=== PATIENT | female | born 1995 | race Caucasian/White ===

== ENCOUNTER 2022-10-09 15:46 | Outpatient (OUT) | payer BC, SELFPAY ==
[2022-10-09 16:46] LABS: Thyroid Stimulating Hormone 0.944 uIU/mL (0.358-3.740)
== END 2022-10-09 15:47 ==
PROVIDERS: PCP Obstetrics & Gynecology; Visit Provider Obstetrics & Gynecology
DX: R79.89 Other specified abnormal findings of blood chemistry (principal)
CPT/HCPCS: 36415; 84443

== ENCOUNTER 2022-11-10 21:33 | Outpatient (OUT) | payer BC, SELFPAY ==
[2022-11-13 18:07] LABS: Age Gdln ACOG Testing Note (.); IGP, rfx Aptima HPV ASCU Note (.)
== END 2022-11-10 21:34 | disposition home or self-care (01) ==
LOC: LAB 21:35
PROVIDERS: PCP Obstetrics & Gynecology; Visit Provider Obstetrics & Gynecology
DX: Z12.4 Encounter for screening for malignant neoplasm of cervix (principal); Z11.51 Encounter for screening for human papillomavirus (HPV)
CPT/HCPCS: G0145

== ENCOUNTER 2022-12-02 13:02 | Outpatient (OUT) | payer BC, SELFPAY ==
--- NOTE | 2022-12-02 | US_ITS ---
[address] [address] Patient Name: WESLEY LAGUNAS MRN: [id number] date: 1995 Sex: F Assigned Patient Location: US Current Patient Location: Accession/Order Number: [id number] Exam Date: 12/02/2022 13:05 Report Date: 12/02/2022 17:55 At the request of: NAS WHALEN Procedure: US OB anatomy EXAMINATION: US OB anatomy HISTORY: ANATOMY COMPARISON: No relevant comparison available. TECHNIQUE: Transabdominal sonographic examination was performed for obstetrical and evaluation. FINDINGS: Number: 1 Heart Rate: 143.0 bpm H.B. /min Amniotic Fluid Volume: Subjectively normal presentation: Cephalic Placental Location: Anterior. Placental edge 5.5 cm from the cervical os. Grade 0. Cervix Length: 3.7 cm, closed Normal anatomy: Lateral ventricles, cerebellum, posterior fossa, nose, lips, orbits, four-chamber heart, RVOT, LVOT, diaphragm, stomach, kidneys, abdominal cord insertion, bladder, umbilical cord arteries, three-vessel cord, spine, extremities BIOMETRY: BPD: 5.2 cm 21 weeks 5 days , 80% HC: 19.5 cm 21 weeks 5 days, 78% AC: 16.6 cm 21 weeks 5 days, 70% FL: 3.8 cm 22 weeks 2 days, 86% EFW:461.1 grams; 1 lb. 0 oz., 93% FL/AC: 23.1 FL/BPD: 74.3 HC/AC: 1.2 GESTATIONAL AGE: Age by EDC: 20 weeks 6 days KYRA by EDC: 04/15/2023 Age by current US: 21 weeks 4 days KYRA by current US: 04/10/2023 US/US OB anatomy IMPRESSION: Normal anatomy scan *Reference: [facility] Practice Guideline for the performance of Obstetric Ultrasound Examinations, February 01, 2007. Electronically authenticated by: DREAD SOLIS Date: 12/02/2022 17:55
--- NOTE | 2022-12-02 | US_ITS ---
[address] [address] Patient Name: WESLEY LAGUNAS MRN: [id number] date: 1995 Sex: F Assigned Patient Location: US Current Patient Location: Accession/Order Number: [id number] Exam Date: 12/02/2022 13:05 Report Date: 12/02/2022 17:55 At the request of: NAS WHALEN Procedure: US OB transvaginal EXAMINATION: US OB anatomy HISTORY: ANATOMY COMPARISON: No relevant comparison available. TECHNIQUE: Transabdominal sonographic examination was performed for obstetrical and evaluation. FINDINGS: Number: 1 Heart Rate: 143.0 bpm H.B. /min Amniotic Fluid Volume: Subjectively normal presentation: Cephalic Placental Location: Anterior. Placental edge 5.5 cm from the cervical os. Grade 0. Cervix Length: 3.7 cm, closed Normal anatomy: Lateral ventricles, cerebellum, posterior fossa, nose, lips, orbits, four-chamber heart, RVOT, LVOT, diaphragm, stomach, kidneys, abdominal cord insertion, bladder, umbilical cord arteries, three-vessel cord, spine, extremities BIOMETRY: BPD: 5.2 cm 21 weeks 5 days , 80% HC: 19.5 cm 21 weeks 5 days, 78% AC: 16.6 cm 21 weeks 5 days, 70% FL: 3.8 cm 22 weeks 2 days, 86% EFW:461.1 grams; 1 lb. 0 oz., 93% FL/AC: 23.1 FL/BPD: 74.3 HC/AC: 1.2 GESTATIONAL AGE: Age by EDC: 20 weeks 6 days KYRA by EDC: 04/15/2023 Age by current US: 21 weeks 4 days KYRA by current US: 04/10/2023 US/US OB transvaginal IMPRESSION: Normal anatomy scan *Reference: [facility] Practice Guideline for the performance of Obstetric Ultrasound Examinations, February 01, 2007. Electronically authenticated by: DREAD SOLIS Date: 12/02/2022 17:55
[2022-12-05 00:06] LABS: AFP Value 86.7 ng/mL (.); Gest. Age on Collection Date 20.9 weeks (.); Gestat. Age Based On Ultrasound (.); Insulin Dep Diabetes No (.); Maternal Age At EDD 26.4 yr (.); OSBR Risk 1 IN See interpretation. (.); Results Report (.)
== END 2022-12-02 13:03 | disposition home or self-care (01) ==
LOC: US 13:02
PROVIDERS: PCP Obstetrics & Gynecology; Visit Provider Obstetrics & Gynecology
DX: Z34.92 Encounter for supervision of normal pregnancy, unspecified, second trimester (principal)
CPT/HCPCS: 36415; 76805; 76817; 82105

== ENCOUNTER 2023-01-02 10:02 | Outpatient (OUT) | payer BC, SELFPAY ==
[2023-01-02 08:51] LABS: Basophils Percent Auto 0.5 % (0.2-2.0); Eosinophils Absolute Auto 0.2 10^3/uL (0.0-0.7); Hematocrit 34.9 % (36.0-48.0); Hemoglobin 11.5 g/dL (12.0-16.0); Immature Granulocytes Abs Auto 0.11 10^3/uL (0.00-0.03); Immature Granulocytes Pct Auto 1.3 % (0.0-0.5); Lymphocytes Absolute Auto 1.6 10^3/uL (1.2-3.8); Lymphocytes Percent Auto 19.3 % (20.5-60.0); Mean Corpuscular Hemoglobin 29.6 pg (26.7-34.0); Mean Corpuscular Volume 89.9 fL (81.0-99.0); Mean Platelet Volume 10.6 fL (9.5-13.5); Monocytes Absolute Auto 0.6 10^3/uL (0.3-0.8); Monocytes Percent Auto 6.8 % (1.7-12.0); Neutrophils Absolute Auto 5.7 10^3/uL (1.4-6.5); Neutrophils Percent Auto 70.1 % (43.0-75.0); Platelet Count 171 10^3/uL (150-450); Red Blood Count 3.88 10^6/uL (4.20-5.40); Red Cell Distribution Width 12.7 % (11.0-15.0); White Blood Count 8.2 10^3/uL (4.0-11.0)
[2023-01-02 10:11] LABS: Glucose 1 Hour 104 mg/dL
== END 2023-01-02 10:03 | disposition home or self-care (01) ==
LOC: LAB 01-09 10:02
PROVIDERS: PCP Obstetrics & Gynecology; Visit Provider Physician Assistant
DX: Z34.90 Encounter for supervision of normal pregnancy, unspecified, unspecified trimester (principal)
CPT/HCPCS: 36415; 82950; 85025

== ENCOUNTER 2023-02-13 07:49 | Outpatient (OUT) | payer BC, SELFPAY ==
--- NOTE | 2023-02-13 | US_ITS ---
[address] [address] Patient Name: WESLEY LAGUNAS MRN: [id number] date: 1995 Sex: F Assigned Patient Location: US Current Patient Location: Accession/Order Number: [id number] Exam Date: 02/13/2023 08:02 Report Date: 02/13/2023 15:07 At the request of: NAS WHALEN Procedure: US OB growth EXAMINATION: US OB growth HISTORY: SIZE INCONSISTENT WITH DATES O26.849 COMPARISON: No relevant comparison available. FINDINGS: Heart Rate: 161.7 bpm Number: 1.0 Position: BREECH Amniotic Fluid Volume: 11.3 cm Maximum Vertical Pocket: 3.8 cm BIOMETRY: BPD: 7.8 cm cm; 31 weeks 2 days; 40% HC: 30.9 cmcm; 34 weeks 3 days; 91% AC: 26.1 cm cm; 30 weeks 2 days; 18% FL: 5.9 cm cm; 31 weeks 0 days; 27% EFW: 1669.6 grams; 27% FL/AC: 22.7 FL/BPD: 76.1 HC/AC: 1.2 GESTATIONAL AGE: Age by EDC: 31 weeks 2 days KYRA by EDC: 04/15/2023 Age by US: 31 weeks 5 days KYRA by US: 04/12/2023 US/US OB growth IMPRESSION: 1. Single live intrauterine with growth detailed above. Electronically authenticated by: JANIE BABCOCK Date: 02/13/2023 15:07
== END 2023-02-13 07:50 | disposition home or self-care (01) ==
LOC: US 07:52
PROVIDERS: Visit Provider Obstetrics & Gynecology
DX: O26.843 Uterine size-date discrepancy, third trimester (principal); Z3A.31 31 weeks gestation of pregnancy
CPT/HCPCS: 76816

== ENCOUNTER 2023-03-19 19:05 | Outpatient (REF) | payer BC, SELFPAY | END 2023-03-19 19:06 | disposition home or self-care (01) | LOC: LAB 19:05 | PROVIDERS: Visit Provider Obstetrics & Gynecology | DX: Z34.93 Encounter for supervision of normal pregnancy, unspecified, third trimester (principal) | CPT/HCPCS: 87081 ==

== ENCOUNTER 2023-04-07 20:28 | Inpatient (IN) | payer BC, SELFPAY ==
[2023-04-07] VITALS (9 sets, daily range): BP systolic 106–122; BP diastolic 71–79; PULSE 96–109; RESP 17–24; TEMP 36.3–36.8; O2SAT 97–100
--- NOTE | 2023-04-07 20:48 | US_ITS ---
[address] [address] Patient Name: WESLEY LAGUNAS MRN: [id number] date: 1995 Sex: F Assigned Patient Location: [facility] Current Patient Location: [facility] Accession/Order Number: [id number] Exam Date: 04/07/2023 21:15 Report Date: 04/07/2023 21:58 At the request of: DAXA TURNER Procedure: US OB limited EXAM: US OB limited HISTORY: to determine position COMPARISON: None. TECHNIQUE: Limited OB ultrasound is performed for Evaluation of position. FINDINGS: Single live and active fetus is seen with breech position and longitudinal lie. heart rate is 134 bpm. US/US OB limited IMPRESSION: Single live and active fetus is seen with breech position. heart rate is 134 bpm. Electronically authenticated by: BRYSON DOE Date: 04/07/2023 21:58
[2023-04-07] MEDS: FAMOTIDINE/PF 20 MG/2 ML VIAL IV (22:25)
[2023-04-07] MEDS: CITRIC ACID/SODIUM CITRATE 30 ML SOLUTION ORACIT SHOHL'S SOLN PO (22:25)
[2023-04-07] MEDS: 0.9 % SODIUM CHLORIDE 1,000 ML 1000 ML IV (22:27)
[2023-04-07] MEDS: METOCLOPRAMIDE HCL 10 MG/2 ML VIAL IVP (22:27)
[2023-04-07 22:29] LABS: Basophils Percent Auto 0.3 % (0.2-2.0); Eosinophils Absolute Auto 0.1 10^3/uL (0.0-0.7); Hematocrit 34.9 % (36.0-48.0); Hemoglobin 11.7 g/dL (12.0-16.0); Immature Granulocytes Abs Auto 0.13 10^3/uL (0.00-0.03); Immature Granulocytes Pct Auto 1.3 % (0.0-0.5); Lymphocytes Percent Auto 19.6 % (20.5-60.0); Mean Corpuscular HGB Conc 33.5 g/dL (29.9-35.2); Mean Corpuscular Volume 86.6 fL (81.0-99.0); Mean Platelet Volume 11.9 fL (9.5-13.5); Monocytes Absolute Auto 0.6 10^3/uL (0.3-0.8); Monocytes Percent Auto 5.8 % (1.7-12.0); Neutrophils Absolute Auto 7.2 10^3/uL (1.4-6.5); Platelet Count 173 10^3/uL (150-450); Red Blood Count 4.03 10^6/uL (4.20-5.40); Red Cell Distribution Width 13.6 % (11.0-15.0)
[2023-04-07] MEDS: CEFAZOLIN SODIUM/DEXTROSE,ISO 1 GM/50 ML IV.SOLN IV (22:31)
[2023-04-07 22:37] LABS: Bilirubin Urine NEGATIVE (NEGATIVE); Blood Urine NEGATIVE (NEGATIVE); Clarity Urine CLEAR (CLEAR); Color Urine LT. YELLOW (YELLOW); Glucose Urine UA NEGATIVE (NEGATIVE); Ketones Urine NEGATIVE (NEGATIVE); Leukocyte Esterase Urine SMALL (NEGATIVE); Nitrite Urine NEGATIVE (NEGATIVE); Protein Urine NEGATIVE (NEG/TRACE); Specific Gravity Urine 1.015 (1.005-1.025); Urobilinogen Urine 0.2 EU/dL (0.2-1.0)
[2023-04-07 22:45] LABS: Bacteria Urine SMALL #/HPF (NONE SEEN); Mucus Urine TRACE (NONE SEEN); Squamous Epithelial Cell Urine MODERATE #/LPF (NONE/RARE)
[2023-04-07 22:46] LABS: Amorphous Sediment Urine RARE; Cast Seen? NONE SEEN #/LPF (NONE SEEN); Crystals Seen? Seen #/HPF (None Seen); RBC Urine 0-2 #/HPF (0-2)
[2023-04-07 22:47] LABS: Amphetamine Screen Urine NEGATIVE (NEGATIVE); Barbiturates Screen Urine NEGATIVE (NEGATIVE); Benzodiazepines Screen Urine NEGATIVE (NEGATIVE); Buprenorphine Screen Urine NEGATIVE (NEGATIVE); Cannabinoid Screen Urine NEGATIVE (NEGATIVE); Cocaine Screen Urine NEGATIVE (NEGATIVE); Methadone Screen Urine NEGATIVE (NEGATIVE); Methamphetamines Screen Urine NEGATIVE (NEGATIVE); Opiate Screen Urine NEGATIVE (NEGATIVE); Oxycodone Screen Urine NEGATIVE (NEGATIVE); Phencyclidine Screen Urine NEGATIVE (NEGATIVE); Tricyclic Antidepressant Urine NEGATIVE (NEGATIVE)
--- NOTE | 2023-04-07 23:28 | P.ON_ITS ---
Brief Operative Note Date of procedure: 04/07/23 Pre-op diagnosis: iup at 39wks, breech presentation Post-op diagnosis: same as pre-op Procedure: NAME OF PROCEDURE: [ section ] PROCEDURE: Patient was taken back to the Operating Room where she was given a spinal anesthesia with Duramorph without difficulty. She was prepped and draped in the normal sterile fashion. A Pfannenstiel skin incision was then made 2 cm above the symphysis pubis and carried down to underlying rectus fascia using a Bovie. The fascia was incised in the midline and extended laterally using Kincaid scissors. Two Artie clamps were placed on the superior aspect of the fascia and dissected off the underlying rectus muscles. The same was performed on the inferior aspect as well. The muscles were then in the midline. Peritoneum was identified and entered bluntly. The peritoneum was then extended superiorly and inferiorly with good visualization of the bladder. The bladder blade was inserted. A low transverse incision was made on the patient's uterus and extended laterally digitally. The was then delivered atraumatically after the bladder blade was removed in the edilberto breech position. The cord was clamped and cut. Cord blood was obtained. The was handed off to awaiting team. The patient's placenta was spontaneously delivered. The uterus was then exteriorized. The uterus was cleared of all clots and debris. The bladder blade was reinserted. The patient's uterine incision was closed using #0 Vicryl in a running lock fashion. Excellent hemostasis was assured. The uterus was then returned to the patient's abdomen. The patient's abdomen was copiously irrigated using warm saline. Peritoneal gutters were cleared of all clots and debris. Again excellent hemostasis was assured. The patient's peritoneum was cl osed using 3-0 Vicryl in a running fashion. The patient's fascia was closed using #0 Vicryl in a running fashion. The patient's skin was closed using 4-0 Vicryl subcuticularly. The patient tolerated the procedure well. Sponge, lap, and needle counts were correct x2. The patient was taken to the Recovery Room in stable condition. Anesthesia: spinal Surgeon: Claudio Alanis Registered Radiation Therapist: So Hull Estimated blood loss (mL): 600 Pathology: none sent Condition: stable Disposition: PACU
--- NOTE | 2023-04-07 23:29 | PM.OBPRCCS ---
Procedure Pre-op/Post-op diagnoses: Pre-Op/Post-Op Diagnoses Operation Date: 04/07/23 22:30 <No data on this case meets the specified criteria> Procedure: Procedures Operation Date: 04/07/23 22:30 Actual Procedure Side Surgeon p with delivery of viable baby boy Not Applicable Claudio Alanis DO Storage Administrator: So Hull Estimated blood loss (mL): 600 Disposition: PACU Anesthesia type: Spinal
[2023-04-07] MEDS: BUPIVACAINE LIPOSOME/PF 266 MG/13.3 ML VIAL INJ (23:41)
[2023-04-07] MEDS: BUPIVACAINE HCL 0.25% PF 25 MG/10 ML VIAL INJ (23:41)
[2023-04-08] VITALS (48 sets, daily range): BP systolic 100–131; BP diastolic 49–80; PULSE 61–117; RESP 11–33; TEMP 36.3–37.2; O2SAT 96–97
[2023-04-08] MEDS: OXYTOCIN/0.9 % SODIUM CHLORIDE 20 UNITS/1,000 ML PLAST..BAG 200 UNIT IV (00:50)
[2023-04-08] MEDS: CEFAZOLIN SODIUM/DEXTROSE,ISO 1 GM/50 ML IV.SOLN IV (04:51)
[2023-04-08] MEDS: ACETAMINOPHEN 500 MG TABLET 1000 MG PO ×2 (04:51→18:32)
[2023-04-08 05:36] LABS: Basophils Percent Auto 0.2 % (0.2-2.0); Eosinophils Percent Auto 0.1 % (0.9-7.0); Hematocrit 27.4 % (36.0-48.0); Hemoglobin 8.9 g/dL (12.0-16.0); Immature Granulocytes Pct Auto 0.6 % (0.0-0.5); Lymphocytes Absolute Auto 1.4 10^3/uL (1.2-3.8); Lymphocytes Percent Auto 8.3 % (20.5-60.0); Mean Corpuscular HGB Conc 32.5 g/dL (29.9-35.2); Mean Corpuscular Hemoglobin 28.7 pg (26.7-34.0); Mean Corpuscular Volume 88.4 fL (81.0-99.0); Mean Platelet Volume 11.3 fL (9.5-13.5); Monocytes Absolute Auto 0.7 10^3/uL (0.3-0.8); Neutrophils Percent Auto 86.8 % (43.0-75.0); Platelet Count 151 10^3/uL (150-450); Red Cell Distribution Width 13.5 % (11.0-15.0); White Blood Count 17.3 10^3/uL (4.0-11.0)
[2023-04-08] MEDS: KETOROLAC TROMETHAMINE 30 MG/ML VIAL IVP ×3 (07:39→23:53)
--- NOTE | 2023-04-08 11:09 | PM.OBPN ---
OB - PN: Subj Subjective Patient comments: no complaints and pain well controlled [place] status: doing well Exam Constitutional Vital Signs, click to edit/add: Last Vital Signs Temp 98.9 F 04/08/23 03:20 Pulse 111 H 04/08/23 04:10 Resp 15 04/08/23 04:10 BP 110/62 04/08/23 04:00 Pulse Ox 97 04/08/23 04:10 O2 Del Method Room Air 04/08/23 03:20 Documenting provider has reviewed patient's vital signs: yes Common normals: no apparent distress Respiratory Common normals: normal respiratory effort and clear to auscultation bilaterally Cardio Common normals: regular rate and regular rhythm GI Common normals: Normal to inspection, nondistended, normoactive bowel sounds present Extremity Common normals: no calf tenderness Results Labs Labs: Short CBC 04/07/23 04/08/23 Range/Units 21:40 05:29 WBC 10.0 17.3 H (4.0-11.0) 10^3/uL Hgb 11.7 L 8.9 L (12.0-16.0) g/dL Hct 34.9 L 27.4 L (36.0-48.0) % Plt Count 173 151 (150-450) 10^3/uL Urine 04/07/23 Range/Units 20:40 Urine Color Lt. yellow (YELLOW) Urine Clarity Clear (CLEAR) Urine pH 7.0 (5.0-9.0) Ur Specific [place] 1.015 (1.005-1.025) Urine Protein Negative (NEG/TRACE) mg/dL Urine Glucose (UA) Negative (NEGATIVE) mg/dL OB - PN: A/P Plan - day: 1 Plan: routine postop care Time Spent with Patient Time: Total time spent is greater than 50% in coordination of care (as documented) at patient's floor/unit and/or counseling patient: Total time spent with greater than 50% in coordination of care (as documented) at patient's floor/unit and/or counseling patient: less than 15 minutes
[2023-04-08] MEDS: DOCUSATE SODIUM 100 MG CAPSULE PO (23:53)
[2023-04-09] VITALS (7 sets, daily range): BP systolic 104–130; BP diastolic 56–71; PULSE 97–115; RESP 16–18; TEMP 36.1–36.9
[2023-04-09] MEDS: ACETAMINOPHEN 500 MG TABLET 1000 MG PO ×2 (03:51→16:27)
--- NOTE | 2023-04-09 08:06 | P.OBPN_ITS ---
OB - PN: Subj Subjective Patient comments: no complaints [place] status: doing well and well ( and pumping ) Exam Constitutional Vital Signs, click to edit/add: Last Vital Signs Temp 98.4 F 04/09/23 00:00 Pulse 97 H 04/09/23 00:00 Resp 16 04/09/23 00:00 BP 108/57 04/09/23 00:00 Pulse Ox 97 04/08/23 04:10 O2 Del Method Room Air 04/09/23 00:00 Documenting provider has reviewed patient's vital signs: yes Common normals: no apparent distress General appearance: cooperative and comfortable Orientation/consciousness: Yes awake, Yes oriented to person, Yes oriented to place and Yes oriented to time HENMT Common normals: normocephalic Eye Common normals: EOMs intact bilaterally Neck & C-Spine Common normals: full ROM Lymph Lymphatic: no lymphadenopathy noted Chest Common normals: inspection of chest normal Respiratory Common normals: normal respiratory effort Effort & inspection: able to speak in complete sentences Auscultation: clear to auscultation bilaterally Cardio Common normals: regular rate and regular rhythm Rate: regular rate Rhythm: regular rhythm GI Common normals: Normal to inspection, nondistended, normoactive bowel sounds present Common normals: no CVA tenderness Back & Pelvis Common normals: no CVA tenderness Extremity Common normals: normal to inspection Neuro Common normals: oriented x3 Sensorium/orientation: awake, alert, oriented to person, oriented to place and oriented to time Psych Common normals: mental status grossly normal, thought process normal and cooperative OB - PN: A/P Plan - day: 2 Plan: routine postop care Time Spent with Patient Time: Total time spent is greater than 50% in coordination of care (as documented) at patient's floor/unit and/or counseling patient: Total time spent with greater than 50% in coordination of care (as documented) at patient's floor/unit and/or counseling patient: less than 15 minutes
[2023-04-09] MEDS: DOCUSATE SODIUM 100 MG CAPSULE PO ×2 (10:09→21:27)
[2023-04-09] MEDS: KETOROLAC TROMETHAMINE 30 MG/ML VIAL IVP ×2 (10:09→21:27)
--- NOTE | 2023-04-09 12:12 | W.PC.ACHO ---
Registration Status: ADM IN Primary Language: [place] Preferred Language: [place] Active Medications Generic Name Dose Route Start Last Admin Trade Name Freq PRN Reason Stop Dose Admin Acetaminophen 1,000 mg 04/08/23 04:45 04/09/23 03:51 Acetaminophen 500 Mg Tablet PO 1,000 mg Q6H CHELI Administration Al Hydroxide/Mg Hydroxide 2,400 mg 04/07/23 23:31 Magnesium Hydroxide 2,400 Mg/10 Ml Oral.Susp PO Q6H PRN Dyspepsia Docusate Sodium 100 mg 04/08/23 09:00 04/09/23 10:09 Docusate Sodium 100 Mg Capsule PO 100 mg BID CHELI Administration Ketorolac Tromethamine 30 mg 04/08/23 07:30 04/09/23 10:09 Ketorolac Tromethamine 30 Mg/Ml Vial IVP 30 mg Q8H CHELI Administration Ondansetron HCl 4 mg 04/07/23 23:31 Ondansetron Pf 4 Mg/2 Ml Vial IV Q6H PRN Nausea And Vomiting Ondansetron HCl 4 mg 04/07/23 23:31 Ondansetron 4 Mg Rapdis Tablet PO Q6H PRN Nausea And Vomiting Oxycodone HCl 5 mg 04/08/23 00:46 Oxycodone Hcl 5 Mg Tablet PO Q4H PRN MODERATE Pain Senna 17.2 mg 04/07/23 20:00 Sennosides 8.6 Mg Tablet PO QHS PRN Constipation Simethicone 80 mg 04/07/23 23:31 Simethicone 80 Mg Tab.Chew PO QID PRN Abdominal Distention Respiratory Oxygen Delivery Method Room Air Oxygen Delivery Method Room Air Oxygen Delivery Method Room Air Oxygen Delivery Method Room Air Cardiology Heart Sounds Strong,Regular Heart Sounds Strong,Regular Heart Sounds Strong,Regular Bowels Bowel Pattern No Bowel Movement Bowel Pattern No Bowel Movement Renal Bladder Pattern Continent Bladder Pattern Continent Bladder Pattern Continent
--- NOTE | 2023-04-10 07:12 | W.PC.ACHO ---
Registration Status: ADM IN Primary Language: [place] Preferred Language: [place] Active Medications Generic Name Dose Route Start Last Admin Trade Name Freq PRN Reason Stop Dose Admin Acetaminophen 1,000 mg 04/08/23 04:45 04/09/23 16:27 Acetaminophen 500 Mg Tablet PO 1,000 mg Q6H CHELI Administration Al Hydroxide/Mg Hydroxide 2,400 mg 04/07/23 23:31 Magnesium Hydroxide 2,400 Mg/10 Ml Oral.Susp PO Q6H PRN Dyspepsia Docusate Sodium 100 mg 04/08/23 09:00 04/09/23 21:27 Docusate Sodium 100 Mg Capsule PO 100 mg BID CHELI Administration Ketorolac Tromethamine 30 mg 04/08/23 07:30 04/10/23 03:56 Ketorolac Tromethamine 30 Mg/Ml Vial IVP Not Given Q8H [facility] Ondansetron HCl 4 mg 04/07/23 23:31 Ondansetron Pf 4 Mg/2 Ml Vial IV Q6H PRN Nausea And Vomiting Ondansetron HCl 4 mg 04/07/23 23:31 Ondansetron 4 Mg Rapdis Tablet PO Q6H PRN Nausea And Vomiting Oxycodone HCl 5 mg 04/08/23 00:46 Oxycodone Hcl 5 Mg Tablet PO Q4H PRN MODERATE Pain Senna 17.2 mg 04/07/23 20:00 Sennosides 8.6 Mg Tablet PO QHS PRN Constipation Simethicone 80 mg 04/07/23 23:31 Simethicone 80 Mg Tab.Chew PO QID PRN Abdominal Distention Respiratory Oxygen Delivery Method Room Air Cardiology Heart Sounds Strong,Regular Heart Sounds Regular Bowels Bowel Pattern No Bowel Movement Renal Bladder Pattern Continent Bladder Pattern Continent
[2023-04-10 07:43] VITALS: BP 123/66; PULSE 99
[2023-04-10 07:50] VITALS: RESP 16
[2023-04-10 07:52] VITALS: TEMP 36.8
--- NOTE | 2023-04-10 08:47 | PC.NURSE ---
LC into room. Discusses use of [employer] Bridge to aid in making feedings more streamlined. Parents eager to try the Bridge for feedings. Review plan for feedings with continued pumping, offering the breast without shield and using shield as needed for effective feeds. Parents are very good with baby and states are able to continue efforts to breastfeed at home. Encouraged to call for next feeding so can learn to use new device. Verbalized understanding.
[2023-04-10] MEDS: DOCUSATE SODIUM 100 MG CAPSULE PO (09:00)
[2023-04-10] MEDS: IBUPROFEN 400 MG TABLET 800 MG PO (09:00)
--- NOTE | 2023-04-10 09:49 | PM.OBPN ---
OB - PN: Subj Subjective Patient comments: no complaints and pain well controlled [place] status: doing well Exam Constitutional Vital Signs, click to edit/add: Last Vital Signs Temp 98.3 F 04/10/23 07:52 Pulse 99 H 04/10/23 07:43 Resp 16 04/10/23 07:50 BP 123/66 04/10/23 07:43 Pulse Ox 97 04/08/23 04:10 O2 Del Method Room Air 04/09/23 23:04 Documenting provider has reviewed patient's vital signs: yes Common normals: no apparent distress Respiratory Common normals: normal respiratory effort and clear to auscultation bilaterally Cardio Common normals: regular rate and regular rhythm GI Common normals: Normal to inspection, nondistended, normoactive bowel sounds present Extremity Common normals: no clubbing, cyanosis or edema and no calf tenderness OB - PN: A/P Plan - day: 3 Plan: routine postop care, discharge home and follow up 6 weeks Time Spent with Patient Time: Total time spent is greater than 50% in coordination of care (as documented) at patient's floor/unit and/or counseling patient: Total time spent with greater than 50% in coordination of care (as documented) at patient's floor/unit and/or counseling patient: less than 15 minutes
--- NOTE | 2023-04-10 11:20 | PC.NURSE ---
Plan for feeds made. Follow up visit scheduled with LC, supportive handouts given with discussions. Parents feel confident in ability to continue at home.
[2023-04-10] MEDS: FLU VACC QS 23-24(6MS UP)CEL/PF 60 MCG/0.5 ML SYRINGE IM (11:48)
[2023-04-10] MEDS: ADACEL DIPH,PERTUSS(ACELL),TET VAC/PF 0.5 ML ADULT SYRINGE IM (11:51)
--- NOTE | 2023-04-17 | DS_ITS ---
DISCHARGE DATE: 04/17/2023 PRIMARY DIAGNOSES: 1. Intrauterine at 39 weeks. 2. Breech presentation. PROCEDURE: section. HOSPITAL COURSE: As expected. Please see chart for full details. LABORATORY DATA: Please see chart. COMPLICATIONS: None. DISCHARGE CONDITION: Stable. CONSULTATION: Anesthesia. DISCHARGE INSTRUCTIONS: 1. Diet: Regular. 2. Medications: a. Percocet 5/325 one to two p.o. every 4-6 hours p.r.n. pain. b. Motrin 800 one p.o. every 8 hours p.r.n. pain. 3. Followup in one week. Restrictions: Pelvic rest for 6 weeks. No heavy lifting. May drive when pain free and no longer on narcotics. MTDD
== END 2023-04-10 12:20 | disposition home or self-care (01) | DRG 788 ==
PROVIDERS: Admitting Provider Obstetrics & Gynecology; Visit Provider Obstetrics & Gynecology
PROC: 10D00Z1 Extraction of Products of Conception, Low, Open Approach (ICD-10-PCS; CPT 59514; principal; 2023-04-07 22:30)
DX: O32.1XX0 Maternal care for breech presentation, not applicable or unspecified (principal); Z3A.39 39 weeks gestation of pregnancy; Z37.0 Single live birth; Z82.5 Family history of asthma and other chronic lower respiratory diseases; Z83.3 Family history of diabetes mellitus; Z82.49 Family history of ischemic heart disease and other diseases of the circulatory system; Z82.61 Family history of arthritis; Z80.8 Family history of malignant neoplasm of other organs or systems
CPT/HCPCS: 36415; 51701; 51702; 64486; 76815; 80307; 81001; 85025; 86850; 86900; 86901; 90471; 90674; 90715; 96374; 96375; 96376; G0008

== ENCOUNTER 2023-04-14 08:21 | Outpatient (OUT) | payer BC, SELFPAY ==
--- NOTE | 2023-04-14 17:30 | PC.NURSE ---
Radha, and 7 day old Candelaria arrive for follow up. Parents admit to feeling tired and a bit overwhelmed Radha states I had a meltdown on the way here [place] and relates just felt tired, one more appointment, fresh C/S, and baby will need to be fed while they were away from home. Support and encouragement offered. Radha doing well, pain managed with Motrin only, states able to rest in between feeds and very supportive and helpful. Denies concerns or complaints with self. Assessment WNL, VSS, incision clear without drainage or redness. No edema of extremities. Bleeding minimal and light. Milk in and engorgement subsided. Breasts full and soft now. Pumping after efforts at the breast to ensure supply as Bari still having difficulties with feeds. Obtains full bottle of milk, has stores in fridge and freezer. Bari is alert and rooting. Color slightly jaundiced, Bili level 8.1 transcutaneous. Assessment WNL, VSS. Of note: head appears to be reshaping since delivery. Continues to have asymmetry of skull, and face but difference noted from delivery. Bari was breech and under mom's right breast high up there Noted at to be very tense, tight, crying with handling, unable to extend arms or legs or have movement of neck and shoulders. Initiated craniosacral therapy in hospital with positive results Able to extend arms out to sides and above head on own, Right leg relaxed and nearly straightens. Left leg remains flexed position much resistance when attempt to straighten. Baby able to extend neck back to allow for latching and does well with shield. Suck is now rhythmic and audible swallows/gulps noted with letdown. Mother has been using [employer] Bridge for feeding and giving baby 25-30 ml of pumped milk while attempting to nurse. Discussed not adding supplement and allowing to use shield only as able to now latch and move milk as evidence by milk in shield, audible swallows and small regurg once off breast. Parents pleased with infant progress and will continue to work with craniosacral therapy. will return for support 04/22/2023 230pm. Family leaves for next appointment with PCP for Radha. No further questions at this time.
[2023-04-14 17:32] VITALS: BP 115/74; PULSE 84; RESP 16; TEMP 36.8; O2SAT 98
== END 2023-04-14 12:40 | disposition home or self-care (01) ==
LOC: FBCO 08:29
PROVIDERS: Visit Provider Obstetrics & Gynecology
DX: Z39.2 Encounter for routine postpartum follow-up (principal)

== ENCOUNTER 2023-04-22 09:01 | Outpatient (OUT) | payer BC, SELFPAY ==
--- OUTSIDE RECORDS SUMMARY | 2023-04-22 09:29 | XMS_ITS | CCD ---
Author Name Unknown Address [address] [place] [address] Organization [facility] Care Team Providers Care Motion Picture Camera Lens Technician Name Role Phone Eleni Dc Unavailable KOBY ., DR LOVELL Consulting Unavailable KOBY ., DR LOVELL Attending Unavailable KOBY ., DR LOVELL Admitting Unavailable ZIEBER, DR JANIE Lux Consulting Unavailable REQUEST, DR JONES LISTED Consulting Unavaila ble KOBY ., DR LOVELL Consulting Unavailable KOBY ., DR LOVELL Attending Unavailable KOBY ., DR LOVELL Admitting Unavailable KOBY ., DR LOVELL Consulting Unavailable KOBY ., DR LOVELL Attending Unavailable KOBY ., DR LOVELL Admitting Unavailable Orrosendach Bindu X Attending Unavailable Bindu Martinez Admitting Unavailable Nick Velasquez Attending Unavailable Ortori Bindu X Attending Unavailable ANTHONY ROMAN Attending Unavailable ANTHONY ROMAN Primary Care Physician NAS WHALEN Attending Unavailable QUINTON VELEZ Attending Unavailable NAS WHALEN Attending Unavailable QUINTON VELEZ Attending Unavailable Allergies Allergy Classification Reported Allergen(s) Allergy Type Date of Onset Reaction(s) Facility (3 sources) Codeine; Translations: [codeine] Drug Allergy Unknown [facility] Repository (1 source) Unable to obtain; Translations: [Unable to obtain] Propensity to adverse reactions (disorder) [facility] Repository Medications Current Medications Medication Drug Class(es) Dates Sig (Normalized) Sig (Original) azithromycin 250 mg oral tablet (1 source) Macrolide Antimicrobial Start: 02-19-2021 Zithromax Z-Chilo 250 MG 2 tablets on the first day, then 1 tablet daily for 4 days Orally Once a day for 5 day(s) Feb, Active Blisovi 24 Fe (1 source) Blisovi 24 Fe Active ethinyl estradiol 0.02 mg / ferrous fumarate 75 mg / norethindrone 1 mg oral tablet (1 source) Estrogen Start: 02-13-2022 Chanell 24 Fe oral tablet Refill(s) 0 Start Date: 02/13/22 Status: Ordered fluticasone propionate 0.05 mg/actuat metered dose nasal spray (1 source) Corticosteroid Start: 02-19-2021 take 1 spray(s) nasal route once daily Flonase Allergy Relief 50 MCG/ACT 1 spray in each nostril Nasally Once a day for 30 day(s) Feb, Active Problems Active Problems Problem Classification Problem Date Documented Da te Episodic/Chronic Menstrual disorders (5 sources) Irregular menstruation, unspecified; Translations: [IRREGULAR MENSTRUATION UNSPECIFIED] Onset: 09-09-2022 Chronic Other and delivery including normal (2 sources) Encounter for supervision of other normal , first trimester; Translations: [Encounter for supervision of normal , unspecified, first trimester] Onset: 09-11-2022 Episodic Residual codes; unclassified (1 source) 8 weeks gestation of ; Translations: [8 WEEKS GESTATION OF ] Onset: 09-11-2022 Episodic Syncope (1 source) Syncope and collapse; Translations: [Syncope and collapse] Onset: 11-05-2022 Episodic Past or Other Problems Problem Classification Problem Date Documented Date Episodic/Chronic Acute bronchitis (1 source) Acute bronchitis; Translations: [Acute bronchitis] Episodic Immunizations and screening for infectious disease (2 sources) Contact with and (suspected) exposure to other viral communicable diseases; Translations: [Encounter for screening for human papillomavirus (HPV)] Onset: 02-19-2021 Resolved: 02-19-2021 Episodic Other screening for suspected conditions (not mental disorders or infectious disease) (4 sources) Encounter for screening for malignant neoplasm of cervix; Translations: [ENC SCREENING MALIG NEOPLASM CERV] Onset: 03-13-2022 Episodic Other upper respiratory infections (2 sources) Acute sinusitis; Translations: [Sinusitis acute] Onset: 02-19-2021 Resolved: 02-19-2021 Episodic Urinary tract infections (1 source) Urinary tract infectious disease; Translations: [UTI (urinary tract infection)] Episodic Results Test Name Value Interpretation Reference Range Facil ity Auto Diffon 11-05-2022 Basophils/100 WBC (Bld) 0.1 % Normal 0.0-2.0 F [facility] Comment on above: Order Comment: Order Added by Discern Expert. Performed By: #### 1 [id number], [id number], [id number], [id number] #### [facility] [address] [place] [address] Basophils/Leukocytes Auto (B ld) [Pure # fraction] 0.0 E9/L Normal 0.0-0.2 [facility] Comment on above: Order Comment: Order Added by Discern Expert. Performed By: #### 1 [id number], [id number], 3275851, [id number] #### [facility] [address] [place] [address] Eosinophils/100 WBC (Bld) 2.6 % Normal 0.0-8.0 [facility] Comment on above: Order Comment: Order Added by Discern Expert. Performed By: #### 1 [id number], 0357570, 7107660, [id number] #### [facility] [address] [place] [address] Eosinophils/Leukocytes Auto (Bld) [Pure # fraction] 0.2 E9/L Normal 0.0-0.5 [facility] Comment on above: Order Comment: Order Added by Discern Expert. Performed By: #### 1 [id number], 3308643, 5260208, [id number] #### [facility] [address] [place] [address]9715 Lymphocytes/100 WBC (Bld) 25.8 % Normal 14.0-50.0 [facility] Comment on above: Order Comment: Order Added by Discern Expert. Performed By: #### 1 [id number], 3364910, 4672574, 8236702 #### [facility] [address] [place] [address]31 Lymphocytes/Leukocytes Auto (Bld) [Pure # fraction] 1.9 E9/L Normal 1.0-4.0 [facility] Comment on above: Order Comment: Order Added by Discern Expert. Performed By: #### 1 [id number], 3142577, 8155823, 0535971 #### [facility] [address] [place] [address] Monocytes/100 WBC (Bld) 4.8 % Normal 4.0-14.0 [facility] Comment on above: Order Comment: Order Added by Discern Expert. Performed By: #### 1 [id number], 7708953, 6775041, 8889597 #### [facility] [address] [place] [address] Monocytes/Leukocytes Auto (B ld) [Pure # fraction] 0.3 E9/L Normal 0.2-1.0 [facility] Comment on above: Order Comment: Order Added by Discern Expert. Performed By: #### 1 [id number], 7559898, 4709914, 7807622 #### [facility] [address] [place] [address] Neutrophils/100 WBC (Bld) 66.7 % Normal 36.0-75.0 [facility] Comment on above: Order Comment: Order Added by Discern Expert. Performed By: #### 1 [id number], 3033010, 4512359, 1427357 #### [facility] [address] [place] [address] Neutrophils/Leukocytes Auto (Bld) [Pure # fraction] 4.8 E9/L Normal 2.0-7.5 [facility] Comment on above: Order Comment: Order Added by Discern Expert. Performed By: #### 1 5576982, 5068427, 2363535, 9183481 #### [facility] [address] [place] [address] BMP 11-05-2022 Creatinine [Mass/Vol] 0.6 mg/dL Normal 0.5-1.3 [facility] Comment on above: Performed By: #### 1 [id number], 1439968, 3726832, 2137521 #### [facility] [address] [place] [address] Urea nitrogen [Mass/Vol] 13 mg/dL Normal 5-21 [facility] Comment on above: Performed By: #### 1 7023007, 7799209, 5663430, 4743014 #### [facility] [address] [place] [address] Urea nitrogen/Creatinine [Mass ratio] 22 No Units High 10-20 [facility] Comment on above: Performed By: #### 1 1701223, 2376229, 1020058, 6271200 #### [facility] [address] [place] [address] Anion gap [Moles/Vol] 10 mmol/L Normal 6-16 [facility] Comment on above: Performed By: #### 1 [id number], 2771453, 5239064, 6049761 #### [facility] [address] [place] [address] Calcium [Mass/Vol] 8.8 mg/dL Low 8.9-11.1 [facility] Comment on above: Performed By: #### 1 7009830, 6131754, 0398749, 9126676 #### [facility] [address] [place] [address] Chloride [Moles/Vol] 102 mmol/L Normal 101-111 [facility] Comment on above: Performed By: #### 1 1433839, 3812064, 3766454, 1935199 #### [facility] [address] [place] [address] CO2 [Moles/Vol] 23 mmol/L Normal 21-31 [facility] Comment on above: Performed By: #### 1 2949729, 5113588, 9158705, 6366598 #### [facility] [address] [place] [address] Glucose [Mass/Vol] 119 mg/dL Normal 55-199 [facility] Comment on above: Result Comment: If t his glucose result represents a fasting glucose, interpretation should refer to the following reference range: 55-99 mg/dL Performed By: #### 1 2030608, 2139577, 9113456, 7352220 #### [facility] [address] [place] [address] Potassium [Moles/Vol] 3.4 mmol/L Low 3.5-5.3 [facility] Comment on above: Performed By: #### 1 0684636, 0403556, 6727090, 7507356 #### [facility] [address] [place] [address] Sodium [Moles/Vol] 132 mmol/L Low 135-145 [facility] Comment on above: Performed By: #### 1 2366639, 2524882, 0558485, 2338870 #### [facility] [address] [place] [address] CBC w/ Auto Diffon 3 Erythrocyte distribution wid th (RBC) [Ratio] 13.0 % Normal 10.9-14.2 [facility] Comment on above: Performed By: #### 1 [id number], 3120397, 7426762, 7112255 #### [facility] [address] [place] [address] Hematocrit (Bld) [Volume fraction] 35.0 % Normal 34.0-46.0 [facility] Comment on above: Performed By: #### 1 2339423, 9180675, 5403957, 0452960 #### [facility] [address] [place] [address] Hemoglobin (Bld) [Mass/Vol] 12.0 g/dL Normal 12.0-16. 0 [facility] Comment on above: Performed By: #### 1 1101924, 8599940, 9523072, 9708447 #### [facility] [address] [place] [address] 72067 MCH (RBC) [Entitic mass] 29.4 pg Normal 27.0-34.0 [facility] Comment on above: Performed By: #### 1 3362373, 0849927, 1335110, 8334803 #### [facility] [address] [place] [address] MCHC (RBC) [Mass/Vol] 34.4 g/dL Normal 31.4-36.0 [facility] Comment on above: Performed By: #### 1 0233938, 4236071, 2768090, 9708890 #### [facility] [address] [place] [address] MCV (RBC) [Entitic vol] 85.5 fL Normal 80.0-100.0 F [facility] Comment on above: Performed By: #### 1 5374927, 5067583, 0275884, 8757927 #### [facility] [address] [place] [address] Platelet mean volume (Bld) [Entitic vol] 8.5 fL Normal 6.4-10.8 [facility] Comment on above: Performed By: #### 1 0745398, 2662258, 7114949, 7665388 #### [facility] [address] [place] [address] 19855 Platelets (Bld) [#/Vol] 188.0 E9/L Normal 150.0-500.0 [facility] Comment on above: Performed By: #### 1 6558145, 0249400, 9660100, 8933205 #### [facility] [address] [place] [address] 26552 RBC (Bld) [#/Vol] 4.1 E12/L Low 4.3-5.9 [facility] Comment on above: Performed By: #### 1 1184427, 5967076, 1424283, 9755620 #### [facility] [address] [place] [address] WBC corrected for nucl RBC A uto (Bld) [#/Vol] 7.2 E9/L Normal 4.0-11.0 [facility] Comment on above: Performed By: #### 1 5747005, 1424916, 9641859, 4420413 #### [facility] [address] [place] [address] CHEMISTRYOrdered By: SYSTEM SYSTEM on 11-05-2022 Anion gap [Moles/Vol] 10 mmol/L Normal 6 - 16 mEq/L [facility] Calcium [Mass/Vol] 8.8 mg/dL Low 8.9 - 11.1 mg/dL [facility] Chloride [Moles/Vol] 102 mmol/L Normal 101 - 111 mmol/ L [facility] CO2 [Moles/Vol] 23 mmol/L Normal 21 - 31 mmol/L [facility] Creatinine [Mass/Vol] 0.6 mg/dL Normal 0.5 - 1.3 mg/d L [facility] GFR/1.73 sq M.predicted among non-blacks MDRD (S/P/Bld) [Vol rate/Area] 128 mL/min/1.73 m2 Normal >=59mL/min/1.73 m2 [facility] [place] Chem S Glucose [Mass/Vol] 119 mg/dL Normal 55 - 199 mg/dL [facility] Potassium [Moles/Vol] 3.4 mmol/L Low 3.5 - 5.3 mmol /L [facility] [place] Remisol Sodium [Moles/Vol] 132 mmol/L Low 135 - 145 mmol/L [facility] [place] Remisol Urea nitrogen [Mass/Vol] 13 mg/dL Normal 5 - 21 mg/d L [facility] [place] Remisol Urea nitrogen/Creatinine [Mass ratio] 22 mg/mg High 10 - 20 [facility] Consent for Treatmenton 07-0 Consent for Treatment [id number]:127 Normal [facility] Discharge Instructionson Discharge Instructions [id number]:127 Normal [facility] ED Clinical Summaryon 2022 ED Clinical Summary (Inserted Image. Sandra ble to display) [place] [id number] ED Clinical Summary Person Information Name: WESLEY DIHN [place] Age: 26 Years : 1995 Sex: Female Language: Russian PCP: ANTHONY ROMAN MD Marital Status: Single Visit Id: Visit Reason: Syncope/Near syncope; LIGHT HEAD, DIZZY Speciality: Acuity: 3 Enc Type: Emergency Med Service: Emergency Arrival: 11/05/2022 07:55:48 Discharge: 11/05/2022 11:31:55 LOS: 000 03:36 Checkin: 11/05/2022 07:55:48 Checkout: 11/05/2022 11:31:55 Dispo Type: Home (Routine DC) EVENTS: Event Name Event Status Request Date/Time Start Date/Time Complete Date/Time Arrive Complete 11/05/2022 07:55:48 11/05/2022 07:55:48 11/05/2022 07:55:48 Document Home Meds Request 11/05/2022 07:55:48 Triage Complete 11/05/2022 07:55:48 11/05/2022 08:06:57 11/05/2022 08:06:57 Bed Assign Complete 11/05/2022 07:57:08 11/05/2022 07:57:08 11/05/2022 07:57:08 Dr Exam Complete 11/05/2022 07:57:08 11/05/2022 08:03:33 11/05/2022 08:03:33 RN Exam Complete 11/05/2022 07:57:08 11/05/2022 11:33:55 11/05/2022 11:33:55 Registration Complete 11/05/2022 07:59:19 11/05/2022 07:59:19 11/05/2022 07:59:19 Reg Complete Request 11/05/2022 07:59:19 Reg Bed Request Complete 11/05/2022 07:59:19 11/05/2022 07:59:19 11/05/2022 07:59:19 EKG Complete 11/05/2022 08:02:15 11/05/2022 08:07:09 Registration Complete 11/05/2022 08:03:33 11/05/2022 08:12:05 11/05/2022 08:12:05 Dr Exam Complete 11/05/2022 08:08:02 11/05/2022 08:08:02 11/05/2022 08:08:02 Pending Labs Complete 11/05/2022 08:09:08 11/05/2022 11:14:53 Lab Complete 11/05/2022 08:09:08 11/05/2022 11:14:53 Urine Collect Complete 11/05/2022 08:09:08 11/05/2022 11:14:53 Meds Admin Complete 11/05/2022 08:09:09 11/05/2022 08:34:29 Pending Labs Complete 11/05/2022 08:32:21 11/05/2022 08:32:21 11/05/2022 09:09:24 Lab Complete 11/05/2022 08:32:21 11/05/2022 08:32:21 11/05/2022 09:09:24 Pending Labs Complete 11/05/2022 08:33:06 11/05/2022 08:33:06 11/05/2022 08:33:07 Pending Labs Complete 11/05/2022 08:44:16 11/05/2022 08:44:16 11/05/2022 08:44:22 Lab Complete 11/05/2022 08:44:16 11/05/2022 08:44:16 11/05/2022 08:44:22 Discharge Complete 11/05/2022 11:24:57 11/05/2022 11:36:08 11/05/2022 11:36:08 Transfer Complete 11/05/2022 11:36:08 11/05/2022 11:36:08 11/05/2022 11:36:08 ADDRESS: [address] [place] [id number] [facility] DOC NOTES: MEDICAL INFORMATION: Prescriptions Given: Medications to Continue with No Changes Other Medications ethinyl estradiol-norethindrone (Chanell 24 Fe oral tablet) PATIENT EDUCATION INFORMATION: Instructions: Near-Syncope Follow up: With: Address: When: Nas WHALEN [facility], [address] [place] [address] [place] [address] Business (1) In 3 days 11/08/2022 With: Address: When: ANTHONY ROMAN [address] [place] [id number] Business (1) In 3 days 11/08/2022 Comments: Call the office of your primary care doctor to arrange for follow-up within the above-stated timeframe. Follow-up with your primary care doctor about this ED visit. You should review your labs, imaging, and diagnoses from this ED visit with your primary care physician. If you were prescribed medications you should discuss possible side-effects and drug interactions with your pharmacist. Call 911 or go to the nearest Emergency Department if you develop any new or worsening symptoms. DIAGNOSIS: Near syncope Normal [facility] ED Note-Physicianon 11-06-19 ED Note-Physician Basic Information Time Seen: Patrick BERNARDO, Kashif Martins 11/05/2022 08:03 History of Present Illness 26-year-old female who is 17 weeks with her first child presents to the ED with complaints of a near syncopal event. Patient reports that she was at work today because she began to feel lightheaded. Patient reports that she had to take a seat, felt dizzy and like she was going to pass out. Coworkers are present report the patient was very pale during this event, became diaphoretic. Patient reports symptoms mostly resolved within about a 10-minute period. Patient denies any chest pain, denies any headache, denies any focal neurologic deficits. Patient denies any palpitations. Patient reports he has not had a previous similar episode, however this is her first . Patient ports that she did eat breakfast this morning. Patient reports that she not sleep well last night. Patient ports being generally otherwise healthy, does have a history of asthma. Review of Systems Full 10 system ROS performed. Pt denies symptoms except as noted above in the HPI. Physical Exam Vitals & Measurements T: 36.8 ?C(Oral) HR: 86(Peripheral) RR: 16 BP: 92/63 SpO2: 100% HT: 158 cm WT: 62.4 kg BMI: 25 VITALS: I have reviewed the triage vital signs. GENERAL: Well developed, well appearing adult in no acute distress. NEURO: Alert and oriented. Moves all extremities. Face is symmetric and expressive. EYES: PERRL. No scleral icterus or conjunctival injection. No discharge. HENT: Normocephalic, atraumatic. Hearing is grossly intact. Nares grossly patent and without discharge. Mucous membranes moist. NECK: No JVD. Patient moves neck without restriction. CARDIO: Rhythm regular. Normal rate. No murmur, rub, or gallop. Pulses equal bilaterally in the upper and lower extremity. No lower extremity edema. PULM: Lungs clear to auscultation in all ku. No wheezes, rales, or rhonchi. No conversational dyspnea. No splinting, stridor, or accessory muscle use. GI/: Abdomen is soft and non-tender. Normoactive bowel sounds. EXTREMITIES: Symmetric muscle bulk. No joint swelling. No clubbing, cyanosis, or deformity. SKIN: Warm and dry. Normal turgor. No rash or lesions appreciated. PSYCH: Mood, affect, and interaction is appropriate to the setting. Medical Decision Making MEDICAL DECISION MAKING Number and Complexity of Problems Differential Diagnosis: [] [facility] Data External documents reviewed: [] My EKG interpretation: No STEMI, normal sinus rhythm, normal My CT interpretation: [] My X-ray interpretation: [] My Ultrasound interpretation: [] Decision rules/scores evaluated: [] Discussed with: [] Treatment and Disposition ED Course: Patient presents ED for evaluation of a presyncopal episode, no other complaints. Patient well-appearing presentation to ED. Patient slightly hypertensive on presentation ED, patient orthostatic vital signs negative. Patient given fluids in the ED. Patient remained well-appearing, endorse total resolution of her symptoms. Work-up in ED reviewed and noted. Patient without any major abnormalities of lab work-up. Due to the fact the patient is well-appearing, no other alarming findings on physical exam or labs, patient appropriate for return home and follow-up with PCP as well as [employer]CH[employer] PRESENTATION ASSOCIATE. Return precaution discussed. Patient questions answered. Patient discharged home. Shared decision making: [] Code status: [] Assessment/Plan Near syncope (R55: Syncope and collapse) Orders: Sodium Chloride 0.9% intravenous solution, 1,000 mL, Soln-IV, IV, Once, Stop date 11/05/22 8:08:00 EDT, STAT, Start date 11/05/22 8:08:00 EDT, Infuse over 61, minute(s) Sodium Chloride 0.9% intravenous solution, 1,000 mL, IV, Stop date 11/05/22 10:45:00 EDT, Start date 11/05/22 10:45:00 EDT Sodium Chloride 0.9% intravenous solution, Soln-IV, Misc, Once, Stop date 11/05/22 10:42:37 EDT, Physician Stop, 11/05/22 10:42:37 EDT Automated Diff Basic Metabolic Panel CBC w/ Auto Diff eGFR Extra Blue Tube Extra SST Tube Orthostatic Vitals Signs UA With Cult Reflex Disposition Plan Patient Discharge Condition Stable Discharge Disposition To home Discharge Prescription List Prescriptions No active prescription medications Follow-up No qualifying data available Attestation Patient seen and evaluated by the physician catering administrative assistant. Attending physician was present in the emergency department and supervised care. This visit was performed by both the physician and an APC. I performed all aspects of the MDM as documented. This report was transcribed using voice recognition software. Every effort was made to ensure accuracy, however, inadvertently computerized talent specialist mistakes may be present. Appropriate healthcare PPE was used in evaluating this patient. The patient was placed in a mask. The healthcare provider was wearing mask, gloves, and utilizing proper hand hygiene. All equipment was properly c (more content not included)... Normal [facility] Comment on above: Result Comment: Elec tronically Signed By: Kashif Nguyen PA-C\.br\Date and Time Signed: 11/05/22 11:29 EDT\.br\Electronically Co-Signed By: Nick Velasquez DO\.br\Date and Time Co-Signed: 11/05/22 13:32 EDT ED Patient Education Noteon 11-05-2022 ED Patient Education Note Neurology Near-Syncope Near-syncope is when you suddenly feel like you might pass out or faint, but you do not actually lose consciousness. This may also be referred to as presyncope. During an episode of near-syncope, you may: ? Feel dizzy, weak, light-headed, or like the room is spinning. ? Feel nauseous. ? See spots or see all white or all black in your field of vision. ? Have cold, clammy skin or feel warm and sweaty. ? Hear ringing in your ears (tinnitus). This condition is caused by a sudden decrease in blood flow to the brain. This decrease can result from various causes, but most of those causes are not dangerous. However, near-syncope may be a sign of a serious medical problem, so it is important to seek medical care. Follow these instructions at home: Medicines ? Take plxo-xmw-svjnriw and prescription medicines only as told by your health care provider. ? If you are taking blood pressure or heart medicine, get up slowly and take several minutes to sit and then stand. This can reduce dizziness and decrease the risk of near-syncope. Lifestyle ? Do not drive, use machinery, or play sports until your health care provider says it is okay. ? Do not drink alcohol. ? Do not use any products that contain nicotine or tobacco. These products include cigarettes, chewing tobacco, and vaping devices, such as e-cigarettes. If you need help quitting, ask your health care provider. ? Avoid hot tubs and saunas. General instructions ? Pay attention to any changes in your symptoms. ? Talk with your health care provider about your symptoms. You may need to have testing to understand the cause of your near-syncope. ? If you start to feel like you might faint, sit or lie down right away. If sitting, put your head down between your legs. If lying down, raise (elevate) your feet above the level of your heart. ? Breathe deeply and steadily. Wait until all of the symptoms have passed. ? Have someone stay with you until you feel stable. ? Drink enough fluid to keep your urine pale yellow. ? Avoid prolonged standing. If you must stand for a long time, do movements such as: ? Moving your legs. ? Crossing your legs. ? Flexing and stretching your leg muscles. ? Squatting. ? Keep all follow-up visits. This is important. Contact a health care provider if: ? You continue to have episodes of near fainting. Get help right away if: ? You faint. ? You have any of these symptoms that may indicate trouble with your heart: ? Fast or irregular heartbeats (palpitations). ? Unusual pain in your chest, abdomen, or back. ? Shortness of breath. ? You have a seizure. ? You have a severe headache. ? You are confused. ? You have vision problems. ? You have severe weakness or trouble walking. ? You are bleeding from your mouth or rectum, or have black or tarry stool. These symptoms may represent a serious problem that is an emergency. Do not wait to see if your symptoms will go away. Get medical help right away. Call your local emergency services (911 in the [place] Do not drive yourself to the hospital. Summary ? Near-syncope is when you suddenly feel like you might pass out or faint, but you do not actually lose consciousness. ? This condition is caused by a sudden decrease in blood flow to the brain. This decrease can result from various causes, but most of those causes are not dangerous. ? Near-syncope may be a sign of a serious medical problem, so it is important to seek medical care. ? If you start to feel like you might faint, sit or lie down right away. If sitting, put your head down between your legs. If lying down, raise (elevate) your feet above the level of your heart. ? Talk with your health care provider about your symptoms. You may need to have testing to understand the cause of your near-syncope. This information is not intended to replace advice given to you by your health care provider. Make sure you discuss any questions you have with your health care provider. Document Revised: 08/29/2021 Document Reviewed: 08/29/2021 [employer] Patient Education ? 2022 [employer] Normal [facility] ED Patient Summaryon 023 ED Patient Summary (Inserted Image. Sandra ble to display) [place] [id number] Patient Discharge Instructions Person Information Name: WESLEY DINH Age: 26 Years Arrival Date: 11/05/2022 07:55:48 Discharge Diagnosis: Near syncope Primary Care Physician: ANTHONY ROMAN MD Provider Information Primary Provider: Nick Velasquez DO Advanced Residential Le[employer] Manager:Kashif Nguyen PA-C The exam and treatment you received in the Emergency Department were for an urgent problem and are not intended as complete care. It is important that you follow up with a doctor, nurse practitioner, or physician?s catering administrative assistant for ongoing care. If your symptoms become worse or you do not improve as expected and you are unable to reach your usual health care provider, you should return to the Emergency Department. We are available 24 hours a day. WESLEY DINH has been given the following list of patient education materials, prescriptions and follow-up instructions: Follow-up Instructions: With: Address: When: Nas WHALEN [facility], [address] [place] [address] [place] [address] [facility] (1) In 3 days 11/08/2022 With: Address: When: ANTHONY ROMAN [address] [id number] [facility] (1) In 3 days 11/08/2022 Comments: Call the office of your primary care doctor to arrange for follow-up within the above-stated timeframe. Follow-up with your primary care doctor about this ED visit. You should review your labs, imaging, and diagnoses from this ED visit with your primary care physician. If you were prescribed medications you should discuss possible side-effects and drug interactions with your pharmacist. Call 911 or go to the nearest Emergency Department if you develop any new or worsening symptoms. In the event that this physician does not participate in your insurance network, please consult with your insurance company to find a nearby participating provider. Patient Education Materials: Near-Syncope A MESSAGE TO ALL PATIENTS REGARDING OPIOIDS PRESCRIPTION OPIOIDS: WHAT YOU NEED TO KNOW Prescription opioids can be used to help relieve xzsdxdxg-fb-bldjgo pain and are often prescribed following a surgery or injury, or for certain health conditions. These medications can be an important part of the treatment but also come with serious risks. It is important to work with your healthcare provider to make sure you are getting the safest, most effective care. WHAT ARE THE RISKS AND SIDE EFFECTS OF OPIOID USE? Prescription opioids carry serious risks of addiction and overdose, especially with prolonged use. An opioid overdose, often marked by slowed breathing, can cause sudden . The use of prescription opioids can have a number of side effects as well, even when taken as directed: ? Tolerance?meaning you might need to take more of the medication for the same pain relief ? Physical dependence?meaning you have symptoms of withdrawal when a medication is stopped ? Increased sensitivity to pain ? Constipation ? Nausea, vomiting, and dry mouth ? Sleepiness and dizziness ? Confusion ? Depression ? Low levels of testosterone that can result in lower sex drive, energy, and strength ? Itching and sweating RISKS ARE GREATER WITH: ? History of drug misuse, substance use disorder, or overdose ? Mental health conditions (such as depression or anxiety) ? Sleep apnea ? Older age (65 years and older) ? Avoid alcohol while taking prescription opioids. Also, unless specifically advised by your health care provider, medications to avoid include: ? Benzodiazepines (such as Xanax or Valium) ? Muscle relaxants (such as Soma or Flexeril) ? Hypnotics (such as Ambien or Lunesta) ? Other prescription opioids KNOW YOUR OPTIONS Talk to your health care provider about ways to manage your pain that don?t involve prescription opioids. Some of these options may actually work better and have fewer risks and side effects. Options may include: ? Pain relievers such as acetaminophen, ibuprofen, and naproxen ? Some medication that are also used for depression or seizures ? Physical therapy and exercise ? Cognitive behavioral therapy, a psychological, goal-directed approach, in which patients learn how to modify physical, behavioral, and emotional triggers of pain and stress. IF YOU ARE PRESCRIBED OPIOIDS FOR PAIN: ? Never take opioids in greater amounts or more often than prescribed. ? Follow up with your primary health care provider. o Work together to create a plan on how to manage your pain. o Talk about ways to help manage your pain that don?t involve prescription opioids. o Talk about any and all concerns and side effects. ? Help prevent misuse and abuse o Never sell or share prescription opioids. o Never use another person?s prescription opioids. ? Store prescription opio (more content not included)... Normal [facility] HEMATOLOGYOrdered By: SYSTEM SYSTEM on 11-05-2022 Basophils/100 WBC (Bld) 0.1 % Normal 0.0 - 2.0 % [facility] HemeAutoSS Basophils/Leukocytes Auto (B ld) [Pure # fraction] 0.0 E9/L Normal 0.0 - 0.2 E9/L [facility]eAuto[facility] Eosinophils/100 WBC (Bld) 2.6 % Normal 0.0 - 8.0 % [facility]eAutoSS Eosinophils/Leukocytes Auto (Bld) [Pure # fraction] 0.2 E9/L Normal 0.0 - 0.5 E9/L [facility] HemeAutoS S Lymphocytes/100 WBC (Bld) 25.8 % Normal 14.0 - 50. 0 % [facility] HemeAutoSS Lymphocytes/Leukocytes Auto (Bld) [Pure # fraction] 1.9 E9/L Normal 1.0 - 4.0 E9/L [facility] HemeAutoS S Monocytes/100 WBC (Bld) 4.8 % Normal 4.0 - 14.0 % [facility] HemeAutoSS Monocytes/Leukocytes Auto (B ld) [Pure # fraction] 0.3 E9/L Normal 0.2 - 1.0 E9/L [facility] HemeAutoSS Neutrophils/100 WBC (Bld) 66.7 % Normal 36.0 - 75. 0 % [facility] HemeAutoSS Neutrophils/Leukocytes Auto (Bld) [Pure # fraction] 4.8 E9/L Normal 2.0 - 7.5 E9/L [facility] HemeAutoS S HEMATOLOGYOrdered By: Kevin Ruiz on 11-05-2022 Erythrocyte distribution wid th (RBC) [Ratio] 13.0 % Normal 10.9 - 14.2 % [facility] HemeAutoSS Hematocrit (Bld) [Volume fraction] 35.0 % Normal 34.0 - 46.0 % [facility] Hemoglobin (Bld) [Mass/Vol] 12.0 g/dL Normal 12.0 - 1 6.0 gm/dL [facility] MCH (RBC) [Entitic mass] 29.4 pg Normal 27.0 - 34.0 pg [facility] MCHC (RBC) [Mass/Vol] 34.4 g/dL Normal 31.4 - 36.0 gm /dL [facility] MCV (RBC) [Entitic vol] 85.5 fL Normal 80.0 - 100.0 fL [facility] Platelet mean volume (Bld) [Entitic vol] 8.5 fL Normal 6.4 - 10.8 fL [facility] Platelets (Bld) [#/Vol] 188.0 E9/L Normal 150.0 - 500. 0 E9/L [facility] RBC (Bld) [#/Vol] 4.1 E12/L Low 4.3 - 5.9 E12/L [facility] WBC corrected for nucl RBC A uto (Bld) [#/Vol] 7.2 E9/L Normal 4.0 - 11.0 E9/L [facility] UA With Cult Reflexon 2022 Bacteria LM Ql (Urine sed) TRACE Normal Trace [facility] Comment on above: Performed By: #### 1 [id number] #### [facility] [address] [place] [address] Bilirubin Ql (U) Negative Normal Negative [facility] Comment on above: Performed By: #### 1 [id number] #### [facility] [address] [place] [address] Clarity (U) SL CLOUDY Invalid Interpretation Code [facility] Comment on above: Performed By: #### 1 [id number] #### [facility] [address] [place] [address] Color (U) YELLOW Normal Yellow [facility] Comment on above: Performed By: #### 1 [id number] #### [facility] [address] [place] [address] Epithelial cells.squamous LM .HPF (Urine sed) [#/Area] 3-4 Normal 0-2 [facility] Comment on above: Performed By: #### 1 [id number] #### [facility] [address] [place] [address] Glucose Test strip (U) [Mass/Vol] Negative Normal Negative [facility] Comment on above: Performed By: #### 1 [id number] #### [facility] [address] [place] [address] Hemoglobin Ql (U) Negative Normal Negative [facility] Comment on above: Performed By: #### 1 [id number] #### [facility] [address] [place] [address] Ketones (U) [Mass/Vol] Negative Normal Negative [facility] Comment on above: Performed By: #### 1 [id number] #### [facility] [address] [place] [address] [place].plasma/[place].RBC (Bld) [Mass ratio] 0-3 N ormal 0-3 [facility] Comment on above: Performed By: #### 1 [id number] #### [facility] [address] [place] [address] Mucus Ql (Urine sed) TRACE Normal [facility] Comment on above: Performed By: #### 1 [id number] #### [facility] [address] [place] [address] Nitrite Ql (U) Negative Normal Negative [facility] Comment on above: Performed By: #### 1 [id number] #### [facility] [address] [place] [address] pH (U) 6.5 [pH] Invalid Interpretation Code 5.0-9.0 [facility] Comment on above: Performed By: #### 1 [id number] #### [facility] [address] [place] [address] Protein (U) [Mass/Vol] Negative Normal Negative [facility] Comment on above: Performed By: #### 1 [id number] #### [facility] [address] [place] [address] Specific gravity (U) [Rel density] <=1.005 Invalid Interpretation Code 1.005-1.030 [facility] Comment on above: Performed By: #### 1 [id number] #### [facility] [address] [place] [address] Type of Urine collection method Clean Catch Normal [facility] Comment on above: Performed By: #### 1 [id number] #### [facility] [address] [place] [address] Urobilinogen Qn (U) 0.2 {Rogelio'U}/dL Normal 0.0-1.0 [facility] Comment on above: Performed By: #### 1 [id number] #### [facility] [address] [place] [address] WBC Auto Ql (U) TRACE Abnormal Negative [facility] Comment on above: Performed By: #### 1 [id number] #### [facility] [address] [place] [address] WBC LM.HPF (Urine sed) [#/Area] 0-5 Normal 0-5 [facility] Comment on above: Performed By: #### 1 [id number] #### [facility] [address] [place] [address] URINALYSISOrdered By: Marisol Hendrix on 11-05-2022 Bacteria LM Ql (Urine sed) Trace /HPF Normal Trace/HPF [facility] [place] UA Auto SS Bilirubin Ql (U) Negative (11/05/22 10:36 AM) Normal Negative [facility] UA Auto SS Clarity (U) SL CLOUDY Invalid Interpre tation Code [facility] UA Auto SS Color (U) Yellow (11/05/22 10:36 AM) Normal Yellow [facility] UA Auto SS Epithelial cells.squamous LM.HPF (Urine sed) [#/Area] 3-4 /HPF Normal 0-2/HPF [facility] UA Auto SS Glucose Test strip (U) [Mass/Vol] Negative (11/05/22 10:36 AM) Normal Negative [facility] UA Auto SS Hemoglobin Ql (U) Negative (11/05/22 10:36 AM) Normal Negative [facility] UA Auto SS Ketones (U) [Mass/Vol] Negative (11/05/22 10:36 AM) Normal Negative [facility] UA Auto SS [place].plasma/[place] um.RBC (Bld) [Mass ratio] 0-3 /HPF Normal 0-3/HPF [facility] UA Auto SS Mucus Ql (Urine sed) Trace (11/05/22 10:36 AM) Normal [facility] UA Auto SS Nitrite Ql (U) Negative (11/05/22 10:36 AM) Normal Negative [facility] UA Auto SS pH (U) 6.5 *NA* (11/05/22 10:36 AM) Invalid Interpretation Code 5.0 - 9.0 [facility] UA Auto SS Protein (U) [Mass/Vol] Negative (11/05/22 10:36 AM) Normal Negative [facility] UA Auto SS Specific gravity (U) [Rel density] <=1.005 *NA* (11/05/22 10:36 AM) Invalid Interpretation Code 1.005 - 1.030 [facility] UA Auto SS UA Spec Desc Clean Catch (11/05/22 10:36 AM) Normal [facility] [place] UA Auto SS Urobilinogen Qn (U) 0.9329837 {Rogelio'U}/dL Normal 0.0 - 1.0 EU/dL [facility] UA Auto SS WBC Auto Ql (U) Trace *ABN* (11/05/22 10:36 AM) Invalid Interpretation Code Negative [facility] UA Auto SS WBC LM.HPF (Urine sed) [#/Area] 0-5 /HPF Normal 0-5/HPF [facility] UA Auto SS eGFRon 11-05-2022 GFR/1.73 sq M.predicted nura g non-blacks MDRD (S/P/Bld) [Vol rate/Area] 128 mL/min/1.73 m2 Normal >=59 [facility] Comment on above: Order Comment: Order added by Discern Expert. Result Comment: Machine Stamper roxane kidney disease could be indicated at eGFR's of less than 60 mL/min/1.73m2. Kidney failure is indicated at less than 15 mL/min/1.73m2. Performed By: #### 1 [id number] #### [facility] [address] [place] [address] HEP B SURFACE ANTIGEN SCREEN on 09-10-2022 HBsAg Screen Negative Normal Negative [facility] Comment on above: Performed By: #### H BSANS #### Laboratory [address] [place] [address] Dr. Samira Griffiths HEPATITIS C VIRUS AB W/ REFL EX QUANTon 09-10-2022 HCV AB Non-Reactive Normal Non Reactive [facility] Comment on above: Performed By: #### H CVPCRR #### Laboratory [address] [place] [address] Dr. Samira Griffiths Interpretation: Comment Normal [facility] Comment on above: Result Comment: Not infected with HCV unless early or acute infection is suspected (which may be delayed in an immunocompromised individual), or other evidence exists to indicate HCV infection. Performed By: #### H CVPCRR #### Laboratory [address] [place] [address] Dr. Samira Griffiths HIV 1 AND 2 WITH REFLEXon HIV Screen 4th Generation wRfx Non-Reactive Normal Non Reactive [facility] Comment on above: Result Comment: HIV Negative HIV-1/HIV-2 antibodies and HIV-1 p24 antigen were NOT detected. There is no laboratory evidence of HIV infection. Performed By: #### H IV12 #### Laboratory [address] [place] [address] Dr. Samira Griffiths RPR QUANTon 09-10-2022 Rapid Plasma Reagin, Quant Non-Reactive Normal NonRea< 1:1 [facility] Comment on above: Result Comment: Plea se Note: This test does not meet current guidelines for screening and diagnosis of syphilis. This test is intended for following treatment response in patients being treated for syphilis infection. To screen for syphilis infection, a reflex cascade that includes both RPR and a treponema-specific assay should be utilized, such as Treponema pallidum (Syphilis) Screening Dupage (328136) or Rapid Plasma Reagin (RPR) Test With Reflex to Quantitative RPR and Confirmatory Treponema pallidum Antibodies (362668). Performed By: #### R PRQ #### Laboratory [address] [place] [address] Dr. Samira Griffiths RUBELLA AB IGGon 09-10-2022 Rubella Antibodies, IgG 3.13 index Normal Immune >0.99 [facility] Comment on above: Result Comment: Non- immune <0.90 Equivocal 0.90 - 0.99 Immune >0.99 Performed By: #### R UBIGG #### Laboratory [address] [place] [address] Dr. Samira Griffiths BOX TEST SENT OUTon 09-10-19 23 SENT TO REF LAB 09/09/2022 Normal [facility] Comment on above: Performed By: #### T SH #### Laboratory [address] [place] [address] Dr. Samira Griffiths CBC AUTO DIFFon 09-09-2022 BASO # 0.0 103/ul Normal 0.0-0.1 [facility] Comment on above: Performed By: #### C BC #### Laboratory [address] [place] [address] Dr. Samira Griffiths Basophils/100 WBC (Bld) 0.2 % Normal 0.2-2.0 [facility] Comment on above: Performed By: #### C BC #### Laboratory [address] [place] [address] Dr. Samira Griffiths EO # 0.2 103/ul Normal 0.0-0.7 [facility] Comment on above: Performed By: #### C BC #### Laboratory [address] [place] [address] Dr. Samira Griffiths Eosinophils/100 WBC (Bld) 1.9 % Normal 0.9-7.0 [facility] Comment on above: Performed By: #### C BC #### Laboratory [address] [place] [address] Dr. Samira Griffiths Erythrocyte distribution wid th (RBC) [Ratio] 11.9 % Normal 11.0-15.0 [facility] Comment on above: Performed By: #### C BC #### Laboratory [address] [place] [address] Dr. Samira Griffiths Hematocrit (Bld) [Volume fraction] 36.6 % Normal 3 6.0-48.0 [facility] Comment on above: Performed By: #### C BC #### Laboratory [address] [place] [address] Dr. Samira Griffiths Hemoglobin (Bld) [Mass/Vol] 12.4 g/dL Normal 12.0-16. 0 [facility] Comment on above: Performed By: #### C BC #### Laboratory [address] [place] [address] Dr. Samira Griffiths IG # 0.03 10e3/ul Normal 0.00-0.03 [facility] Comment on above: Performed By: #### C BC #### Laboratory [address] [place] [address] Dr. Samira Griffiths IG % 0.3 % Normal 0.0-0.5 [facility] Comment on above: Performed By: #### C BC #### Laboratory [address] [place] [address] Dr. Samira Griffiths LYMPH # 1.9 103/ul Normal 1.2-3.8 [facility] Comment on above: Performed By: #### C BC #### Laboratory [address] [place] [address] Dr. Samira Griffiths Lymphocytes/100 WBC (Bld) 21.1 % Normal 20.5-60.0 [facility] Comment on above: Performed By: #### C BC #### Laboratory [address] [place] [address] Dr. Samira Griffiths MANUAL DIFF REQ NO Normal [facility] Comment on above: Performed By: #### C BC #### Laboratory [address] [place] [address] Dr. Samira Griffiths MCH (RBC) [Entitic mass] 29.0 pg Normal 26.7-34.0 [facility] Comment on above: Performed By: #### C BC #### Laboratory [address] [place] [address] Dr. Samira Griffiths MCHC (RBC) [Mass/Vol] 33.9 g/dL Normal 29.9-35.2 [facility] Comment on above: Performed By: #### C BC #### Laboratory [address] [place] [address] Dr. Samira Griffiths MCV (RBC) [Entitic vol] 85.7 fL Normal 81.0-99.0 [facility] Comment on above: Performed By: #### C BC #### Laboratory [address] [place] [address] Dr. Samira Griffiths MONO # 0.6 103/ul Normal 0.3-0.8 [facility] Comment on above: Performed By: #### C BC #### Laboratory [address] [place] [address] Dr. Samira Griffiths Monocytes/100 WBC (Bld) 6.4 % Normal 1.7-12.0 [facility] Comment on above: Performed By: #### C BC #### Laboratory [address] [place] [address] Dr. Samira Griffiths NEUT # 6.3 103/ul Normal 1.4-6.5 [facility] Comment on above: Performed By: #### C BC #### Laboratory [address] [place] [address] Dr. Samira Griffiths Neutrophils/100 WBC (Bld) 70.1 % Normal 43.0-75.0 [facility] Comment on above: Performed By: #### C BC #### Laboratory [address] [place] [address] Dr. Samira Griffiths Platelet mean volume (Bld) [ Entitic vol] 10.1 fL Normal 9.5-13.5 [facility] Comment on above: Performed By: #### C BC #### Laboratory [address] [place] [address] Dr. Samira Griffiths PLT 228 103/ul Normal 150-450 [facility] Comment on above: Performed By: #### C BC #### Laboratory [address] [place] [address] Dr. Samira Griffiths RBC 4.27 106/ul Normal 4.20-5.40 The Comment on above: Performed By: #### C BC #### Laboratory [address] [place] [address] Dr. Samira Griffiths WBC 9.1 103/ul Normal 4.0-11.0 [facility] Comment on above: Performed By: #### C BC #### Laboratory [address] [place] [address] Dr. Samira Griffiths CULTURE URINEon 09-09-2022 CULTURE URINE Culture Observations : LIGHT GROWTH OF MIXED GENITAL BEHZAD. NO POTENTIAL PATHOGENS SEEN. Normal [facility]ital Comment on above: Performed By: #### T SH #### Laboratory [address] [place] [address] Dr. Samira Griffiths GLYCOHEMOGLOBIN A1Con 2022 ADA RECOMMENDATION SEE BELOW Normal [facility] Comment on above: Result Comment: ADA RECOMMENDED LIMIT 4.0 - 6.0 ADA THERAPEUTIC TARGET < 7.0 ACTION SUGGESTED > 7.0 Performed By: #### A 1C #### Laboratory [address] [place] [address] Dr. Samira Griffiths Glucose [Mass/Vol] 108 mg/dL Normal [facility] Comment on above: Performed By: #### A 1C #### Laboratory [address] [place] [address] Dr. Samira Griffiths HbA1c (Bld) [Mass fraction] 5.4 % Normal 4.5-6.2 The Comment on above: Performed By: #### A 1C #### Laboratory [address] [address] [address] Samira Griffiths TSHon 09-09-2022 TSH 0.224 uIU/mL Critically low 0.358-3.740 [facility] Comment on above: Performed By: #### T SH #### Laboratory [address] [address] [address] Samira Griffiths TYPE AND SCREENon 09-09-2022 TYPE AND SCREEN Negative Normal [facility] Comment on above: Performed By: #### T NS #### Laboratory [address] [place] [address] Dr. Samira Griffiths US PREG TVon 09-05-2022 US PREG TV EXAMINATION: US PREG TV HISTORY: Missed period COMPARISON: No relevant comparison available. FINDINGS: GESTATIONAL SAC: Present and normal appearing. YOLK SAC: Present and normal appearing. POLE: Present and normal appearing. CARDIAC: Present. UTERUS: Normal size and appearance. OVARIES: Right: Normal. Left: Normal. CERVIX: 4.0 cm in length and closed. CUL-DE-SAC: Normal. OTHER: None. AGE BY LMP: 9 weeks 5 days KYRA BY LMP: 04/05/2023 AGE BY US CRL: 8 weeks 2 days KYRA BY US CRL: 04/15/2023 IMPRESSION: 1. Single live intrauterine . Electronically authenticated by: JANIE BABCOCK Date: 2022-09-05 15:44 Normal [facility] PAP ONLYon 03-20-2022 . . Normal [facility] o[facility]ital Comment on above: Performed By: #### [id number] #### Laboratory [address] [place] [address] Dr. Samira Griffiths DIAGNOSIS: Comment Normal [facility] Comment on above: Result Comment: NEGA TIVE FOR INTRAEPITHELIAL LESION OR MALIGNANCY. Performed By: #### [id number] #### Laboratory [address] [place] [address] Dr. Samira Griffiths Methodology: Comment Normal The Comment on above: Result Comment: This liquid based ThinPrep(R) pap test was screened with the use of an image guided system. Performed By: #### [id number] #### Laboratory [address] [address] [address] Samira Griffiths Note: Comment Normal [facility] Comment on above: Result Comment: The Pap smear is a screening test designed to aid in the detection of premalignant and malignant conditions of the uterine cervix. It is not a diagnostic procedure and should not be used as the sole means of detecting cervical cancer. Both false-positive and false-negative reports do occur. . Performed By: #### [id number] #### Laboratory [address] [address] [address] Samira Griffiths Performed by: Comment Normal [facility] Comment on above: Result Comment: Francy Huitron, Medical Voucher Clerk Performed By: #### [id number] #### Laboratory [address] [address] [address] Samira Griffiths Specimen adequacy: Comment Normal [facility] Comment on above: Result Comment: Sati sfactory for evaluation. No endocervical component is identified. Performed By: #### [id number] #### Laboratory [address] [place] [address] Dr. Samira Griffiths Coding Summary.on 02-18-2022 Coding Summary. [id number] [file] b2xs (more content not included)... Normal [facility] Family Medicine Office/Clini c Noteon 02-13-2022 Family Medicine Office/Clinic Note Chief Complaint [facility] rash, cough, sore throat, HPI Staff Pt 26 yo female presents with rash, cough, swollen glands Onset-yesterday Cough: yes for 5 wks now Rhinorrhea: no Nasal Congestion: no Sore Throat: yes mild Ear Pain: no SOB: no Chest Symptoms: no Fever/Chills: no Symptom onset: Thursday Location: started on stomach, now everywhere comes and goes Characteristics at beginning: red blotchy patches Characteristics now: same Itch/Pain: no Treatments: no Ever had in past?: yes Change in soaps, detergents, exposures: no Allergies: no Fever: no History of Present Illness I have reviewed and verified the staff HPI to be accurate for this encounter. Patient presents in office today with respiratory symptoms x5 weeks. Patient reports a persistent, dry cough, mild sore throat that started yesterday. Denies fever, fatigue, nasal symptoms, ear pain or drainage, chest pain, shortness of breath or wheezing, GI symptoms, appetite change, urinary changes. No known COVID or sick exposures. No new loss of taste or smell. Patient is COVID vaccinated x2, last dose February 2021. Patient is using Tylenol at home with mild improvement of sore throat symptoms. Patient is also complaining of a rash x3 days. She reports red, blotchy patches that come and go. She denies open area, drainage, blistering, raised lesion, itching, pain, changes in exposures. She admits that shes had this before and it resolved on its own. Not using any treatment at home at this time. Review of Systems PHQ Score Initial Depression Screen Score: 0 Physical Exam Vitals & Measurements T: 36.9 ?C(Oral) HR: 87(Peripheral) BP: 100/72 SpO2: 98% HT: 62 in HT: 158 cm WT: 56 kg WT: 123.2 lb BMI: 22.43 General: Well developed, well nourished, in no acute distress Ears: No deformity or lesion of external ear. Canals and TM appear normal bilaterally. TM?s intact, not inflamed, with normal light reflex. Hearing grossly normal to conversational speech Nose: No deformity, discharge, inflammation, or lesions Mouth: Mucous membranes moist. Normal oropharynx, and posterior pharynx without lesions or exudates. Tongue normal mild erythema of the posterior pharynx, tonsils 1+. No palatal petechiae or inflammation noted. Neck: no adenopathy Lungs: Normal respiratory effort and clear to auscultation Cardio: regular rate and rhythm, no murmur Skin: _ Mild patchy erythema noted to the bilateral dorsal surfaces of the feet. No raised area no blistering no open area or drainage. Rash is smooth to the touch. Mental Status: Alert and oriented x3. Normal mood and affect Assessment/Plan 1. Cough (R05.9: Cough, unspecified) Given duration of symptoms, will Rx Z-Chilo to cover for atypical pathogens. Declined chest x-ray at this time. Recommend humidification, rest, fluids. May benefit from antihistamine use. Follow-up with PCP if symptoms persist after treatment. Patient verbalized understanding of treatment plan. Ordered: azithromycin, = 1 packet(s), Oral, As Directed, as directed on package labeling, X 5 day(s), # 6 tab(s), Refills(s) 0, Pharmacy: [facility]/pharmacy #[id number], 158, cm, 02/13/22 14:30:00 EDT, Height/Length Dosing, 56, kg, 02/13/22 14:30:00 EDT, Weight Dosing 2. Sore throat (J02.9: Acute pharyngitis, unspecified) Rapid strep -. Given patient concern will send cx to confirm- will call with results in 3-5 days. If any GAS growth, will rx appropriate antibiotic. Discussed otherwise consistent with viral illness, typical duration 7-14 days. Fluids/rest, PRN tylenol/ibuprofen for pain and/or fever. May use salt water gargles and otc lozenges for pain. Fu with PCP if cx negative and not improving over next 10-14 days. Seek medical attention immediately for any increased difficulty swallowing, opening mouth, or difficulty managing oral secretions. Patient verbalized understanding of tx plan. Ordered: Group A Strep by PCR Rapid Strep POC [id number] 3. Rash (R21: Rash and other nonspecific skin eruption) Given history and exam, rash appears to be allergic in nature. Recommend antihistamine prn for this issue. F/u with PCP if symptoms persist or worsen. Follow-up With When Contact Information ANTHONY ROMAN MD, [address] [id number]- Additional Instructions: Patient Education Cough, Adult Pharyngitis Rash, Adult Problem List/Past Medical History Ongoing No chronic problems Historical No qualifying data Medications Chanell 24 Fe oral tablet influenza virus vaccine, inactivated, 0.5 mL, IntraMuscular, Once, PRN Zithromax Z-Chilo 250 mg oral tablet, 1 packet(s), Oral, As Directed Allergies codeine Social History Tobacco - Denies Tobacco Use, 02/13/2022 Never (less than 100 in lifetime) Tobacco Use:. Never Smokeless Tobacco Use:., 02/13/2022 Immunizations Vaccine Date Status Comments influenza virus vaccine, inactivated - Not Given Postpone due to refusal SARS-CoV-2 mRNA (guido 5y-11y) vac - Not Given Postpone due (more content not included)... Normal [facility] Comment on above: Result Comment: Elec tronically Signed By: KELSEY Martinez APRN, [place] X\.jose m\Date and Time Signed: 02/13/22 15:06 EDT Patient Educationon 02-14-20 Patient Education ENT Cough, Adult Coughing is a reflex that clears your throat and your airways (respiratory system). Coughing helps to heal and protect your lungs. It is normal to cough occasionally, but a cough that happens with other symptoms or lasts a long time may be a sign of a condition that needs treatment. An acute cough may only last 2?3 weeks, while a chronic cough may last 8 or more weeks. Coughing is commonly caused by: ? Infection of the respiratory systemby viruses or bacteria. ? Breathing in substances that irritate your lungs. ? Allergies. ? Asthma. ? Mucus that runs down the back of your throat (postnasal drip). ? Smoking. ? Acid backing up from the stomach into the esophagus (gastroesophageal reflux). ? Certain medicines. ? Chronic lung problems. ? Other medical conditions such as heart failure or a blood clot in the lung (pulmonary embolism). Follow these instructions at home: Medicines ? Take izva-kwd-dasfnam and prescription medicines only as told by your health care provider. ? Talk with your health care provider before you take a cough suppressant medicine. Lifestyle ? Avoid cigarette smoke. Do not use any products that contain nicotine or tobacco, such as cigarettes, e-cigarettes, and chewing tobacco. If you need help quitting, ask your health care provider. ? Drink enough fluid to keep your urine pale yellow. ? Avoid caffeine. ? Do not drink alcohol if your health care provider tells you not to drink. General instructions ? Pay close attention to changes in your cough. Tell your health care provider about them. ? Always cover your mouth when you cough. ? Avoid things that make you cough, such as perfume, candles, cleaning products, or campfire or tobacco smoke. ? If the air is dry, use a cool mist vaporizer or humidifier in your bedroom or your home to help loosen secretions. ? If your cough is worse at night, try to sleep in a semi-upright position. ? Rest as needed. ? Keep all follow-up visits as told by your health care provider. This is important. Contact a health care provider if you: ? Have new symptoms. ? Cough up pus. ? Have a cough that does not get better after 2?3 weeks or gets worse. ? Cannot control your cough with cough suppressant medicines and you are losing sleep. ? Have pain that gets worse or pain that is not helped with medicine. ? Have a fever. ? Have unexplained weight loss. ? Have night sweats. Get help right away if: ? You cough up blood. ? You have difficulty breathing. ? Your heartbeat is very fast. These symptoms may represent a serious problem that is an emergency. Do not wait to see if the symptoms will go away. Get medical help right away. Call your local emergency services (911 in the [place] Do not drive yourself to the hospital. Summary ? Coughing is a reflex that clears your throat and your airways. It is normal to cough occasionally, but a cough that happens with other symptoms or lasts a long time may be a sign of a condition that needs treatment. ? Take cwjp-nuf-xqcrjot and prescription medicines only as told by your health care provider. ? Always cover your mouth when you cough. ? Contact a health care provider if you have new symptoms or a cough that does not get better after 2?3 weeks or gets worse. This information is not intended to replace advice given to you by your health care provider. Make sure you discuss any questions you have with your health care provider. Document Released: 10/17/2011 Document Revised: 05/09/2019 Document Reviewed: 05/09/2019 [employer] Patient Education ? 2020 [employer] Infectious Disease Pharyngitis Pharyngitis is redness, pain, and swelling (inflammation) of the throat (pharynx). It is a very common cause of sore throat. Pharyngitis can be caused by a bacteria, but it is usually caused by a virus. Most cases of pharyngitis get better on their own without treatment. What are the causes? This condition may be caused by: ? Infection by viruses (viral). Viral pharyngitis spreads from person to person (is contagious) through coughing, sneezing, and sharing of personal items or utensils such as cups, forks, spoons, and toothbrushes. ? Infection by bacteria (bacterial). Bacterial pharyngitis may be spread by touching the nose or face after coming in contact with the bacteria, or through more intimate contact, such as kissing. ? Allergies. Allergies can cause buildup of mucus in the throat (post-nasal drip), leading to inflammation and irritation. Allergies can also cause blocked nasal passages, forcing breathing through the mouth, which dries and irritates the throat. What increases the risk? You are more likely to develop this condition if: ? You are 5?24 years old. ? You are exposed to crowded environments such as daycare, school, or dormitory living. ? You live in a cold climate. ? You have (more content not included)... Normal [facility] COVID Quick Testingon 2020 Result Negative [facility] Other Quick Strepon 02-19-2021 S. pyogenes Org specific cx Ql (Throat) Negative [facility] [place] Other Quick Strep [facility] [employer] Other Vital Signs Date Time Vital Sign Value Performing Clinician Facility 11-05-2022 11:00-0400 Diastolic blood pressure 74 mm[Hg] Nick Velasquez [facility] 11-05-2022 11:00-0400 Heart rate 74 /min Nick Velasquez [facility] 11-05-2022 11:00-0400 Mean blood pressure 88 mm[Hg] Nick Velasquez [facility] 11-05-2022 11:00-0400 Respiratory rate 16 /min Nick Velasquez [facility] 11-05-2022 11:00-0400 SaO2% (BldA) [Mass fraction] 100 % Nick Velasquez [facility] 11-05-2022 11:00-0400 Systolic blood pressure 116 mm[Hg] Nick Velasquez [facility] 11-05-2022 10:00-0400 Diastolic blood pressure 54 mm[Hg] Nick Velasquez [facility] 11-05-2022 10:00-0400 Heart rate 83 /min Nick Velasquez [facility] 11-05-2022 10:00-0400 Respiratory rate 18 /min Nick Velasquez [facility] 11-05-2022 10:00-0400 SaO2% (BldA) [Mass fraction] 99 % Nick Velasquez [facility] 11-05-2022 10:00-0400 Systolic blood pressure 90 mm[Hg] Nick Ron [facility] 11-05-2022 08:00-0400 Body temperature 98.24 [degF] Nick Velasquez [facility] 11-05-2022 08:00-0400 Diastolic blood pressure 63 mm[Hg] Nick Velasquez [facility] 11-05-2022 08:00-0400 Heart rate 86 /min Nick Velasquez [facility] 11-05-2022 08:00-0400 Systolic blood pressure 92 mm[Hg] Nick Velasquez [facility] 02-19-2021 11:00-0400 Body height 158.12 cm Eleni Dc Other [facility] Other 02-19-2021 11:00-0400 Body mass index (BMI) [Ratio] 22.68 kg/m2 Eleni Dc Other [facility] Other 02-19-2021 11:00-0400 Body temperature 98.6 [degF] Eleni Dc Other [facility] Other 02-19-2021 11:00-0400 Body weight 56.7 kg Eleni Dc Other [facility] Other 02-19-2021 11:00-0400 Respiratory rate 20 /min Eleni Vanda Other [facility] Other 02-19-2021 11:00-0400 SaO2% (BldA) [Mass fraction] 98 % Eleni Dc Other [facility] Other Encounters Encounter Date Encounter Type Care Provider Facility Start: 04-14-2023 End: 04-14-2023 ambulatory QUINTON VELEZ Not Available Start: 03-31-2023 End: 03-31-2023 ambulatory NAS WHALEN Not Available Start: 03-24-2023 End: 03-24-2023 ambulatory QUINTON VELEZ Not Available Start: 03-19-2023 End: 03-19-2023 ambulatory NAS WHALEN Not Available Start: 11-05-2022 End: 11-05-2022 Emergency department patient visit Nick Velasquez Facility:[facility] [place] Start: 11-05-2022 End: 11-05-2022 Emergency department patient visit Nick Velasquez [facility] Start: 09-09-2022 End: 09-10-[address] NAS WHALEN . Facility: Start: 09-05-2022 End: 09-06-[address] NAS WHALEN . Facility: Start: 03-13-2022 End: 03-13-[address] NAS WHALEN . Facility: Start: 02-13-2022 End: 02-14-2022 ambulatory Bindu Martinez Facility:[facility] [place] Start: 01-14-2022 End: 04-15-2022 ambulatory ANTHONY ROMAN Facility:[facility] – [place] Start: 02-19-2021 Office outpatient vi sit 15 minutes Eleni Dc [facility] [address] Immunizations Immunization Date Immunization Notes Care Provider Fa jordan 02-17-2022 influenza virus vaccine, unspecified formulation Nick Ron [facility] Comment on above: Reason for Medicatio n: Prophylaxis 03-01-2021 influenza virus vacc ine, unspecified formulation Nick Ron [facility] Comment on above: Reason for Medicatio n: Prophylaxis 02-14-2021 COVID-19, mRNA, LNP- S, PF, 30 mcg/0.3 mL dose Nick Ron [facility] 01-18-2021 COVID-19, mRNA, LNP- S, PF, 30 mcg/0.3 mL dose Nick Ron [facility] 05-23-2012 Toradol per 15 mg Eleni oquendo Other [facility] Other 04-20-2008 meningococcal ACWY vaccine, unspecified formulation Nick Ron [facility] 04-20-2008 tetanus toxoid, reduced diphtheria toxoid, and acellular pertussis vaccine, adsorbed Nick Ron [facility] 04-20-2008 varicella virus vaccine Nick Ron [facility] 03-06-2007 influenza virus vaccine, unspecified formulation Nick Ron [facility] 02-22-2005 influenza, whole Nick Ron [facility] 02-23-2004 influenza, whole Nick Ron [facility] 05-01-2003 influenza, whole Nick Ron [facility] 03-23-2003 influenza, whole Nick Ron [facility] 09-14-2001 DTaP, unspecified formulation Nick Ron [facility] 09-14-2001 measles, mumps and rubella virus vaccine Nick Ron [facility] 11-14-1998 DTaP, unspecified formulation Nick Ron [facility] 11-14-1998 hepatitis B vaccine, pediatric or pediatric/adolescent dosage Nick Ron [facility] 06-06-1998 Hib, unspecified formulation Nick Ron [facility] 06-06-1998 measles, mumps and rubella virus vaccine Nick Ron [facility] 11-22-1997 varicella virus vaccine Nick Ron [facility] 05-31-1997 DTaP, unspecified formulation Nick Ron [facility] 05-31-1997 hepatitis B vaccine, pediatric or pediatric/adolescent dosage Nick Ron [facility] 05-31-1997 Hib, unspecified formulation Nick Ron [facility] 04-12-1997 DTaP, unspecified formulation Nick Ron [facility] 04-12-1997 Hib, unspecified formulation Nick Ron [facility] 02-01-1997 DTaP, unspecified formulation Nick Ron [facility] 02-01-1997 hepatitis B vaccine, pediatric or pediatric/adolescent dosage Nick Ron [facility] 02-01-1997 Hib, unspecified formulation Nick Velasquez [facility] NEGATED: Highlighted row has not occurred!02-13-2022 influenza virus vaccine, unspecified formulation Nick Velasquez [facility] NEGATED: Highlighted row has not occurred!02-13-2022 SARS-CoV-2 mRNA (tozinameran 5y-11y) vaccine Nick Velasquez [facility] Payers Date Payer Category Payer Unknown 1996 Unknown [id number] 2.16.84 [id number] 1996 Unknown [id number] 2.16.84 [id number] 1996 Unknown [id number] 2.16.84 [id number] 1996 Unknown [id number] 2.16.8 [id number] 1996 Unknown [id number] 2.16.8 [id number] 1996 Unknown [id number] 2.16.8 [id number] 1996 Unknown [id number] 2.16.8 [id number] 1996 Unknown [id number] 2.16.840 .[id number] 1996 Unknown [id number] 2.16.840 .[id number] 1996 Unknown [id number] 2.16.840 .[id number] 1996 Unknown [id number] 2.16.840 .[id number] 1959 Unknown [id number] 2. [id number] 1959 Unknown [id number] Social History Date Type Detail Facility Unknown if ever smoked [facility] Other Sex Assigned At [facility] Start: 02-13-2022 Tobacco smoking status Never s moked tobacco (finding) [facility] Tobacco smoking status Never [facility] Functional Status Date Assessment Result Facility 11-05-2022 Functional Status N/A [facility] Evaluation + Plan note 11-05-2022 Note Date & Type Note Facility 11-05-2022 Evaluation + Plan note Extrac mark from: Title:ED Note Author:Patrick BERNARDO, Kashif Martins Jose e:11/05/22 Near syncope (R55: Syncope a nd collapse) Orders: Sodium Chloride 0.9% intravenous solution, 1,000 mL, Soln-IV, IV, Once, Stop date 11/05/22 8:08:00 EDT, STAT, Start date 11/05/22 8:08:00 EDT, Infuse over 61, minute(s) Sodium Chloride 0.9% intravenous solution, 1,000 mL, IV, Stop date 11/05/22 10:45:00 EDT, Start date 11/05/22 10:45:00 EDT Sodium Chloride 0.9% intravenous solution, Soln-IV, Misc, Once, Stop date 11/05/22 10:42:37 EDT, Physician Stop, 11/05/22 10:42:37 EDT Automated Diff Basic Metabolic Panel CBC w/ Auto Diff eGFR Extra Blue Tube Extra SST Tube Orthostatic Vitals Signs UA With Cult Reflex [facility] Hospital Discharge instructions 11-05-2022 Note Date & Type Note Facility 11-05-2022 Hospital Discharg e instructions Patient Education 11/05/2022 11:25:01 Near-Syncope Near-Syncope Near-syncope is when you suddenly feel like you might pass out or faint, but you do not actually lose consciousness. This may also be referred to as presyncope. During an episode of near-syncope, you may: Feel dizzy, weak, light-headed, or like the room is spinning. Feel nauseous. See spots or see all white or all black in your field of vision. Have cold, clammy skin or feel warm and sweaty. Hear ringing in your ears (tinnitus). This condition is caused by a sudden decrease in blood flow to the brain. This decrease can result from various causes, but most of those causes are not dangerous. However, near-syncope may be a sign of a serious medical problem, so it is important to seek medical care. Follow these instructions at home: Medicines Take mbmc-ard-rjgdmak and prescription medicines only as told by your health care provider. If you are taking blood pressure or heart medicine, get up slowly and take several minutes to sit and then stand. This can reduce dizziness and decrease the risk of near-syncope. Lifestyle Do not drive, use machinery, or play sports until your health care provider says it is okay. Do not drink alcohol. Do not use any products that contain nicotine or tobacco. These products include cigarettes, chewing tobacco, and vaping devices, such as e-cigarettes. If you need help quitting, ask your health care provider. Avoid hot tubs and saunas. General instructions Pay attention to any changes in your symptoms. Talk with your health care provider about your symptoms. You may need to have testing to understand the cause of your near-syncope. If you start to feel like you might faint, sit or lie down right away. If sitting, put your head down between your legs. If lying down, raise (elevate) your feet above the level of your heart. ?Breathe deeply and steadily. Wait until all of the symptoms have passed. ?Have someone stay with you until you feel stable. Drink enough fluid to keep your urine pale yellow. Avoid prolonged standing. If you must stand for a long time, do movements such as: ?Moving your legs. ?Crossing your legs. ?Flexing and stretching your leg muscles. ?Squatting. Keep all follow-up visits. This is important. Contact a health care provider if: You continue to have episodes of near fainting. Get help right away if: You faint. You have any of these symptoms that may indicate trouble with your heart: ?Fast or irregular heartbeats (palpitations). ?Unusual pain in your chest, abdomen, or back. ?Shortness of breath. You have a seizure. You have a severe headache. You are confused. You have vision problems. You have severe weakness or trouble walking. You are bleeding from your mouth or rectum, or have black or tarry stool. These symptoms may represent a serious problem that is an emergency. Do not wait to see if your symptoms will go away. Get medical help right away. Call your local emergency services (911 in the [place] Do not drive yourself to the hospital. Summary Near-syncope is when you suddenly feel like you might pass out or faint, but you do not actually lose consciousness. This condition is caused by a sudden decrease in blood flow to the brain. This decrease can result from various causes, but most of those causes are not dangerous. Near-syncope may be a sign of a serious medical problem, so it is important to seek medical care. If you start to feel like you might faint, sit or lie down right away. If sitting, put your head down between your legs. If lying down, raise (elevate) your feet above the level of your heart. Talk with your health care provider about your symptoms. You may need to have testing to understand the cause of your near-syncope. This information is not intended to replace advice given to you by your health care provider. Make sure you discuss any questions you have with your health care provider. Document Revised: 08/29/2021 Document Reviewed: 08/29/2021 [employer] Patient Education 2022 [employer] [facility]. Follow Up Care 11/05/2022 07:56:32 With:Nas WHALEN Address: [address] [place] [address]- Business (1) When:11/08/2022 11:24:54 With:ANTHONY ROMAN Address: [address] [place] [id number] Business (1) When:11/08/2022 11:24:32 Comments:Call the office of your primary care doctor to arrange for follow-up within the above-stated timeframe. Follow-up with your primary care doctor about this ED visit. You should review your labs, imaging, and diagnoses from this ED visit with your primary care physician. If you were prescribed medications you should discuss possible side-effects and drug interactions with your pharmacist. Call 911 or go to the nearest Emergency Department if you develop any new or worsening symptoms. [facility] Clinical Note 02-16-2022 Note Date & Type Note Facility 02-16-2022 Note Microbiology PROCEDURE: Strep Screen Culture [R1] SOURCE: Throat BODY SITE: COLLECTED DATE/TIME: 02/13/2022 15:00 EDT RECEIVED DATE/TIME: 02/14/2022 12:00 EDT START DATE/TIME: 02/14/2022 12:00 EDT FREE TEXT SOURCE: Michelle MASTN, RENTAL SALESPERSON-C, Michelle [employer], RENTAL SALESPERSON-C, Bindu X Bindu X FINAL REPORTS Final Report [] Verified Date/Time: 02/16/2022 11:56 EDT No Pathogenic Streptococcus Isolated Performing Locations R1: This test was performed at: [facility], [address] [place] [address], [id number] , , [facility] Comment on above: Performed By: #### [id number] #### [facility] [address] [place] [address] Evaluation note 02-19-2021 Note Date & Type Note Facility 02-19-2021 Evaluation note Encounter Date Diagnosis Assessment Notes Feb, Contact with and (suspected) exposure to other viral communicable diseases (ICD-10 - Z20.828) covid test neg, see above. Feb, Sore throat (ICD-10 - J02.9) Strep neg, but treating as bacterial based on sx and PE findings. Pt is to take abx as prescribed with food. Use nasal spray as directed. Informed pt they are contagious for first 24 hrs on medication. Push fluids and rest. Pt denied work note today. Pt is to take otc antipyretic prn for fever and aches. Change toothbrush after 2-3 days. Pt is to be re-evaluated after treatment if sx worsen or don't improve by pcp. Pt is to call the office with any questions or concerns regarding dx and tx. Pt understood and agreed to treatment plan. Feb, Other Additional time spent conducting pre-visit phone call, screening for symptoms, instructions on social distancing, application and removal of PPE, and cleaning of examination room, equipment and supplies was preformed. Patient education given for testing methodology and results. Patient care instructions given in writting by [facility] Care At Home document. [employer] [facility] [employer] Other History general Narrative - Reported Note Date & Type Note Facility History general Narrative - Reported Type Medical History ASTHMA (EXERCISE INDUCED) Surgical History LEFT HUMERUS FRACTURE 1998 Surgical History LEFT PAROTIDECTOMY 2015 [facility] [employer] Other Hospital course Narrative Note Date & Type Note Facility Hospital course Narrative No data available for this section [facility] Progress note Note Date & Type Note Facility Progress note No data available for this section [facility] Summary Purpose Family History No Family History Records FoundNo Family History Records FoundNo Family History Records Found Advance Directives No Advanced Directives Records FoundNo Advanced Directives Records FoundNo Advanced Directives Records Found Additional Source Comments REASON FOR VISIT (unrecogniz ed section and content) #3 sore throat INFORMATION SOURCE (unrecogn ized section and content) DATE CREATED AUTHOR 10/10/2022 [facility] DATE CREATED AUTHOR AUTHOR'S ORGANIZ ATION 11/05/2022 [facility] DATE CREATED AUTHOR AUTHOR'S ORGANIZ ATION 04/16/2023 [facility] EPIC Patient Care team informatio n (unrecognized section and content) Personnel Name: ANTHONY ROMAN MD Address: Address: [address] [place] [address] FOR RECORDS PERTAINING TO PATIENTS WHO ARE OR HAVE BEEN ENROLLED IN A CHEMICAL DEPENDENCY/SUBSTANCEABUSE PROGRAM, SOME INFORMATION MAY BE OMITTED. This clinical summary was aggregated from multiple sources. Caution should be exercised in using it in the provision of clinical care. This summary normalizes information from multiple sources, and as a consequence, information in this document may materially change the coding, format and clinical context of patient data. In addition, data may be omitted in some cases. CLINICAL DECISIONS SHOULD BE BASED ON THE PRIMARY CLINICAL RECORDS. [employer] provides no warranty or guarantee of the accuracy or completeness of information in this document.
--- NOTE | 2023-04-22 15:02 | PC.NURSE ---
1430- Radha arrives with , Bari, for visit. States feeding is going well. She continues to use the shield, however she feels he is latching better and transferring milk well, has decreased pumping to every other feed. Denies and nipple pain or concerns. Radha states that Bari had pediatrican visit yesterday and occupational therapy today and is doing well. BW 6#7oz, weight today 7#4oz. large void and yellow, seedy stool diaper. ate prior to visit, so uninterested in latching at this time. Radha denies further questions or concerns. 1455-Discharge home with in stable condition.
== END 2023-04-22 15:10 | disposition home or self-care (01) ==
LOC: FBCO 09:02
PROVIDERS: Visit Provider Obstetrics & Gynecology
DX: Z39.1 Encounter for care and examination of lactating mother (principal)

== ENCOUNTER 2023-11-09 20:50 | Outpatient (REF) | payer BC, SELFPAY ==
--- OUTSIDE RECORDS SUMMARY | 2023-11-09 20:54 | XMS_ITS | CCD ---
Author Organization [facility] Care Team Providers Care Computer Lab Assistant Name Role Phone Eleni Dc Unavailable KOBY [...] Unavailable KOBY ., DR LOVELL Admitting Unavailable Orzech Bindu X Attending Unavailable Orzech, Bindu X Admitting Unavailable Nick Velasquez Attending Unavailable Orzech Bindu X Attending Unavailable ANTHONY ROMAN Attending Unavailable ANTHONY ROMAN Primary Care Physician [phone] QUINTON VELEZ Attending Unavailable KOBYNAS Attending Unavailable QUINTON VELEZ Attending Unavailable KOBYNAS Dickinson Attending Unavailable QUINTON VELEZ Attending Unavailable Allergies Allergy Classification Reported Allergen(s) Allergy Type Date of Onset Reaction(s) Facility (3 sources) Codeine; Translations: [codeine] Drug Allergy Unknown [facility] (1 source) Unable to obtain; Translations: [Unable to obtain] Propensity to adverse reactions (disorder) [facility] Medications Current Medications Medication Drug Class(es) [...] Results Test Name Value Interpretation Reference Range Facility Auto Diffon 11-05-2022 Basophils/100 WBC (Bld) 0.1 % Normal 0.0-2.0 [facility] Comment on above: Order Comment: Order Added by Discern Expert. Performed By: #### 1 [id number], 8071799, 8693200, 5532198 #### [facility] [address] [place] [address] 20064 Basophils/Leukocytes Auto (Bld) [Pure # fraction] 0.0 E9/L Normal 0.0-0.2 [facility] Comment on above: Order Comment: Order Added by Discern Expert. Performed By: #### 1 2520949, 8618985, 0348288, 0641246 #### [facility] [address] [place] [address] 47637 Eosinophils/100 WBC (Bld) 2.6 % Normal 0.0-8.0 [facility] Comment on above: Order Comment: Order Added by Savi Expert. Performed By: #### 1 [id number], 3650524, 6493483, 0309288 #### [facility] [address] [place] [address] 15684 Eosinophils/Leukocyte s Auto (Bld) [Pure # fraction] 0.2 E9/L Normal 0.0-0.5 [facility] Comment on above: Order Comment: Order Added by Savi Expert. Performed By: #### 1 [id number], 6461453, 1638297, 8216604 #### [facility] [address] [place] [address] 95461 Lymphocytes/100 WBC (Bld) 25.8 % Normal 14.0-50.0 [facility] Comment on above: Order Comment: Order Added by Discern Expert. Performed By: #### 1 5535988, 2481307, 1448062, 4437907 #### [facility] [address] [place] [address] Lymphocytes/Leukocyte s Auto (Bld) [Pure # fraction] 1.9 E9/L Normal 1.0-4.0 [facility] Comment on above: Order Comment: Order Added by Savi Expert. Performed By: #### 1 6871711, 7176442, 5961544, 1870278 #### [facility] [address] [place] [address] 42799 Monocytes/100 WBC (Bld) 4.8 % Normal 4.0-14.0 [facility] Comment on above: Order Comment: Order Added by Discern Expert. Performed By: #### 1 5978193, 1153746, 3329026, 9843532 #### [facility] [address] [place] [address] Monocytes/Leukocytes Auto (Bld) [Pure # fraction] 0.3 E9/L Normal 0.2-1.0 [facility] Comment on above: Order Comment: Order Added by Discern Expert. Performed By: #### 1 2154307, 4784243, 7430577, 2855788 #### [facility] [address] [place] [address] 13408 Neutrophils/100 WBC (Bld) 66.7 % Normal 36.0-75.0 [facility] Comment on above: Order Comment: Order Added by Discern Expert. Performed By: #### 1 7851956, 7302961, 3450541, 7013276 #### [facility] [address] [place] [address] 95416 Neutrophils/Leukocyte s Auto (Bld) [Pure # fraction] 4.8 E9/L Normal 2.0-7.5 [facility] Comment on above: Order Comment: Order Added by Discern Expert. Performed By: #### 1 3098405, 1178224, 2049521, 5702420 #### [facility] [address] [place] [address] 056[address] BMPon 11-05-2022 Creatinine [Mass/Vol] 0.6 mg/dL Normal 0.5-1.3 [facility] Comment on above: Performed By: #### 1 6803436, 1215968, 7558656, 8982744 #### [facility] [address] [place] [address] Urea nitrogen [Mass/Vol] 13 mg/dL Normal 5-21 [facility] Comment on above: Performed By: #### 1 5355454, 1647820, 7533925, 2838467 #### [facility] [address] [place] [address] Urea nitrogen/Creatinine [Mass ratio] 22 No Units High 10-20 [facility] Comment on above: Performed By: #### 1 9258010, 9841712, 8888146, 6778695 #### [facility] [address] [facility], [place] [address] Anion gap [Moles/Vol] 10 mmol/L Normal 6-16 [facility] Comment on above: Performed By: #### 1 6392487, 5126643, 4387254, 0781893 #### [facility] [address] [place] [address] Calcium [Mass/Vol] 8.8 mg/dL Low 8.9-11.1 [facility] Comment on above: Performed By: #### 1 3342964, 2823193, 3092003, 4565878 #### [facility] [address] [place] [address] Chloride [Moles/Vol] 102 mmol/L Normal 101-111 [facility] Comment on above: Performed By: #### 1 5896319, 1384518, 3569144, 6680317 #### [facility] [address] [place] [address] CO2 [Moles/Vol] 23 mmol/L Normal 21-31 [facility] Comment on above: Performed By: #### 1 2142820, 3640908, 8264060, 3755357 #### [facility] [address] [place] [address] Glucose [Mass/Vol] 119 mg/dL Normal 55-199 [facility] Comment on above: Result Comment: If t his glucose result represents a fasting glucose, interpretation should refer to the following reference range: 55-99 mg/dL Performed By: #### 1 0210992, 2423336, 0372293, 4029618 #### [facility] [address] [place] [address] Potassium [Moles/Vol] 3.4 mmol/L Low 3.5-5.3 [facility] Comment on above: Performed By: #### 1 0858521, 3948674, 0784753, 2615954 #### [facility] [address] [place] [address] Sodium [Moles/Vol] 132 mmol/L Low 135-145 [facility] Comment on above: Performed By: #### 1 5768317, 0957835, 2728998, 8050195 #### [facility] [address] [place] [address] CBC w/ Auto Diffon 3 Erythrocyte distribution width (RBC) [Ratio] 13.0 % Normal 10.9-14.2 [facility] Comment on above: Performed By: #### 1 1086928, 3315066, 8987368, 7885432 #### [facility] [address] [place] [address] Hematocrit (Bld) [Volume fraction] 35.0 % Normal 34.0-46.0 [facility] Comment on above: Performed By: #### 1 9823306, 3872866, 3934623, 9483269 #### [facility] [address] [place] [address] Hemoglobin (Bld) [Mass/Vol] 12.0 g/dL Normal 12.0-16.0 [facility] Comment on above: Performed By: #### 1 7881036, 2136900, 1132607, 2869916 #### [facility] [address] [place] [address] MCH (RBC) [Entitic mass] 29.4 pg Normal 27.0-34.0 [facility] Comment on above: Performed By: #### 1 1723025, 8525694, 6621692, 2890210 #### [facility] [address] [place] [address] MCHC (RBC) [Mass/Vol] 34.4 g/dL Normal 31.4-36.0 [facility] Comment on above: Performed By: #### 1 6726773, 8477170, 9352408, 4396855 #### [facility] [address] [place] [address] [place] [address] MCV (RBC) [Entitic vol] 85.5 fL Normal 80.0-100.0 [facility] Comment on above: Performed By: #### 1 8321363, 4965927, 6925752, 3687451 #### [facility] [address] [place] [address] Platelet mean volume (Bld) [Entitic vol] 8.5 fL Normal 6.4-10.8 [facility] Comment on above: Performed By: #### 1 3597403, 3913648, 4523800, 1123391 #### [facility] [address] [place] [address] Platelets (Bld) [#/Vol] 188.0 E9/L Normal 150.0-500.0 [facility] Comment on above: Performed By: #### 1 4779549, 4160413, 9836805, 6516810 #### [facility] [address] [place] [address] RBC (Bld) [#/Vol] 4.1 E12/L Low 4.3-5.9 [facility] Comment on above: Performed By: #### 1 7940537, 6316302, 4930992, 9315504 #### [facility] [address] [place] [address] 27993 WBC corrected for nucl RBC Auto (Bld) [#/Vol] 7.2 E9/L Normal 4.0-11.0 [facility] Comment on above: Performed By: #### 1 1974335, 3035298, 4172390, 4101635 #### [facility] [address] [place] [address] CHEMISTRYOrdered By: SYSTEM SYSTEM on 11-05-2022 Anion gap [Moles/Vol] 10 mmol/L Normal 6 - 16 mEq/L [facility] Calcium [Mass/Vol] 8.8 mg/dL Low 8.9 - 11. 1 mg/dL [facility] Chloride [Moles/Vol] 102 mmol/L Normal 101 - 1 11 mmol/L [facility] CO2 [Moles/Vol] 23 mmol/L Normal 21 - 31 mmol/L [facility] Creatinine [Mass/Vol] 0.6 mg/dL Normal 0.5 - 1.3 mg/dL [facility] GFR/1.73 sq M.predicted among non-blacks MDRD (S/P/Bld) [Vol rate/Area] 128 mL/min/1.73 m2 Normal >=59mL/min/1 .73 m2 [facility] Chem S Glucose [Mass/Vol] 119 mg/dL Normal 55 - 199 mg/dL [facility] Potassium [Moles/Vol] 3.4 mmol/L Low 3.5 - 5.3 mmol/L [facility] Sodium [Moles/Vol] 132 mmol/L Low 135 - 145 mmol/L [facility] Remisol Urea nitrogen [Mass/Vol] 13 mg/dL Normal 5 - 21 mg/dL [facility] Remisol Urea nitrogen/Creatinine [Mass ratio] 22 mg/mg High 10 - 20 [facility] Consent for Treatmenton Consent for Treatment [id number] #[id number]:127 Normal [facility] Discharge Instructionson Discharge Instructions [id number]#[id number]:127 Normal [facility] ED Clinical Summaryon 2022 ED Clinical Summary [place] [id number] ED Clinical Summary Person Information Name: WESLEY DINH Grazyna/[facility] Age: 26 Years : 1995 Sex: Female Language: Sami PCP: ANTHONY ROMAN MD Marital Status: Single [...] 11/05/2022 11:36:08 11/05/2022 11:36:08 11/05/2022 11:36:08 ADDRESS: [address] [place] [address] [id number] [facility] DOC NOTES: MEDICAL INFORMATION: Prescriptions Given: Medications to Continue with No Changes Other Medications ethinyl estradiol-norethindr one (Chanell 24 Fe oral tablet) PATIENT EDUCATION INFORMATION: Instructions: Near-Syncope Follow up: With: Address: When: Nas WHALEN [facility], [address] [place] [address] Victoriano Rold[place] [id number] [employer] (1) In 3 days 11/08/2022 With: Address: When: ANTHONY ROMAN [address] [place], [place] [id number] [employer] () In 3 days 11/08/2022 Comments: Call the [...] or worsening symptoms. DIAGNOSIS: Near syncope Normal [facility] ED Note-Physicianon 11-06-19 ED Note-Physician Basic Information Time Seen: Patrick BERNARDO Kashif Lakshmi 11/05/2022 08:03 History of Present Illness 26-year-old [...] and Complexity of Problems Differential Diagnosis: [] [facility] Data External documents reviewed: [] My EKG [...] and follow-up with PCP as well as RECEPTIONIST DOCTOR'S OFFICE. Return precaution discussed. Patient questions answered. Patient [...] Patient seen and evaluated by the physician surgical physician assistant. Attending physician was present in the emergency department and supervised care. This visit was performed by both the physician and an APC. I performed all aspects of the MDM as documented. This report was transcribed using voice recognition software. Every effort was made to ensure accuracy, however, inadvertently computerized passenger booking clerk mistakes may be present. Appropriate healthcare PPE was used in evaluating this patient. The patient was placed in a mask. The healthcare provider was wearing mask, gloves, and utilizing proper hand hygiene. All equipment was properly c (more content not included)... Normal [facility] Comment on above: Result Comment: Elec tronically [...] these instructions at home: Medicines ? Take lqaz-eor-tuqwoqo and prescription medicines only as told by [...] provider. Document Revised: 08/29/2021 Document Reviewed: 08/29/2021 Elsevier Patient Education ? 2022 [employer] Normal [facility] ED Patient Summaryon 023 ED Patient Summary [place] [id number] Patient Discharge Instructions Person Information Name: WESLEY DINH Age: 26 Years Arrival Date: 11/05/2022 07:55:48 Discharge Diagnosis: Near syncope Primary Care Physician: ANTHONY ROMAN MD Provider Information Primary Provider: Nick Velasquez DO [facility] Technician:Kashif Nguyen PA-C The exam and treatment you received in the Emergency Department were for an urgent problem and are not intended as complete care. It is important that you follow up with a doctor, nurse practitioner, or physician?s surgical physician assistant for ongoing care. If your symptoms [...] With: Address: When: Nas WHALEN [facility], [address] [place] [address] [place] [address] Business (1) In 3 days 11/08/2022 With: Address: When: ANTHONY ROMAN [facility] [place] [address] Business (1) In 3 days 11/08/2022 Comments: [...] opioids can be used to help relieve ptmyelaz-ai-cizohv pain and are often prescribed following a [...] prescription opio (more content not included)... Normal [facility] HEMATOLOGYOrdered By: SYSTEM SYSTEM on 11-05-2022 Basophils/100 WBC (Bld) 0.1 % Normal 0.0 - 2.0 % [facility] HemeAutoSS Basophils/Leukocytes Auto (Bld) [Pure # fraction] 0.0 E9/L Normal 0.0 - 0.2 E9/L [facility]eAutoSS Eosinophils/100 WBC (Bld) 2.6 % Normal 0.0 - 8.0 % [facility] HemeAutoSS Eosinophils/Leukocyte s Auto (Bld) [Pure # fraction] 0.2 E9/L Normal 0.0 - 0.5 E9/L [facility] HemeAutoSS Lymphocytes/100 WBC (Bld) 25.8 % Normal 14.0 - 50.0 % [facility]eAutoSS Lymphocytes/Leukocyte s Auto (Bld) [Pure # fraction] 1.9 E9/L Normal 1.0 - 4.0 E9/L [facility]eAutoSS Monocytes/100 WBC (Bld) 4.8 % Normal 4.0 - 14.0 % [facility]eAutoSS Monocytes/Leukocytes Auto (Bld) [Pure # fraction] 0.3 E9/L Normal 0.2 - 1.0 E9/L [facility]eAutoSS Neutrophils/100 WBC (Bld) 66.7 % Normal 36.0 - 75.0 % [facility]eAutoSS Neutrophils/Leukocyte s Auto (Bld) [Pure # fraction] 4.8 E9/L Normal 2.0 - 7.5 E9/L [facility] HemeAutoSS HEMATOLOGYOrdered By: Kevin Ruiz on 11-05-2022 Erythrocyte distribution width (RBC) [Ratio] 13.0 % Normal 10.9 - 14.2 % [facility] HemeAutoSS Hematocrit (Bld) [Volume fraction] 35.0 % Normal 34.0 - 46.0 % [facility] HemeAutoSS Hemoglobin (Bld) [Mass/Vol] 12.0 g/dL Normal 12.0 - 16.0 gm/dL [facility] HemeAutoSS MCH (RBC) [Entitic mass] 29.4 pg Normal 27.0 - 34.0 pg [facility]eAutoSS MCHC (RBC) [Mass/Vol] 34.4 g/dL Normal 31.4 - 36.0 gm/dL [facility]eAutoSS MCV (RBC) [Entitic vol] 85.5 fL Normal 80.0 - 100.0 fL [facility] HemeAutoSS Platelet mean volume (Bld) [Entitic vol] 8.5 fL Normal 6.4 - 10.8 fL [facility] HemeAutoSS Platelets (Bld) [#/Vol] 188.0 E9/L Normal 150.0 - 500.0 E9/L [facility]eAutoSS RBC (Bld) [#/Vol] 4.1 E12/L Low 4.3 - 5.9 E12/L [facility] HemeAutoSS WBC corrected for nucl RBC Auto (Bld) [#/Vol] 7.2 E9/L Normal 4.0 - 11.0 E9/L [facility] HemeAutoSS UA With Cult Reflexon 2022 Bacteria LM Ql (Urine sed) TRACE Normal Trace [facility] Comment on above: Performed By: #### 1 [id number] #### [facility] [address] [place] [address] Bilirubin Ql (U) Negative Normal Negative [facility] Comment on above: Performed By: #### 1 [id number] #### [facility] [address] [place] [address] Clarity (U) SL CLOUDY Invalid Interpretation Code [facility] Comment on above: Performed By: #### 1 [id number] #### [facility] [address] [place] [address] Color (U) YELLOW Normal Yellow [facility] Comment on above: Performed By: #### 1 1028269 #### [facility] [address] [place] [address] Epithelial cells.squamous LM.HPF (Urine sed) [#/Area] 3-4 Normal 0-2 [facility] Comment on above: Performed By: #### 1 2955383 #### [facility] [address] [place] [address] Glucose Test strip (U) [Mass/Vol] Negative Normal Negative [facility] Comment on above: Performed By: #### 1 7774244 #### [facility] [address] [place] [address] Hemoglobin Ql (U) Negative Normal Negative [facility] Comment on above: Performed By: #### 1 5572997 #### [facility] [address] [place] [address] Ketones (U) [Mass/Vol] Negative Normal Negative [facility] Comment on above: Performed By: #### 1 8486607 #### [facility] [address] [place] [address] Crocker.plasma/Lithiu m.RBC (Bld) [Mass ratio] 0-3 Normal 0-3 [facility] Comment on above: Performed By: #### 1 1036997 #### [facility] [address] [place] [address] Mucus Ql (Urine sed) TRACE Normal Fish [facility] Comment on above: Performed By: #### 1 7277971 #### [facility] [address] [place] [address] Nitrite Ql (U) Negative Normal Negative [facility] Comment on above: Performed By: #### 1 7451430 #### [facility] [address] [place] [address] pH (U) 6.5 [pH] Invalid Interpretation Code 5.0-9.0 [facility] Comment on above: Performed By: #### 1 8440129 #### [facility] [address] [place] [address] Protein (U) [Mass/Vol] Negative Normal Negative [facility] Comment on above: Performed By: #### 1 8948559 #### [facility] [address] [place] [address] Specific gravity (U) [Rel density] <=1.005 Invalid Interpretation Code 1.005-1.030 [facility] Comment on above: Performed By: #### 1 [id number] #### [facility] [address] [place] [address] Type of Urine collection method Clean Catch Normal [facility] Comment on above: Performed By: #### 1 7784383 #### [facility] [address] [place] [address] Urobilinogen Qn (U) 0.2 {Rogelio'U}/dL Normal 0.0-1.0 [facility] Comment on above: Performed By: #### 1 9059249 #### [facility] [address] [place] [address] WBC Auto Ql (U) TRACE Abnormal Negative [facility] Comment on above: Performed By: #### 1 6071126 #### [facility] [address] [place] [address] WBC LM.HPF (Urine sed) [#/Area] 0-5 Normal 0-5 [facility] Comment on above: Performed By: #### 1 [id number] #### [facility] [address] [place] [address] URINALYSISOrdered By: Marisol Hendrix on 11-05-2022 Bacteria LM Ql (Urine sed) Trace /HPF Normal Trace/HPF [facility] UA Auto SS Bilirubin Ql (U) Negative (11/05/22 10:36 AM) Normal Negative [facility] UA Auto SS Clarity (U) SL CLOUDY Invalid Interpretation Code [facility] UA Auto SS Color (U) Yellow (11/05/22 10:36 AM) Normal Yellow [facility] UA Auto SS Epithelial cells.squamous LM.HPF (Urine sed) [#/Area] 3-4 /HPF Normal 0-2/HPF [facility] UA Aut o SS Glucose Test strip (U) [Mass/Vol] Negative (11/05/22 10:36 AM) Normal Negative [facility] UA Auto SS Hemoglobin Ql (U) Negative (11/05/22 10:36 AM) Normal Negative [facility] UA Auto SS Ketones (U) [Mass/Vol] Negative (11/05/22 10:36 AM) Normal Negative [facility] UA Auto SS Crocker.plasma/Lithiu m.RBC (Bld) [Mass ratio] 0-3 /HPF Normal 0-3/HPF [facility] UA Auto SS Mucus Ql (Urine sed) Trace (11/05/22 10:36 AM) Normal [facility] UA Auto SS Nitrite Ql (U) Negative (11/05/22 10:36 AM) Normal Negative [facility] UA Auto SS pH (U) 6.5 *NA* (11/05/22 10:36 AM) Invalid Interpretation Code 5.0 - 9.0 [facility] UA Auto SS Protein (U) [Mass/Vol] Negative (11/05/22 10:36 AM) Normal Negative [facility] UA Auto SS Specific gravity (U) [Rel density] <=1.005 *NA* (11/05/22 10:36 AM) Invalid Interpretation Code 1.005 - 1.030 [facility] UA Auto SS UA Spec Desc Clean Catch (11/05/22 10:36 AM) Normal [facility] UA Auto SS Urobilinogen Qn (U) 0.8661211 {Rogelio'U}/dL Normal 0.0 - 1.0 EU/dL [facility] UA Auto SS WBC Auto Ql (U) Trace *ABN* (11/05/22 10:36 AM) Invalid Interpretation Code Negative [facility] UA Auto SS WBC LM.HPF (Urine sed) [#/Area] 0-5 /HPF Normal 0-5/HPF [facility] UA Auto SS eGFRon 11-05-2022 GFR/1.73 sq M.predicted among non-blacks MDRD (S/P/Bld) [Vol rate/Area] 128 mL/min/1.73 m2 Normal >=59 [facility] Comment on above: Order Comment: Order added by Discern Expert. Result Comment: Environmental Air Specialist roxane kidney disease could be indicated at eGFR's of less than 60 mL/min/1.73m2. Kidney failure is indicated at less than 15 mL/min/1.73m2. Performed By: #### 1 [id number], 0200673, 4876106, 8308023 #### [facility] [address] [place] [address] HEP B SURFACE ANTIGEN SCREEN on 09-10-2022 HBsAg Screen Negative Normal Negative [facility] Comment on above: Performed By: #### H BSANS #### [facility] [address] [place] [address] [address] Samira Griffiths HEPATITIS C VIRUS AB W/ REFL EX QUANTon 09-10-2022 HCV AB Non-Reactive Normal Non Reactive [facility] Comment on above: Performed By: #### H CVPCRR #### [facility] [address] [place] [address] Dr. Samira Griffiths Interpretation: Comment Normal [facility] Comment on above: Result Comment: Not infected with HCV unless early or acute infection is suspected (which may be delayed in an immunocompromised individual), or other evidence exists to indicate HCV infection. Performed By: #### H CVPCRR #### [facility] [address] [place] [address] [address] Samira Griffiths HIV 1 AND 2 WITH REFLEXon HIV Screen 4th Generation wRfx Non-Reactive Normal Non Reactive [facility] Comment on above: Result Comment: HIV Negative HIV-1/HIV-2 antibodies and HIV-1 p24 antigen were NOT detected. There is no laboratory evidence of HIV infection. Performed By: #### H IV12 #### [facility] [address] [place] [address] Dr. Samira Griffiths RPR QUANTon 09-10-2022 Rapid Plasma Reagin, Quant Non-Reactive Normal NonRea<1:1 [facility] Comment on above: Result Comment: Plea se Note: This test does not meet current guidelines for screening and diagnosis of syphilis. This test is intended for following treatment response in patients being treated for syphilis infection. To screen for syphilis infection, a reflex cascade that includes both RPR and a treponema-specific assay should be utilized, such as Treponema pallidum (Syphilis) Screening Mccune (620718) or Rapid Plasma Reagin (RPR) Test With Reflex to Quantitative RPR and Confirmatory Treponema pallidum Antibodies (023367). Performed By: #### R PRQ #### [facility] [address] [place] [address] Dr. Samira Griffiths RUBELLA AB IGGon 09-10-2022 Rubella Antibodies, IgG 3.13 index Normal Immune >0.99 [facility] Comment on above: Result Comment: Non- immune <0.90 Equivocal 0.90 - 0.99 Immune >0.99 Performed By: #### R UBIGG #### [facility] [address] [place] [address] Dr. Samira Griffiths BOX TEST SENT OUTon 09-10-19 23 SENT TO REF LAB 09/09/2022 Normal [facility] Comment on above: Performed By: #### T SH #### [facility] [address] [place] [address] Dr. Samira Griffiths CBC AUTO DIFFon 09-09-2022 BASO # 0.0 103/ul Normal 0.0-0.1 [facility] Comment on above: Performed By: #### C BC #### [facility] [address] [place] [address] Dr. Samira Griffiths Basophils/100 WBC (Bld) 0.2 % Normal 0.2-2.0 [facility] Comment on above: Performed By: #### C BC #### [facility] [address] [place] [address] Dr. Samira Griffiths EO # 0.2 103/ul Normal 0.0-0.7 [facility] Comment on above: Performed By: #### C BC #### [facility] [address] [place] [address] Dr. Samira Griffiths Eosinophils/100 WBC (Bld) 1.9 % Normal 0.9-7.0 [facility] Comment on above: Performed By: #### C BC #### [facility] [address] [place] [address] Dr. Samira Griffiths Erythrocyte distribution width (RBC) [Ratio] 11.9 % Normal 11.0-15.0 [facility] Comment on above: Performed By: #### C BC #### [facility] [address] [place] [address] Dr. Samira Griffiths Hematocrit (Bld) [Volume fraction] 36.6 % Normal 36.0-48.0 [facility] Comment on above: Performed By: #### C BC #### [facility] [address] [place] [address] Dr. Samira Griffiths Hemoglobin (Bld) [Mass/Vol] 12.4 g/dL Normal 12.0-16.0 [facility] Comment on above: Performed By: #### C BC #### [facility] [address] [place] [address] Dr. Samira Griffiths IG # 0.03 10e3/ul Normal 0.00-0.03 [facility] Comment on above: Performed By: #### C BC #### [facility] [address] [place] [address] Dr. Samira Griffiths IG % 0.3 % Normal 0.0-0.5 [facility] Comment on above: Performed By: #### C BC #### [facility] [address] [place] [address] Dr. Samira Griffiths LYMPH # 1.9 103/ul Normal 1.2-3.8 [facility] Comment on above: Performed By: #### C BC #### [facility] [address] [place] [address] Dr. Samira Griffiths Lymphocytes/100 WBC (Bld) 21.1 % Normal 20.5-60.0 [facility] Comment on above: Performed By: #### C BC #### [facility] [address] [place] [address] Dr. Samira Griffiths MANUAL DIFF REQ NO Normal [facility] Comment on above: Performed By: #### C BC #### [facility] [address] [place] [address] Dr. Samira Griffiths MCH (RBC) [Entitic mass] 29.0 pg Normal 26.7-34.0 [facility] Comment on above: Performed By: #### C BC #### [facility] [address] [address] [address] Samira Griffiths MCHC (RBC) [Mass/Vol] 33.9 g/dL Normal 29.9-35.2 [facility] Comment on above: Performed By: #### C BC #### [facility] [address] [address] [address] Samira Griffiths MCV (RBC) [Entitic vol] 85.7 fL Normal 81.0-99.0 [facility] Comment on above: Performed By: #### C BC #### [facility] [address] [place] [address] Dr. Samira Griffiths MONO # 0.6 103/ul Normal 0.3-0.8 [facility] Comment on above: Performed By: #### C BC #### [facility] [address] [place] [address] Dr. Samira Griffiths Monocytes/100 WBC (Bld) 6.4 % Normal 1.7-12.0 [facility] Comment on above: Performed By: #### C BC #### [facility] [address] [place] [address] Dr. Samira Griffiths NEUT # 6.3 103/ul Normal 1.4-6.5 [facility] Comment on above: Performed By: #### C BC #### [facility] [address] [place] [address] Dr. Samira Griffiths Neutrophils/100 WBC (Bld) 70.1 % Normal 43.0-75.0 [facility] Comment on above: Performed By: #### C BC #### [facility] [address] [place] [address] Dr. Samira Griffiths Platelet mean volume (Bld) [Entitic vol] 10.1 fL Normal 9.5-13.5 [facility] Comment on above: Performed By: #### C BC #### [facility] [address] [place] [address] Dr. Samira Griffiths PLT 228 103/ul Normal 150-450 [facility] Comment on above: Performed By: #### C BC #### [facility] [address] [place] [address] Dr. Samira Griffiths RBC 4.27 106/ul Normal 4.20-5.40 [facility] Comment on above: Performed By: #### C BC #### [facility] [address] [place] [address] Dr. Samira Griffiths WBC 9.1 103/ul Normal 4.0-11.0 [facility] Comment on above: Performed By: #### C BC #### [facility] [address] [place] [address] Dr. Samira Griffiths CULTURE URINEon 09-09-2022 CULTURE URINE Culture Observations: LIGHT GROWTH OF MIXED GENITAL BEHZAD. NO POTENTIAL PATHOGENS SEEN. Normal [facility] Comment on above: Performed By: #### T SH #### [facility] [address] [place] [address] Dr. Samira Griffiths GLYCOHEMOGLOBIN A1Con 2022 ADA RECOMMENDATION SEE BELOW Normal [facility] Comment on above: Result Comment: ADA RECOMMENDED LIMIT 4.0 - 6.0 ADA THERAPEUTIC TARGET < 7.0 ACTION SUGGESTED > 7.0 Performed By: #### A 1C #### [facility] [address] [place] [address] Dr. Samira Griffiths Glucose [Mass/Vol] 108 mg/dL Normal [facility] Comment on above: Performed By: #### A 1C #### [facility] [address] [place] [address] Dr. Samira Griffiths HbA1c (Bld) [Mass fraction] 5.4 % Normal 4.5-6.2 [facility] Comment on above: Performed By: #### A 1C #### [facility] [address] [place] [address] Dr. Samira Griffiths TSHon 09-09-2022 TSH 0.224 uIU/mL Critically low 0.358-3.740 [facility] Comment on above: Performed By: #### T SH #### [facility] [address] [place] [address] Dr. Samira Griffiths TYPE AND SCREENon 09-09-2022 TYPE AND SCREEN Negative Normal [facility] Comment on above: Performed By: #### T NS #### [facility] [address] [address] [address] Samira Griffiths US PREG TVon 09-05-2022 [...] by: JANIE BABCOCK Date: 2022-09-05 15:44 Normal [facility] PAP ONLYon 03-20-2022 . . Normal [facility] Comment on above: Performed By: #### [id number] #### [facility] [address] [address] [address] Samira Griffiths DIAGNOSIS: Comment Normal [facility] Comment on above: Result Comment: NEGA TIVE FOR INTRAEPITHELIAL LESION OR MALIGNANCY. Performed By: #### [id number] #### [facility] [address] [place] [address] Dr. Samira Griffiths Methodology: Comment Normal [facility] Comment on above: Result Comment: This liquid based ThinPrep(R) pap test was screened with the use of an image guided system. Performed By: #### [id number] #### [facility] [address] [address] [address] Samira Griffiths Note: Comment Normal [facility] Comment on above: Result Comment: The Pap smear is a screening test designed to aid in the detection of premalignant and malignant conditions of the uterine cervix. It is not a diagnostic procedure and should not be used as the sole means of detecting cervical cancer. Both false-positive and false-negative reports do occur. . Performed By: #### [id number] #### [facility] [address] [address] [address] Samira Griffiths Performed by: Comment Normal [facility] Comment on above: Result Comment: Francy Huitron Sp[employer] Performed By: #### [id number] #### [facility] [address] [address] [address] Samira Griffiths Specimen adequacy: Comment Normal [facility] Comment on above: Result Comment: Sati sfactory for evaluation. No endocervical component is identified. Performed By: #### [id number] #### [facility] [address] [address] [address] Samira Griffiths Coding Summary.on 02-18-2022 Coding Summary. CD:[id number] Gh0bWw+PGhlYWQ+PE1FV GIrY42kdTYicV8XB7hDK Y6UQNWETUIEHW4JLZ8pu NU2UMufI1KrteOs UfogvYMhRQ35VGl3PCT3 mAkvNLjxpX1fmKXuY0v3 VuXjBO54sV59FHrvDNOi UaI6IiAjinzaiZUw K1wmKgYqlFQmLlf+PHRh YmxlIHdpZHRoPScxMDAl RkWyaLmeGO0qFn6yQXQc LWNvbGxhcHNlOiBj f6ljZXQqVPkiBX8orGai X2WvyKI0YJHbo8n4Ku46 dHI+NQGfXBZ1kPrcHZmj f090OdKkz3tmGDB3 eJUkXLbtXDF9W39rl4Y1 KNWlZEVqHKW3cHD9oC7r qWztrbgtT6XtyVLtXjL4 KTG9fJDfrW6dlFbi gfffdI3uRmd+T17KAV7F VJBMTW0KYyn3K4WpZcon dHI+TQ84ZXVfAA95oRFv aKYxu5vnmVx8PrHz AUDjVMO3cNwwFCkvh1Iy MGHqJ17tzMLko4U2GGEp vCcfwFHaXwMikRU9mZ6k WJlfqknnp8jdbfzj Odvsw3ctaz07zG76J44k CQryZWYeGIU0MITwBNPs fQunuq5wmZ8cAm0+IDxj b7hfk0vdmAr0RcNh RFPifnFqaOorVTU8d0Bt Lw50E7KzkTlsy1RbNsv5 tp79fKVfy7U0gOS8BLav QRBtnQ6nNTunErS4 GDPgUmFiqI05iRVpADdy Ho3gzCyqgElwQH5zFXQd afqeRRXstH6vNWQxxOMa eKtxHN4fAIWxxbwe j183KzKrQKH4KFOnpFOm J9YpdE1qThLsGVYjPGMr D9LcfEFoXXjuS906NVtz AxF1PMVtgxVrO1Mn KINzaYfbZyD0v1J7Gk0O g3EkyopxJTB9FPyqJPHl OjF7WdOkCzJ4C5HmCmw4 XRKiiYvkYB7lZ4Gw QPIjpomvicqqvTI7NXQd OTKwwY88nVScXOmbVb3t x7G7f487MJVaRKIveN97 Cc9kcWaiMSRblNFA vY3nsiita1pngwqaJiEl YAOvVYt9BPm6OQUwkJgw CgIcIMW9HqO3WPU4lYPq eD2uaVtsaxetqP6w Oyc+B48wpJ9dXWF2RZM5 klraPODyyaPtXP12DL25 B1SwNhjypKOnpDR+PGRp mbUmuEwjJY4fEoFc x6euw8NwDOqxB6NeMBVa OVcdIuc4FCHgWRO8sHS2 xD2zSHSuAUtvl7Z0hYB1 U6PoqiGjzc2hc8qq YDGeUXhiQ80wrCRkh7W8 TGQzvBB3BKXynDixZcMo hB42Xlc+MQGpqWsjk5Zk Srnwh3tjq5pxjOf0 IjMwJSIgdmFsaWduPSJ0 e0GkEg08S63xDKqlXOPz EFWgWDJhTAGgoWfyho7v fN4iGa3+PGNvbCB3 iAW2dO2vIOXdRsM8VCjg A198OfSwcALeTgbha1xd u5ycsGx2ErJuBOQproKm hYspOUZ5s7ObUm85 N75cHYfaVHFcEKOcSSVy EGEmcTmddu3naB0wBb1+ WY1ar3bbeu68mK06xBE+ HILtDBV4oZjoRXmv LSUhrA6fWZmzKaU9PWXd DdTonT11vRBeDUjxBl7e dYstnGlbWQ7kWEKodmhw g844LfOup5ppPJQk kDHnTFxiLHB1A21ug4S3 GPHhTAGfVAY8jTV3jD7o bGlnbjogbGVmdDsgdmVy cQsuARhfWVpzR204 IHRvcDsnPlBhdGllbnQg DsDvUCy7O7GjSbd0EWTa vJngJV6tiFArWAgxRq9j vIlstFlcAT9bXZYx dpury601FtHgi9eaMEKd sNOzFPxuNNG8V36lc9R4 GXGhDZMhKZE7pNS2fU5w bGlnbjogbGVmdDsg drAbyZfzZVjtOCrwJ899 IHRvcDsnPkJpcnRoIERh oCG5JG35YH03pWUiu9U3 jVD2H5XlJWHutwtj gvnlnRT9UJAcEBKsfN26 Um7taOalJx1tCZZiSAY8 TKAnkDWuW4WggR2rDrJo ARFiNGExU6JkkYNf WXesX273FKmgKcQ9FTSc haUbN7AsXMBbtAgkFzK5 j9R9Pj8WN6I7PT43SK37 nSZza5K1jXR7S9Bj CDBcanronuussCZ7ZPMe THPajX41Er1cnJkeQb6s AZTrFIF7LOOmaMUaX5Cd jO4tDoPwATYcIGUb S7KdyLIxQNioJ846ZYmo RxG8QVDclsKaD2EzBIHw rDkeAoF4l7W0Ke6TEMd1 GZ53ST21eFYzf1T9 tLW9T9UvGYGexshpltxd sNJ9CWGrRHBjqG31Gg0w jGlyVa0gFZKnBLC6ZKNs cTDgO7RkuF6lQiNe CPVtVSNnT2PmeXPvFHpw K334GQffFxB9BQJxwnFa C2DqDMOenKxvMmA2q5K8 Pn9NPHYyAB83ELW5 qTF9VE24RU59U5YxFdxm dGFibGU+PHRhYmxlIHdp ZHRoPScxMDAlJyBzdHls SZ5vBy9kCYCiLOOp nMzadFQaQaBwu6iaOQUp YSkcYF0cxAfnQ7FxeVL4 UFUbl8j2Ux24C80bW4Pa dXA+IBKgmKX3wRI5 vQ9rTvXnUiT5JMerU266 EwIrcEMhBfslf2hsi2gt wKx6WnZ3SLRhsgYuuEnj YFE1u6AmIm75C94q IHdpZHRoPSIxNSUiIHZh vQlmlc4tdK0mOx8+PGNv mBT2rOJ4fG2vSoEtMmQ7 NNvqV037YhFhmLPv Zruip0wst9feqZg9QnSy BFJgizJccAqjHQB7y8Tt Pb64T8DorYkif9VrDho4 ob27yETnb3P1qGL1 D4RbGSWvsgnifLTnfKqk YE6aVNJxbdzhRYJilP0z URMrG1h8YjUhFaO4GJon K9UoqaW5RHNpuBFp UJejMSI6G55yp1Q1KFBt PMHgXYD1uEX3jT0cmLce bjogbGVmdDsgdmVydGlj DNmoSYxpL757RQHu oKzvAIInjI5jUWPcxUJm cRjyQV8rGVLgaohxBnzP EKzDWCjfI6kJN0XTIaXC PN11WI23eBLbs8V8 rMQ3B2RqZUIkrewdrepw hJC9ZTWaUXMwlF20kWYw BWgwSn6cr6N2u378CCEg MBMkwR43Kx6biDsu WFUaoAGQlA3etifpd5pn pqemFhXkYIWpXAm3ZBi2 GTKwqXuzFsOcARQ5CgX0 OLS4rRPrkB7utMoe smpejY4jAxu+MDcvMTMv DWr7MpoczWF+PHRkIHN0 lRkyIJydQKEhbV4yHFKb T9m0UmNbJzR4YHoe N8JnLVKqbvpaLb80qR5w MlSwYwF8AXsqK3FytyN8 FBPbcVMtCRyiTZU4F18a n1A6JHTwQRUbUCG4 rRK2fP6laRapepiewXXo dDsgdmVydGljYWwtYWxp J058GCQhyTsuDgB4FTts ZPDwVF68UV92vEDy h2P2oUK2D9FgQOEqkcdq wpbanZO7XMNzMZZptY24 nCIeYYzwPz1ts0S4f904 XRJxPQClsF17Ch5p hFyjRDQidMSUcH7enbbr z7idcsjgWlAhJDBoOLh3 YHa4AEFkkVpyBvKfOLE4 ZzU6LSO8gBHfbC1b nTqpwblyoJ2oMxi+RmVt FXgfTZ90AR30bMXzr0B4 aRQ2Z9XmWQPkxgiddmfr xDI3NFGjWDUdyI65 aLHtBOdqJz9ni4M1b262 KDBvYICbiZ47Sf2otQsm BLZavUKRcF5ufpynh4sc cjogIzAwMDAwMDt0 AZg7JHHevOlwYiUyHPG4 JhK2YDR9lNQtjH9xzFqu azhhbC0oHdn+TGFiIERy e5Jxz9KwUL74LK76 W6DgSguyaWJudID+PHRh YmxlIHdpZHRoPScxMDAl VwDynHxnYQ6sRg1lPQWd LWNvbGxhcHNlOiBj z8eaUPCnFFmjUF2pbQub P0JawRD7RDCeb0l9Bv46 F47zD0MzsRU+PGNvbCB3 sMM5nK0vCvEuCrP9 CEibY166XiGikLMmHtwn x5ajj6uesCg9RwHkDDLd gpPkqJcuZHE1m7MzJv16 T95vYDcsWWMuSDRr SGFiCRGpuEuooz0itU4p Ii8+DAClaNH6dXN4bS1w OpHtVbX5YQvkE679QzPz xLOrTeezC61eS7Io dXA+MNZwTev2SUKayFmi FC1fhXMnXQmwYa1oVCH4 HfOxTyTkMKewD4ZbIZWz wbpjjupitPQ3FADd ELLevD59Ao8nzFprKi6l NEDvTLU2JTZypHUnW3Op uK9qPqAqITKcKVCgO1Vg eMDjPWcqZ431BOaz BlU3TDZogtRbN6ZyXNYi tQmcOmC9t3B5Ij3KlFbd xSTgVP7fGfPhHOl2H3Iz Dyr8AJNueGhxRY6v iYXjWKscLi7feXcthMeh VF5cIDMvfhdhs282BiKb l8vcJKZgrIMlQXmoRST2 K03bj7U8VLUaVYTo LJT2eDT3sI0ezWbwzuhw bGVmdDsgdmVydGljYWwt WUqjL781VYLbjFpaXfIF Hbd5Y5EpEvg5ZXUs aWdwHY2qaJPuNXulHw1i iZjqnFgmPG8cFHHmqbdw f214BaAfy6lfSLPffAZy QSjrYUM0W07es5R1 SOWrBVViDVZ4oNL6qI0k bGlnbjogbGVmdDsgdmVy rNwxGBjlTNxmI487NSFd vOiaNd7VHjn4V8Lu Ayz2EUWztAzuWJ1ciVKi PWwkKl4nmYpnbJauQR2u EJRirfvxn897JdJne5zn IDEwcHQgVGltZXM7 C46zp0V4ALEeJRZdEFJ5 qHM2xI9hrRvyaxkaqNJv dDsgdmVydGljYWwtYWxp L547XPKpqIsgWvIx eWVyOjwvdGQ+HH80mq00 K9TjGqbaUiw4VNUiFKK1 cMD9eB8mADOdNJpzy7W6 jBX3L9TatmAtum3n b2xs (more content not included)... 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 Rash (R21: Rash and other nonspecific skin eruption) Given history and exam, rash appears to be allergic in nature. Recommend antihistamine prn for this issue. F/u with PCP if symptoms persist or worsen. Follow-up With When Contact Information ABEL PEREZ, ANTHONY, [place] [address]- Additional Instructions: Patient Education Cough, Adult Pharyngitis [...] Postpone due (more content not included)... Normal [facility] Comment on above: Result Comment: Elec tronically [...] these instructions at home: Medicines ? Take jcks-qtz-stxdoeb and prescription medicines only as told by [...] a condition that needs treatment. ? Take ioas-byf-ssfdtjf and prescription medicines only as told by [...] 10/17/2011 Document Revised: 05/09/2019 Document Reviewed: 05/09/2019 [employer] Patient Education ? 2020 [employer] Infectious Disease Pharyngitis Pharyngitis is redness, [...] You have (more content not included)... Normal [facility] COVID Quick Testingon 2020 Result Negative [facility] Other Quick Strepon 02-19-2021 S. pyogenes Org specific cx Ql (Throat) Negative [facility] Other Quick Strep [facility] Other Vital Signs Date Time Vital Sign Value Performing Clinician Facility 11-05-2022 11:00-0400 Diastolic blood pressure 74 mm[Hg] Nick Velasquez [facility] 11-05-2022 11:00-0400 Heart rate 74 /min Nick Velasquez [facility] 11-05-2022 11:00-0400 Mean blood pressure 88 mm[Hg] Nick Velasquez [facility] 11-05-2022 11:00-0400 Respiratory rate 16 /min Nick Velasquez [facility] 11-05-2022 11:00-0400 SaO2% (BldA) [Mass fraction] 100 % Ncik Velasquez [facility] 11-05-2022 11:00-0400 Systolic blood pressure 116 mm[Hg] Nick Velasquez [facility] 11-05-2022 10:00-0400 Diastolic blood pressure 54 mm[Hg] Nick Velasquez [facility] 11-05-2022 10:00-0400 Heart rate 83 /min Nick Velasquez [facility] 11-05-2022 10:00-0400 Respiratory rate 18 /min Nick Velasquez [facility] 11-05-2022 10:00-0400 SaO2% (BldA) [Mass fraction] 99 % Nick Velasquez [facility] 11-05-2022 10:00-0400 Systolic blood pressure 90 mm[Hg] Nick Velasquez [facility] 11-05-2022 08:00-0400 Body temperature 98.24 [degF] Nick Velasquez [facility] 11-05-2022 08:00-0400 Diastolic blood pressure 63 mm[Hg] Nick Velasquez [facility] 11-05-2022 08:00-0400 Heart rate 86 /min Nick Velasquez [facility] 11-05-2022 08:00-0400 Systolic blood pressure 92 mm[Hg] Nick Velasquez [facility] 02-19-2021 11:00-0400 Body height 158.12 cm Eleni Dc Other [facility] Other 02-19-2021 11:00-0400 Body mass index (BMI) [Ratio] 22.68 kg/m2 Eleni Dc Other [facility] Other 02-19-2021 11:00-0400 Body temperature 98.6 [degF] Eleni Dc Other [facility] Other 02-19-2021 11:00-0400 Body weight 56.7 kg Eleni Dc Other [facility] Other 02-19-2021 11:00-0400 Respiratory rate 20 /min Eleni Dc Other [facility] Other 02-19-2021 11:00-0400 SaO2% (BldA) [Mass fraction] 98 % Eleni Dc Other [facility] [facility] Other Encounters Encounter Date Encounter Type Care Provider Facility Start: 05-19-2023 End: 05-19-2023 ambulatory QUINTON VELEZ Not Available Start: 04-14-2023 End: 04-14-2023 ambulatory QUINTON VELEZ Not Available Start: 03-31-2023 End: 03-31-2023 ambulatory NAS WHALEN Not Available Start: 03-24-2023 End: 03-24-2023 ambulatory QUINTON VELEZ Not Available Start: 03-19-2023 End: 03-19-2023 ambulatory NAS WHALEN Not Available Start: 11-05-2022 End: 11-05-2022 Emergency department patient visit Nick Velasquez Facility:[facility] Start: 11-05-2022 End: 11-05-2022 Emergency department patient visit Nick Velasquez [facility] Start: 09-09-2022 End: 09-10-[address] NAS WHALEN . Facility: Start: 09-05-2022 End: 09-06-[address] NAS WHALEN . Facility: Start: 03-13-2022 End: 03-13-[address] NAS WHALEN . Facility: Start: 02-13-2022 End: 02-14-2022 ambulatory Bindu Martinez Facility:[facility] Start: 01-14-2022 End: 04-15-2022 ambulatory ANTHONY ROMAN Facility:[facility] Start: 02-19-2021 Office outpatient vi sit 15 minutes Eleni Dc [facility] Urgent Care [facility] Immunizations Immunization Date Immunization Notes Care Provider Fa cility 02-17-2022 influenza virus vaccine, unspecified formulation Nick Velasquez [facility] Comment on above: Reason for Medicatio n: Prophylaxis 03-01-2021 influenza virus vaccine, unspecified formulation Nick Ron [facility] Comment on above: Reason for Medicatio n: Prophylaxis 02-14-2021 COVID-19, mRNA, LNP- S, PF, 30 mcg/0.3 mL dose Nick Ron [facility] 01-18-2021 COVID-19, mRNA, LNP- S, PF, 30 mcg/0.3 mL dose Nick Ron [facility] 05-23-2012 Toradol per 15 mg Calley Thad oquendo Other [employer] Other 04-20-2008 meningococcal ACWY vaccine, unspecified formulation Nick Velasquez [facility] 04-20-2008 tetanus toxoid, reduced diphtheria toxoid, and acellular pertussis vaccine, adsorbed Nick Ron [facility] 04-20-2008 varicella virus vaccine Nick Ron [facility] 03-06-2007 influenza virus vaccine, unspecified formulation Nick Ron [facility] 02-22-2005 influenza, whole Nick Ron [facility] 02-23-2004 influenza, whole Nick Ron [facility] 05-01-2003 influenza, whole Nick Ron [facility] 03-23-2003 influenza, whole Nick Ron [facility] 09-14-2001 DTaP, unspecified formulation Nick Ron [facility] 09-14-2001 measles, mumps and rubella virus vaccine Nick Ron [facility] 11-14-1998 DTaP, unspecified formulation Nick Ron [facility] 11-14-1998 hepatitis B vaccine, pediatric or pediatric/adolescent dosage Nick Ron [facility] 06-06-1998 Hib, unspecified formulation Nick Ron [facility] 06-06-1998 measles, mumps and rubella virus vaccine Nick Ron [facility] 11-22-1997 varicella virus vaccine Nick Ron [facility] 05-31-1997 DTaP, unspecified formulation Nick Ron [facility] 05-31-1997 hepatitis B vaccine, pediatric or pediatric/adolescent dosage Nick Ron [facility] 05-31-1997 Hib, unspecified formulation Nick Ron [facility] 04-12-1997 DTaP, unspecified formulation Nick Ron [facility] 04-12-1997 Hib, unspecified formulation Nick Ron [facility] 02-01-1997 DTaP, unspecified formulation Nick Ron [facility] 02-01-1997 hepatitis B vaccine, pediatric or pediatric/adolescent dosage Nick Ron [facility] 02-01-1997 Hib, unspecified formulation Nick Ron [facility] NEGATED: Highlighted row has not occurred!02-13-2022 influenza virus vaccine, unspecified formulation Nick Ron [facility] NEGATED: Highlighted row has not occurred!02-13-2022 SARS-CoV-2 mRNA (calvinjaxson 5y-11y) vaccine Nick Velasquez [facility] Payers Date Payer Category Payer Unknown 1996 Unknown [id number] 2.16.84 [id number] 1996 Unknown [id number] 2.16.84 [id number] 1996 Unknown [id number] 2.16.84 [id number] 1996 Unknown [id number] 2.16.8 [id number] 1996 Unknown [id number] 2.16.8 [id number] 1996 Unknown [id number] 2.16.8 [id number] 1996 Unknown [id number] 2.16.8 [id number] 1996 Unknown [id number] 2.16.84 [id number] 1996 Unknown [id number] 2.16.840 .[id number] 1996 Unknown [id number] 2.16.840 .[id number] 1996 Unknown [id number] 2.16.840 .1.236550.3.579.2.9 1996 Unknown [id number] 2.16.840 .[id number] 1959 Unknown [id number] 2. [id number] 1959 Unknown [id number] Social History Date Type Detail Facility Unknown if ever smoked [facility] Other Sex Assigned At [facility] Start: 02-13-2022 Tobacco smoking status Never s moked tobacco (finding) [facility] Tobacco smoking status Never [place] [facility] Functional Status Date Assessment Result Facility 11-05-2022 Functional Status N/A [facility] Evaluation + Plan note 11-05-2022 Note Date [...] Orthostatic Vitals Signs UA With Cult Reflex [facility] Hospital Discharge instructions 11-05-2022 Note Date & [...] Follow these instructions at home: Medicines Take ocnl-izl-xqevxkh and prescription medicines only as told by [...] provider. Document Revised: 08/29/2021 Document Reviewed: 08/29/2021 BAC ON TRAC Patient Education 2022 [employer]. Follow Up Care 11/05/2022 07:56:32 With:Nas WHALEN Address: [address] , [address] Business (1) When:11/08/2022 11:24:54 With:ANTHONY ROMAN Address: [address] [place] [address] Business (1) When:11/08/2022 11:24:32 Comments:Call the office [...] you develop any new or worsening symptoms. [facility] Clinical Note 02-16-2022 Note Date & Type Note Facility 02-16-2022 Note Microbiology PROCEDURE: Strep Screen Culture [R1] SOURCE: Throat BODY SITE: COLLECTED DATE/TIME: 02/13/2022 15:00 EDT RECEIVED DATE/TIME: 02/14/2022 12:00 EDT START DATE/TIME: 02/14/2022 12:00 EDT FREE TEXT SOURCE: [employer] INSURANCE INSTRUCTOR, SOCIAL WORK SUPERVISOR-C, [employer] INSURANCE INSTRUCTOR, SOCIAL WORK SUPERVISOR-C, Bindu X Bindu X FINAL REPORTS Final Report [] Verified Date/Time: 02/16/2022 11:56 EDT No Pathogenic Streptococcus Isolated Performing Locations R1: This test was performed at: [facility], [address] [place] [address], [id number] , , [facility] Comment on above: Performed By: #### [id number] #### [facility] [address] [place] [address] Evaluation note 02-19-2021 Note Date & Type [...] Patient care instructions given in writting by [facility] At Home document. [employer] Other History general Narrative - Reported Note Date & Type Note Facility History general Narrative - Reported Type Medical History ASTHMA (EXERCISE INDUCED) Surgical History LEFT HUMERUS FRACTURE 1998 Surgical History LEFT PAROTIDECTOMY 2015 [employer] Other Hospital course Narrative Note Date & Type Note Facility Hospital course Narrative No data available for this section [facility] Progress note Note Date & Type Note Facility Progress note No data available for this section [facility] Summary Purpose Family History No Family History Records FoundNo Family History Records FoundNo Family History Records Found Advance Directives No Advanced Directives Records FoundNo Advanced Directives Records FoundNo Advanced Directives Records Found Additional Source Comments REASON FOR VISIT (unrecogniz ed section and content) #3 sore throat INFORMATION SOURCE (unrecogn ized section and content) DATE CREATED AUTHOR 10/10/2022 [facility] DATE CREATED AUTHOR AUTHOR'S ORGANIZ ATION 11/05/2022 [facility] DATE CREATED AUTHOR AUTHOR'S ORGANIZ ATION 05/20/2023 [facility] EPIC Patient Care team informatio n (unrecognized section and content) Personnel Name: ANTHONY ROMAN MD Address: Address: [address] [place] [address] FOR RECORDS PERTAINING TO PATIENTS WHO ARE [...] BE BASED ON THE PRIMARY CLINICAL RECORDS. [employer] [facility]. provides no warranty or guarantee of the accuracy or completeness of information in this document.
[2023-11-12 14:10] LABS: Age Gdln ACOG Testing Note (.); IGP, rfx Aptima HPV ASCU Note (.)
== END 2023-11-09 20:51 | disposition home or self-care (01) ==
LOC: LAB 20:50
PROVIDERS: Visit Provider Obstetrics & Gynecology
DX: Z01.419 Encounter for gynecological examination (general) (routine) without abnormal findings (principal)
CPT/HCPCS: 88175

== ENCOUNTER 2025-01-25 20:15 | Outpatient (REF) | payer BC, SELFPAY ==
--- OUTSIDE RECORDS SUMMARY | 2025-01-18 10:50 | XMS_ITS | Encounter Summary ---
Author Organization [facility] Address [address] [place] [address] Care Team Providers Care Medical Case Worker Name Role Phone Dixie Berkowitz MD Primary Care Provider [phone] Reason for Visit * Reason Comments Routine Visit Encounter Details Date Type Department Care Team (Late st Contact Info) Description 01/18/2025 10:50 AM EDT Routine [facility] [address] [facility] [place] [address] Claudio Alanis DO [address] [facility] [address] [place], [facility] 34 weeks gestation of ([facility]); Third trimester ([facility]); H/O: Social History Tobacco Use Types Packs/Day Years Used Date Smoking Tobacco: Never Smokeless Tobacco: Never Alcohol Use Standard Drinks/Week Comments Never 0 (1 standard drink = 0.6 oz pur e alcohol) Caffeine intake: none Estimated Date of Delivery Comme nts Yes 02/23/2025 Based on Ultraso und Sex and Gender Information Value Date Recorded Sex Assigned at Not on file Legal Sex Female 7:22 PM EDT Gender Identity Not on file Sexual Orientation Not on file documented as of this encounter Last Filed Vital Signs Vital Sign Reading Time Taken Comments Blood Pressure 120/70 01/18/2025 10:43 AM EDT Pulse - - Temperature - - Respiratory Rate - - Oxygen Saturation - - Inhaled Oxygen Concentration - - Weight 72.5 kg (159 lb 12.8 oz) 025 10:43 AM EDT Height - - Body Mass Index 29.23 09/05/2022 12:00 PM EDT documented in this encounter Progress Notes * Jany Reaves, BOOT TURNER - 01/18/2025 10:50 AM EDT Reason for Appointment: Patient ID: Radha Hart is a 29 y.o. female who presents for Routine Visit Patient presents today for Return OB appointment. MEDICATIONS Current Outpatient Medications Medication Instructions MV-Min-Fe Fum-FA-DHA ( 1 PO) Take by mouth. ALLERGIES Allergies Allergen Reactions Codeine Hallucinations PROBLEMS Active Ambulatory Problems Diagnosis Date Noted H/O: 12/07/2024 30 weeks gestation of ([facility]) 12/20/2024 Resolved Ambulatory Problems Diagnosis Date Noted No Resolved Ambulatory Problems Past Medical History: Diagnosis Date Asthma (HCC) Benign parotid tumor Facial paresis Facial weakness Fracture, humerus Pharyngitis Sialocele Syncope Tonsillitis HISTORY PAST MEDICAL HISTORY SOCIAL HISTORY Past Medical History: Diagnosis Date Asthma (HCC) Benign parotid tumor Facial paresis Facial weakness Fracture, humerus Pharyngitis Sialocele Syncope Tonsillitis Social History Tobacco Use Smoking status: Never Smokeless tobacco: Never Substance Use Topics Alcohol use: Never Comment: Caffeine intake: none Drug use: Never FAMILY HISTORY Family History Problem Relation Name Age of Onset Hypertension Father Hypertension Maternal Grandmother Diabetes Maternal Grandmother Asthma Maternal Grandmother Heart disease Maternal Grandmother Skin cancer Maternal Grandfather Diabetes Maternal Grandfather Rheum arthritis Paternal Grandmother Other (MVA) Paternal Grandfather SURGICAL HISTORY Past Surgical History: Procedure Laterality Date SECTION, LOW TRANSVERSE 04/07/2023 ELBOW SURGERY Left 1998 OTHER SURGICAL HISTORY Left 09/21/2015 Parotidectomy PAP SMEAR 03/12/2022 negative REVIEW OF SYSTEMS Review of Systems: Review of Systems Constitutional: Negative. HENT: Negative. Eyes: Negative. Respiratory: Negative. Cardiovascular: Negative. Gastrointestinal: Negative. Genitourinary: Negative. Musculoskeletal: Negative. Skin: Negative. Neurological: Negative. All other systems reviewed and are negative. Hematological: Negative. Endocrine: Negative. Allergic/Immunologic: Negative. OBJECTIVE Objective: Physical Exam Constitutional: Appearance: Normal appearance. She is well-developed. Cardiovascular: Rate and Rhythm: Normal rate and regular rhythm. Pulmonary: Effort: Pulmonary effort is normal. Breath sounds: Normal breath sounds. Abdominal: General: Bowel sounds are normal. There is no distension. Palpations: Abdomen is soft. Tenderness: There is no abdominal tenderness. There is no guarding or rebound. Musculoskeletal: General: No swelling. Normal range of motion. Right lower leg: No edema. Left lower leg: No edema. Neurological: Mental Status: She is alert and oriented to person, place, and time. Skin: General: Skin is warm and dry. Psychiatric: Mood and Affect: Mood normal. Behavior: Behavior normal. Vitals and nursing note reviewed. Exam conducted with a bottom cementer present. Vitals: Estimated body mass index is 29.23 kg/m?? as calculated from the following: Height as of 23: 5' 2 . Weight as of this encounter: 159 lb 12.8 oz. BP: 120/70 No LMP recorded. Patient is . ASSESSMENT & PLAN ICD-10-CM 1. 34 weeks gestation of ([facility]) Z3A.34 POCT urinalysis dipstick manually resulted 2. Third trimester ([facility]) Z34.93 POCT urinalysis dipstick manually resulted 3. H/O: Z98.891 Return OB: Patient presents today for a routine obstetrics appointment. Patient is currently 34w6d . Patient states she is doing well but has complaints of being tired due to current . Patient has verbalizes frequent movement. labor precautions was discussed/given and patient was instructed to perform kick counts three times a day. Orders Placed This Encounter Procedures POCT urinalysis dipstick manually resulted Follow Up: Patient is to return to office in 1 week for routine OB appointment. Documented by Jany Reaves LPN on behalf of: Claudio Alanis DO documented in this encounter Plan of Treatment Upcoming Encounters Date Type Department Care Team (Late st Contact Info) Description 02/01/2025 11:10 AM EDT Routine [facility] [address] [facility] [place] [address] Denise Sultana, HUE [address] [place] [address] documented as of this encounter Procedures Procedure Name Priority Date/Time Associated Diagnosis Comments POCT URINALYSIS DIPSTICK Routine 01/18/2025 10:51 AM EDT 34 weeks gestation of ([facility]) Third trimester ([facility]) documented in this encounter Results * POCT urinalysis dipstick manually resulted (01/18/2025 10:51 AM EDT) Color, UA Yellow Clarity, UA Clear Glucose, UA Negative Negative - 2000(110) ++++ mg/dL Bilirubin, UA Negative Negative - 4(70) +++ mg/dL Ketones, UA Negative Negative - 160(16) ++++ mg/dL Spec Grav, UA 1.015 1 - 1.03 Blood, UA Negative Negative - 50 Xavier/mcL pH, UA 6.0 5 - 9 Protein, UA Negative Negative - 2000(20) ++++ mg/dL Urobilinogen, UA 1.0 0.2 - 12 mg/dL Leukocytes, UA Negative Negative - 500+++ Astrid/mcL Nitrite, UA Negative Negative - Positive Urine 01/18/2025 10:5 1 AM EDT Claudio Alanis DO POINT OF CARE TEST ENTER/EDIT OR DERABLES Final Result documented in this encounter Visit Diagnoses Diagnosis 34 weeks gestation of ([facility]) Third trimester ([facility]) state, incidental H/O: Other postprocedural status documented in this encounter Care Teams Medical Case Worker Relationship Specialty Start Date End Date Dixie Berkowitz MD [address] [place] [phone] PCP - General Family Medicine 10/02/22 documented as of this encounter
--- OUTSIDE RECORDS SUMMARY | 2025-01-25 13:20 | XMS_ITS | Encounter Summary ---
Author Organization [facility] Address [address] [place] [address] Care Team Providers Care Cold Meat Cook Name Role Phone Dixie Berkowitz MD Primary Care Provider [phone] Reason for Visit * Reason Comments Routine Visit Encounter Details Date Type Department Care Team (Late st Contact Info) Description 01/25/2025 1:20 PM EDT Routine [facility] [address] [facility] [place] [phone] Bree Lezama PA [address] [facility] [address] [place], [facility] 35 weeks gestation of ([facility]); Third trimester ([facility]) Social History Tobacco Use Types Packs/Day Years [...] Sign Reading Time Taken Comments Blood Pressure 118/70 01/25/2025 1:15 PM EDT Pulse - - Temperature - - Respiratory Rate - - Oxygen Saturation - - Inhaled Oxygen Concentration - - Weight 74.4 kg (164 lb 1.9 oz) 01/25/2025 1:15 P M EDT Height - - Body Mass Index 30.02 09/05/2022 12:00 PM EDT documented in this encounter Progress Notes * SOFI Rollins - 01/25/2025 1:20 PM EDT Reason for Appointment: Patient ID: Radha Hart is a 29 y.o. female who presents for Routine Visit Patient presents today for Return OB appointment. MEDICATIONS Current Outpatient Medications Medication Instructions MV-Min-Fe Fum-FA-DHA ( 1 PO) Take by mouth. ALLERGIES Allergies Allergen Reactions Codeine Hallucinations PROBLEMS Active Ambulatory Problems Diagnosis Date Noted H/O: 12/07/2024 30 weeks gestation of ([facility]) 12/20/2024 Third trimester ([facility]) 01/25/2025 Resolved Ambulatory Problems Diagnosis Date Noted No [...] Exam Constitutional: Appearance: Normal appearance. She is well-developed and normal weight. Genitourinary: Vulva normal. HENT: Head: Normocephalic. Cardiovascular: Rate and Rhythm: Normal rate and regular rhythm. Pulses: Normal pulses. Pulmonary: Effort: Pulmonary effort is normal. Breath sounds: Normal breath sounds. Abdominal: General: Bowel sounds are normal. There is no distension. Palpations: Abdomen is soft. Tenderness: There is no abdominal tenderness. There is no guarding or rebound. Musculoskeletal: General: No swelling. Normal range of motion. Right lower leg: No edema. Left lower leg: No edema. Neurological: General: No focal deficit present. Mental Status: She is alert and oriented to person, place, and time. Skin: General: Skin is warm and dry. Psychiatric: Mood and Affect: Mood normal. Behavior: Behavior normal. Thought Content: Thought content normal. Judgment: Judgment normal. Vitals and nursing note reviewed. Exam conducted with a table assembler present. Vitals: Estimated body mass index is 30.02 kg/m?? as calculated from the following: Height as of 23: 5' 2 . Weight as of this encounter: 164 lb 1.9 oz. BP: 118/70 No LMP recorded. Patient is . ASSESSMENT & PLAN ICD-10-CM 1. 35 weeks gestation of ([facility]) Z3A.35 POCT urinalysis dipstick manually resulted CULTURE, GROUP B STREP WITH SUSCEPTIBLITY CULTURE, GROUP B STREP WITH SUSCEPTIBLITY 2. Third trimester ([facility]) Z34.93 POCT urinalysis dipstick manually resulted CULTURE, GROUP B STREP WITH SUSCEPTIBLITY CULTURE, GROUP B STREP WITH SUSCEPTIBLITY Patient is doing well but has complaints of being tired and having maternal discomfort due to . Patient verbalized frequent movement and was instructed to perform kick counts three times per day. labor precautions were given, LARC consent was signed/declined, and GBS was obtained. Cervical check was performed and patient is fingertip dilated. Orders Placed This Encounter Procedures CULTURE, GROUP B STREP WITH SUSCEPTIBLITY POCT urinalysis dipstick manually resulted Follow Up: Patient is to return to office in 1 week for routine OB appointment Documented by Elizabet Gray LPN on behalf of: SOFI Rollins documented in this encounter Plan of Treatment Upcoming Encounters Date Type Department Care Team (Late st Contact Info) Description 02/01/2025 11:10 AM EDT Routine [facility] [address] [facility] [place] [address] Denise Sultana NP [address] [facility] [place] [address] Scheduled Orders Name Type Priority Associated Diagnoses Orde r Schedule CULTURE, GROUP B STREP WITH SUSCEPTIBLITY Lab Routine 35 weeks gestation of ([facility]) Third trimester ([facility]) Expected: 01/25/2025, Expires: 01/25/2026 documented as of this encounter Procedures Procedure Name Priority Date/Time Associated Diagnosis Comments POCT URINALYSIS DIPSTICK Routine 01/25/2025 1:30 PM EDT 35 weeks gestation of ([facility]) Third trimester ([facility]) documented in this encounter Results * POCT urinalysis dipstick manually resulted (01/25/2025 1:30 PM EDT) Color, UA Yellow Clarity, UA Clear Glucose, UA Negative Negative - 2000(110) ++++ mg/dL Bilirubin, UA Negative Negative - 4(70) +++ mg/dL Ketones, UA Negative Negative - 160(16) ++++ mg/dL Spec Grav, UA 1.010 1 - 1.03 Blood, UA Negative Negative - 50 Xavier/mcL pH, UA 6.0 5 - 9 Protein, UA Negative Negative - 2000(20) ++++ mg/dL Urobilinogen, UA 0.2 0.2 - 12 mg/dL Leukocytes, UA Negative Negative - 500+++ Astrid/mcL Nitrite, UA Negative Negative - Positive Urine 01/25/2025 1:30 PM EDT Bree FARAH POINT OF CARE TEST ENTER/EDIT OR DERABLES Final Result documented in this encounter Visit Diagnoses Diagnosis 35 weeks gestation of ([facility]) Third trimester ([facility]) state, incidental documented in this encounter Care Teams Cold Meat Cook Relationship Specialty Start Date End Date Dixie Berkowitz MD [address] [place] [phone] PCP - General Family Medicine 10/02/22 documented as of this encounter
--- OUTSIDE RECORDS SUMMARY | 2025-01-25 20:18 | XMS_ITS | Clinical Summary ---
Author Organization [facility] Address [address] [place] [address] Care Team Providers Care Croze Machine Operator Name Role Phone Dixie Berkowitz MD Primary Care Provider [phone] Allergies Active Allergy Reactions Criticality Noted Date Comments Codeine Hallucinations 10/02/2022 Medications MV-Min-Fe Fum-FA-DHA ( 1 PO) Take by mouth. Active Active Problems Problem Noted Date Diagnosed Date Third trimester ([facility]) 01/25/2025 30 weeks gestation of ([facility]) 2024 H/O: 12/07/2024 Estimated Date of Delivery Comme nts Yes 02/23/2025 Based on Ultraso und Encounters Date Type Department Care Team Description 01/25/2025 1:20 PM EDT Routine [facility] [address] [place] [address] Bree Lezama PA 35 weeks gestation of ([facility]); Third trimester ([facility]) 01/25/2025 Bamboo flowsheet [facility] [address] [place] [address] Bree Lezama PA 01/19/2025 Travel 01/18/2025 10:50 AM EDT Routine [facility] [address] [place] [address] Claudio Alanis DO 34 weeks gestation of ([facility]); Third trimester ([facility]); H/O: 01/18/2025 Bamboo flowsheet [facility] [address] [place] [address] Claudio Alanis, DO 01/11/2025 Travel 01/03/2025 2:50 PM EDT Routine [facility] [address] [place] [address] Bree Lezama PA 32 weeks gestation of ([facility]); Third trimester ([facility]); H/O: 01/03/2025 2:00 PM EDT Ancillary Procedure [facility] [place] [address] size inconsistent with dates ([facility]) 12/27/2024 Travel 12/20/2024 10:00 AM EDT Routine [facility] [place] [address] Claudio Alanis, DO 30 weeks gestation of ([facility]); Third trimester ([facility]); size inconsistent with dates ([facility]) 12/20/2024 Bamboo flowsheet [facility] [address] [place] [address] Claudio Alanis, 12/13/2024 Travel 12/07/2024 11:00 AM EDT Routine [facility] [address] [place] [address] Claudio Alanis, Third trimester ([facility]); 28 weeks gestation of ([facility]); H/O: 12/07/2024 Bamboo flowsheet [facility] [address] [place] [address] Claudio Alanis, 11/30/2024 Travel 11/18/2024 Telephone [facility] [address] [place] [address] Ester Irwin LPN 11/18/2024 Abstract [facility] [address] [place] [address] Claudio Alanis DO 11/15/2024 8:30 AM EDT Routine [facility] [address] [place] [address] [place] [address] Bree Lezama PA Second trimester ([facility]); 25 weeks gestation of ([facility]); Diabetes mellitus screening 11/15/2024 Bamboo flowsheet [facility] [address] [place] [address] [place] [address] Bree Lezama PA 11/08/2024 Travel from Last 3 Months Family History Medical History Relation Name Comments Hypertension Father Diabetes Maternal Grandfather Skin cancer Maternal Grandfather Asthma Maternal Grandmother Diabetes Maternal Grandmother Heart disease Maternal Grandmother Hypertension Maternal Grandmother MVA Paternal Grandfather Rheum arthritis Paternal Grandmother Relation Name Status Comments Father Alive Maternal Grandfather Alive Maternal Grandmother Alive Mother Alive Paternal Grandfather Paternal Grandmother Alive Social History Tobacco Use Types Packs/Day Years Used Date Smoking Tobacco: Never Smokeless Tobacco: Never Tobacco Cessation:Counseling Given: Not Answered Alcohol Use Standard Drinks/Week Comments Never 0 (1 standard drink = 0.6 oz pur e alcohol) Caffeine intake: none Estimated Date of Delivery Comme nts Yes 02/23/2025 Based on Ultraso und Sex and Gender Information Value Date Recorded Sex Assigned at Not on file Legal Sex Female 7:22 PM EDT Gender Identity Not on file Sexual Orientation Not on file Last Filed Vital Signs Vital Sign Reading Time Taken Comments Blood Pressure 118/70 01/25/2025 1:15 PM EDT Pulse - - Temperature - - Respiratory Rate - - Oxygen Saturation - - Inhaled Oxygen Concentration - - Weight 74.4 kg (164 lb 1.9 oz) 01/25/2025 1:15 P M EDT Height 157.5 cm (5' 2 ) 09/05/2022 12:00 PM EDT Body Mass Index 30.02 09/05/2022 12:00 PM EDT Plan of Treatment Upcoming Encounters Date Type Department Care Team (Late st Contact Info) Description 02/01/2025 11:10 AM EDT Routine [facility] [address] [place] [phone] Deinse Sultana, [employer] [address] [place] [address] Health Maintenance Due Date Last Done Comments Influenza Vaccine (#1) 2025 , 02/17/2022, 03/01/2021, Additional history exists Procedures Procedure Name Priority Date/Time Associated Diagnosis Comments POCT URINALYSIS DIPSTICK Routine 01/25/2025 1:30 PM EDT 35 weeks gestation of ([facility]) Third trimester ([facility]) POCT URINALYSIS DIPSTICK Routine 01/18/2025 10:51 AM EDT 34 weeks gestation of ([facility]) Third trimester ([facility]) US OB FOLLOW UP TRANSABDOMINAL APPROACH Routine 01/03/2025 2:38 PM EDT size inconsistent with dates ([facility]) POCT URINALYSIS DIPSTICK Routine 01/03/2025 2:38 PM EDT 32 weeks gestation of ([facility]) Third trimester ([facility]) POCT URINALYSIS DIPSTICK Routine 12/20/2024 10:04 AM EDT 30 weeks gestation of ([facility]) Third trimester ([facility]) POCT URINALYSIS DIPSTICK Routine 12/07/2024 11:01 AM EDT Third trimester ([facility]) POCT URINALYSIS DIPSTICK Routine 11/15/2024 8:44 AM EDT Second trimester ([facility]) from Last 3 Months Results * POCT urinalysis dipstick manually resulted (01/25/2025 1:30 PM EDT) Only the most recent of6 resultswithin the time period is included. Color, UA Yellow Clarity, UA Clear Glucose, [...] - Positive Urine 01/25/2025 1:30 PM EDT us Bree FARAH POINT OF CARE TEST ENTER/EDIT OR DERABLES Final Result * US OB follow up transabdominal approach (01/03/2025 2:38 PM EDT) Anatomical Region Laterality Modality Body Ultrasound 01/03/2025 2:51 PM EDT Impressions 01/03/2025 3:05 PM EDT Single, live intrauterine , current sonographic age of 33 weeks and 1 day, with an estimated date of delivery of February 20, 2025 (prior KYRA February 21, 2025). * Estimated Weight (g) by Percentile is based upon an accurate estimated age based on last menstrual period. TRANSCRIBED BY: ELECTRONICALLY SIGNED BY: Klever Will MD Narrative 01/03/2025 3:05 PM EDT FINDINGS: Comparison made with prior exam October 18, 2024. A single, live intrauterine is present with normal cardiac rate of 157 beats per minute. Normal activity and amniotic fluid volume. Amniotic fluid index is 11 cm. Morphology is grossly normal. The cervix is obscured from positioning. The current sonographic age is 33 weeks and 1 days, based on the following measurements: BPD 8.4 cm (33 weeks, 6 days) Head Circumference 30.6 cm (34 weeks, 1 day) Abdominal Circumference 28.0 cm (32 weeks, 1 day) Femur Length 6.3 cm (32 weeks, 4 days) Presentation Cephalic Weight (g) by Percentile 36.2 % * These measurements result in an estimated date of delivery of February 20, 2025. The current estimated weight is 2008 grams (4 pounds, 7 ounces). Procedure Note Klever Will MD - 01/03/2025 FINDINGS: Comparison made with prior exam October 18, 2024. A single, live intrauterine is present with normal cardiacrate of 157 beats per minute. Normal activity and amniotic fluidvolume. Amniotic fluid index is 11 cm. Morphology is grossly normal. Thecervix is obscured from positioning. The current sonographic age is33 weeks and 1 days, based on the following measurements: BPD 8.4 cm (33 weeks, 6 days) Head Circumference 30.6 cm (34 weeks, 1 day) Abdominal Circumference 28.0 cm (32 weeks, 1 day) Femur Length 6.3 cm (32 weeks, 4 days) Presentation Cephalic Weight (g) by Percentile 36.2 % * These measurements result in an estimated date of delivery of February. The current estimated weight is 2008 grams (4 pounds, 7ounces). IMPRESSION: Single, live intrauterine , current sonographic age of 33 weeksand 1 day, with an estimated date of delivery of February 20, 2025 (priorEDD February 21, 2025). * Estimated Weight (g) by Percentile is based upon an accurateestimated age based on last menstrual period. TRANSCRIBED BY: ELECTRONICALLY SIGNED BY: Klever Will MD us Claudio Alanis DO [facility] [place] OB US PROCEDURES Final Resul t from Last 3 Months Insurance [facility] Care Teams Croze Machine Operator Relationship Specialty Start Date End Date Dixie Berkowitz MD [address] [place] [address] PCP - General Family Medicine 10/02/22
--- OUTSIDE RECORDS SUMMARY | 2025-01-25 20:18 | XMS_ITS | Encounter Summary ---
Author Organization [facility] Address [address] [facility] [place] [address] Care Team Providers Care Pay Station Department Manager Name Role Phone Dixie Berkowitz MD Primary Care Provider [phone] Encounter Details Date Type Department Care Team (Late Contact Info) Description 08/02/2024 Abstract [facility] [address] [place] [address] Claudio Alanis DO [address] [place], [place] [address] Social History Tobacco Use Types Packs/Day Years [...] on file documented as of this encounter Plan of Treatment Upcoming Encounters Date Type Department Care Team (Late st Contact Info) Description 02/01/2025 11:10 AM EDT Routine [facility] [address] [place] [address] Denise Sultana, HUE [address] [facility] [place] [phone] documented as of this encounter Visit Diagnoses Not on filedocumented in this encounter Care Teams Pay Station Department Manager Relationship Specialty Start Date End Date Dixie Berkowitz MD [address] [place] [address] PCP - General Family Medicine 10/02/22 documented as of this encounter
--- OUTSIDE RECORDS SUMMARY | 2025-01-25 20:18 | XMS_ITS | Encounter Summary ---
Author Organization [facility] Address [address] [place] [address] Care Team Providers Care Precision Jig Grinder Name Role Phone Dixie Berkowitz MD Primary Care Provider [phone] Encounter Details Date Type Department Care Team (Latest Contact Info) Description 01/19/2025 Travel Social History Tobacco Use Types Packs/Day Years [...] 02/01/2025 11:10 AM EDT Routine [facility] [address] [place] [address] Denise Sultana NP [address] [facility] [place] [address] documented as of this encounter Visit Diagnoses Not on filedocumented in this encounter Care Teams Precision Jig Grinder Relationship Specialty Start Date End Date Dixie Berkowitz MD [address] [place] [phone] PCP - General Family Medicine 10/02/22 documented as of this encounter
--- OUTSIDE RECORDS SUMMARY | 2025-01-25 20:18 | XMS_ITS | Encounter Summary ---
Author Organization [facility] Address [address] [place] [address] Care Team Providers Care Rn Employee Health Name Role Phone Dixie Berkowitz MD Primary Care Provider [phone] Encounter Details Date Type Department Care Team (Late Contact Info) Description 02/13/2023 Clinisync Result Encounter NOM[facility] External Department Unsolicited Nas Alanis DO [address] [facility] [address] [place], [facility] Social History Tobacco Use Types Packs/Day Years Used Date Smoking Tobacco: Never Smokeless Tobacco: Never Alcohol Use Standard Drinks/Week Comments Never 0 (1 standard drink = 0.6 oz pur e alcohol) Caffeine intake: none Comments Yes Sex and Gender Information Value Date Recorded Sex Assigned at Not on file Legal Sex Female 7:22 PM EDT Gender Identity Not on file Sexual Orientation Not on file COVID-19 Exposure Response Date Recorded In the last 10 days, have yo u been in contact with someone who was confirmed or suspected to have Coronavirus/COVID-19? No / Unsure 02/03/2023 8:46 AM EDT documented as of this encounter Plan of Treatment Upcoming Encounters Date Type Department Care Team (Late st Contact Info) Description 02/01/2025 11:10 AM EDT Routine [facility] [address] [facility] [address] Denise Sultana, OPTICS ENGINEER [address] [facility] [place] [address] (work) documented as of this encounter Procedures Procedure Name Priority Date/Time Associated Diagnosis Comments US OB GROWTH 02/13/2023 3:07 PM EDT documented in this encounter Results * US OB GROWTH (02/13/2023 3:07 PM EDT) Anatomical Region Laterality Modality Other 02/13/2023 3:07 PM EDT Narrative 02/13/2023 3:07 [place] [address] Ultrasound Report Signed Patient: RADHA HART MR#: [id number] : 1995 Acct:[id number] Age/Sex: 27 / F ADM Date: 02/13/23 Loc: US Attending Dr: Nsa Alanis D.O. Ordering Physician: Nas Alanis D.O. Date of Service: 02/13/23 Procedure(s): US OB growth Accession Number(s): [id number] cc: Nas Alanis D.O.; Physician,Non-Staff M.DGallo The [address] [address] Patient Name: RADHA HART MRN: [id number] date: 1995 Sex: F Assigned Patient Location: Current Patient Location: Accession/Order Number: [id number] Exam Date: 02/13/2023 08:02 Report Date: 02/13/2023 15:07 At the request of: NAS ALANIS Procedure: US OB growth EXAMINATION: US OB growth HISTORY: SIZE INCONSISTENT WITH DATES O26.849 COMPARISON: No relevant comparison available. FINDINGS: Heart Rate: 161.7 bpm Number: 1.0 Position: BREECH Amniotic Fluid Volume: 11.3 cm Maximum Vertical Pocket: 3.8 cm BIOMETRY: BPD: 7.8 cm cm; 31 weeks 2 days; 40% HC: 30.9 cmcm; 34 weeks 3 days; 91% AC: 26.1 cm cm; 30 weeks 2 days; 18% FL: 5.9 cm cm; 31 weeks 0 days; 27% EFW: 1669.6 grams; 27% FL/AC: 22.7 FL/BPD: 76.1 HC/AC: 1.2 GESTATIONAL AGE: Age by EDC: 31 weeks 2 days KYRA by EDC: 04/15/2023 Age by US: 31 weeks 5 days KYRA by US: 04/12/2023 US/US OB growth IMPRESSION: 1. Single live intrauterine with growth detailed above. Electronically authenticated by: THEODORE TOLENTINO Date: 02/13/2023 15:07 Dictated By: Theodore Tolentino M.D. Signed By: 02/13/23 1509 DD/ 1507 TD/TT: Preschool Assistant Teacher: Procedure Note Radiology, Radiologist, MD - 02/13/2023 [place] [address] Ultrasound Report Signed Patient: RADHA HART GMR#: [id number] : 1995Acct:[id number] Age/Sex: 27 / FADM Date: 02/13/23 Loc: US Attending Dr: Nas Alanis D.O. Ordering Physician: Nas Alanis D.O. Date of Service: 02/13/23 Procedure(s): US OB growth Accession Number(s): [id number] cc: Nas Alanis D.O.; Physician,Non-Staff Katharine The [place] [id number] Patient Name: RADHA HART MRN: [facility]:[id number] date: 1995 Sex: F Assigned Patient Location: US Current Patient Location: US Accession/Order Number: [id number] Exam Date: 02/13/2023 08:02 Report Date: 02/13/2023 15:07 At the request of: NAS ALANIS Procedure: US OB growth EXAMINATION: US OB growth HISTORY: SIZE INCONSISTENT WITH DATES O26.849 COMPARISON: No relevant comparison available. FINDINGS: Heart Rate: 161.7 bpm Number: 1.0 Position: BREECH Amniotic Fluid Volume: 11.3 cm Maximum Vertical Pocket: 3.8 cm BIOMETRY: BPD: 7.8 cm cm; 31 weeks 2 days; 40% HC: 30.9 cmcm; 34 weeks 3 days; 91% AC: 26.1 cm cm; 30 weeks 2 days; 18% FL: 5.9 cm cm; 31 weeks 0 days; 27% EFW: 1669.6 grams; 27% FL/AC: 22.7 FL/BPD: 76.1 HC/AC: 1.2 GESTATIONAL AGE: Age by EDC: 31 weeks 2 days KYRA by EDC: 04/15/2023 Age by US: 31 weeks 5 days KYRA by US: 04/12/2023 US/US OB growth IMPRESSION: 1. Single live intrauterine with growth detailed above. Electronically authenticated by: THEODORE TOLENTINO Date: 02/13/2023 15:07 Dictated By: Theodore Tolentino M.D. Signed By:02/13/23 1509 DD/ 1507 TD/TT: Preschool Assistant Teacher: us Nas Annabelle DO [facility] IMAGING Final Result documented in this encounter Visit Diagnoses Not on filedocumented in this encounter Care Teams Rn Employee Health Relationship Specialty Start Date End Date Dixie Berkowitz MD [address] [place] [address] PCP - General Family Medicine 10/02/22 documented as of this encounter
--- OUTSIDE RECORDS SUMMARY | 2025-01-25 20:18 | XMS_ITS | Encounter Summary ---
Author Organization [facility] Address [address] [facility] [place] [address] Care Team Providers Care Photogeologist Name Role Phone Dixie Berkowitz MD Primary Care Provider [phone] Encounter Details Date Type Department Care Team (Late Contact Info) Description 01/18/2025 Bamboo flowsheet [facility] [address] [place] [address] Claudio Alanis, DO [address] [facility] [address] [place], [id number] Social History Tobacco Use Types Packs/Day Years [...] Info) Description 02/01/2025 11:10 AM EDT Routine [facility] [address] [facility] [place] [address] Denise Sultana, AUTOGRAPHER [address] [facility] [place] [address] documented as of this encounter Visit Diagnoses Not on filedocumented in this encounter Care Teams Photogeologist Relationship Specialty Start Date End Date Dixie Berkowitz MD [address] [place] [address] PCP - General Family Medicine 10/02/22 documented as of this encounter
--- OUTSIDE RECORDS SUMMARY | 2025-01-25 20:18 | XMS_ITS | Encounter Summary ---
Author Organization [facility] Address [address] [facility] [place] [address] Care Team Providers Care Letter Sorting Machine Operator Name Role Phone Dixie Berkowitz MD Primary Care Provider [phone] Encounter Details Date Type Department Care Team (Late Contact Info) Description 04/07/2023 Clinisync Result Encounter NOMS External Department Unsolicited Daxa Eden, CNM [address] [place] [address] Social History Tobacco Use Types Packs/Day Years [...] suspected to have Coronavirus/COVID-19? No / Unsure 03/24/2023 2:33 PM EST documented as of this encounter Plan of Treatment Upcoming Encounters Date Type Department Care Team (Late st Contact Info) Description 02/01/2025 11:10 AM EDT Routine [facility] [address] [place] [address] Denise Sultana, CHILD PSYCHIATRIST [address] [place] [address] documented as of this encounter Procedures Procedure Name Priority Date/Time Associated Diagnosis Comments US OB LIMITED 1+ FETUSES 04/07/2023 9:58 PM EST ALL CBC WITH AUTO DIFF Routine 04/07/2023 9:40 PM EST TB[facility] DRUG SCREEN RAPID (URINE) Routine 04/07/2023 8:40 PM EST [facility] URINALYSIS, WITH MICROSCOPIC Routine 04/07/2023 8:40 PM EST documented in this encounter Results * US OB limited 1+ fetuses (04/07/2023 9:58 PM EST) Anatomical Region Laterality Modality Body Ultrasound 04/07/2023 9:58 PM EST Narrative 04/07/2023 10:00 [place] [address] Ultrasound Report Signed Patient: RADHA HART MR#: [id number] : 1995 Acct:[id number] Age/Sex: 27 / F ADM Date: Loc: [facility] [address]: Claudio Alanis D.O. Ordering Physician: DAXA EDEN APRN, CNM Date of Service: 04/07/23 Procedure(s): US OB limited Accession Number(s): [id number] cc: DAXA EDEN APRN, CNM; Physician,Non-Staff M.D. The [place] [id number] Patient Name: RADHA HART MRN: [facility]:[id number] date: 1995 Sex: F Assigned Patient Location: [facility] Current Patient Location: [facility] Accession/Order Number: [id number] Exam Date: 04/07/2023 21:15 Report Date: 04/07/2023 21:58 At the request of: DAXA EDEN Procedure: US OB limited EXAM: US OB limited HISTORY: to determine position COMPARISON: None. TECHNIQUE: Limited OB ultrasound is performed for Evaluation of position. FINDINGS: Single live and active fetus is seen with breech position and longitudinal lie. heart rate is 134 bpm. US/US OB limited IMPRESSION: Single live and active fetus is seen with breech position. heart rate is 134 bpm. Electronically authenticated by: RADHA BURRELL Date: 04/07/2023 21:58 Dictated By: Radha Burrell M.D. Signed By: 04/07/232199 DD/ 57 TD/TT: Efficiency Engineer: Procedure Note Radiology, Radiologist, MD - 04/07/2023 [place] [address] Ultrasound Report Signed Patient: RADHA HART GMR#: [id number] : 1995Acct:[id number] Age/Sex: 27 / FADM Date: Loc: [facility] [address]: Claudio Alanis D.O. Ordering Physician: DAXA EDEN APRN, CNM Date of Service: 04/07/23 Procedure(s): US OB limited Accession Number(s): [id number] cc: DAXA EDEN APRN, CNM; Physician,Non-Staff M.Sara The [address] [address] Patient Name: RADHA HART MRN: [id number]:[id number] date: 1995 Sex: F Assigned Patient Location: [facility] Current Patient Location: [facility] Accession/Order Number: [id number] Exam Date: 04/07/2023 21:15 Report Date: 04/07/2023 21:58 At the request of: DAXA EDEN Procedure: US OB limited EXAM: US OB limited HISTORY: to determine position COMPARISON: None. TECHNIQUE: Limited OB ultrasound is performed for Evaluation of position. FINDINGS: Single live and active fetus is seen with breech positionand longitudinal lie. heart rate is 134 bpm. US/US OB limited IMPRESSION: Single live and active fetus is seen with breech position. heart rate is 134 bpm. Electronically authenticated by: RADHA BURRELL Date: 04/07/2023 21:58 Dictated By: Radha Burrell M.D. Signed By:04/07/232199 DD/ 57 TD/TT: Efficiency Engineer: us Daxa Eden CNM IMG OB US PROCEDURES Final R esult * (ABNORMAL) ALL CBC WITH AUTO DIFF (04/07/2023 9:40 PM EST) [facility] WBC 10.0 4.0 - 11.0 10 3/uL TBH TBH RBC 4.03(L) 4.20 - 5.40 10 6/uL TBH TBH HGB 11.7(L) 12.0 - 16.0 g/dL TBH TBH HCT 34.9(L) 36.0 - 48.0 % TBH TBH MCV 86.6 81.0 - 99.0 fL TBH TBH MCH 29.0 26.7 - 34.0 pg TBH TBH MCHC 33.5 29.9 - 35.2 g/dL TBH TBH RDW 13.6 11.0 - 15.0 % TBH TBH PLT 173 150 - 450 10 3/uL TBH TBH MPV 11.9 9.5 - 13.5 fL TBH NEUTROPHILS PERCENT AUTO 72.0 43.0 - 75.0 % TBH LYMPHOCYTES PERCENT AUTO 19.6(L) 20.5 - 60.0 % TBH MONOCYTES PERCENT AUTO 5.8 1.7 - 12.0 % TBH TBH EO % 1.0 0.9 - 7.0 % TBH BASOPHILS PERCENT AUTO 0.3 0.2 - 2.0 % TBH IMMATURE GRANULOCYTES PCT AUTO 1.3(H) 0.0 - 0.5 % TBH NEUTROPHILS ABSOLUTE AUTO 7.2(H) 1.4 - 6.5 10 3/uL TBH LYMPHOCYTES ABSOLUTE AUTO 2.0 1.2 - 3.8 10 3/uL TBH MONOCYTES ABSOLUTE AUTO 0.6 0.3 - 0.8 10 3/uL TBH TBH EO # 0.1 0.0 - 0.7 10 3/uL TBH BASOPHILS ABSOLUTE AUTO 0.0 0.0 - 0.1 10 3/uL TBH IMMATURE GRANULOCYTES ABS AUTO 0.13(H) 0.00 - 0.03 10 3/uL TBH 04/07/2023 9:40 PM EST 04/07/2023 10:26 PM EST Narrative CLIN[facility] - 04/07/2023 10:32 PM EST [facility] Annabelle DO [facility] Final Result Performing Organization Address [facility] Co de Phone Number [facility] * TBH DRUG SCREEN RAPID (URINE) (04/07/2023 8:40 PM EST) CANNABINOID SCREEN URINE NEGATIVE NEGATIVE TBH PHENCYCLIDINE SCREEN URINE NEGATIVE NEGATIVE TBH COCAINE SCREEN URINE NEGATIVE NEGATIVE TBH METHAMPHETAMINES SCREEN URINE NEGATIVE NEGATIVE TBH OPIATE SCREEN URINE NEGATIVE NEGATIVE TBH AMPHETAMINE SCREEN URINE NEGATIVE NEGATIVE TBH BENZODIAZEPINES SCREEN URINE NEGATIVE NEGATIVE TBH TRICYCLIC ANTIDEPRESSANT URINE NEGATIVE NEGATIVE TBH METHADONE SCREEN URINE NEGATIVE NEGATIVE TBH BARBITURATES SCREEN URINE NEGATIVE NEGATIVE TBH OXYCODONE SCREEN URINE NEGATIVE NEGATIVE TBH BUPRENORPHINE SCREEN URINE NEGATIVE NEGATIVE TBH Comment: DRUG CLASS TEST SYSTEM CUT-OFF CONCENTRATIONS ARE FOLLOWS: AMP (Amphetamine): 500 ng/mL BAR (Barbiturates): 200 ng/mL BZO (Benzodiazepines): 150 ng/mL BUP (Buprenorphine): 10 ng/mL RED (Cocaine): 150 ng/mL mAMP (Methamphetamine): 500 ng/mL MTD (Methadone): 200 ng/mL OPI (Opiates): 100 ng/mL OXY (Oxycodone): 100 ng/mL PCP (Phencyclidine): 25 ng/mL THC (Cannabinoids): 50 ng/mL TCA (Trycyclic Antidepressants): 300 ng/mL 04/07/2023 8:40 PM EST 04/07/2023 10:26 PM EST Narrative CLINISYNC - 04/07/2023 10:47 PM EST [facility] Annabelle DO CLIN[facility] Final Result Performing Organization Address [facility]/ZIP Co de Phone Number [facility] * (ABNORMAL) [facility] URINALYSIS, WITH MICROSCOPIC (04/07/2023 8:40 PM EST) COLOR URINE LT. YELLOW YELLOW TBH CLARITY URINE CLEAR CLEAR TBH SPECIFIC GRAVITY URINE 1.015 1.005 - 1.025 TBH PH URINE 7.0 5.0 - 9.0 TBH PROTEIN URINE NEGATIVE NEG/TRACE mg/dL TBH GLUCOSE URINE UA NEGATIVE NEGATIVE mg/dL TBH BILIRUBIN URINE NEGATIVE NEGATIVE TBH KETONES URINE NEGATIVE NEGATIVE mg/dL TBH BLOOD URINE NEGATIVE NEGATIVE TBH NITRITE URINE NEGATIVE NEGATIVE TBH UROBILINOGEN URINE 0.2 0.2 - 1.0 EU/dL TBH LEUKOCYTE ESTERASE URINE SMALL(A) NEGATIVE TBH TBH WBC 2-5(A) NONE SEEN #/HPF TBH TBH RBC 0-2 0 - 2 #/HPF TBH BACTERIA URINE SMALL(A) NONE SEEN #/HPF TBH MUCUS URINE TRACE(A) NONE SEEN TBH SQUAMOUS EPITHELIAL CELL URINE MODERATE(A) NONE/RARE #/LPF TBH CRYSTALS SEEN? Seen(A) None Seen #/HPF TBH AMORPHOUS SEDIMENT URINE RARE TBH CAST SEEN? NONE SEEN NONE SEEN #/LPF TBH 04/07/2023 8:40 PM EST 04/07/2023 10:26 PM EST Narrative CLINISYNC - 04/07/2023 10:46 PM EST Claudio Annabelle DO CLINISYNC Final Result CLINISYNC TB documented in this encounter Visit Diagnoses Not on filedocumented in this encounter Care Teams Letter Sorting Machine Operator Relationship Specialty Start Date End Date Dixie Berkowitz MD [address] [place] [phone] PCP - General Family Medicine 10/02/22 documented as of this encounter
--- OUTSIDE RECORDS SUMMARY | 2025-01-25 20:18 | XMS_ITS | Encounter Summary ---
Author Organization [facility] Address [address] [facility] [place] [address] Care Team Providers Care Nailhead Puncher Name Role Phone Dixie Berkowitz MD Primary Care Provider Encounter Details Date Type Department Care Team (Late Contact Info) Description 06/27/2024 Abstract [facility] [address] [facility] [place] [address] Claudio Alanis DO [address] [facility] [address] [place], [place] [address] Social History Tobacco Use Types Packs/Day Years Used Date Smoking Tobacco: Never Smokeless Tobacco: Never Alcohol Use Standard Drinks/Week Comments Never 0 (1 standard drink = 0.6 oz pur e alcohol) Caffeine intake: none Comments Unknown Sex and Gender Information Value Date Recorded Sex Assigned at Not on file Legal Sex Female 7:22 PM EDT Gender Identity Not on file Sexual Orientation Not on file documented as of this encounter Plan of Treatment Upcoming Encounters Date Type Department Care Team (Late st Contact Info) Description 02/01/2025 11:10 AM EDT Routine [facility] [address] [facility] [place] [address] Denise Sultana, HUE [address] [facility] [place] [address] documented as of this encounter Visit Diagnoses Not on filedocumented in this encounter Care Teams Nailhead Puncher Relationship Specialty Start Date End Date Dixie Berkowitz MD [address] [place] [address] PCP - General Family Medicine 10/02/22 documented as of this encounter
--- OUTSIDE RECORDS SUMMARY | 2025-01-25 20:18 | XMS_ITS | Encounter Summary ---
Author Organization [facility] Address [address] [facility] [place] [address] Care Team Providers Care Associate Business Analyst Name Role Phone Dixie Berkowitz MD Primary Care Provider [phone] Encounter Details Date Type Department Care Team (Late Contact Info) Description 06/29/2024 Abstract [facility] [address] [facility] [place] [address] Claudio Alanis DO [address] [facility] [address] [place], [place] [address] Social History Tobacco Use Types Packs/Day Years [...] 11:10 AM EDT Routine [facility] [address] [facility] [place] [address] Denise Sultana, HUE [address] [facility] [place] [address] documented as of this encounter Visit Diagnoses Not on filedocumented in this encounter Care Teams Associate Business Analyst Relationship Specialty Start Date End Date Dixie Berkowitz MD [address] [place] [address] PCP - General Family Medicine 10/02/22 documented as of this encounter
--- OUTSIDE RECORDS SUMMARY | 2025-01-25 20:18 | XMS_ITS | Encounter Summary ---
Author Organization [facility] Address [address] [facility] [place] [address] Care Team Providers Care Customer Support Executive Name Role Phone Dixie Berkowitz MD Primary Care Provider [phone] Encounter Details Date Type Department Care Team (Late Contact Info) Description 02/02/2023 Abstract [facility] [address] [facility] [place] [address] Claudio Alanis DO [address] [facility] [address] [place], [place] [address] Social History Tobacco Use Types Packs/Day Years [...] 11:10 AM EDT Routine [facility] [address] [facility] [place] [address] Denise Sultana, HUE [address] [facility] [place] [address] documented as of this encounter Visit Diagnoses Not on filedocumented in this encounter Care Teams Customer Support Executive Relationship Specialty Start Date End Date Dixie Berkowitz MD [address] [facility] [place] [phone] PCP - General Family Medicine 10/02/22 documented as of this encounter
--- OUTSIDE RECORDS SUMMARY | 2025-01-25 20:18 | XMS_ITS | Encounter Summary ---
Author Organization [facility] Address [address] [facility] [place] [address] Care Team Providers Care Lathing Supervisor Name Role Phone Dixie Berkowitz MD Primary Care Provider [phone] Encounter Details Date Type Department Care Team (Late Contact Info) Description 12/27/2022 Abstract [facility] [address] [facility] [place] [address] Bree Lezama PA [address] [facility] [address] [place], [place] [address] Social History Tobacco Use Types Packs/Day Years [...] suspected to have Coronavirus/COVID-19? No / Unsure 12/23/2022 8:37 AM EDT documented as of this encounter Plan of Treatment Upcoming Encounters Date Type Department Care Team (Late Contact Info) Description 02/01/2025 11:10 AM EDT Routine [facility] [address] [facility] [place] [address] Denise Sultana, HUE [address] [facility] [place] [address] documented as of this encounter Visit Diagnoses Not on filedocumented in this encounter Care Teams Lathing Supervisor Relationship Specialty Start Date End Date Dixie Berkowitz MD [address] [facility] [place] [address] PCP - General Family Medicine 10/02/22 documented as of this encounter
--- OUTSIDE RECORDS SUMMARY | 2025-01-25 20:19 | XMS_ITS | Encounter Summary ---
Author Organization [facility] Address [address] [facility] [place] [address] Care Team Providers Care Ceramic Maker Demonstrator Name Role Phone Dixie Berkowitz MD Primary Care Provider [phone] Encounter Details Date Type Department Care Team (Late Contact Info) Description 11/18/2024 Abstract [facility] [address] [facility] [place] [address] Claudio Alanis DO [address] [facility] [address] [place], [place] [address] Social History Tobacco Use Types Packs/Day Years [...] 11:10 AM EDT Routine [facility] [address] [facility] [place] [address] Denise Sultana, HUE [address] [facility] [place] [address] documented as of this encounter Visit Diagnoses Not on filedocumented in this encounter Care Teams Ceramic Maker Demonstrator Relationship Specialty Start Date End Date Dixie Berkowitz MD [address] [place] [address] PCP - General Family Medicine 10/02/22 documented as of this encounter
--- OUTSIDE RECORDS SUMMARY | 2025-01-25 20:19 | XMS_ITS | Encounter Summary ---
Author Organization [facility] Address [address] [place] [address] Care Team Providers Care Media Analyst Name Role Phone Dixie Berkowitz MD Primary Care Provider [phone] Encounter Details Date Type Department Care Team (Latest Contact Info) Description 01/11/2025 Travel Social History Tobacco Use Types Packs/Day [...] AM EDT Routine [facility] [address] [facility] [place] [address] Denise Sultana NP [address] [facility] [place] [address] documented as of this encounter Visit Diagnoses Not on filedocumented in this encounter Care Teams Media Analyst Relationship Specialty Start Date End Date Dixie Berkowitz MD [address] [place] [phone] PCP - General Family Medicine 10/02/22 documented as of this encounter
--- OUTSIDE RECORDS SUMMARY | 2025-01-25 20:19 | XMS_ITS | Encounter Summary ---
Author Organization [facility] Address [address] [facility] [place] [address] Care Team Providers Care Civil Engineering Teacher Name Role Phone Dixie Berkowitz MD Primary Care Provider [phone] Encounter Details Date Type Department Care Team (Late Contact Info) Description 11/16/2023 Orders Only [facility] [place] [address] [place] [address] Elvie Cordova LPN [address] [facility] [place] [address] Social History Tobacco Use Types Packs/Day Years [...] AM EDT Routine [facility] [place] [address] [place] [address] Denise Sultana, HUE [address] [facility] [place] [address] documented as of this encounter Procedures Procedure Name Priority Date/Time Associated Diagnosis Comments PAP SMEAR Routine 11/09/2023 12:00 AM EDT documented in this encounter Results * Pap Smear (11/09/2023 12:00 AM EDT) Swab Cervical swab / Unknown Annabelle Nurse [facility] Ob LAB CYTOLOGY ORDERABLES Final Result EXTERNAL LAB documented in this encounter Visit Diagnoses Not on filedocumented in this encounter Care Teams Civil Engineering Teacher Relationship Specialty Start Date End Date Dixie Berkowitz MD [address] [place] [phone] PCP - General Family Medicine 10/02/22 documented as of this encounter
--- OUTSIDE RECORDS SUMMARY | 2025-01-25 20:19 | XMS_ITS | Encounter Summary ---
Author Organization [facility] Address [address] [place] [facility] [place] [address] Care Team Providers Care Bee Producer Name Role Phone Dixie Berkowitz MD Primary Care Provider Encounter Details Date Type Department Care Team (Late Contact Info) Description 06/24/2024 Abstract [facility] [address] [facility] [place] [address] Claudio Alanis DO [address] [place], [place] [address] Social History Tobacco Use Types Packs/Day Years [...] EDT Routine [facility] [address] [facility] [place] [address] Denise Sultana, HUE [address] [place] [address] documented as of this encounter Visit Diagnoses Not on filedocumented in this encounter Care Teams Bee Producer Relationship Specialty Start Date End Date Dixie Berkowitz MD [address] [place] [address] PCP - General Family Medicine 10/02/22 documented as of this encounter
--- OUTSIDE RECORDS SUMMARY | 2025-01-25 20:19 | XMS_ITS | Encounter Summary ---
Author Organization [facility] Address [address] [place] [address] Care Team Providers Care Labor Crew Supervisor Name Role Phone Dixie Berkowitz MD Primary Care Provider [phone] Encounter Details Date Type Department Care Team (Late Contact Info) Description 09/21/2024 Results Follow-Up [facility] [address] [place] [address] Ester Irwin LPN [address] [employer] [place] [id number] RECURRENT VAGINITIS (HTRX) Social History Tobacco Use Types Packs/Day Years [...] on file documented as of this encounter Miscellaneous Notes * Result Encounter Note - Ester Irwin LPN - 09/21/2024 1:34 PM EDT Detailed voicemail left and medication sent in documented in this encounter Plan of Treatment Upcoming Encounters Date Type Department Care Team (Late st Contact Info) Description 02/01/2025 11:10 AM EDT Routine [facility] [address] [place] [address] Denise Sultana, HUE [address] [place] [address] documented as of this encounter Visit Diagnoses Not on filedocumented in this encounter Care Teams Labor Crew Supervisor Relationship Specialty Start Date End Date Dixie Berkowitz MD [address] [place] [address] [place] [id number] PCP - General Family Medicine 10/02/22 documented as of this encounter
--- OUTSIDE RECORDS SUMMARY | 2025-01-25 20:19 | XMS_ITS | Encounter Summary ---
Author Organization [facility] Address [address] [facility] [place] [address] Care Team Providers Care Cost Control Analyst Name Role Phone Dixie Berkowitz MD Primary Care Provider Encounter Details Date Type Department Care Team (Late Contact Info) Description 06/27/2024 Abstract [facility] [address] [facility] [place] [place] [address] Claudio Alanis DO [address] [facility] [address] [place], [place] [address] Social History Tobacco Use Types Packs/Day Years [...] 11:10 AM EDT Routine [facility] [address] [facility] [place] [place] [address] Denise Sultana, HUE [address] [facility] [place] [id number] documented as of this encounter Visit Diagnoses Not on filedocumented in this encounter Care Teams Cost Control Analyst Relationship Specialty Start Date End Date Dixie Berkowitz MD [address] [place] [address] PCP - General Family Medicine 10/02/22 documented as of this encounter
--- OUTSIDE RECORDS SUMMARY | 2025-01-25 20:20 | XMS_ITS | CCD ---
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 Name Role Phone Eleni Dc Unavailable ANNABELLE ., DR LOVELL Consulting Unavailable ANNABELLE ., DR LOVELL Attending Unavailable ANNABELLE ., DR LOVELL Admitting Unavailable ZIEBER, DR JANIE Lux Consulting Unavailable REQUEST, DR JONES LISTED Consulting Unavaila ble ANNABELLE ., DR LOVELL Consulting Unavailable ANNABELLE ., DR LOVELL Attending Unavailable ANNABELLE ., DR LOVELL Admitting Unavailable ANNABELLE ., DR LOVELL Consulting Unavailable ANNABELLE ., DR LOVELL Attending Unavailable ANNABELLE ., DR LOVELL Admitting Unavailable Orzech, Bindu X Attending Unavailable Orzech, Bindu X Admitting Unavailable Nick Velasquez Attending Unavailable Orzech, Bindu X Attending Unavailable ANTHONY ROMAN Attending Unavailable ANTHONY ROMAN Primary Care Physician ANNABELLE, Claudio R Admitting Unavailable ANNABELLE, Claudio R Attending Unavailable Gm HENDERSON Attending Unavailable ANNABELLE, Claudio R Attending Unavailable ANNABELLE, Claudio R Admitting Unavailable ANNABELLE, Claudio R Admitting Unavailable ANNABELLE, Claudio R Attending Unavailable Anthony Roman MD Primary Care Provider ANNABELLE, Claudio R Admitting Unavailable ANNABELLE, Claudio R Attending Unavailable Anthony Roman MD Primary Care Provider Anthony Roman MD Primary Care Provider [phone] Anthony Roman MD Primary Care Provider [phone] ANNABELLE, Claudio R Attending Unavailable ANNABELLE, Claudio R Admitting Unavailable ANNABELLE, Claudio R Admitting Unavailable ANNABELLE, Claudio R Attending Unavailable BREE VELEZ Attending Unavailable LISE, BREE L Admitting Unavailable ANNABELLE, Claudio R Attending Unavailable ANNABELLE, Claudio R Admitting Unavailable LISE, BREE L Admitting Unavailable LISE, BREE L Attending Unavailable ANNABELLE, Claudio R Attending Unavailable ANNABELLE, Claudio R Admitting Unavailable ANNABELLE, CLAUDIO Attending Unavailable LISE, BREE Attending Unavailable LISE, BREE Referring Unavailable ANNABELLE, CLAUDIO Attending Unavailable LISE, BREE Attending Unavailable ANNABELLE, CLAUDIO Attending Unavailable ANNABELLE, CLAUDIO Attending Unavailable ANNABELLE, CLAUDIO Referring Unavailable LISE, BREE Attending Unavailable ANNABELLE, CLAUDIO Attending Unavailable Allergies Allergy Classification Reported Allergen(s) Allergy Type Date of Onset Reaction(s) Facility (20 sources) Codeine; Translations: [codeine] Drug Allergy 3 Hallucinations [facility] Repository (6 sources) Unable to obtain; Translations: [Unable to obtain] Propensity to adverse reactions (disorder) [facility] Repository Medications Current Medications Medication Drug Class(es) Dates Sig (Normalized) Sig (Original) azithromycin 250 mg oral tablet (1 source) Macrolide Antimicrobial Start: 02-19-2021 Zithromax Z-Chilo 250 MG 2 tablets on the first day, then 1 tablet daily for 4 days Orally Once a day for 5 day(s) Feb, Active Blisovi 24 Fe (1 source) Blisovi 24 Fe Active Ethinyl Estradiol / Ferrous fumarate / Norethindrone (2 sources) Estrogen Start: 11-09-2023 End: 07-28-2024 take 1 tablet by mouth once daily norethindrone-ethi nyl estradiol-ferrous fumarate (Blisovi 24 Fe) 1-20 MG-MCG(24) tablet Indications: Well woman exam with routine gynecological exam Take 1 tablet by mouth Daily 28 tablet 12 11/09/2023 07/28/2024 Discontinued (Other) Start: 02-13-2022 Chanell 24 Fe o ral tablet Refill(s) 0 Start Date: 02/13/22 Status: Ordered fluticasone propionate 0.05 mg/actuat metered dose nasal spray (1 source) Corticosteroid Start: 02-19-2021 take 1 spray(s) nasal route once daily Flonase Allergy Relief 50 MCG/ACT 1 spray in each nostril Nasally Once a day for 30 day(s) Feb, Active norethindrone 0.35 mg oral tablet (1 source) Start: 05-19-2023 End: 07-28-2024 take 1 tablet by mouth in the morning, then take 1 tablet by mouth once daily norethindrone (Micronor) 0.35 MG tablet Indications: 6 weeks follow-up Take 1 tablet (0.35 mg) by mouth in the morning. Take 1 tablet by mouth daily. 84 tablet 3 05/19/2023 07/28/2024 Discontinued (Other) MV-Min-Fe Fum-FA-DHA ( 1 PO) (20 sources) MV-Min- Fe Fum-FA-DHA ( 1 PO) Take by mouth. Active Problems Active Problems Problem Classification Problem Date Documented Date Episodic/Chronic Immunizations and screening for infectious disease (4 sources) Contact with and (suspected) exposure to other viral communicable diseases; Translations: [Encounter for screening for human papillomavirus (HPV)] Onset: 02-19-2021 Resolved: 02-19-2021 Episodic Menstrual disorders (7 sources) Irregular menstruation, unspecified; Translations: [Missed period] Onset: 09-09-2022 Chronic Other complications of (2 sources) size does not accord with dates; Translations: [Uterine size-date discrepancy, unspecified trimester] 12-20-2024 Episodic Other and delivery including normal (20 sources) Encounter for supervision of other normal , first trimester; Translations: [Encounter for supervision of normal , unspecified, first trimester] Onset: 09-11-2022 07-28-2024 Episodic Other screening for suspected conditions (not mental disorders or infectious disease) (10 sources) Encounter for screening for malignant neoplasm of cervix; Translations: [Alpha-fetoprotein blood test status] Onset: 03-13-2022 Episodic Residual codes; unclassified (1 source) 8 weeks gestation of ; Translations: [8 WEEKS GESTATION OF ] Onset: 09-11-2022 Episodic Residual codes; unclassified (2 sources) Gestation period, 12 weeks; Translations: [12 weeks gestation of ] 08-17-2024 Episodic Residual codes; unclassified (2 sources) Gestation period, 16 weeks; Translations: [16 weeks gestation of ] 09-20-2024 Episodic Residual codes; unclassified (2 sources) Gestation period, 21 weeks; Translations: [21 weeks gestation of ] 10-18-2024 Episodic Residual codes; unclassified (2 sources) Gestation period, 25 weeks; Translations: [25 weeks gestation of ] 11-15-2024 Episodic Residual codes; unclassified (2 sources) Gestation period, 28 weeks; Translations: [28 weeks gestation of ] 12-07-2024 Episodic Residual codes; unclassified (12 sources) Gestation period, 30 weeks; Translations: [30 weeks gestation of ] Onset: 12-20-2024 12-20-2024 Episodic Residual codes; unclassified (2 sources) Gestation period, 32 weeks; Translations: [32 weeks gestation of ] 01-03-2025 Episodic Residual codes; unclassified (2 sources) Gestation period, 34 weeks; Translations: [34 weeks gestation of ] 01-18-2025 Episodic Residual codes; unclassified (2 sources) Gestation period, 35 weeks; Translations: [35 weeks gestation of ] 01-25-2025 Episodic Syncope (1 source) Syncope and collapse; Translations: [Syncope and collapse] Onset: 11-05-2022 Episodic Past or Other Problems Problem Classification Problem Date Documented Da te Episodic/Chronic Acute bronchitis (1 source) Acute bronchitis; Translations: [Acute bronchitis] Episodic Other upper respiratory infections (2 sources) Acute sinusitis; Translations: [Sinusitis acute] Onset: 02-19-2021 Resolved: 02-19-2021 Episodic Urinary tract infections (1 source) Urinary tract infectious disease; Translations: [UTI (urinary tract infection)] Episodic Results Test Name Value Interpretation Reference Range Facility Urinalysis macro (dipstick) panel (U)on 01-25-2025 Bilirubin, UA Negative Negative - 4(70) +++ mg/dL [facility] Blood, UA Negative Negative - 50 Xavier/mcL [facility], [facility], [facility] Yellow [facility] e Glucose, UA Negative Negative - 2000(110) ++++ mg/dL [facility] Interpretation and review of laboratory results Normal [facility] Ketones, UA Negative Negative - 160(16) ++++ mg/dL [facility] Leukocytes, UA Negative Negative - 500+++ Astrid/mcL [facility] Nitrite, UA Negative Negative - Positive [facility] pH, UA 6 5 - 9 [facility] Protein, UA Negative Negative - 1999(20) ++++ mg/dL [facility] Spec Grav, UA 1.01 1 - 1.03 [facility] Urobilinogen, UA 0.2 0.2 - 12 mg/dL [facility] Urinalysis macro (dipstick) panel (U)on 01-18-2025 Bilirubin, UA Negative Negative - 4(70) +++ mg/dL [facility] Blood, UA Negative Negative - 50 Xavier/mcL [facility] Clarity, UA Clear [facility] re Color, UA Yellow [facility] Glucose, UA Negative Negative - 1999(110) ++++ mg/dL [facility] Interpretation and review of laboratory results Normal [facility] Ketones, UA Negative Negative - 160(16) ++++ mg/dL [facility] Leukocytes, UA Negative Negative - 500+++ Astrid/mcL [facility] Nitrite, UA Negative Negative - Positive [facility] pH, UA 6 5 - 9 [facility] Protein, UA Negative Negative - 1999(20) ++++ mg/dL [facility] Spec Grav, UA 1.015 1 - 1.03 [facility] Urobilinogen, UA 1.0 0.2 - 12 mg/dL [facility] US OB FOLLOW UP TRANSABDOMIN AL APPROACHon 01-03-2025 US OB FOLLOW UP TRANSABDOMINAL APPROACH FINDINGS: Comparison made with prior exam October [...] is 2008 grams (4 pounds, 7 ounces). IMPRESSION: Single, live intrauterine , current sonographic age of 33 weeks and 1 day, with an estimated date of delivery of February 20, 2025 (prior KYRA February 21, 2025). * Estimated Weight (g) by Percentile is based upon an accurate estimated age based on last menstrual period. TRANSCRIBED BY: ELECTRONICALLY SIGNED BY: Klever Will MD Normal Not Available Comment on above: Order Comment: US OB SCAN FOR GROWTH Estimated Date of Delivery: 02/23/25 Gestational Age as of 12/20/2024: 30w5d Urinalysis macro (dipstick) panel (U)on 01-03-2025 Bilirubin, UA Negative Negative - 4(70) +++ mg/dL [facility] Blood, UA Negative Negative - 50 Xavier/mcL [facility] Clarity, UA Clear [facility] re Color, UA Yellow [facility] Glucose, UA Negative Negative - 1999(110) ++++ mg/dL [facility] Interpretation and review of laboratory results Abnormal [facility] Ketones, UA Negative Negative - 160(16) ++++ mg/dL [facility] Leukocytes, UA Positive Negative - 500+++ Astrid/mcL [facility] Nitrite, UA Negative Negative - Positive [facility] pH, UA 6 5 - 9 [facility] Protein, UA Negative Negative - 1999(20) ++++ mg/dL [facility] Spec Grav, UA 1.02 1 - 1.03 [facility] Urobilinogen, UA 1.0 0.2 - 12 mg/dL [facility] Urinalysis macro (dipstick) panel (U)on 12-20-2024 Bilirubin, UA Negative Negative - 4(70) +++ mg/dL [facility] Blood, UA Negative Negative - 50 Xavier/mcL [facility] Clarity, UA Clear [facility] re Color, UA Yellow [facility] Glucose, UA Negative Negative - 1999(110) ++++ mg/dL [facility] Interpretation and review of laboratory results Normal [facility] Ketones, UA Negative Negative - 160(16) ++++ mg/dL [facility] Leukocytes, UA Negative Negative - 500+++ Astrid/mcL [facility] Nitrite, UA Negative Negative - Positive [facility] pH, UA 6 5 - 9 [facility] Protein, UA Negative Negative - 1999(20) ++++ mg/dL [facility] Spec Grav, UA 1.01 1 - 1.03 [facility] Urobilinogen, UA 0.2 0.2 - 12 mg/dL [facility] Urinalysis macro (dipstick) panel (U)on 12-07-2024 Bilirubin, UA Negative Negative - 4(70) +++ mg/dL [facility] Blood, UA Negative Negative - 50 Xavier/mcL [facility] Clarity, UA Clear [facility] re Color, UA Yellow [facility] Glucose, UA Negative Negative - 1999(110) ++++ mg/dL [facility] Interpretation and review of laboratory results Normal [facility] Ketones, UA Negative Negative - 160(16) ++++ mg/dL [facility] Leukocytes, UA Negative Negative - 500+++ Astrid/mcL [facility] Nitrite, UA Negative Negative - Positive [facility] pH, UA 6 5 - 9 [facility] Protein, UA Negative Negative - 1999(20) ++++ mg/dL [facility] Spec Grav, UA 1.01 1 - 1.03 [facility] Urobilinogen, UA 1.0 0.2 - 12 mg/dL [facility] Capillary Glucose POCon 11-02 Glucose [Mass/Vol] 92 mg/dL Normal 55-99 [facility] Comment on above: Performed By: #### 2 [id number] #### [facility] [address] [place] [address] Glu 1 Hron 11-22-2024 Glucose [Mass/Vol] 137 mg/dL Normal 55-180 [facility] Comment on above: Performed By: #### 2 [id number] #### [facility] [address] [place] [address] Glu 2 Hron 11-22-2024 Glucose [Mass/Vol] 114 mg/dL Normal 55-155 [facility] Comment on above: Performed By: #### 2 [id number] #### [facility] [address] [place] [address] Glu 3 Hron 11-22-2024 Glucose [Mass/Vol] 86 mg/dL Normal 55-140 [facility] Comment on above: Performed By: #### 2 [id number] #### [facility] [address] [place] [address] Glu Fastingon 11-22-2024 Glucose [Mass/Vol] 86 mg/dL Normal 55-99 [facility] Comment on above: Performed By: #### 2 [id number] #### [facility] [address] [place] [address] CBC w/Indiceson 11-18-2024 Erythrocyte distribution width (RBC) [Ratio] 13.3 % Normal 10.9-14.2 [facility] Comment on above: Performed By: #### 2 [id number] #### [facility] [address] [place] [address] Hematocrit (Bld) [Volume fraction] 36.2 % Normal 34.0-46.0 [facility] Comment on above: Performed By: #### 2 [id number] #### [facility] [address] [place] [address] Hemoglobin (Bld) [Mass/Vol] 12.1 g/dL Normal 12.0-16.0 [facility] Comment on above: Performed By: #### 2 [id number] #### [facility] [address] [place] [address] MCH (RBC) [Entitic mass] 28.8 pg Normal 27.0-34.0 [facility] Comment on above: Performed By: #### 2 [id number] #### [facility] [address] [place] [address] MCHC (RBC) [Mass/Vol] 33.4 g/dL Normal 31.4-36.0 [facility] Comment on above: Performed By: #### 2 [id number] #### [facility] [address] [place] [address] MCV (RBC) [Entitic vol] 86.2 fL Normal 80.0-100.0 [facility] Comment on above: Performed By: #### 2 [id number] #### [facility] [address] [place] [address] Platelet 162.0 E9/L Normal 150.0-500.0 [facility] Comment on above: Performed By: #### 2 [id number] #### [facility] [address] [place] [address] Platelet mean volume (Bld) [Entitic vol] 8.9 fL Normal 6.4-10.8 [facility] Comment on above: Performed By: #### 2 [id number] #### [facility] [address] [place] [address] RBC 4.2 E12/L Low 4.3-5.9 [facility] Comment on above: Performed By: #### 2 [id number] #### [facility] [address] [place] [address] RBC morphology finding Nom (Bld) NORMAL Invalid Interpretation Code [facility] Comment on above: Performed By: #### 2 [id number] #### [facility] [address] [place] [address] WBC 7.4 E9/L Normal 4.0-11.0 [facility] Comment on above: Performed By: #### 2 [id number] #### [facility] [address] [place] [address] Gest Scr Glu 1 Hron 11-19-19 25 Glucose [Mass/Vol] 141 mg/dL High 55-140 [facility] Comment on above: Performed By: #### 3 [id number] #### [facility] [address] [place] [address] Urinalysis macro (dipstick) panel (U)on 11-15-2024 Bilirubin, UA Negative Negative - 4(70) +++ mg/dL [facility] Blood, UA Negative Negative - 50 Xavier/mcL [facility] Clarity, UA Clear [facility] re Color, UA Yellow [facility] Glucose, UA Negative Negative - 2000(110) ++++ mg/dL [facility] Interpretation and review of laboratory results Normal [facility] Ketones, UA Positive Negative - 160(16) ++++ mg/dL [facility] Comment on above: trace Leukocytes, UA Negative Negative - 500+++ Astrid/mcL [facility] Nitrite, UA Negative Negative - Positive [facility] pH, UA 7 5 - 9 [facility] Protein, UA Trace Negative - 2000(20) ++++ mg/dL [facility] Spec Grav, UA 1.02 1 - 1.03 [facility] Urobilinogen, UA 1.0 0.2 - 12 mg/dL [facility] US OB 14+ WEEKS ANATOMY SCAN on 10-18-2024 US OB 14+ WEEKS ANATOMY SCAN EXAM: US OB 14+ WEEKS ANATOMY SCAN HISTORY: anatomy. COMPARISON: Ob ultrasound 07/28/2024. TECHNIQUE: Two-dimensional transabdominal grayscale ultrasound imaging of the pelvis was performed. FINDINGS: Gestation: Single Presentation: Variable Cardiac Activity: 154 beats per minute Placental Location: Posterior with no sonographic abnormalities identified. Distance from Placental Tip to Cervix: 5.5 cm Cervical Length: 5.6 cm Amniotic Fluid: Appears adequate MEASUREMENTS: BPD: 5.2 cm EGA: 21 weeks 6 days HC: 19.6 cm EGA: 21 weeks 6 days AC: 16.8 cm EGA: 21 weeks 6 days FL: 3.8 cm EGA: 22 weeks 1 days HC/AC Ratio: 1.17 The gestational age by today's ultrasound is 22 weeks 0 days (+/- 11 days gestation). Estimated Weight: 464 grams, +/- 70 grams ( 1 lb 0 oz). Weight Percentile for gestational age: 57 % ANATOMY C-Spine: Unremarkable T-Spine: Unremarkable L-Spine: Unremarkable Sacrum: Unremarkable Four Chamber Heart: Unremarkable LVOT: Unremarkable RVOT: Unremarkable Stomach: Unremarkable Kidneys: Unremarkable Bladder: Unremarkable Diaphragm: Unremarkable Cord insertion: Unremarkable Cord vessels: Three Lateral Ventricles: Unremarkable Cerebellum: Unremarkable Cisterna Magna: Unremarkable Posterior Fossa: Unremarkable Right Femur: Unremarkable Left Femur: Unremarkable Right Tib/Fib: Unremarkable Left Tib/Fib: Unremarkable Right Rad/Ulnar: Unremarkable Left Rad/Ulnar: Unremarkable Right Humerus: Unremarkable Left Humerus: Unremarkable Nose/Lips: Unremarkable Profile: Unremarkable Orbits: Unremarkable IMPRESSION: 1. Single, live intrauterine gestation 21 weeks, 5 days by LMP. Today's ultrasound measurements correlate with a gestational age of 22 weeks 0 days. Estimated weight is 464 grams, +/- 70 grams ( 1 lb 0 oz) which correlates to 57 %. KYRA is 02/21/2025. 2. Unremarkable ultrasound of the anatomy. Interpreted by: Electronically signed by VOLODYMYR BENJAMIN II, MD, PHD at 19-Oct-2024 08:00:12 AM [facility] Normal Not Available Comment on above: Order Comment: US OB ANATOMY SINGLE W US OB CERVICAL LENGTH Estimated Date of Delivery: 02/23/25 Gestational Age as of 09/20/2024: 17w5d Urinalysis macro (dipstick) panel (U)on 10-18-2024 Bilirubin, UA Negative Negative - 4(70) +++ mg/dL [facility] Blood, UA Negative Negative - 50 Xavier/mcL [facility] Clarity, UA Clear [facility] re Color, UA Yellow [facility] e Glucose, UA Negative Negative - 1999(110) ++++ mg/dL [facility] Interpretation and review of laboratory results Normal [facility] Ketones, UA Negative Negative - 160(16) ++++ mg/dL [facility] Leukocytes, UA Negative Negative - 500+++ Astrid/mcL [facility] Nitrite, UA Negative Negative - Positive [facility] pH, UA 7 5 - 9 [facility] e Protein, UA Negative Negative - 1999(20) ++++ mg/dL [facility] Spec Grav, UA 1.015 1 - 1.03 [facility] Urobilinogen, UA 0.2 0.2 - 12 mg/dL [facility] RECURRENT VAGINITIS (HTRX)on 09-21-2024 [facility] ATOP[facility] V[facility]INAE Not detected [facility] BVAB 2,3 (BACTERIAL VAGINOSIS ASSOCIATED BACTERIA 2, 3); MOBILUNCUS SPP 22.305 Abnormal [facility] BVAB 2,3 (BACTERIAL VAGINOSIS ASSOCIATED BACTERIA 2, 3); MOBILUNCUS SPP Detected Abnormal [facility] KADE ALBICANS, PARAPSILOSIS, TROPICALIS 0 [facility] KADE ALBICANS, PARAPSILOSIS, TROPICALIS Not detected [facility] KADE GLABRATA 0 [facility] KADE GLABRATA Not detected [facility] AKDE KRUSEI 0 [facility] KADE KRUSEI Not [facility] CHLAMYDIA TRACHOMATIS 0 [facility] CHLAMYDIA TRACHOMATIS Not detected [facility] GARDNERELLA VAGINALIS 20.313 Abnormal [facility] S Healthcare GARDNERELLA VAGINALIS Detected Abnormal [facility] Healthcare Interpretation and review of laboratory results Abnormal [facility] MEGASPHAERA (TYPES 1, 2) 0 [facility] MEGASPHAERA (TYPES 1, 2) Not detected [facility] MYCOPLASMA GENITALIUM 0 [facility] MYCOPLASMA GENITALIUM Not detected N [facility] NEISSERIA GONORRHOEAE 0 [facility] NEISSERIA GONORRHOEAE Not detected N [facility] TET B, TET M 23.986 Abnormal [facility] are TET B, TET M Detected Abnormal [facility] are TRICHOMONAS VAGINALIS 0 [facility] TRICHOMONAS VAGINALIS Not detected [facility] Urinalysis macro (dipstick) panel (U)on 09-20-2024 Bilirubin, UA Negative Negative - 4(70) +++ mg/dL [facility] Blood, UA Negative Negative - 50 Xavier/mcL [facility] Clarity, UA Clear [facility] re Color, UA Yellow [facility] Glucose, UA Negative Negative - 1999(110) ++++ mg/dL [facility] Interpretation and review of laboratory results Normal [facility] Ketones, UA Negative Negative - 160(16) ++++ mg/dL [facility] Leukocytes, UA Negative Negative - 500+++ Astrid/mcL [facility] Nitrite, UA Negative Negative - Positive [facility] pH, UA 7 5 - 9 [facility] Protein, UA Negative Negative - 1999(20) ++++ mg/dL [facility] Spec Grav, UA 1.015 1 - 1.03 [facility] Urobilinogen, UA 0.2 0.2 - 12 mg/dL [facility] Urinalysis macro (dipstick) panel (U)on 08-17-2024 Bilirubin, UA Negative Negative - 4(70) +++ mg/dL [facility] Blood, UA Negative Negative - 50 Xavier/mcL [facility] Clarity, UA Clear [facility] re Color, UA Yellow [facility] Glucose, UA Negative Negative - 1999(110) ++++ mg/dL [facility] Interpretation and review of laboratory results Normal [facility] Ketones, UA Negative Negative - 160(16) ++++ mg/dL [facility] Leukocytes, UA Negative Negative - 500+++ Astrid/mcL [facility] Nitrite, UA Negative Negative - Positive [facility] pH, UA 6 5 - 9 [facility] Protein, UA Negative Negative - 1999(20) ++++ mg/dL [facility] Spec Grav, UA 1.015 1 - 1.03 [facility] Urobilinogen, UA 0.2 0.2 - 12 mg/dL [facility] .Interpretation:on HCV Ab IA Ql Comment Invalid Interpretation Code [facility] Comment on above: Result Comment: Not infected with HCV unless early or acute infection is suspected (which may be delayed in an immunocompromised individual), or other evidence exists to indicate HCV infection. Performed at: [facility] [id number] PhD Franky Licona Performed By: #### 2 [id number] #### [facility] [address] [place] [address] HCV Antibody RFX to Quant PC Eloy 07-30-2024 HCV Ab IA Ql Non-Reactive Invalid Interpretation Code Non Reactive [facility] Comment on above: Result Comment: Perf ormed at: [facility] [id number] PhD Franky Licona Performed By: #### 2 [id number] #### [facility] [address] [place] [address] HIV Screen 4th Generation wR fxon 07-30-2024 HIV 1+2 Ab+HIV1 p24 Ag IA Ql Non-Reactive Invalid Interpretation Code Non Reactive [facility] Comment on above: Result Comment: HIV- 1/HIV-2 antibodies and HIV-1 p24 antigen were NOT detected. There is no laboratory evidence of HIV infection. HIV Negative Performed at: [facility] [address] [id number] PhD Franky Licona Performed By: #### 9 [id number] #### [facility] [address] [place] [address] Hep Bs Agon 07-30-2024 HBV surface Ag IA Ql Negative Invalid Interpretation Code Negative [facility] Comment on above: Result Comment: Perf ormed at: [address] [id number] PhD Franky Licona Performed By: #### 2 [id number] #### [facility] [address] [place] [address] RPR with Conf Rfxon 07-31-19 25 Reagin Ab RPR Ql (S) Non-Reactive Invalid Interpretation Code Non Reactive [facility] Comment on above: Result Comment: Perf ormed at: [address] [id number] PhD Franky Licona Performed By: #### 1 [id number] #### [facility] [address] [place] [address] Rubella IgGon 07-30-2024 Rubella virus IgG Qn (S) 3.34 [IU]/mL Invalid Interpretation Code Immune >0.99 [facility] Comment on above: Result Comment: Non- immune <0.90 Equivocal 0.90 - 0.99 Immune >0.99 Performed at: [address] [id number] PhD Franky Licona Performed By: #### 1 [id number] #### [facility] [address] [place] [address] ABO/Rhon 07-29-2024 ABO/Rh Positive Invalid Interpretation Code [facility] Comment on above: Performed By: #### 2 [id number] #### [facility] [address] [place] [address] ABSCon 07-29-2024 ABSC Gel Interp Negative Normal [facility] Comment on above: Performed By: #### 1 [id number] #### [facility] [address] [place] [address] BLOOD BANKOrdered By: Kaylie Hopkins on 07-29-2024 ABO/Rh Interp Positive Invalid Interpretation Code FT BB Subsection ABSC Gel Interp Negative (07/29/24 12:36 PM) Normal [facility] BB Subsection CBC w/ Auto Diffon 5 Basophils/100 WBC (Bld) 0.2 % Normal 0.0-2.0 [facility] Comment on above: Performed By: #### 2 [id number] #### [facility] [address] [place] [address] Basophils/Leukocytes Auto (Bld) [Pure # fraction] 0.0 E9/L Normal 0.0-0.2 [facility] Comment on above: Performed By: #### 2 [id number] #### [facility] [address] [place] [address] Eosinophils (Bld) [#/Vol] 0.2 E9/L Normal 0.0-0.5 [facility] Comment on above: Performed By: #### 2 [id number] #### [facility] [address] [place] [address] Eosinophils/100 WBC (Bld) 2.1 % Normal 0.0-8.0 [facility] Comment on above: Performed By: #### 2 [id number] #### [facility] [address] [place] [address] Erythrocyte distribution width (RBC) [Ratio] 12.4 % Normal 10.9-14.2 [facility] Comment on above: Performed By: #### 2 [id number] #### [facility] [address] [place] [address] Hematocrit (Bld) [Volume fraction] 38.5 % Normal 34.0-46.0 [facility] Comment on above: Performed By: #### 2 [id number] #### [facility] [address] [place] [address] Hemoglobin (Bld) [Mass/Vol] 13.5 g/dL Normal 12.0-16.0 [facility] Comment on above: Performed By: #### 2 [id number] #### [facility] [address] [place] [address] Lymphocytes (Bld) [#/Vol] 1.8 E9/L Normal 1.0-4.0 [facility] Comment on above: Performed By: #### 2 [id number] #### [facility] [address] [place] [address] Lymphocytes/100 WBC (Bld) 21.6 % Normal 14.0-50.0 [facility] Comment on above: Performed By: #### 2 [id number] #### [facility] [address] [place] [address] MCH (RBC) [Entitic mass] 29.7 pg Normal 27.0-34.0 [facility] Comment on above: Performed By: #### 2 [id number] #### [facility] [address] [place] [address] MCHC (RBC) [Mass/Vol] 35.1 g/dL Normal 31.4-36.0 [facility] Comment on above: Performed By: #### 2 [id number] #### [facility] [address] [place] [address] MCV (RBC) [Entitic vol] 84.5 fL Normal 80.0-100.0 [facility] Comment on above: Performed By: #### 2 [id number] #### [facility] [address] [place] [address] Monocytes (Bld) [#/Vol] 0.4 E9/L Normal 0.2-1.0 [facility] Comment on above: Performed By: #### 2 [id number] #### [facility] [address] [place] [address] Neutrophils (Bld) [#/Vol] 5.8 E9/L Normal 2.0-7.5 [facility] Comment on above: Performed By: #### 2 [id number] #### [facility] [address] [place] [address] Neutrophils/100 WBC (Bld) 71.2 % Normal 36.0-75.0 [facility] Comment on above: Performed By: #### 2 [id number] #### [facility] [address] [place] [address] Platelet mean volume (Bld) [Entitic vol] 8.8 fL Normal 6.4-10.8 [facility] Comment on above: Performed By: #### 2 [id number] #### [facility] [address] [place] [address] Platelets (Bld) [#/Vol] 227.0 E9/L Normal 150.0-500.0 [facility] Comment on above: Performed By: #### 2 [id number] #### [facility] [address] [place] [address] RBC (Bld) [#/Vol] 4.6 E12/L Normal 4.3-5.9 [facility] Comment on above: Performed By: #### 2 [id number] #### [facility] [address] [place] [address] WBC corrected for nucl RBC Auto (Bld) [#/Vol] 8.2 E9/L Normal 4.0-11.0 [facility] Comment on above: Performed By: #### 2 [id number] #### [facility] [address] [place] [address] CHEMISTRYOrdered By: SYSTEM SYSTEM on 07-29-2024 Amphetamines Screen method >1000 ng/mL Ql (U) NEGATIVE 9 (07/29/24 12:36 PM) Normal NEGATIVE [facility] Comment on above: Interpretive Data: N egative Cutoff: <1000 ng/mL Barbiturates Screen Ql (U) NEGATIVE 11 (07/29/24 12:36 PM) Normal NEGATIVE [facility] Comment on above: Interpretive Data: N egative Cutoff: <200 ng/mL Benzodiazepines Ql (U) NEGATIVE 3 (07/29/24 12:36 PM) Normal NEGATIVE [facility] Comment on above: Interpretive Data: N egative Cutoff: <200 ng/mL Cannabinoids Screen Ql (U) NEGATIVE 8 (07/29/24 12:36 PM) Normal NEGATIVE [facility] Comment on above: Interpretive Data: N egative Cutoff: <50 ng/mL Cocaine Ql (U) NEGATIVE 4 (07/29/24 12:36 PM) Normal NEGATIVE [facility] Comment on above: Interpretive Data: N egative Cutoff: <300 ng/mL Opiates Screen Ql (U) NEGATIVE 6 (07/29/24 12:36 PM) Normal NEGATIVE [facility] Comment on above: Interpretive Data: N egative Cutoff: <300 ng/mL Phencyclidine Screen method >25 ng/mL Ql (U) NEGATIVE 7 (07/29/24 12:36 PM) Normal NEGATIVE [facility] Comment on above: Interpretive Data: N egative Cutoff: <25 ng/mL These drug screen results are to be used for medical (i.e., treatment) purposes only. Unconfirmed drug screening results must not be used for non-medical purposes (e.g., employment testing, legal testing). U Fentanyl NEGATIVE 13 (07/29/24 12:36 PM) Normal NEGATIVE [facility] Comment on above: Interpretive Data: N egative Cutoff: <5 ng/mL These drug screen results are to be used for medical (i.e., treatment) purposes only. Unconfirmed drug screening results must not be used for non-medical purposes (e.g., employment testing, legal testing). CHEMISTRYOrdered By: Kaylie Hopkins on 07-29-2024 HbA1c (Bld) [Mass fraction] 4.9 % Normal <=5.9% [facility] ChemAutoSS HEMATOLOGYOrdered By: SYSTEM SYSTEM on 07-29-2024 Basophils/100 WBC (Bld) 0.2 % Normal 0.0 - 2.0 % [facility] Basophils/Leukocytes Auto (Bld) [Pure # fraction] 0.0 E9/L Normal 0.0 - 0.2 E9/L [facility] Eosinophils (Bld) [#/Vol] 0.2 E9/L Normal 0.0 - 0.5 E9/L [facility] Eosinophils/100 WBC (Bld) 2.1 % Normal 0.0 - 8.0 % [facility] Erythrocyte distribution width (RBC) [Ratio] 12.4 % Normal 10.9 - 14.2 % [facility] Hematocrit (Bld) [Volume fraction] 38.5 % Normal 34.0 - 46.0 % [facility] Hemoglobin (Bld) [Mass/Vol] 13.5 g/dL Normal 12.0 - 16.0 gm/dL [facility] Lymphocytes (Bld) [#/Vol] 1.8 E9/L Normal 1.0 - 4.0 E9/L [facility] Lymphocytes/100 WBC (Bld) 21.6 % Normal 14.0 - 50.0 % [facility] MCH (RBC) [Entitic mass] 29.7 pg Normal 27.0 - 34.0 pg [facility] MCHC (RBC) [Mass/Vol] 35.1 g/dL Normal 31.4 - 36.0 gm/dL [facility] MCV (RBC) [Entitic vol] 84.5 fL Normal 80.0 - 100.0 fL [facility] Monocytes (Bld) [#/Vol] 0.4 E9/L Normal 0.2 - 1.0 E9/L [facility] Monocytes/100 WBC (Bld) 4.9 % Normal 4.0 - 14.0 % [facility] Neutrophils (Bld) [#/Vol] 5.8 E9/L Normal 2.0 - 7.5 E9/L [facility] Neutrophils/100 WBC (Bld) 71.2 % Normal 36.0 - 75.0 % [facility] Platelet mean volume (Bld) [Entitic vol] 8.8 fL Normal 6.4 - 10.8 fL [facility] Platelets (Bld) [#/Vol] 227.0 E9/L Normal 150.0 - 500.0 E9/L [facility] RBC (Bld) [#/Vol] 4.6 E12/L Normal 4.3 - 5.9 E12/L [facility] WBC corrected for nucl RBC Auto (Bld) [#/Vol] 8.2 E9/L Normal 4.0 - 11.0 E9/L [facility] [id number] 07-29-2024 HbA1c (Bld) [Mass fraction] 4.9 % Normal <=5.9 [facility] Comment on above: Performed By: #### 7 [id number] #### [facility] [address] [place] [address] Reference Laboratory Testing Ordered By: Generated DomainUser on 07-29-2024 HBV surface Ag IA Ql Negative Invalid Interpretation Code Negative [facility] SendOutsSS Comment on above: Result Comment: Perf ormed at: [facility] [address] [id number] PhD Franky Licona HCV Ab IA Ql Non-Reactive Invalid Interpretation Code Non Reactive FT [facility] Comment on above: Result Comment: Perf ormed at: [address] [id number] PhD Franky Licona HCV Ab IA Ql Comment Invalid Interpretation Code FT [facility] Comment on above: Result Comment: Not infected with HCV unless early or acute infection is suspected (which may be delayed in an immunocompromised individual), or other evidence exists to indicate HCV infection. Performed at: [address] [id number] PhD Franky Licona HIV 1+2 Ab+HIV1 p24 Ag IA Ql Non-Reactive Invalid Interpretation Code Non Reactive FT [facility] Comment on above: Result Comment: HIV- 1/HIV-2 antibodies and HIV-1 p24 antigen were NOT detected. There is no laboratory evidence of HIV infection. HIV Negative Performed at: [address] [id number] PhD Franky Licona Reagin Ab RPR Ql (S) Non-Reactive Invalid Interpretation Code Non Reactive FT [facility] Comment on above: Result Comment: Perf ormed at: [address] [id number] PhD Franky Licona Rubella virus IgG Qn (S) 3.34 [IU]/mL Invalid Interpretation Code Immune >0.99 [facility]OutsSS Comment on above: Result Comment: Non- immune <0.90 Equivocal 0.90 - 0.99 Immune >0.99 Performed at: [address] [id number] PhD Franky Licona U Drug Screenon 07-29-2024 Amphetamines Screen method >1000 ng/mL Ql (U) Negative Normal NEGATIVE [facility] Comment on above: Result Comment: Nega tive Cutoff: <1000 ng/mL Performed By: #### 2 [id number] #### [facility] [address] [place] [address] Barbiturates Screen Ql (U) Negative Normal NEGATIVE [facility] Comment on above: Result Comment: Nega tive Cutoff: <200 ng/mL Performed By: #### 2 [id number] #### [facility] [address] [place] [address] Benzodiazepines Ql (U) Negative Normal NEGATIVE [facility] Comment on above: Result Comment: Nega tive Cutoff: <200 ng/mL Performed By: #### 2 [id number] #### [facility] [address] [place] [address] Cannabinoids Screen Ql (U) Negative Normal NEGATIVE [facility] Comment on above: Result Comment: Nega tive Cutoff: <50 ng/mL Performed By: #### 2 [id number] #### [facility] [address] [place] [address] Cocaine Ql (U) Negative Normal NEGATIVE [facility] Comment on above: Result Comment: Nega tive Cutoff: <300 ng/mL Performed By: #### 2 [id number] #### [facility] [address] [place] [address] Opiates Screen Ql (U) Negative Normal NEGATIVE [facility] Comment on above: Result Comment: Nega tive Cutoff: <300 ng/mL Performed By: #### 2 [id number] #### [facility] [address] [place] [address] Phencyclidine Screen method >25 ng/mL Ql (U) Negative Normal NEGATIVE [facility] Comment on above: Result Comment: Nega tive Cutoff: <25 ng/mL These drug screen results are to be used for medical (i.e., treatment) purposes only. Unconfirmed drug screening results must not be used for non-medical purposes (e.g., employment testing, legal testing). Performed By: #### 2 [id number] #### [facility] [address] [place] [address] U Fentanyl Negative Normal NEGATIVE [facility] Comment on above: Result Comment: Nega tive Cutoff: <5 ng/mL These drug screen results are to be used for medical (i.e., treatment) purposes only. Unconfirmed drug screening results must not be used for non-medical purposes (e.g., employment testing, legal testing). Performed By: #### 2 [id number] #### [facility] [address] [place] [address] UA with Cult Rflxon 07-30-19 25 Bilirubin Ql (U) Negative Normal Negative [facility] Comment on above: Performed By: #### 4 [id number] #### [facility] [address] [place] [address] Clarity (U) Clear Normal Clear [facility] Comment on above: Performed By: #### 4 [id number] #### [facility] [address] [place] [address] Color (U) Colorless Abnormal Yellow [facility] Comment on above: Result Comment: Micr oscopic readings are only performed on those samples that meet specific criteria set forth by [facility]. Performed By: #### 4 [id number] #### [facility] [address] [place] [address] Glucose Ql (U) Negative Normal Negative [facility] Comment on above: Performed By: #### 4 [id number] #### [facility] [address] [place] [address] Hemoglobin Auto test strip (U) [Mass/Vol] Negative Normal Negative [facility] Comment on above: Performed By: #### 4 [id number] #### [facility] [address] [place] [address] Ketones Auto test strip Ql (U) Negative Normal Negative [facility] Comment on above: Performed By: #### 4 [id number] #### [facility] [address] [place] [address] Leukocyte esterase Auto test strip Ql (U) Negative Normal Negative [facility] Comment on above: Performed By: #### 4 [id number] #### [facility] [address] [place] [address] Nitrite Auto test strip Ql (U) Negative Normal Negative [facility] Comment on above: Performed By: #### 4 [id number] #### [facility] [address] [place] [address] pH (U) 6.0 [pH] Invalid Interpretation Code 5.0-9.0 [facility] Comment on above: Performed By: #### 4 [id number] #### [facility] [address] [place] [address] Protein Ql (U) Negative Normal Negative [facility] Comment on above: Performed By: #### 4 [id number] #### [facility] [address] [place] [address] Specific gravity (U) [Rel density] 1.006 Invalid Interpretation Code 1.005-1.030 [facility] Comment on above: Performed By: #### 4 [id number] #### [facility] [address] [place] [address] Urobilinogen (U) [Mass/Vol] Negative Normal Negative [facility] Comment on above: Performed By: #### 4 [id number] #### [facility] [address] [place] [address] Type of Urine collection method Clean Catch Normal [facility] Comment on above: Performed By: #### 4 [id number] #### [facility] [address] [place] [address] URINALYSISOrdered By: SYSTEM SYSTEM on 07-29-2024 Bilirubin Ql (U) Negative Normal Negativemg/ d L [facility] UA Auto SS Clarity (U) Clear (07/29/24 12:36 PM) Normal Clear [facility] UA Auto SS Color (U) Colorless 5 *ABN* (07/29/24 12:36 PM) Invalid Interpretation Code Yellow [facility] UA Auto SS Comment on above: Interpretive Data: M icroscopic readings are only performed on those samples that meet specific criteria set forth by [facility]. Glucose Ql (U) Negative Normal Negativemg/d L [facility] UA Auto SS Hemoglobin Auto test strip (U) [Mass/Vol] Negative Normal Negativemg/d L FT UA Auto SS Ketones Auto test strip Ql (U) Negative Normal Negativemg/d L [facility] UA Auto SS Leukocyte esterase Auto test strip Ql (U) Negative Normal NegativeLeu/ uL FT UA Auto SS Nitrite Auto test strip Ql (U) Negative Normal Negativemg/d L FT UA Auto SS pH (U) 6.0 *NA* (07/29/24 12:36 PM) Invalid Interpretation Code 5.0 - 9.0 FT UA Auto SS Protein Ql (U) Negative Normal Negativemg/d L FT UA Auto SS Specific gravity (U) [Rel density] 1.006 *NA* (07/29/24 12:36 PM) Invalid Interpretation Code 1.005 - 1.030 FT UA Auto SS Urobilinogen (U) [Mass/Vol] Negative Normal Negativemg/d L FT UA Auto SS URINALYSISOrdered By: Meli Mendez on 07-29-2024 UA Spec Desc Clean Catch (07/29/24 12:36 PM) Normal [facility] UA Auto SS HCG ( test) Ql (U)o n 07-28-2024 Interpretation and review of laboratory results Abnormal [facility] Preg Test, Ur Positive Negative [facility] care [facility] US OB TRANSVAGINALon 025 US OB TRANSVAGINAL EXAM: US OB TRANSVAGINAL HISTORY: Dating. COMPARISON: None available. TECHNIQUE: Two-dimensional transvaginal grayscale ultrasound imaging of the pelvis was performed. Color Doppler evaluation of the ovaries was also performed. FINDINGS: The uterus demonstrates a normal homogeneous echotexture. The cervix measures 4.1 cm and the cervical os is closed. The right ovary measures 2.7 x 1.6 x 2.0 cm and demonstrates a normal echotexture. There is normal color Doppler flow. The left ovary measures 1.9 x 1.1 x 1.4 cm and demonstrates a normal echotexture. There is normal color Doppler flow. No fluid is present within the cul-de-sac. There is a single, live intrauterine gestation identified with a heart rate of 173 beats per minute and a crown-rump length measurement of 3.1 cm, correlating to a gestational age of 10 weeks 0 days (+/- 6 days). There is no subchorionic hemorrhage visualized. A yolk sac is visualized. IMPRESSION: 1. Single, live intrauterine gestation with today's ultrasound measurements correlating to a gestational age of 10 weeks 0 days (+/- 6 days). KYRA by today's ultrasound is 02/23/2025. 2. Normal color Doppler evaluation of the bilateral ovaries. Electronically Signed:Electronicall y signed by VOLODYMYR BENJAMIN II, MD, PHD at 28-Jul-2024 11:17:18 PM [facility] Normal Not Available Comment on above: Order Comment: US OB TRANSVAGINAL No LMP recorded. Urinalysis macro (dipstick) panel (U)on 07-28-2024 Bilirubin, UA Negative Negative - 4(70) +++ mg/dL [facility] Blood, UA Negative Negative - 50 Xavier/mcL [facility] Clarity, UA Clear [facility] Color, UA Yellow [facility] Glucose, UA Negative Negative - 1999(110) ++++ mg/dL [facility] Interpretation and review of laboratory results Normal [facility] Ketones, UA Negative Negative - 160(16) ++++ mg/dL [facility] Leukocytes, UA Negative Negative - 500+++ Astrid/mcL [facility] Nitrite, UA Negative Negative - Positive [facility] pH, UA 5.5 5 - 9 [facility] Protein, UA Negative Negative - 1999(20) ++++ mg/dL [facility] Spec Grav, UA 1.02 1 - 1.03 [facility] Urobilinogen, UA 1.0 0.2 - 12 mg/dL [facility] BhCG Quanton 06-29-2024 [place] [address] m[IU]/mL High 1-3 [facility] Comment on above: Result Comment: 'F N ON < 1 - 3' ' 0.2 - 1 WEEK = 5 TO 50' ' 1 - 2 WEEKS = 50 - 500' ' 2 - 3 WEEKS = 100 - 5000' ' 3 - 4 WEEKS = 500 - 78286' ' 4 - 5 WEEKS = 1000 - 14814' ' 5 - 6 WEEKS = 12276 - 929825' ' 6 - 8 WEEKS = 47245 - 855441' ' 8 - 12 WEEKS = 56430 - 150851' Performed By: #### 2 [id number] #### [facility] [address] [place] [address] CHEMISTRYOrdered By: SYSTEM SYSTEM on 06-29-2024 [place] [address] m[IU]/mL High 1 - 3 mIU/mL [facility] Comment on above: Result Comment: 'F N ON < 1 - 3' ' 0.2 - 1 WEEK = 5 TO 50' ' 1 - 2 WEEKS = 50 - 500' ' 2 - 3 WEEKS = 100 - 5000' ' 3 - 4 WEEKS = 500 - 37569' ' 4 - 5 WEEKS = 1000 - 41087' ' 5 - 6 WEEKS = 55357 - 345275' ' 6 - 8 WEEKS = 37137 - 637137' ' 8 - 12 WEEKS = 54098 - 547464' BhCG Quanton 06-27-2024 [place] subunit Qn 8149 m[IU]/mL High 1-3 [facility] Comment on above: Result Comment: 'F N ON < 1 - 3' ' 0.2 - 1 WEEK = 5 TO 50' ' 1 - 2 WEEKS = 50 - 500' ' 2 - 3 WEEKS = 100 - 5000' ' 3 - 4 WEEKS = 500 - 03080' ' 4 - 5 WEEKS = 1000 - 63044' ' 5 - 6 WEEKS = 90024 - 408866' ' 6 - 8 WEEKS = 87184 - 596393' ' 8 - 12 WEEKS = 02663 - 101174' Performed By: #### 2 [id number] #### [facility] [address] [place] [address] CHEMISTRYOrdered By: SYSTEM SYSTEM on 06-27-2024 HCG.beta subunit Qn 8149 m[IU]/mL High 1 - 3 mIU/mL Remisol Chem Comment on above: Result Comment: 'F N ON < 1 - 3' ' 0.2 - 1 WEEK = 5 TO 50' ' 1 - 2 WEEKS = 50 - 500' ' 2 - 3 WEEKS = 100 - 5000' ' 3 - 4 WEEKS = 500 - 14635' ' 4 - 5 WEEKS = 1000 - 83385' ' 5 - 6 WEEKS = 96139 - 196716' ' 6 - 8 WEEKS = 81122 - 414399' ' 8 - 12 WEEKS = 93925 - 752035' BhCG QuantOrdered By: SYSTEM SYSTEM on 06-25-2024 HCG.beta subunit Qn 4260 m[IU]/mL High 1 - 3 mIU/mL Remisol Chem Comment on above: Result Comment: 'F N ON < 1 - 3' ' 0.2 - 1 WEEK = 5 TO 50' ' 1 - 2 WEEKS = 50 - 500' ' 2 - 3 WEEKS = 100 - 5000' ' 3 - 4 WEEKS = 500 - 04755' ' 4 - 5 WEEKS = 1000 - 01934' ' 5 - 6 WEEKS = 93884 - 246333' ' 6 - 8 WEEKS = 51388 - 735890' ' 8 - 12 WEEKS = 91253 - 699171' Performed By: #### 2 [id number] #### [facility] [address] [place] [address] Result Comment: 'F N ON < 1 - 3' ' 0.2 - 1 WEEK = 5 TO 50' ' 1 - 2 WEEKS = 50 - 500' ' 2 - 3 WEEKS = 100 - 5000' ' 3 - 4 WEEKS = 500 - 42534' ' 4 - 5 WEEKS = 1000 - 93802' ' 5 - 6 WEEKS = 51317 - 234172' ' 6 - 8 WEEKS = 14228 - 286024' ' 8 - 12 WEEKS = 51776 - 587947' [facility] Quanton 06-23-2024 HCG.beta subunit Qn 1954 m[IU]/mL High 1-3 [facility] Comment on above: Result Comment: 'F N ON < 1 - 3' ' 0.2 - 1 WEEK = 5 TO 50' ' 1 - 2 WEEKS = 50 - 500' ' 2 - 3 WEEKS = 100 - 5000' ' 3 - 4 WEEKS = 500 - 67790' ' 4 - 5 WEEKS = 1000 - 05659' ' 5 - 6 WEEKS = 47648 - 753948' ' 6 - 8 WEEKS = 72858 - 741464' ' 8 - 12 WEEKS = 57586 - 910301' Performed By: #### 2 [id number] #### [facility] [address] [place] [address] CHEMISTRYOrdered By: SYSTEM SYSTEM on 06-23-2024 HCG.beta subunit Qn 1954 m[IU]/mL High 1 - 3 mIU/mL Remisol Chem Comment on above: Result Comment: 'F N ON < 1 - 3' ' 0.2 - 1 WEEK = 5 TO 50' ' 1 - 2 WEEKS = 50 - 500' ' 2 - 3 WEEKS = 100 - 5000' ' 3 - 4 WEEKS = 500 - 86504' ' 4 - 5 WEEKS = 1000 - 70891' ' 5 - 6 WEEKS = 19059 - 905386' ' 6 - 8 WEEKS = 33177 - 799888' ' 8 - 12 WEEKS = 70555 - 870862' Auto Diffon 11-05-2022 Basophils/100 WBC (Bld) 0.1 % Normal 0.0-2.0 [facility] Comment on above: Order Comment: Order Added by Discern Expert. Performed By: #### 1 [id number], 7546421, 5854729, 2114427 #### [facility] [address] [place] [address] 17134 Basophils/Leukocytes Auto (Bld) [Pure # fraction] 0.0 E9/L Normal 0.0-0.2 [facility] Comment on above: Order Comment: Order Added by Discern Expert. Performed By: #### 1 0281313, 2103054, 3518568, 6687512 #### [facility] [address] [place] [address] 96513 Eosinophils/100 WBC (Bld) 2.6 % Normal 0.0-8.0 [facility] Comment on above: Order Comment: Order Added by Discern Expert. Performed By: #### 1 8961787, 9076126, 2891581, 2683537 #### [facility] [address] [place] [address] Eosinophils/Leukocyte s Auto (Bld) [Pure # fraction] 0.2 E9/L Normal 0.0-0.5 [facility] Comment on above: Order Comment: Order Added by Discern Expert. Performed By: #### 1 6383432, 7273127, 7934458, 9008212 #### [facility] [address] [place] [address] 25909 Lymphocytes/100 WBC (Bld) 25.8 % Normal 14.0-50.0 [facility] Comment on above: Order Comment: Order Added by Discern Expert. Performed By: #### 1 1597516, 4310746, 8552377, 1621620 #### [facility] [address] [place] [address] 61777 Lymphocytes/Leukocyte s Auto (Bld) [Pure # fraction] 1.9 E9/L Normal 1.0-4.0 [facility] Comment on above: Order Comment: Order Added by Discern Expert. Performed By: #### 1 5832776, 4190487, 0434221, 3391710 #### [facility] [address] [place] [address] 85031 Monocytes/100 WBC (Bld) 4.8 % Normal 4.0-14.0 [facility] Comment on above: Order Comment: Order Added by Savi Expert. Performed By: #### 1 1278710, 4591824, 2865358, 0950689 #### [facility] [address] [place] [address] 28218 Monocytes/Leukocytes Auto (Bld) [Pure # fraction] 0.3 E9/L Normal 0.2-1.0 [facility] Comment on above: Order Comment: Order Added by Savi Expert. Performed By: #### 1 0867085, 1087199, 2192330, 6837710 #### [facility] [address] [place] [address] 23984 Neutrophils/100 WBC (Bld) 66.7 % Normal 36.0-75.0 [facility] Comment on above: Order Comment: Order Added by Discern Expert. Performed By: #### 1 0582878, 0399464, 6647819, 0169545 #### [facility] [address] [place] [address] 93372 Neutrophils/Leukocyte s Auto (Bld) [Pure # fraction] 4.8 E9/L Normal 2.0-7.5 [facility] Comment on above: Order Comment: Order Added by Savi Expert. Performed By: #### 1 1235450, 0098611, 1322112, 5991163 #### [facility] [address] [place] [address], [place] [address] BMPon 11-05-2022 Creatinine [Mass/Vol] 0.6 mg/dL Normal 0.5-1.3 [facility] Comment on above: Performed By: #### 1 5450779, 2645854, 2683844, 8672400 #### [facility] [address] [place] [address] Urea nitrogen [Mass/Vol] 13 mg/dL Normal 5-21 [facility] Comment on above: Performed By: #### 1 1980341, 9773073, 0121725, 9983865 #### [facility] [address] [place] [address] Urea nitrogen/Creatinine [Mass ratio] 22 No Units High 10-20 [facility] Comment on above: Performed By: #### 1 2693284, 9497785, 0189365, 9820731 #### [facility] [address] [place] [address] Anion gap [Moles/Vol] 10 mmol/L Normal 6-16 [facility] Comment on above: Performed By: #### 1 3368643, 8000116, 2516391, 5795070 #### [facility] [address] [place] [address] Calcium [Mass/Vol] 8.8 mg/dL Low 8.9-11.1 [facility] Comment on above: Performed By: #### 1 4566234, 4102740, 8753184, 4505680 #### [facility] [address] [place] [address] Chloride [Moles/Vol] 102 mmol/L Normal 101-111 [facility] Comment on above: Performed By: #### 1 1590187, 8150367, 4203957, 7125145 #### [facility] [address] [place] [address] CO2 [Moles/Vol] 23 mmol/L Normal 21-31 [facility] Comment on above: Performed By: #### 1 3714710, 8631710, 8878367, 3910557 #### [facility] [address] [place] [address] Glucose [Mass/Vol] 119 mg/dL Normal 55-199 [facility] Comment on above: Result Comment: If t his glucose result represents a fasting glucose, interpretation should refer to the following reference range: 55-99 mg/dL Performed By: #### 1 7572619, 5910753, 9253607, 7607858 #### [facility] [address] [place] [address] Potassium [Moles/Vol] 3.4 mmol/L Low 3.5-5.3 [facility] Comment on above: Performed By: #### 1 5872323, 0586216, 1344423, 8190023 #### [facility] [address] [place] [address] Sodium [Moles/Vol] 132 mmol/L Low 135-145 [facility] Comment on above: Performed By: #### 1 0174558, 9410234, 2101948, 3020123 #### [facility] [address] [place] [address] CBC w/ Auto Diffon 3 Erythrocyte distribution width (RBC) [Ratio] 13.0 % Normal 10.9-14.2 [facility] Comment on above: Performed By: #### 1 8668964, 2846810, 9441490, 4767286 #### [facility] [address] [place] [address] Hematocrit (Bld) [Volume fraction] 35.0 % Normal 34.0-46.0 [facility] Comment on above: Performed By: #### 1 2230401, 3945174, 4117310, 8817547 #### [facility] [address] [place] [address] Hemoglobin (Bld) [Mass/Vol] 12.0 g/dL Normal 12.0-16.0 [facility] Comment on above: Performed By: #### 1 8526656, 7055872, 8809031, 5438966 #### [facility] [address] [place] [address] MCH (RBC) [Entitic mass] 29.4 pg Normal 27.0-34.0 [facility] Comment on above: Performed By: #### 1 7958364, 5201235, 3026461, 2102404 #### [facility] [address] [place] [address] MCHC (RBC) [Mass/Vol] 34.4 g/dL Normal 31.4-36.0 [facility] Comment on above: Performed By: #### 1 3565163, 0056665, 4496579, 8545054 #### [facility] [address] [place] 9248657 MCV (RBC) [Entitic vol] 85.5 fL Normal 80.0-100.0 [facility] Comment on above: Performed By: #### 1 6112181, 6806504, 9803119, 1326537 #### [facility] [address] [place] [address] 24070 Platelet mean volume (Bld) [Entitic vol] 8.5 fL Normal 6.4-10.8 [facility] Comment on above: Performed By: #### 1 0457676, 3016473, 4965175, 3512739 #### [facility] [address] [place] [address] 52348 Platelets (Bld) [#/Vol] 188.0 E9/L Normal 150.0-500.0 [facility] Comment on above: Performed By: #### 1 2152237, 4864596, 9855001, 7275173 #### [facility] [address] [place] [address] 50504 RBC (Bld) [#/Vol] 4.1 E12/L Low 4.3-5.9 [facility] Comment on above: Performed By: #### 1 9182162, 9673567, 3290448, 0584502 #### [facility] [address] [place] [address] 11856 WBC corrected for nucl RBC Auto (Bld) [#/Vol] 7.2 E9/L Normal 4.0-11.0 [facility] Comment on above: Performed By: #### 1 1143619, 4770849, 6495891, 2129814 #### [facility] [address] [place], [place] [address] CHEMISTRYOrdered By: SYSTEM SYSTEM on 11-05-2022 Anion gap [Moles/Vol] 10 mmol/L Normal 6 - 16 mEq/L [facility] Remisol Calcium [Mass/Vol] 8.8 mg/dL Low 8.9 - 11. 1 mg/dL FT Remisol Chloride [Moles/Vol] 102 mmol/L Normal 101 - 1 11 mmol/L [facility] Remisol CO2 [Moles/Vol] 23 mmol/L Normal 21 - 31 mmol/L FT Remisol Creatinine [Mass/Vol] 0.6 mg/dL Normal 0.5 - 1.3 mg/dL [facility] Remisol GFR/1.73 sq M.predicted among non-blacks MDRD (S/P/Bld) [Vol rate/Area] 128 mL/min/1.73 m2 Normal >=59mL/min/1 .73 m2 [facility] Chem S Glucose [Mass/Vol] 119 mg/dL Normal 55 - 199 mg/dL [facility] Remisol Potassium [Moles/Vol] 3.4 mmol/L Low 3.5 - 5.3 mmol/L [facility] Remisol Sodium [Moles/Vol] 132 mmol/L Low 135 - 145 mmol/L [facility] Remisol Urea nitrogen [Mass/Vol] 13 mg/dL Normal 5 - 21 mg/dL [facility] Remisol Urea nitrogen/Creatinine [Mass ratio] 22 mg/mg High 10 - 20 [facility] Remisol Consent for Treatmenton Consent for Treatment [id number] #[id number]:127 Normal [facility] Discharge Instructionson Discharge Instructions [id number]:127 Normal [facility] ED Clinical Summaryon 2022 ED Clinical Summary [place] [id number] ED Clinical Summary Person Information Name: RADHA DINH [place] Age: 26 Years : 1995 Sex: Female Language: Ukrainian PCP: ANTHONY ROMAN MD Marital Status: Single [...] 11/05/2022 11:36:08 11/05/2022 11:36:08 11/05/2022 11:36:08 ADDRESS: [address] [id number] [facility] DOC NOTES: MEDICAL INFORMATION: Prescriptions Given: Medications to Continue with No Changes Other Medications ethinyl estradiol-norethindr one (Chanell 24 Fe oral tablet) PATIENT EDUCATION INFORMATION: Instructions: Near-Syncope Follow up: With: Address: When: Cl[facility], [address] [facility] [place] [address] Business (1) In 3 days 11/08/2022 With: Address: When: ANTHONY ROMAN [address] [place] [address] Business (1) In 3 days 11/08/2022 Comments: [...] or worsening symptoms. DIAGNOSIS: Near syncope Normal [facility] ED Note-Physicianon 11-06-19 ED Note-Physician Basic [...] and Complexity of Problems Differential Diagnosis: [] [facility] Data External documents reviewed: [] My [...] and follow-up with PCP as well as [employer]. Return precaution discussed. Patient questions answered. Patient [...] Patient seen and evaluated by the physician offset press assistant. Attending physician was present in the emergency department and supervised care. This visit was performed by both the physician and an APC. I performed all aspects of the MDM as documented. This report was transcribed using voice recognition software. Every effort was made to ensure accuracy, however, inadvertently computerized hazardous waste material technician mistakes may be present. Appropriate healthcare PPE was used in evaluating this patient. The patient was placed in a mask. The healthcare provider was wearing mask, gloves, and utilizing proper hand hygiene. All equipment was properly c (more content not included)... Normal [facility] Comment on above: Result Comment: Elec [...] these instructions at home: Medicines ? Take onyh-dxt-eooovhs and prescription medicines only as told by [...] provider. Document Revised: 08/29/2021 Document Reviewed: 08/29/2021 [employer] Patient Education ? 2022 [employer] Normal [facility] ED Patient Summaryon 023 ED Patient Summary [address] [address] Patient Discharge Instructions Person Information Name: RADHA DINH Age: 26 Years Arrival Date: 11/05/2022 07:55:48 Discharge Diagnosis: Near syncope Primary Care Physician: ANTHONY ROMAN MD Provider Information Primary Provider: Nick Velasquez DO [employer] Developer:Kashif Nguyen PA-C The exam and treatment you received in the Emergency Department were for an urgent problem and are not intended as complete care. It is important that you follow up with a doctor, nurse practitioner, or physician?s offset press assistant for ongoing care. If your symptoms become worse or you do not improve as expected and you are unable to reach your usual health care provider, you should return to the Emergency Department. We are available 24 hours a day. RADHA DINH has been given the following list of patient education materials, prescriptions and follow-up instructions: Follow-up Instructions: With: Address: When: [facility], [address] [place] [address] [address] [place] [phone] Business (1) In 3 days 11/08/2022 With: Address: When: ANTHNOY ABEL [facility] [place] [id number] [facility] (1) In 3 days 11/08/2022 Comments: Call [...] opioids can be used to help relieve vprjymwl-at-krbqoe pain and are often prescribed following a [...] prescription opio (more content not included)... Normal [facility] HEMATOLOGYOrdered By: SYSTEM SYSTEM on 11-05-2022 Basophils/100 WBC (Bld) 0.1 % Normal 0.0 - 2.0 % [facility] HemeAutoSS Basophils/Leukocytes Auto (Bld) [Pure # fraction] 0.0 E9/L Normal 0.0 - 0.2 E9/L [facility] HemeAutoSS Eosinophils/100 WBC (Bld) 2.6 % Normal 0.0 - 8.0 % [facility] HemeAutoSS Eosinophils/Leukocyte s Auto (Bld) [Pure # [...] 4.8 E9/L Normal 2.0 - 7.5 E9/L [facility] HemeAutoSS HEMATOLOGYOrdered By: Kevin Ruiz on 11-05-2022 Erythrocyte distribution width (RBC) [Ratio] 13.0 % Normal 10.9 - 14.2 % [facility] HemeAutoSS Hematocrit (Bld) [Volume fraction] 35.0 % Normal 34.0 - 46.0 % [facility] HemeAutoSS Hemoglobin (Bld) [Mass/Vol] 12.0 g/dL Normal 12.0 - 16.0 gm/dL [facility] HemeAutoSS MCH (RBC) [Entitic mass] 29.4 pg Normal 27.0 - 34.0 pg [facility] HemeAutoSS MCHC (RBC) [Mass/Vol] 34.4 g/dL Normal 31.4 - 36.0 gm/dL [facility] HemeAutoSS MCV (RBC) [Entitic vol] 85.5 fL Normal 80.0 - 100.0 fL [facility] HemeAutoSS Platelet mean volume (Bld) [Entitic vol] 8.5 fL Normal 6.4 - 10.8 fL [facility] HemeAutoSS Platelets (Bld) [#/Vol] 188.0 E9/L Normal 150.0 - 500.0 E9/L [facility] HemeAutoSS RBC (Bld) [#/Vol] 4.1 E12/L Low 4.3 - 5.9 E12/L [facility] HemeAutoSS WBC corrected for nucl RBC Auto (Bld) [#/Vol] 7.2 E9/L Normal 4.0 - 11.0 E9/L [facility] HemeAutoSS UA With Cult Reflexon 2022 Bacteria LM Ql (Urine sed) TRACE Normal Trace [facility] Comment on above: Performed By: #### 1 [id number] #### [facility] [address] [place] [address] Bilirubin Ql (U) Negative Normal Negative [facility] Comment on above: Performed By: #### 1 [id number] #### [facility] [address] [place] [address] Clarity (U) SL CLOUDY Invalid Interpretation Code [facility] Comment on above: Performed By: #### 1 [id number] #### [facility] [address] [place] [address] Color (U) YELLOW Normal Yellow [facility] Comment on above: Performed By: #### 1 [id number] #### [facility] [address] [place] [address] Epithelial cells.squamous LM.HPF (Urine sed) [#/Area] 3-4 Normal 0-2 [facility] Comment on above: Performed By: #### 1 [id number] #### [facility] [address] [place] [address] Glucose Test strip (U) [Mass/Vol] Negative Normal Negative [facility] Comment on above: Performed By: #### 1 [id number] #### [facility] [address] [place] [address] Hemoglobin Ql (U) Negative Normal Negative [facility] Comment on above: Performed By: #### 1 [id number] #### [facility] [address] [place] [address] Ketones (U) [Mass/Vol] Negative Normal Negative [facility] Comment on above: Performed By: #### 1 1251861 #### [facility] [address] [place] [address] Skykomish.plasma/Lithiu m.RBC (Bld) [Mass ratio] 0-3 Normal 0-3 [facility] Comment on above: Performed By: #### 1 [id number] #### [facility] [address] [place] [address] Mucus Ql (Urine sed) TRACE Normal Fish [facility] Comment on above: Performed By: #### 1 [id number] #### [facility] [address] [place] [address] Nitrite Ql (U) Negative Normal Negative [facility] Comment on above: Performed By: #### 1 [id number] #### [facility] [address] [place] [address] pH (U) 6.5 [pH] Invalid Interpretation Code 5.0-9.0 [facility] Comment on above: Performed By: #### 1 [id number] #### [facility] [address] [place] [address] Protein (U) [Mass/Vol] Negative Normal Negative [facility] Comment on above: Performed By: #### 1 [id number] #### [facility] [address] [place] [address] Specific gravity (U) [Rel density] <=1.005 Invalid Interpretation Code 1.005-1.030 [facility] Comment on above: Performed By: #### 1 [id number] #### [facility] [address] [place] [address] Type of Urine collection method Clean Catch Normal [facility] Comment on above: Performed By: #### 1 [id number] #### [facility] [address] [place] [address] Urobilinogen Qn (U) 0.2 {Rogelio'U}/dL Normal 0.0-1.0 [facility] Comment on above: Performed By: #### 1 1124125 #### [facility] [address] [place] [address] WBC Auto Ql (U) TRACE Abnormal Negative [facility] Comment on above: Performed By: #### 1 [id number] #### [facility] [address] [place] [address] WBC LM.HPF (Urine sed) [#/Area] 0-5 Normal 0-5 [facility] Comment on above: Performed By: #### 1 [id number] #### [facility] [address] [place] [address] URINALYSISOrdered By: Marisol Hendrix on 11-05-2022 Bacteria LM Ql (Urine sed) Trace /HPF Normal Trace/HPF [facility] UA Auto SS Bilirubin Ql (U) Negative (11/05/22 10:36 AM) Normal Negative [facility] UA Auto SS Clarity (U) SL CLOUDY Invalid Interpretation Code [facility] UA Auto SS Color (U) Yellow (11/05/22 10:36 AM) Normal Yellow [facility] UA Auto SS Epithelial cells.squamous LM.HPF (Urine sed) [#/Area] 3-4 /HPF Normal 0-2/HPF [facility] UA Aut o SS Glucose Test strip (U) [Mass/Vol] Negative (11/05/22 10:36 AM) Normal Negative [facility] UA Auto SS Hemoglobin Ql (U) Negative (11/05/22 10:36 AM) Normal Negative [facility] UA Auto SS Ketones (U) [Mass/Vol] Negative (11/05/22 10:36 AM) Normal Negative [facility] UA Auto SS Sky[place].plasma/Lithiu m.RBC (Bld) [Mass ratio] 0-3 /HPF Normal [...] AM) Invalid Interpretation Code 1.005 - 1.030 [facility] UA Auto SS UA Spec Desc Clean Catch (11/05/22 10:36 AM) Normal [facility] UA Auto SS Urobilinogen Qn (U) 0.5421423 {Rogelio'U}/dL Normal 0.0 - 1.0 EU/dL [facility] UA Auto SS WBC Auto Ql (U) Trace *ABN* (11/05/22 10:36 AM) Invalid Interpretation Code Negative [facility] UA Auto SS WBC LM.HPF (Urine sed) [#/Area] 0-5 /HPF Normal 0-5/HPF [facility] UA Auto SS eGFRon 11-05-2022 GFR/1.73 sq M.predicted among non-blacks MDRD (S/P/Bld) [Vol rate/Area] 128 mL/min/1.73 m2 Normal >=59 [facility] Comment on above: Order Comment: Order added by Discern Expert. Result Comment: Piano Case Maker roxane kidney disease could be indicated at eGFR's of less than 60 mL/min/1.73m2. Kidney failure is indicated at less than 15 mL/min/1.73m2. Performed By: #### 1 [id number], 4521335, 4373294, 8842790 #### [facility] [address] [place] [address] HEP B SURFACE ANTIGEN SCREEN on 09-10-2022 HBsAg Screen Negative Normal Negative [facility] Comment on above: Performed By: #### H BSANS #### [facility] [address] [place] [address] Dr. Samira Griffiths HEPATITIS C VIRUS AB W/ REFL EX QUANTon 09-10-2022 HCV AB Non-Reactive Normal Non Reactive [facility] Comment on above: Performed By: #### H CVPCRR #### [facility] [address] [place] [address] Dr. Samira Griffiths Interpretation: Comment Normal [facility] Comment on above: Result Comment: Not infected with HCV unless early or acute infection is suspected (which may be delayed in an immunocompromised individual), or other evidence exists to indicate HCV infection. Performed By: #### H CVPCRR #### [facility] [address] [place] [address] Dr. Samira Griffiths HIV 1 AND 2 WITH REFLEXon HIV Screen 4th Generation wRfx Non-Reactive Normal Non Reactive [facility] Comment on above: Result Comment: HIV Negative HIV-1/HIV-2 antibodies and HIV-1 p24 antigen were NOT detected. There is no laboratory evidence of HIV infection. Performed By: #### H IV12 #### [facility] [address] [place] [address] Dr. Samira Griffiths RPR QUANTon 09-10-2022 Rapid Plasma Reagin, Quant Non-Reactive Normal NonRea<1:1 [facility] Comment on above: Result Comment: Plea se Note: This test does not meet current guidelines for screening and diagnosis of syphilis. This test is intended for following treatment response in patients being treated for syphilis infection. To screen for syphilis infection, a reflex cascade that includes both RPR and a treponema-specific assay should be utilized, such as Treponema pallidum (Syphilis) Screening [place] (969427) or Rapid Plasma Reagin (RPR) Test With Reflex to Quantitative RPR and Confirmatory Treponema pallidum Antibodies (460925). Performed By: #### R PRQ #### [facility] [address] [place] [address] Dr. Samira Griffiths RUBELLA AB IGGon 09-10-2022 Rubella Antibodies, IgG 3.13 index Normal Immune >0.99 [facility] Comment on above: Result Comment: Non- immune <0.90 Equivocal 0.90 - 0.99 Immune >0.99 Performed By: #### R UBIGG #### [facility] [address] [place] [address] Dr. Samira Griffiths BOX TEST SENT OUTon 09-10-19 23 SENT TO REF LAB 09/09/2022 Normal [facility] Comment on above: Performed By: #### T SH #### [facility] [address] [place] [address] Dr. Samira Griffiths CBC AUTO DIFFon 09-09-2022 BASO # 0.0 103/ul Normal 0.0-0.1 [facility] Comment on above: Performed By: #### C BC #### [facility] [address] [place] [address] Dr. Samira Griffiths Basophils/100 WBC (Bld) 0.2 % Normal 0.2-2.0 [facility] Comment on above: Performed By: #### C BC #### [facility] [address] [place] [address] Dr. Samira Griffiths EO # 0.2 103/ul Normal 0.0-0.7 [facility] Comment on above: Performed By: #### C BC #### [facility] [address] [place] [address] Dr. Samira Griffiths Eosinophils/100 WBC (Bld) 1.9 % Normal 0.9-7.0 [facility] Comment on above: Performed By: #### C BC #### [facility] [address] [place] [address] Dr. Samira Griffiths Erythrocyte distribution width (RBC) [Ratio] 11.9 % Normal 11.0-15.0 [facility] Comment on above: Performed By: #### C BC #### [facility] [address] [place] [address] Dr. Samira Griffiths Hematocrit (Bld) [Volume fraction] 36.6 % Normal 36.0-48.0 [facility] Comment on above: Performed By: #### C BC #### [facility] [address] [place] [address] Dr. Samira Griffiths Hemoglobin (Bld) [Mass/Vol] 12.4 g/dL Normal 12.0-16.0 [facility] Comment on above: Performed By: #### C BC #### [facility] [address] [place] [address] Dr. Samira Griffiths IG # 0.03 10e3/ul Normal 0.00-0.03 [facility] Comment on above: Performed By: #### C BC #### [facility] [address] [place] [address] Dr. Samira Griffiths IG % 0.3 % Normal 0.0-0.5 [facility] Comment on above: Performed By: #### C BC #### [facility] [address] [place] [address] Dr. Samira Griffiths LYMPH # 1.9 103/ul Normal 1.2-3.8 [facility] Comment on above: Performed By: #### C BC #### [facility] [address] [place] [address] Dr. Samira Griffiths Lymphocytes/100 WBC (Bld) 21.1 % Normal 20.5-60.0 [facility] Comment on above: Performed By: #### C BC #### [facility] [address] [place] [address] Dr. Samira Griffiths MANUAL DIFF REQ NO Normal [facility] Comment on above: Performed By: #### C BC #### [facility] [address] [place] [address] Dr. Samira Griffiths MCH (RBC) [Entitic mass] 29.0 pg Normal 26.7-34.0 [facility] Comment on above: Performed By: #### C BC #### [facility] [address] [place] [address] Dr. Samira Griffiths MCHC (RBC) [Mass/Vol] 33.9 g/dL Normal 29.9-35.2 [facility] Comment on above: Performed By: #### C BC #### [facility] [address] [place] [address] Dr. Samira Griffiths MCV (RBC) [Entitic vol] 85.7 fL Normal 81.0-99.0 [facility] Comment on above: Performed By: #### C BC #### [facility] [address] [place] [address] Dr. Samira Griffiths MONO # 0.6 103/ul Normal 0.3-0.8 [facility] Comment on above: Performed By: #### C BC #### [facility] [address] [place] [address] Dr. Samira Griffiths Monocytes/100 WBC (Bld) 6.4 % Normal 1.7-12.0 [facility] Comment on above: Performed By: #### C BC #### [facility] [address] [place] [address] Dr. Samira Griffiths NEUT # 6.3 103/ul Normal 1.4-6.5 [facility] Comment on above: Performed By: #### C BC #### [facility] [address] [place] [address] Dr. Samira Griffiths Neutrophils/100 WBC (Bld) 70.1 % Normal 43.0-75.0 [facility] Comment on above: Performed By: #### C BC #### [facility] [address] [place] [address] Dr. Samira Griffiths Platelet mean volume (Bld) [Entitic vol] 10.1 fL Normal 9.5-13.5 [facility] Comment on above: Performed By: #### C BC #### [facility] [address] [place] [address] Dr. Samira Griffiths PLT 228 103/ul Normal 150-450 [facility] Comment on above: Performed By: #### C BC #### [facility] [address] [place] [address] Dr. Samira Griffiths RBC 4.27 106/ul Normal 4.20-5.40 [facility] Comment on above: Performed By: #### C BC #### [facility] [address] [place] [address] Dr. Samira Griffiths WBC 9.1 103/ul Normal 4.0-11.0 [facility] Comment on above: Performed By: #### C BC #### [facility] [address] [place] [address] Dr. Samira Griffiths CULTURE URINEon 09-09-2022 CULTURE URINE Culture Observations: LIGHT GROWTH OF MIXED GENITAL BEHZAD. NO POTENTIAL PATHOGENS SEEN. Normal [facility] Comment on above: Performed By: #### T SH #### [facility] [address] [place] [address] Dr. Samira Griffiths GLYCOHEMOGLOBIN A1Con 2022 ADA RECOMMENDATION SEE BELOW Normal [facility] Comment on above: Result Comment: ADA RECOMMENDED LIMIT 4.0 - 6.0 ADA THERAPEUTIC TARGET < 7.0 ACTION SUGGESTED > 7.0 Performed By: #### A 1C #### [facility] [address] [place] [address] Dr. Samira Griffiths Glucose [Mass/Vol] 108 mg/dL Normal [facility] Comment on above: Performed By: #### A 1C #### [facility] [address] [address] [address] Samira Griffiths HbA1c (Bld) [Mass fraction] 5.4 % Normal 4.5-6.2 [facility] Comment on above: Performed By: #### A 1C #### [facility] [address] [address] [address] Samira Griffiths TSHon 09-09-2022 TSH 0.224 uIU/mL Critically low 0.358-3.740 [facility] Comment on above: Performed By: #### T SH #### [facility] [address] [address] [address] Samira Griffiths TYPE AND SCREENon 09-09-2022 TYPE AND SCREEN Negative Normal [facility] Comment on above: Performed By: #### T NS #### [facility] [address] [address] [address] Samira Griffiths US PREG TVon 09-05-2022 [...] by: JANIE BABCOCK Date: 2022-09-05 15:44 Normal [facility] PAP ONLYon 03-20-2022 . . Normal [facility] Comment on above: Performed By: #### 4 [id number] #### [facility] [address] [address] [address] Samira Griffiths DIAGNOSIS: Comment Normal [facility] Comment on above: Result Comment: NEGA TIVE FOR INTRAEPITHELIAL LESION OR MALIGNANCY. Performed By: #### 4 [id number] #### [facility] [address] [address] [address] Samira Griffiths Methodology: Comment Normal [facility] Comment on above: Result Comment: This liquid based ThinPrep(R) pap test was screened with the use of an image guided system. Performed By: #### 4 [id number] #### [facility] [address] [place] [address] Dr. Samira Griffiths Note: Comment Normal [facility] Comment on above: Result Comment: The Pap smear is a screening test designed to aid in the detection of premalignant and malignant conditions of the uterine cervix. It is not a diagnostic procedure and should not be used as the sole means of detecting cervical cancer. Both false-positive and false-negative reports do occur. . Performed By: #### 4 [id number] #### [facility] [address] [place] [address] Dr. Samira Griffiths Performed by: Comment Normal [facility] Comment on above: Result Comment: Francy Huitron, Test And Turn Up Technician Performed By: #### 4 [id number] #### [facility] [address] [place] [address] Dr. Samira Griffiths Specimen adequacy: Comment Normal [facility] Comment on above: Result Comment: Sati sfactory for evaluation. No endocervical component is identified. Performed By: #### 4 [id number] #### [facility] [address] [place] [address] Dr. Samira Griffiths Coding Summary.on 02-18-2022 Coding Summary. CD:[id number] Gh0bWw+PGhlYWQ+PE1FV KUwC71jmPQwnR9MH6aJL V2RHZEUNPRSBC4DAS5ub GF6HVccG7SmgvQu PxhecSCfZD09AFk2OWC6 jGrmAIdmcB2nhSWbG6f2 LvNxIX11bV80DVipOCCl QyR9BzCtpfwnjCWs C2qxDjXxcNQfMbf+PHRh YmxlIHdpZHRoPScxMDAl UmNzyTyrMH9hFn5bZPPv LWNvbGxhcHNlOiBj m8deBSYfXXfwIX9bsDwk J1NvjUI8KOEuy0i8Wq83 dHI+BRNgOHM2yRgvNTzq a895EhOty4xcIKG0 pNTzBCntFDR4N80ut4H7 NLQpWXPzKDW5rYJ4oL4f lMlifjecD9BzeVJtIyX0 GAD3iXXulE2ueRev okqciH3iZve+J34WUP9Z XHRYRC1CEwq3E9HiInez dHI+UZ13JGXdYZ33pFVx vTJem4vthIr7FnWa TSJdFFW8nJwbQWajw0Ph VYQcW21maFPcl8G3CETa hTijrRWkLgYquUF7bE7i KRvthmvle2ydplrt Hcjgq8ksex47lN49C52k CRgtKMWaHJX6RRCkOGAw oDlfpq3kwG4mOp0+IDxj n9cyt9byeCt2RrZc KKAjctLvsHdsJWV5t9Pt Mb18P6BnhDges4CjWza1 xc92tEHwm5U1iIZ6AXvj LIXhgL0rRIbpRgF5 PFGtXhGqmZ30pXIjNYnz Ld1fbRejfNzrWF2rCLHe ykmwJFRxtT6rLLEmzTJg aAnbMT7wMSMibnqh p459GuOxYZN0LVGvsCBp P4CpgT3zHuQvSSIxAAHk L2JogRPnCSxsK875XXwv TdC9GQZigkUmW7Qj RZGcfZcmMlB6k0M8Ei7W z3XpmsypZOL3YXphMYVp OdG8KmZrBcF9Z7OvPix1 GLVxnUmeBL6yV5Le DHVolzcgflcbmZZ4OXLb TAHcrB86gYKqEBzaNx7g w5V1t847OXBlZEZvaL25 Kp1njYjiCOEsxNKM sX0tqhwxb0cahtcnXnZl HREaHBa4TRp8CRFflZmf FlPwDPW1AeF5ZPY2vPNg yD1gsPzqbxjukJ2g Oyc+K28oqR5iVLI1RSH8 cghtONEbqjNdQB29SC63 G4MdFlildTVoiUT+PGRp jsAtsVfsXF7rNaHc i4qma6UuGWbzP8ZeGZLh MEktTfr0CGJpHDU0rJV7 eF7cKENiLPtgu9I5tMS1 H8XltvHzdl3kp2nn ZFLoDQpwY30rkPEws6R3 LTQppXQ7LPHuaQleJrLl mE21Vbg+BJTjuZocy1Mh Faupa1ygp5lczHv3 IjMwJSIgdmFsaWduPSJ0 b5CtDc31T53tPXjgCIDz RZWjPFVvMVJktTzggx3x bI1uEv0+PGNvbCB3 fXC9zF3kMOOqPeN2OBup J507XiPeoIEkCacuc4dq i0gvpZo5SbJaXJSabpQx gWwuPCB5p3SgFy67 W60wAGnsEZEcEGUoRFUw NGIfsKdpiw7fzT0fXl8+ WM8za8uhnw72dW76qWF+ GUDuMJM4oEvdFDro ZJYuhV8nJTmaIjK0YFBo ToIwoV03xELuMYbxXo7a dOlcuJmlOI9gOIWlasuq v800TtDnp5tnOXLm mZIgGKoeIFT9I27mp9Q1 WDObFBEbBSA3bBB9mP7h bGlnbjogbGVmdDsgdmVy lYztCZynNMumX293 IHRvcDsnPlBhdGllbnQg AtWtYRe4R2KfRut7LJGh hJovPK9llFLpMWyiGt2w jIdwlGckGY9qLMUf gztkq847UtBsg1zxLREi rZAiLOdpVMK3T00bc1L6 SEYbOTXkSGN2vER1mI8n bGlnbjogbGVmdDsg xwKliAzuNFzgTVmpH215 IHRvcDsnPkJpcnRoIERh wRI8EB66RH31oXQvi0D0 hLY5J7OhEJCmwicm qfswrDC3INXvKGCjoA81 By4hcHgdIp0jNRLrFQT7 HSGryQKoX7JxxO8fFrRg IRIzNIUzA1WypSMj NYxvC863HXxwQrO3UQCt smCtN3JqADBhnDbqMiQ2 y1Q5Qf2HP5K0TE15OC82 jGBgr9K2bPZ2A5Gw JMLfpbxbvqcwaEI3PWQe AVHgsH87Ig6myQvkWt3m NXCcLLW3YRHvkJQgH5En wR4vIeXlUROzWGSq T5NpmYJdBOyhL934UChm SiE6IMFpnxWlE4CoXKVt gOimUtN4u5H9Sm3PYZf7 FM44CD14fZLxr0F5 wQF7K3SfXVNfepttdxpb jXE0RIBrOBChdQ58Ss3a pDziTr8nNJNnMTG8TDEc mLFbE9ZkkS4tWiJe XNVzUIRvQ6XjsFPuGZwa J245KVlkUhZ3OQUvloNu Y8LuKBFbfZyoXsF6o9R8 Ly5PUXJfWK23FPA1 rYV2VX30DS72O9UzDsdy dGFibGU+PHRhYmxlIHdp ZHRoPScxMDAlJyBzdHls NJ8sGb3qJZFmBMNl tSypgUMwPpTet5ioNWDp HSwdHX4nlZkiH2LubFB2 SMNhz8g9Jw47J02mJ9Vk dXA+OWQzmFZ5bNM6 yS8tPiYnTyX2CWjwM227 QfCyiKYbRkflc3fer6ph tEe0YuG9FRIvxsAahMgy RSH5g1ZtTv59A29r IHdpZHRoPSIxNSUiIHZh gRvvel0zbY1eKy2+PGNv eMW5kCL2rI7sCdEmJoM8 LTzqU794VrEmgNUy Onyak2jgl0kukHf7HxDd PCKwlnYwjXtjMXM2f5Uz Zx34M4LdzXwpa4ReRct3 bg86sXScn5Q5bHL4 U4XtFUJyynqudLYsmAek OE3rSZTvbkizYAKydL7y JXGmK5c0HlDwXhR9IFia J2GdlcR1FZVgxUKj MZynNJX6S43yy8X9HWFg UGNoJKD6oXF9dE9trLrt bjogbGVmdDsgdmVydGlj GFxhJQspI327DJOk sYxkMJVlnM6zKDAppNBn qGdwUZ7hPWPytempYgjT IMzBZNleV6dFE0KYMmKI ON20YL64zFMtf1Y1 iQJ8C4MsXWKwodrpmycr gRH7VQTfLGOpvM80pGHt TLjnLk3ze8D8c691UMOk EZUdvP72In4hnAvd HLAkfACNuN5mzhofy5kz shvsJrSkFGSyGLx9SGd6 DDWgnEhpSoBdPNF5NmP0 VMD3kOTcqZ9xcDxh dapclF4iIsp+MDcvMTMv BIv6BkgntQL+PHRkIHN0 xAdgTTwkNDHxdG4zBUZq O5v7CvZhUjI7UNxk W3SvVMBkhznhFi20hG1i NgUqJoT9HCrpF2XxetS0 TCFgmEKxBRrsVAV4V38q v6S5XQKxRBGdGUN1 dPC5wM5skSlcarjbbLSx dDsgdmVydGljYWwtYWxp E712AZTrkYryMjJ2IUdm BTMiUV38HJ67sLPs n4N5eEN0H9RyWINgkmrl bicwiXT5YLHrLSFohX31 aRBdGYquHn4mz4K6k495 ATZvYBDmvQ23Ss5a rKdvUNPbvCCWnX3crqcw a6tobjrkFnZjOTIeFSt8 HBh4NDPqaEmqTkYoMHE5 FbD9SVN7jIKgnX1p oFqoftwdsN7gOgp+RmVt ASsrJJ44JJ58cWIdn8X3 nUV9N9RlENHxcnjxdzee hFK9NTWsVKHigP33 gLUbQRgvAu1cx4N1a509 EONsJDAeeZ97Wm6ozSee YUJofAXMeO7gjltnn5gk cjogIzAwMDAwMDt0 QGj1SGUfhUgqFyMrZSP1 XlC5LCJ7oVLqeO8drXix qjwkpX1qGes+TGFiIERy c1Bcr2CfOT87CG19 M1FmPdkosMEivHN+PHRh YmxlIHdpZHRoPScxMDAl FqSyuZeyIH6jSs1tHFOk LWNvbGxhcHNlOiBj p0tzNSXmFNdhBJ4kuJfh V7DpqVH6ZMUnp1r6Cm81 V08yB9MmhYQ+PGNvbCB3 iXN6mP4wViJcQyO7 PLozT752XgLdoCOkRqen z8vsb2ucuIq8BjGnPYZm zsJfwPjgKER2m0MqZm96 B00mJXtpGRNgMQYa XKRjHWLpzVruym2ebU3g Ii8+LTFeuXX8oFF0nW7m ZbYoMnR8ISsbQ776NrDg fIHjOomdO59hL4Iz dXA+TKZuRjd3JOMxjVqx ZZ6qoLQuOQceEc1fTDM7 BkPcLaLsNJdvG6HzNCUk awjqhhnxrHG9VNVn TUYwnP09Sg3ccVdxPy2b YLMaTVO7FAHypBZvH5Gl rE4nInMnNOOrJIKzL2Nl wABzMVpwT034WSmx OnX8QVLlvnFuA7LdDKCw cYdoGfK6p7C4Aj7FsSpk jCKrCP1qIwXwYOi7Z6Ky Wih9BRXzpCprTC2u tMAsJUrmGx1qhEaaaGwn FR3sRJFfvljko510IhWr o6duKFPlcBMsCMjuLVD7 A71ca9J3NSReSLAb DTF6mKR9bP5rkArmxrmm bGVmdDsgdmVydGljYWwt OKiqE165ZPYthPkkYvHB Oai1W6StYez0ZYLh tUtsWI1xhXSbBGcdYw9e oGqskOyoBT2cMCGaxmdr b865BqAsh6qoVYWzmAPc VZtoSVM8A45jb3P9 ONZnWWBaYBZ5aXF5lH2h bGlnbjogbGVmdDsgdmVy lWtrCOheKDhjB550QSBu jAwrNr8CQcv0I4Ol Ivm8BNKoxUeqHT6myJDx AXjcVz1oiTwhaCjnPI3r HYKhemwsm070XmXpq0sq IDEwcHQgVGltZXM7 H12no1U7JQVvYTFuFDB0 zVT1tE4wdNyijgelbQZo dDsgdmVydGljYWwtYWxp Z577YGFihOxpEeXb eWVyOjwvdGQ+CS25du58 E1DwYdcnKjr1LFOlACW2 nQH5oI1qVDKbBPnds5A5 oUH9C4ZhmhFxgl3v b2xs (more content not included)... 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 Rash (R21: Rash and other nonspecific skin eruption) Given history and exam, rash appears to be allergic in nature. Recommend antihistamine prn for this issue. F/u with PCP if symptoms persist or worsen. Follow-up With When Contact Information ANTHONY ROMAN MD, [id number] [place] [address]- Additional Instructions: Patient Education Cough, Adult Pharyngitis [...] Given Postpone due to refusal SARS-CoV-2 mRNA (totigistnameran 5y-11y) vac - Not Given Postpone due (more content not included)... Normal [facility] Comment on above: Result Comment: Elec [...] these instructions at home: Medicines ? Take vzdz-bzn-fnqmjmm and prescription medicines only as told by [...] a condition that needs treatment. ? Take pqyv-inz-lydcbpw and prescription medicines only as told by [...] 10/17/2011 Document Revised: 05/09/2019 Document Reviewed: 05/09/2019 [employer] Patient Education ? 2019 [employer] Infectious Disease Pharyngitis Pharyngitis is redness, [...] You have (more content not included)... Normal [facility] COVID Quick Testingon 2020 Result Negative [employer] Other Quick Strepon 02-19-2021 S. pyogenes Org specific cx Ql (Throat) Negative [employer] Other Quick Strep [email or web address] [facility] [employer] Other Vital Signs Date Time Vital Sign Value Performing Clinician Facility 01-25-2025 13:15-0400 Body mass index (BMI) [Ratio] 30.02 kg/m2 Bree FARAH Work Phone: [facility] 01-25-2025 13:15-0400 Body weight 74.44 kg Bree FARAH Work Phone: [facility] 01-25-2025 13:15-0400 Diastolic blood pressure 70 mm[Hg] Bree FARAH Work Phone: [facility] 01-25-2025 13:15-0400 Systolic blood pressure 118 mm[Hg] Bree FARAH Work Phone: [facility] 01-18-2025 10:43-0400 Body mass index (BMI) [Ratio] 29.23 kg/m2 Claudio Annabelle DO Work Phone: [facility] 01-18-2025 10:43-0400 Body weight 72.48 kg Claudio Annabelle DO Work Phone: [facility] 01-18-2025 10:43-0400 Diastolic blood pressure 70 mm[Hg] Claudio Annabelle DO Work Phone: [facility] 01-18-2025 10:43-0400 Systolic blood pressure 120 mm[Hg] Claudio Annabelle DO Work Phone: [facility] 01-03-2025 14:31-0400 Body mass index (BMI) [Ratio] 29.1 kg/m2 Bree Lise PA Work Phone: [facility] 01-03-2025 14:31-0400 Body weight 72.18 kg Bree Lise PA Work Phone: [facility] 01-03-2025 14:31-0400 Diastolic blood pressure 80 mm[Hg] Bree Longwood PA Work Phone: [facility] 01-03-2025 14:31-0400 Systolic blood pressure 120 mm[Hg] Bree Lise PA Work Phone: [facility] 12-20-2024 10:02-0400 Body mass index (BMI) [Ratio] 28.61 kg/m2 Claudio Annabelle DO Work Phone: [facility] 12-20-2024 10:02-0400 Body weight 70.94 kg Claudio Annabelle DO Work Phone: [facility] 12-20-2024 10:02-0400 Diastolic blood pressure 80 mm[Hg] Claudio Annabelle DO Work Phone: [facility] 12-20-2024 10:02-0400 Systolic blood pressure 110 mm[Hg] Claudio Annabelle DO Work Phone: [facility] 12-07-2024 11:01-0400 Body mass index (BMI) [Ratio] 27.44 kg/m2 Claudio Annabelle DO Work Phone: [facility] 12-07-2024 11:01-0400 Body weight 68.04 kg Claudio Annabelle DO Work Phone: [facility] 12-07-2024 11:01-0400 Diastolic blood pressure 76 mm[Hg] Claudio Annabelle DO Work Phone: [facility] 12-07-2024 11:01-0400 Systolic blood pressure 124 mm[Hg] Claudio Annabelle DO Work Phone: [facility] 11-15-2024 08:44-0400 Body mass index (BMI) [Ratio] 26.89 kg/m2 Bree Lise PA Work Phone: [facility] 11-15-2024 08:44-0400 Body weight 66.68 kg Bree Lise PA Work Phone: [facility] 11-15-2024 08:44-0400 Diastolic blood pressure 76 mm[Hg] Bree Longwood PA Work Phone: [facility] 11-15-2024 08:44-0400 Systolic blood pressure 124 mm[Hg] Bree Lise PA Work Phone: [facility] 10-18-2024 09:05-0400 Body mass index (BMI) [Ratio] 26.06 kg/m2 Claudio Annabelle DO Work Phone: [facility] 10-18-2024 09:05-0400 Body weight 64.64 kg Claudio Annabelle DO Work Phone: [facility] 10-18-2024 09:05-0400 Diastolic blood pressure 72 mm[Hg] Claudio Annabelle DO Work Phone: [facility] 10-18-2024 09:05-0400 Systolic blood pressure 120 mm[Hg] Claudio Annabelle DO Work Phone: [facility] 09-20-2024 13:49-0400 Body mass index (BMI) [Ratio] 24.87 kg/m2 Bree Lise PA Work Phone: [facility] 09-20-2024 13:49-0400 Body weight 61.69 kg Bree Velez PA Work Phone: [facility] 09-20-2024 13:49-0400 Diastolic blood pressure 72 mm[Hg] Bree Velez PA Work Phone: [facility] 09-20-2024 13:49-0400 Systolic blood pressure 116 mm[Hg] Bree Velez PA Work Phone: [facility] 08-17-2024 14:06-0400 Body mass index (BMI) [Ratio] 23.78 kg/m2 Claudio Annabelle DO Work Phone: [facility] 08-17-2024 14:06-0400 Body weight 58.97 kg Claudio Annabelle DO Work Phone: [facility] 08-17-2024 14:06-0400 Diastolic blood pressure 70 mm[Hg] Claudio Annabelle DO Work Phone: [facility] 08-17-2024 14:06-0400 Systolic blood pressure 116 mm[Hg] Claudio Annabelle DO Work Phone: [facility] 07-28-2024 13:31-0400 Body mass index (BMI) [Ratio] 23.67 kg/m2 [facility] Nurse [facility] 07-28-2024 13:31-0400 Body weight 58.7 kg [facility] Nurse [facility] 11-05-2022 11:00-0400 Diastolic blood pressure 74 mm[Hg] Nick Velasquez [facility] 11-05-2022 11:00-0400 Heart rate 74 /min Nick Velasquez [facility] 11-05-2022 11:00-0400 Mean blood pressure 88 mm[Hg] Nick Velasquez [facility] 11-05-2022 11:00-0400 Respiratory rate 16 /min Nick Velasquez [facility] 11-05-2022 11:00-0400 SaO2% (BldA) [Mass fraction] 100 % Nick Ron [facility] 11-05-2022 11:00-0400 Systolic blood pressure 116 mm[Hg] Nick Ron [facility] 11-05-2022 10:00-0400 Diastolic blood pressure 54 mm[Hg] Nick Ron [facility] 11-05-2022 10:00-0400 Heart rate 83 /min Nick Ron [facility] 11-05-2022 10:00-0400 Respiratory rate 18 /min Nick Ron [facility] 11-05-2022 10:00-0400 SaO2% (BldA) [Mass fraction] 99 % Nick Ron [facility] 11-05-2022 10:00-0400 Systolic blood pressure 90 mm[Hg] Nick Ron [facility] 11-05-2022 08:00-0400 Body temperature 98.24 [degF] Nick Ron [facility] 11-05-2022 08:00-0400 Diastolic blood pressure 63 mm[Hg] Nick Ron [facility] 11-05-2022 08:00-0400 Heart rate 86 /min Nick Ron [facility] 11-05-2022 08:00-0400 Systolic blood pressure 92 mm[Hg] Nick Ron [facility] 02-19-2021 11:00-0400 Body height 158.12 cm Eleni Dc Other [employer] Other 02-19-2021 11:00-0400 Body mass index (BMI) [Ratio] 22.68 kg/m2 Eleni Dc Other [employer] Other 02-19-2021 11:00-0400 Body temperature 98.6 [degF] Jonelenzo Dc Other [employer] Other 02-19-2021 11:00-0400 Body weight 56.7 kg Eleni Dc Other [employer] Other 02-19-2021 11:00-0400 Respiratory rate 20 /min Eleni Dc Other [employer] Other 02-19-2021 11:00-0400 SaO2% (BldA) [Mass fraction] 98 % Eleni Dc Other [employer] Other Encounters Encounter Date Encounter Type Care Provider Facility Start: 01-25-2025 End: 01-25-2025 Bamboo flowsheet Bree FARAH Work Phone: [facility] Start: 01-25-2025 End: 01-25-2025 Bamboo flowsheet Bree FARAH Work Phone: [facility] Start: 01-25-2025 End: 01-25-2025 Periodic preventive med est patient 18-39 yrs Bree FARAH Work Phone: [facility] Comment on above: 35 weeks gestation o f ([facility]); Third trimester ([facility] Start: 01-18-2025 End: 01-18-2025 Bamboo flowsheet Claudio Annabelle DO Work Phone: [facility] Start: 01-18-2025 End: 01-18-2025 Bamboo flowsheet Claudio Annabelle DO Work Phone: [facility] Start: 01-18-2025 End: 01-18-2025 flow sheet Claudio Annabelle DO Work Phone: [facility] Comment on above: 34 weeks gestation o f ([facility]); Third trimester ([facility]); H/O: Start: 01-18-2025 End: 01-18-2025 ambulatory CLAUDIO ANNABELLE Not Available Start: 01-03-2025 End: 01-03-2025 flow sheet Bree Velez PA Work Phone: [facility] Comment on above: 32 weeks gestation o f ([facility]); Third trimester ([facility]); H/O: Start: 01-03-2025 End: 01-03-2025 ambulatory BREE VELEZ Not Available Start: 12-20-2024 End: 12-20-2024 Bamboo flowsheet Claudio Annabelle DO Work Phone: [facility] Start: 12-20-2024 End: 12-20-2024 Bamboo flowsheet Claudio Annabelle DO Work Phone: [facility] Start: 12-20-2024 End: 12-20-2024 flow sheet Claudio Annabelle DO Work Phone: [facility] Comment on above: 30 weeks gestation o f ([facility]); Third trimester ([facility]); size inconsistent with dates ([facility]) Start: 12-20-2024 End: 12-20-2024 ambulatory CLAUDIO ANNABELLE Not Available Start: 12-07-2024 End: 12-07-2024 Bamboo flowsheet Claudio Annabelle DO Work Phone: [facility] Start: 12-07-2024 End: 12-07-2024 Bamboo flowsheet Claudio Annabelle DO Work Phone: [facility] Start: 12-07-2024 End: 12-07-2024 flow sheet Claudio Annabelle DO Work Phone: [facility] Comment on above: Third trimester preg karolnie ([facility]); 28 weeks gestation of ([facility]); H/O: Start: 12-07-2024 End: 12-07-2024 ambulatory CLAUDIO ANNABELLE Not Available Start: 11-22-2024 End: 11-22-2024 ambulatory Claudio R ANNABELLE Facility:[facility] Start: 11-18-2024 End: 11-18-2024 ambulatory BREE VELEZ Facility:[facility] Start: 11-15-2024 End: 11-15-2024 Bamboo flowsheet Bree FARAH Work Phone: [facility] Start: 11-15-2024 End: 11-15-2024 Bamboo flowsheet Bree FARAH Work Phone: [facility] Start: 11-15-2024 End: 11-15-2024 flow sheet Bree FARAH Work Phone: [facility] Comment on above: Second trimester pre gnancy ([facility]); 25 weeks gestation of ([facility]); Diabetes mellitus screening Start: 11-15-2024 End: 11-15-2024 ambulatory BREE VELEZ Not Available Start: 10-18-2024 End: 10-18-2024 flow sheet Claudio Annabelle DO Work Phone: [facility] Comment on above: Second trimester pre gnancy ([facility]); 21 weeks gestation of ([facility]) Start: 10-18-2024 End: 10-18-2024 ambulatory CLAUDIO ANNABELLE Not Available Start: 09-20-2024 End: 09-20-2024 Bamboo flowsheet Bree FARAH Work Phone: [facility] Start: 09-20-2024 End: 09-21-2024 Bamboo flowsheet Bree FARAH Work Phone: [facility] Start: 09-20-2024 End: 09-21-2024 External Result Encounter Bree FARAH Work Phone: [facility] Unsolicited Start: 09-20-2024 End: 09-20-2024 flow sheet Bree FARAH Work Phone: [facility] Comment on above: Second trimester pre gnancy; 16 weeks gestation of ; Exposure to STD; Need for maternal serum alpha-protein (MSAFP) screening; Screening, , for anatomic survey Start: 09-20-2024 End: 09-20-2024 ambulatory BREE VELEZ Not Available Start: 08-17-2024 End: 08-17-2024 flow sheet Claudio Annabelle DO Work Phone: [facility] Comment on above: First trimester preg karoline; 12 weeks gestation of Start: 08-17-2024 End: 08-17-2024 Bamboo flowsheet Claudio Annabelle DO Work Phone: [facility] Start: 08-17-2024 End: 08-17-2024 Bamboo flowsheet Claudio Annabelle DO Work Phone: [facility] Start: 08-17-2024 End: 08-17-2024 ambulatory CLAUDIO ANNABELLE Not Available Start: 07-29-2024 End: 07-30-2024 ambulatory Claudio R ANNABELLE Facility:[facility] Start: 07-29-2024 End: 07-30-2024 Patient encounter procedure Claudio R ANNABELLE [facility] Start: 07-28-2024 End: 07-28-2024 Office outpatient visit 5 minutes [facility] Annabelle Nurse [facility] Comment on above: GA: 10w0d Start: 07-28-2024 End: 07-28-2024 ambulatory CLAUDIO ANNABELLE Not Available Start: 06-25-2024 End: 09-27-2024 ambulatory Claudio R ANNABELLE Facility:[facility] Start: 06-25-2024 End: 09-27-2024 Recurring Claudio R ANNABELLE [facility] Start: 06-23-2024 End: 06-23-2024 ambulatory Claudio ALANIS Facility:[facility] Start: 06-23-2024 End: 06-23-2024 Patient encounter procedure Claudio ALANIS [facility] Start: 01-14-2024 End: 04-13-2024 ambulatory Gmhans HENDERSON Facility:[facility] Start: 11-05-2022 End: 11-05-2022 Emergency department patient visit Nick Velasquez Facility:[facility] Start: 11-05-2022 End: 11-05-2022 Emergency department patient visit Nick Velasquez [facility] Start: 09-09-2022 End: 09-10-[address] CLAUDIO ALANIS . Facility: Start: 09-05-2022 End: 09-06-[address] CLAUDIO ALANIS . Facility: Start: 03-13-2022 End: 03-13-[address] CLAUDIO ALANIS . Facility: Start: 02-13-2022 End: 02-14-2022 ambulatory Bindu Martinez Facility:[facility] Start: 01-14-2022 End: 04-15-2022 ambulatory ANTHONY ROMAN Facility:[facility] Start: 02-19-2021 Office outpatient vi sit 15 minutes Eleni Dc [facility] [address] Procedures Date Procedure Procedure Detail Performing Clinician Start: 01-25-2025 Urnls dip stick/tabl et rgnt non-auto w/o micrscp Bree FARAH Work Phone: Start: 01-18-2025 Urnls dip stick/tabl et rgnt non-auto w/o micrscp Claudio Alanis DO Work Phone: Start: 01-03-2025 Urnls dip stick/tabl et rgnt non-auto w/o micrscp Bree FARAH Work Phone: Start: 12-20-2024 Urnls dip stick/tabl et rgnt non-auto w/o micrscp Claudio Annabelle DO Work Phone: Start: 12-07-2024 H/O: section H/O: Claudio Annabelle DO Work Phone: Start: 12-07-2024 Urnls dip stick/tabl et rgnt non-auto w/o micrscp Claudio Annabelle DO Work Phone: Start: 11-15-2024 Urnls dip stick/tabl et rgnt non-auto w/o micrscp Bree FARAH Work Phone: Start: 10-18-2024 Urnls dip stick/tabl et rgnt non-auto w/o micrscp Claudio Annabelle DO Work Phone: Start: 09-20-2024 RECURRENT VAGINITIS (HTRX) Bree FARAH Work Phone: Start: 09-20-2024 Urnls dip stick/tabl et rgnt non-auto w/o micrscp Bree FARAH Work Phone: Start: 08-17-2024 Urnls dip stick/tabl et rgnt non-auto w/o micrscp Claudio Annabelle DO Work Phone: Start: 07-28-2024 Urnls dip stick/tabl et rgnt non-auto w/o micrscp Claudio Annabelle DO Work Phone: H/O: section H/O: Bree FARAH Work Phone: H/O: section H/O: Core y Annabelle DO Work Phone: Plan of Treatment Date Care Activity Detail Author Start: 02-01-2025 End: 02-01-2025 Patient encounter procedure 02/01/2025 11:10 AM EDT Routine [facility] [address] [place] [address] Denise Sultana, HUE [address] [place] [address] [place] [address] [facility] Start: 01-25-2025 End: 01-25-2026 CULTURE, GROUP B STREP WITH SUSCEPTIBLITY CULTURE, GROUP B STREP WITH SUSCEPTIBLITY Lab Routine 35 weeks gestation of ([facility]) Third trimester ([facility]) Expected: 01/25/2025, Expires: 01/25/2026 [facility] Work Phone: Comment on above: Expected: 01/25/2025 , Expires: 01/25/2026 Start: 01-25-2025 End: 01-25-2025 Patient encounter procedure LAMAR HALL Comment on above: Arrived Start: 01-18-2025 End: 01-18-2025 Patient encounter procedure LAMAR HALL Comment on above: Arrived Start: 01-02-2025 Influenza vaccination Influenza Vacc ine (#1) [facility] Start: 12-20-2024 End: 04-21-2025 US for US OB follow up transabdominal approach Imaging Routine size inconsistent with dates ([facility]) Expected: 12/20/2024, Expires: 04/21/2025 [facility] Work Phone: Comment on above: Expected: 12/20/2024 , Expires: 04/21/2025 Start: 12-20-2024 End: 12-20-2024 Patient encounter procedure [facility] Comment on above: Arrived Start: 12-07-2024 End: 12-07-2024 Patient encounter procedure [facility] Comment on above: Arrived Start: 11-15-2024 End: 11-15-2025 CBC panel - Blood by Automated count CBC Lab Routine Diabetes mellitus screening Expected: 11/15/2024 (Approximate), Expires: 11/15/2025 [facility] Work Phone: Comment on above: Expected: 11/15/2024 (Approximate), Expires: 11/15/2025 Start: 11-15-2024 End: 11-15-2025 Measurement of glucose 1 hour after glucose challenge for glucose tolerance test Glucose tolerance, 1 hour Lab Routine Diabetes mellitus screening Expected: 11/15/2024 (Approximate), Expires: 11/15/2025 [facility] Comment on above: Expected: 11/15/2024 (Approximate), Expires: 11/15/2025 Start: 11-15-2024 End: 11-15-2024 Patient encounter procedure [facility] Comment on above: Arrived Start: 11-09-2024 End: 11-09-2024 Patient encounter procedure 11/09/2024 3:00 PM EDT Office Visit [facility] [address] [place] [address] Claudio Alanis, DO [address] [place] [address] [facility] Start: 10-18-2024 End: 10-18-2024 Patient encounter procedure 10/18/2024 9:10 AM EDT Routine [facility] [address] [place] [address] Claudio Alanis, DO [address] [place] [address] [facility] Start: 10-18-2024 End: 10-18-2024 Professional / ancillary services management 10/18/2024 8:00 AM EDT Ancillary Procedure [facility] [address] [place] [address] [facility] Start: 09-20-2024 End: 10-21-2024 Alpha fetoprotein, maternal Alpha fetoprotein, maternal Lab Routine Need for maternal serum alpha-protein (MSAFP) screening Expected: 09/20/2024 (Approximate), Expires: 10/21/2024 [facility] Comment on above: Expected: 09/20/2024 (Approximate), Expires: 10/21/2024 Start: 09-20-2024 End: 12-21-2024 US for US OB 14+ weeks anatomy scan Imaging Routine Screening, , for anatomic survey Expected: 09/20/2024, Expires: 12/21/2024 [facility] Comment on above: Expected: 09/20/2024 , Expires: 12/21/2024 Start: 09-20-2024 End: 09-20-2024 Patient encounter procedure [facility] Comment on above: Arrived Start: 08-17-2024 End: 08-17-2024 Patient encounter procedure [facility] Comment on above: Arrived Start: 07-28-2024 End: 07-28-2025 ABO/Rh ABO/Rh Lab Routine Missed menses , unspecified gestational age Expected: 07/28/2024 (Approximate), Expires: 07/28/2025 [facility] Comment on above: Expected: 07/28/2024 (Approximate), Expires: 07/28/2025 Start: 07-28-2024 End: 07-28-2025 Blood type and Indirect antibody screen panel - Blood Type and screen Lab Routine Missed menses , unspecified gestational age Expected: 07/28/2024 (Approximate), Expires: 07/28/2025 [facility] Comment on above: Expected: 07/28/2024 (Approximate), Expires: 07/28/2025 Start: 07-28-2024 End: 07-28-2025 Drugs of abuse panel - Urine by Screen method Rapid drug screen, urine Lab Routine , unspecified gestational age Encounter for supervision of normal first in first trimester Expected: 07/28/2024 (Approximate), Expires: 07/28/2025 [facility] Comment on above: Expected: 07/28/2024 (Approximate), Expires: 07/28/2025 Start: 07-20-2024 End: 07-20-2025 US Pelvis transvaginal US OB transvaginal Imaging Routine Missed menses Expected: 07/20/2024, Expires: 07/20/2025 [facility] Work Phone: Comment on above: Expected: 07/20/2024 , Expires: 07/20/2025 Bacteria identified in Urine by Culture Urine culture Microbiology Routine Missed menses Ordered: 07/28/2024 [facility] Comment on above: Ordered: 07/28/2024 CBC W Auto Different ial panel - Blood CBC and differential Lab Routine Missed menses , unspecified gestational age Ordered: 07/28/2024 [facility] Comment on above: Ordered: 07/28/2024 CHLAMYDIA TRACHOMATI S (GENITO/STI) CHLAMYDIA TRACHOMATIS (GENITO/STI) Lab Routine Exposure to STD Ordered: 09/20/2024 [facility] Comment on above: Ordered: 09/20/2024 Hemoglobin A1c/Hemoglobin.total in Blood Hemoglobin A1c Lab Routine Missed menses , unspecified gestational age Ordered: 07/28/2024 [facility] Comment on above: Ordered: 07/28/2024 Hepatitis B virus surface Ag [Presence] in Serum or Plasma by Immunoassay Hepatitis B surface antigen Lab Routine Missed menses , unspecified gestational age Ordered: 07/28/2024 [facility] Comment on above: Ordered: 07/28/2024 Hepatitis C virus Ab [Presence] in Serum or Plasma by Immunoassay Hepatitis C antibody Lab Routine Missed menses , unspecified gestational age Ordered: 07/28/2024 [facility] Comment on above: Ordered: 07/28/2024 HIV-1/HIV-2 antigen/antibody combination immunoassay HIV-1 and HIV-2 antibodies Lab Routine Missed menses , unspecified gestational age Ordered: 07/28/2024 [facility] Comment on above: Ordered: 07/28/2024 Neisseria gonorrhoea e DNA [Presence] in Unspecified specimen by SAY with probe detection Neisseria gonorrhea DNA probe, direct Lab Routine Exposure to STD Ordered: 09/20/2024 [facility] Comment on above: Ordered: 09/20/2024 Reagin Ab [Presence] in Serum by RPR RPR Lab Routine Missed menses , unspecified gestational age Ordered: 07/28/2024 [facility] Comment on above: Ordered: 07/28/2024 Rubella antibody, IgG Rubella an tibody, IgG Lab Routine Missed menses , unspecified gestational age Ordered: 07/28/2024 [facility] Comment on above: Ordered: 07/28/2024 SURESWAB(R) ADVANCED VAGINITIS PLUS, TMA SURESWAB(R) ADVANCED VAGINITIS PLUS, TMA Pathology and Cytology Routine Exposure to STD Ordered: 09/20/2024 [facility] Work Phone: Comment on above: Ordered: 09/20/2024 US Pelvis transvaginal US OB tra nsvaginal Imaging Routine Missed menses 07/28/2024 12:44 PM EDT [facility] Immunizations Immunization Date Immunization Notes Care Provider Shira ortega 02-16-2024 influenza virus vaccine, unspecified formulation; Translations: [Fluzone TIV PF ] Claudio ALANIS [facility] Comment on above: Reason for Medicatio n: Prophylaxis 02-17-2022 influenza virus vaccine, unspecified formulation Nick Velasquez [facility] Comment on above: Reason for Medicatio n: Prophylaxis 03-01-2021 influenza virus vaccine, unspecified formulation Nick Velasquez [facility] Comment on above: Reason for Medicatio n: Prophylaxis 02-14-2021 COVID-19, mRNA, LNP- S, PF, 30 mcg/0.3 mL dose Nick Velasquez [facility] 01-18-2021 COVID-19, mRNA, LNP- S, PF, 30 mcg/0.3 mL dose Nick Ron [facility] 05-23-2012 Toradol per 15 mg Calley Thad oquendo Other [employer] Other 04-20-2008 meningococcal ACWY vaccine, unspecified formulation Nick Velasquez [facility] 04-20-2008 tetanus toxoid, reduced diphtheria toxoid, and acellular pertussis vaccine, adsorbed Nick Velasquez [facility] 04-20-2008 varicella virus vaccine Nick Velasquez [facility] 03-06-2007 influenza virus vaccine, unspecified formulation Nick Velasquez [facility] 02-22-2005 influenza, whole Nick Ron [facility] 02-23-2004 influenza, whole Nick Ron [facility] 05-01-2003 influenza, whole Nick Ron [facility] 03-23-2003 influenza, whole Nick Ron [facility] 09-14-2001 DTaP, unspecified formulation Nick Ron [facility] 09-14-2001 measles, mumps and rubella virus vaccine Nick Ron [facility] 11-14-1998 DTaP, unspecified formulation Nick Ron [facility] 11-14-1998 hepatitis B vaccine, pediatric or pediatric/adolescent dosage Nick Ron [facility] 06-06-1998 Hib, unspecified formulation Nick Ron [facility] 06-06-1998 measles, mumps and rubella virus vaccine Nick Ron [facility] 11-22-1997 varicella virus vaccine Nick Ron [facility] 05-31-1997 DTaP, unspecified formulation Nick Ron [facility] 05-31-1997 hepatitis B vaccine, pediatric or pediatric/adolescent dosage Nick Ron [facility] 05-31-1997 Hib, unspecified formulation Nick Ron [facility] 04-12-1997 DTaP, unspecified formulation Nick Ron [facility] 04-12-1997 Hib, unspecified formulation Nick Ron [facility] 02-01-1997 DTaP, unspecified formulation Nick Velasquez [facility] 02-01-1997 hepatitis B vaccine, pediatric or pediatric/adolescent dosage Nick Ron [facility] 02-01-1997 Hib, unspecified formulation Nick Ron [facility] NEGATED: Highlighted row has not occurred!02-13-2022 influenza virus vaccine, unspecified formulation Nick Velasquez [facility] NEGATED: Highlighted row has not occurred!02-13-2022 SARS-CoV-2 mRNA (tozinameran 5y-11y) vaccine Nick Ron [facility] Payers Date Payer Category Payer Private Health Insurance [id number] 2022 Unknown 2022 [facility] [id number] 2022 Unknown [id number] 1996 Unknown [id number] 2.16.840.1.410343.3.579.2. 593 1996 Unknown [id number] 2.16.840.1.713728.3.579.2. 593 1996 Unknown [id number] 2.16.840.1.569313.3.579.2. 593 1996 Unknown [id number] 2.16.840.1.099255.3.579.2. 727 1996 Unknown [id number] 2.16.840.1.338323.3.579.2. 1996 Unknown [id number] 2.16.840.1.606310.3.579.2. 72 1996 Unknown [id number] 2.16.840.1.066267.3.579.2. 1996 Unknown [id number] 2.16.840.1.606143.3.579.2. 1996 Unknown [id number] 2.16.840.1.966378.3.579.2. 1996 Unknown [id number] 2.16.840.1.148936.3.579.2. 1996 Unknown [id number] 2.16.840.1.538750.3.579.2. 1996 Unknown [id number] 2.16.840.1.954356.3.579.2. 1996 Unknown [id number] 2.16.840.1.983528.3.579.2. 1258 1996 Unknown [id number] 2.16.840.1.177688.3.579.2. 1258 1996 Unknown [id number] 2.16.840.1.686388.3.579.2. 1258 1996 Unknown [id number] 2.16.840.1.796726.3.579.2. 1258 1996 Unknown [id number] 2.16.840.1.544229.3.579.2. 1258 1996 Unknown [id number] 2.16.840.1.679870.3.579.2. 9 1996 Unknown [id number] 2.16.840.1.126737.3.579.2. 9 1996 Unknown [id number] 2.16.840.1.439373.3.579.2. 9 1996 Unknown [id number] 2.16.840.1.366881.3.579.2. 1258 1996 Unknown [id number] 2.16.840.1.400096.3.579.2. 9 1996 Unknown [id number] 2.16.840.1.559321.3.579.2. 9 1996 Unknown [id number] 2.16.840.1.978407.3.579.2. 1259 1959 Unknown [id number] 2.16.840.1.734129.19 1959 Unknown [id number] Social History Date Type Detail Facility Unknown if ever smoked [employer] Other Start: 11-02-2023 End: 07-28-2024 Sex Assigned At [facility] Start: 02-13-2022 End: 12-01-2022 Tobacco smoking status Never smoked tobacco (finding) [facility] Tobacco smoking status Never [facility] Tobacco smoking status [facility] Start: 12-01-2022 Tobacco use and exposure Smokeless tobacco non-user [facility] Start: 07-28-2024 End: 01-18-2025 Alcoholic beverage intake Lifetime non-drinker (finding) [facility] Start: 11-02-2023 End: 07-28-2024 History of Social function [facility] Start: 10-31-2022 Alcohol Comment Caffeine intake: non e [facility] Start: 06-02-2024 [facility] Start: 1995 Sex assigned at Not on file [facility] Sex Female (finding) [facility] Functional Status Date Assessment Result Facility 11-05-2022 Functional Status N/A [facility] Clinical Notes 02-19-2021 to 01-25-2025 SOFI Rollins - 01/25/2025 1:20 PM Tatum Reaves LPN - 01/18/2025 10:50 AM SOFI Beaver - 01/03/2025 2:50 PM Tatum Reaves LPN - 12/20/2024 10:00 AM SOFI Beaver - 11/15/2024 8:30 AM EDT Note Date & Type Note Facility 01-25-2025 History of Presen t illness Narrative Reason for Appointment: Patient ID: Radha Hart [...] nursing note reviewed. Exam conducted with a transcription manager present. Vitals: Estimated body mass index is 30.02 kg/m as calculated from the following: Height as of 09/05/22: 5' 2 . Weight as of this [...] of: SOFI Rollins documented in this encounter [facility] 01-18-2025 History of Presen t illness Narrative Reason for Appointment: Patient ID: Radha Hart is a 29 y.o. female who presents for Routine Visit Patient presents today for Return OB appointment. MEDICATIONS Current Outpatient Medications Medication Instructions MV-Min-Fe Fum-FA-DHA ( 1 PO) Take by mouth. ALLERGIES Allergies Allergen Reactions Codeine Hallucinations PROBLEMS Active Ambulatory Problems Diagnosis Date Noted H/O: 12/07/2024 30 weeks gestation of ([facility] 12/20/2024 Resolved Ambulatory Problems Diagnosis Date Noted [...] nursing note reviewed. Exam conducted with a transcription manager present. Vitals: Estimated body mass index is 29.23 kg/m as calculated from the following: Height as of 23: 5' 2 . Weight as of this encounter: 159 lb 12.8 oz. BP: 120/70 No LMP recorded. Patient is . ASSESSMENT & PLAN ICD-10-CM 1. 34 weeks gestation of ([facility]) Z3A.34 POCT urinalysis dipstick manually resulted 2. Third trimester ([facility]) Z34.93 [...] Claudio Alanis DO documented in this encounter [facility] 01-03-2025 History of Presen t illness Narrative Reason for Appointment: Patient ID: Rahda Hart is a 29 y.o. female who presents for Routine Visit Patient presents today for Return OB appointment. MEDICATIONS Current Outpatient Medications Medication Instructions MV-Min-Fe Fum-FA-DHA ( 1 PO) Take by mouth. ALLERGIES Allergies Allergen Reactions Codeine Hallucinations PROBLEMS Active Ambulatory Problems Diagnosis Date Noted H/O: 12/07/2024 30 weeks gestation of ([facility]) 12/20/2024 Resolved Ambulatory Problems Diagnosis Date Noted [...] Exam Constitutional: Appearance: Normal appearance. She is normal weight. HENT: Head: Normocephalic. Cardiovascular: Rate and Rhythm: Normal rate. Pulses: Normal pulses. Pulmonary: Effort: Pulmonary effort is normal. Breath sounds: Normal breath sounds. Abdominal: Palpations: Abdomen is soft. Musculoskeletal: General: Normal range of motion. Neurological: General: No focal deficit present. Mental Status: She is alert and oriented to person, place, and time. Psychiatric: Mood and Affect: Mood normal. Behavior: Behavior normal. Thought Content: Thought content normal. Judgment: Judgment normal. Vitals and nursing note reviewed. Vitals: Estimated body mass index is 29.1 kg/m as calculated from the following: Height as of 23: 5' 2 . Weight as of this encounter: 159 lb 1.9 oz. BP: 120/80 No LMP recorded. Patient is . ASSESSMENT & PLAN ICD-10-CM 1. 32 weeks gestation of ([facility]) Z3A.32 POCT urinalysis dipstick manually resulted 2. Third trimester ([facility]) Z34.93 POCT urinalysis dipstick manually resulted 3. H/O: Z98.891 Return OB: Patient presents today for a routine obstetrics appointment. Patient is currently 32w5d . Patient states she is doing well but has complaints of being tired due to current . Patient has verbalizes frequent movement. labor precautions was discussed/given and patient was instructed to perform kick counts three times a day. Orders Placed This Encounter Procedures POCT urinalysis dipstick manually resulted Follow Up: Patient is to return to office in 2 week for routine OB appointment. Documented by SOFI Rollins on behalf of: SOFI Rollins documented in this encounter [facility] 12-20-2024 History of Presen t illness Narrative Reason for Appointment: Patient ID: Radha Hart is a 29 y.o. female who presents for Routine Visit Patient presents today for Return OB appointment. MEDICATIONS Current Outpatient Medications Medication Instructions MV-Min-Fe Fum-FA-DHA ( 1 PO) Oral ALLERGIES Allergies Allergen Reactions Codeine Hallucinations PROBLEMS Active Ambulatory Problems Diagnosis Date Noted H/O: 12/07/2024 30 weeks gestation of ([facility]) 12/20/2024 Resolved Ambulatory Problems Diagnosis Date Noted [...] nursing note reviewed. Exam conducted with a transcription manager present. Vitals: Estimated body mass index is 28.61 kg/m as calculated from the following: Height as of 23: 5' 2 . Weight as of this encounter: 156 lb 6.4 oz. BP: 110/80 No LMP recorded. Patient is . ASSESSMENT & PLAN ICD-10-CM 1. 30 weeks gestation of ([facility] Z3A.30 POCT urinalysis dipstick manually resulted 2. Third trimester ([facility]) Z34.93 POCT urinalysis dipstick manually resulted Return OB: Patient presents today for a routine obstetrics appointment. Patient is currently 30w5d . Patient states she is doing well but has complaints of being tired due to current . Patient has verbalizes frequent movement. labor precautions was discussed/given and patient was instructed to perform kick counts three times a day. Orders Placed This Encounter Procedures POCT urinalysis dipstick manually resulted Follow Up: Patient is to return to office in 2 week for routine OB appointment. Documented by Jany Reaves LPN on behalf of: Claudio Alanis DO documented in this encounter [facility] 12-07-2024 History of Presen t illness Narrative Reason for Appointment: Patient ID: Radha Hart is a 29 y.o. female who presents for Routine Visit Patient presents today for Return OB appointment. MEDICATIONS Current Outpatient Medications Medication Instructions MV-Min-Fe Fum-FA-DHA ( 1 PO) Oral ALLERGIES Allergies Allergen Reactions Codeine Hallucinations PROBLEMS Active Ambulatory Problems Diagnosis Date Noted H/O: 12/07/2024 Resolved Ambulatory Problems Diagnosis Date Noted No [...] nursing note reviewed. Exam conducted with a transcription manager present. Vitals: Estimated body mass index is 27.44 kg/m as calculated from the following: Height as of 23: 5' 2 . Weight as of this encounter: 150 lb. BP: 124/76 No LMP recorded. Patient is . ASSESSMENT & PLAN ICD-10-CM 1. Third trimester ([facility]) Z34.93 POCT urinalysis dipstick manually resulted 2. 28 weeks gestation of ([facility]) Z3A.28 3. H/O: Z98.891 Return OB: Patient presents today for a routine obstetrics appointment. Patient is currently 28w6d . Patient states she is doing well but has complaints of being tired due to current . Patient has verbalizes frequent movement. labor precautions was discussed/given and patient was instructed to perform kick counts three times a day. Orders Placed This Encounter Procedures POCT urinalysis dipstick manually resulted Follow Up: Patient is to return to office in 2 week for routine OB appointment. Documented by Denise Sultana NP on behalf of: Claudio Alanis DO documented in this encounter [facility] 11-15-2024 History of Presen t illness Narrative Reason for Appointment: Patient ID: Radha Hart is a 29 y.o. female who presents for Routine Visit Patient presents today for Return OB appointment. MEDICATIONS Current Outpatient Medications Medication Instructions MV-Min-Fe Fum-FA-DHA ( 1 PO) Oral ALLERGIES Allergies Allergen Reactions Codeine Hallucinations PROBLEMS Active Ambulatory Problems Diagnosis Date Noted No Active Ambulatory Problems Resolved Ambulatory Problems Diagnosis Date Noted No [...] Exam Constitutional: Appearance: Normal appearance. She is normal weight. HENT: Head: Normocephalic. Cardiovascular: Rate and Rhythm: Normal rate. Pulses: Normal pulses. Pulmonary: Effort: Pulmonary effort is normal. Breath sounds: Normal breath sounds. Abdominal: Palpations: Abdomen is soft. Musculoskeletal: General: Normal range of motion. Neurological: General: No focal deficit present. Mental Status: She is alert and oriented to person, place, and time. Psychiatric: Mood and Affect: Mood normal. Behavior: Behavior normal. Thought Content: Thought content normal. Judgment: Judgment normal. Vitals and nursing note reviewed. Vitals: Estimated body mass index is 26.89 kg/m as calculated from the following: Height as of 23: 5' 2 . Weight as of this encounter: 147 lb. BP: 124/76 No LMP recorded. Patient is . ASSESSMENT & PLAN ICD-10-CM 1. Second trimester ([facility] Z34.92 POCT urinalysis dipstick manually resulted 2. 25 weeks gestation of ([facility]) Z3A.25 3. Diabetes mellitus screening Z13.1 CBC Glucose tolerance, 1 hour CBC Glucose tolerance, 1 hour Return OB: Patient presents today for a routine obstetrics appointment. Patient is currently 25w5d . Patient states she is doing well but has complaints of being tired due to current . Patient has verbalizes frequent movement. labor precautions was discussed/given and patient was instructed to perform kick counts three times a day. 1-hour glucose order was given to patient to schedule. Pt will have orders done at [facility]. Pt was advised to have the lab department fax it back to our office. PVU Orders Placed This Encounter Procedures CBC Glucose tolerance, 1 hour POCT urinalysis dipstick manually resulted Follow Up: Patient is to return to office in 3 week for routine OB appointment. Documented by Melissa Muir MA on behalf of: SOFI Rollins documented in this encounter [facility] 10-18-2024 History of Presen t illness Narrative Reason for Appointment: Patient ID: Radha Hart is a 28 y.o. female who presents for Routine Visit Patient presents today for Return OB appointment. MEDICATIONS Current Outpatient Medications Medication Instructions MV-Min-Fe Fum-FA-DHA ( 1 PO) Oral ALLERGIES Allergies Allergen Reactions Codeine Hallucinations PROBLEMS Active Ambulatory Problems Diagnosis Date Noted No Active Ambulatory Problems Resolved Ambulatory Problems Diagnosis Date Noted No [...] nursing note reviewed. Exam conducted with a transcription manager present. Vitals: Estimated body mass index is 26.06 kg/m as calculated from the following: Height as of 09/05/22: 5' 2 . Weight as of this encounter: 142 lb 8 oz. BP: 120/72 No LMP recorded. Patient is . ASSESSMENT & PLAN ICD-10-CM 1. Second trimester ([facility]) Z34.92 POCT urinalysis dipstick manually resulted 2. 21 weeks gestation of ([facility]) Z3A.21 Patient presents today for a routine obstetrics appointment. Patient is currently 21w5d with a Estimated Date of Delivery: 02/23/25.Pt had anatomy scan prior to appt, will notify of results. Pt to return in 4 weeks for scheduled OB appt. Documented by Jany Reaves LPN on behalf of: Claudio Alanis DO documented in this encounter [facility] 09-20-2024 History of Presen t illness Narrative Reason for Appointment: Patient ID: Radha Hart is a 28 y.o. female who presents for Routine Visit Patient presents today for Return OB appointment. MEDICATIONS Current Outpatient Medications Medication Instructions MV-Min-Fe Fum-FA-DHA ( 1 PO) Oral ALLERGIES Allergies Allergen Reactions Codeine Hallucinations PROBLEMS Active Ambulatory Problems Diagnosis Date Noted No Active Ambulatory Problems Resolved Ambulatory Problems Diagnosis Date Noted No Resolved Ambulatory Problems Past Medical History: Diagnosis Date Asthma Benign parotid tumor Facial paresis Facial weakness Fracture, humerus Pharyngitis Sialocele Syncope Tonsillitis HISTORY PAST MEDICAL HISTORY SOCIAL HISTORY Past Medical History: Diagnosis Date Asthma Benign parotid tumor Facial paresis Facial weakness [...] SYSTEMS Review of Systems: Review of Systems All other systems reviewed and are negative. OBJECTIVE Objective: Physical Exam Constitutional: Appearance: Normal appearance. Genitourinary: Right Adnexa: not tender and no mass present. Left Adnexa: not tender and no mass present. No cervical discharge. Breasts: Breasts are soft. Right: Normal. Left: Normal. HENT: Head: Normocephalic. Nose: Nose normal. Mouth/Throat: Mouth: Mucous membranes are moist. Cardiovascular: Rate and Rhythm: Normal rate. Pulmonary: Effort: Pulmonary effort is normal. Abdominal: General: Bowel sounds are normal. Palpations: Abdomen is soft. Musculoskeletal: General: Normal range of motion. Cervical back: Normal range of motion. Neurological: General: No focal deficit present. Mental Status: She is alert. Skin: General: Skin is warm and dry. Psychiatric: Mood and Affect: Mood normal. Vitals and nursing note reviewed. Exam conducted with a transcription manager present. Vitals: Estimated body mass index is 23.78 kg/m as calculated from the following: Height as of 09/05/22: 5' 2 . Weight as of 08/17/24: 130 lb. BP: No LMP recorded. Patient is . ASSESSMENT & PLAN ICD-10-CM 1. Second trimester Z34.92 2. 16 weeks gestation of Z3A.16 POCT urinalysis dipstick manually resulted 3. Exposure to STD Z20.2 SURESWAB(R) ADVANCED VAGINITIS PLUS, TMA CHLAMYDIA TRACHOMATIS (GENITO/STI) Neisseria gonorrhea DNA probe, direct 4. Need for maternal serum alpha-protein (MSAFP) screening Z36.1 Alpha fetoprotein, maternal Alpha fetoprotein, maternal 5. Screening, , for anatomic survey Z36.89 US OB 14+ weeks anatomy scan Return OB/Annual Exam: Patient presents today for a cx/routine obstetrics appointment. Patient had her annual done on 11/09/2023 with neg results. Patient is currently 17w5d . Patient is doing well and states she has no complaints. Pap/cultures was obtained without difficulty and patient was given msAFP/ US anatomy order to have obtained. Orders Placed This Encounter Procedures US OB 14+ weeks anatomy scan CHLAMYDIA TRACHOMATIS (GENITO/STI) Neisseria gonorrhea DNA probe, direct Alpha fetoprotein, maternal POCT urinalysis dipstick manually resulted Follow Up: Patient is to return to our office in 4 weeks for routine OB appointment Documented by Melissa Muir MA on behalf of: SOFI Rollins documented in this encounter [facility] 08-17-2024 History of Presen t illness Narrative Reason for Appointment: Patient ID: Radha Hart is a 28 y.o. female who presents for Routine Visit Patient presents today for Return OB appointment. MEDICATIONS Current Outpatient Medications Medication Instructions MV-Min-Fe Fum-FA-DHA ( 1 PO) Oral ALLERGIES Allergies Allergen Reactions Codeine Hallucinations PROBLEMS Active Ambulatory Problems Diagnosis Date Noted No Active Ambulatory Problems Resolved Ambulatory Problems Diagnosis Date Noted No Resolved Ambulatory Problems Past Medical History: Diagnosis Date Asthma Benign parotid tumor Facial paresis Facial weakness Fracture, humerus Pharyngitis Sialocele Syncope Tonsillitis HISTORY PAST MEDICAL HISTORY SOCIAL HISTORY Past Medical History: Diagnosis Date Asthma Benign parotid tumor Facial paresis Facial weakness [...] nursing note reviewed. Exam conducted with a transcription manager present. Vitals: Estimated body mass index is 23.78 kg/m as calculated from the following: Height as of 09/05/22: 5' 2 . Weight as of this encounter: 130 lb. BP: 116/70 No LMP recorded. Patient is . ASSESSMENT & PLAN ICD-10-CM 1. First trimester Z34.91 2. 12 weeks gestation of Z3A.12 POCT urinalysis dipstick manually resulted New OB: Patient presents today for 1st time obstetrics appointment with provider. Patient is currently 12w6d . Patients history has been reviewed in great detail including any potential risks. Patient stated she currently has no complaints. Expectations throughout regarding labs, ultrasounds, and appointments have been discussed with the patient in detail. It was reiterated that the patient is to drink 6-8 glasses of water a day, eat 6 small meals a day, do not consume raw or undercooked meat, and stay away from [facility]. Patient has been consulted regarding any further do's and don'ts of . Patient voiced understanding and all questions and concerns were answered. Orders Placed This Encounter Procedures POCT urinalysis dipstick manually resulted Follow Up: Patient is to return in 4 weeks for routine OB appointment. Documented by Jany Reaves LPN on behalf of: Claudio Alanis DO documented in this encounter [facility] 07-28-2024 History of Presen t illness Narrative Reason for Appointment: Patient ID: Radha Hart is a 28 y.o. female who presents for Amenorrhea Patient presents today for a Nurse OB Intake appointment. Patient is 10w0d with a Estimated Date of Delivery: 02/23/25 OB History Para Term AB Living 2 1 1 1 SAB IAB Ectopic Multiple Live Births 1 # Outcome Date GA Lbr Davey/2nd Weight Sex Type Anes PTL Lv 2 Current 1 Term 04/07/23 38w6d M CS-LTranv BERT Complications: Breech presentation Obstetric Comments Last pap smear date 03/12/2022 neg Current Medications: has a current medication list which includes the following prescription(s): mv-min-fe fum-fa-dha. Medical History: Active Ambulatory Problems Diagnosis Date Noted No Active Ambulatory Problems Resolved Ambulatory Problems Diagnosis Date Noted No Resolved Ambulatory Problems Past Medical History: Diagnosis Date Asthma (CMS/HCC) Benign parotid tumor Facial paresis Facial weakness Fracture, humerus Pharyngitis Sialocele Syncope Tonsillitis Family History Problem Relation Name Age of Onset Hypertension Father Hypertension Maternal Grandmother Diabetes Maternal Grandmother Asthma Maternal Grandmother Heart disease Maternal Grandmother Skin cancer Maternal Grandfather Diabetes Maternal Grandfather Rheum arthritis Paternal Grandmother Other (MVA) Paternal Grandfather Social History Tobacco Use Smoking status: Never Smokeless tobacco: Never Substance Use Topics Alcohol use: Never Comment: Caffeine intake: none Drug use: Never Past Surgical History: Procedure Laterality Date SECTION, LOW TRANSVERSE 04/07/2023 ELBOW SURGERY Left 1998 OTHER SURGICAL HISTORY Left 09/21/2015 Parotidectomy PAP SMEAR 03/12/2022 negative Allergies Allergen Reactions Codeine Hallucinations Vitals: Estimated body mass index is 23.67 kg/m as calculated from the following: Height as of 09/05/22: 5' 2 . Weight as of this encounter: 129 lb 6.4 oz. BP: No LMP recorded. Patient is . Assessment/Plan Diagnoses and all orders for this visit: Missed menses - US OB transvaginal; Future - Type and screen; Future - ABO/Rh; Future - CBC and differential - Hemoglobin A1c - RPR - Rubella antibody, IgG - Hepatitis B surface antigen - Hepatitis C antibody - HIV-1 and HIV-2 antibodies - Urine culture - POCT , urine manually resulted - POCT urinalysis dipstick manually resulted , unspecified gestational age - Type and screen; Future - ABO/Rh; Future - CBC and differential - Hemoglobin A1c - RPR - Rubella antibody, IgG - Hepatitis B surface antigen - Hepatitis C antibody - HIV-1 and HIV-2 antibodies - Rapid drug screen, urine; Future Encounter for supervision of normal first in first trimester - Rapid drug screen, urine; Future Nurse Note: OB Intake: Patient presents today for first OB visit. Patients history has been reviewed in great detail including any potential risks. Patient signed consent forms and patient desires testing in both trimesters. Patient currently has no complaints and has been advised to drink 6-8 glasses of water a day, eat no raw or undercooked meat, and stay away from [facility]. Patient has also been advised to not change litter boxes and eat 6 small meals a day. Patient has been consulted regarding the do's and don'ts of . Patient was given labs and all questions and concerns were answered. Follow Up: Patient is to return in 4 weeks for routine OB appointment. Follow Up: Patient is to have labs drawn at directed and return to office for initial OB appointment with provider. Patient may call office as needed with any concerns or questions. Nurse Visit Completed by: Ester Irwin LPN documented in this encounter [facility] 11-05-2022 Evaluation + Plan note Extrac mark [...] Orthostatic Vitals Signs UA With Cult Reflex [facility]07-05-2023 Hospital Discharge instructions Patient Education 11/05/2022 11:25:01 Near-Syncope Near-Syncope Near-syncope is when you suddenly feel like you might pass out or faint, but you do not actually lose consciousness. This may also be referred to as presyncope. During an episode of near-syncope, youmay: Feel dizzy, weak, light-headed, or like the [...] not dangerous. However, near-syncope may be a signof a serious medical problem, so it is important to seek medical care. Follow these instructions at home: Medicines Take rida-yvv-opottci and prescription medicines only as told by [...] you need help quitting, ask your health careprovider. Avoid hot tubs and saunas. General instructions Pay attention to any changes in your symptoms. Talk with your health care provider about your symptoms. You may need to have testing to understandthe cause of your near-syncope. If you start [...] You may need to have testing to understandthe cause of your near-syncope. This information is not intended to replace advice given to you by your health care provider. Make sure you discuss any questions you have with your health care provider. Document Revised: 08/29/2021 Document Reviewed: 08/29/2021 [employer] Patient Education 2022 Quotations Book. Follow Up Care 11/05/2022 07:56:32 With:Claudio ALANIS Address: [address] , [address] Business (1) When:11/08/2022 11:24:54 With:ANTHONY ROMAN Address: [address] [place] [address] Business (1) When:11/08/2022 11:24:32 Comments:Call the office [...] you develop any new or worsening symptoms. [facility]10-16-2022 NoteMicrobiology PROCEDURE: Strep Screen Culture [R1] SOURCE: Throat BODY SITE: COLLECTED DATE/TIME: 02/13/2022 15:00 EDT RECEIVED DATE/TIME: 02/14/2022 12:00 EDT START DATE/TIME: 02/14/2022 12:00 EDT FREE TEXT SOURCE: KELSEY Martinez APRN, Michelle PATEL, RYAN-C, Bindu X Bindu X FINAL REPORTS Final Report [] Verified Date/Time: 02/16/2022 11:56 EDT No Pathogenic Streptococcus Isolated Performing Locations R1: This test was performed at: [facility], [address] [place] [address], [address] , , [facility] on above:Performed By: #### [id number] #### [facility] [address] [place] [address] [phone] Evaluation note* Encounter Date Diagnosis Assessment Notes Treatment Notes Treatment Clinical Notes Feb, Contact with and (suspected) exposure [...] care instructions given in writting by [facility] Care At Home document. [employer] Other Evaluation note* Diagnosis Missed menses , unspecified gestational age Encounter for supervision of normal first in first trimester [facility] Diagnosis First trimester state, incidental 12 weeks gestation of [facility]* Diagnosis Second trimester state, incidental 16 weeks gestation of Exposure to STD Need for maternal serum alpha-protein (MSAFP) screening Screening, , for anatomic survey Encounter for anatomic survey [facility] Diagnosis Second trimester ([facility]) state, incidental 21 weeks gestation of ([facility]) [facility] Diagnosis Second trimester ([facility]) state, incidental 25 weeks gestation of ([facility]) Diabetes mellitus screening Screening for diabetes mellitus [facility] Diagnosis Third trimester ([facility]) state, incidental 28 weeks gestation of ([facility]) H/O: Other postprocedural status [facility]* Diagnosis 30 weeks gestation of ([facility]) Third trimester ([facility]) state, incidental size inconsistent with dates ([facility]) [facility] Diagnosis 32 weeks gestation of ([facility]) Third trimester ([facility]) state, incidental H/O: Other postprocedural status [facility] Diagnosis 34 weeks gestation of ([facility]) Third trimester ([facility]) state, incidental H/O: Other postprocedural status [facility] Diagnosis 35 weeks gestation of ([facility]) Third trimester ([facility]) state, incidental [facility] Narrative - Reported* Type Description Date Medical History ASTHMA (EXERCISE INDUCED) Surgical History LEFT HUMERUS FRACTURE 1998 Surgical History LEFT PAROTIDECTOMY 2015 [employer] Other Hospital course Narrative No data available for this section [facility] No data available for this section [facility] Progress note No data available for this section [facility] Summary Purpose Family History No Family History Records FoundNo Family History Records Found No data available for this section No Family History Records FoundNo Family History Records FoundNo Family History Records FoundNo Family History Records FoundNo Family History Records FoundNo Family History Records FoundNo Family History Records FoundNo Family History Records FoundNo Family History Records FoundNo Family History Records Found No data available for this section No Family History Records FoundNo Family History Records FoundNo Family History Records FoundNo Family History Records FoundNo Family History Records Found No data available for this section No Family History Records FoundNo Family History [...] FOR VISIT (unrecogniz ed section and content) Reason Comments Amenorrhea Reason Comments Routine Visit INFORMATION SOURCE (unrecogn ized section and content) DATE CREATED AUTHOR 10/10/2022 [facility] DATE CREATED AUTHOR AUTHOR'S ORGANIZ ATION 11/05/2022 [facility] DATE CREATED AUTHOR AUTHOR'S ORGANIZ ATION 06/25/2024 [facility] DATE CREATED AUTHOR AUTHOR'S ORGANIZ ATION 06/27/2024 [facility] DATE CREATED AUTHOR AUTHOR'S ORGANIZ ATION 06/28/2024 [facility] DATE CREATED AUTHOR AUTHOR'S ORGANIZ ATION 07/02/2024 [facility] DATE CREATED AUTHOR AUTHOR'S ORGANIZ ATION 07/30/2024 [facility] DATE CREATED AUTHOR AUTHOR'S ORGANIZ ATION 07/31/2024 [facility] DATE CREATED AUTHOR AUTHOR'S ORGANIZ ATION 09/30/2024 [facility] DATE CREATED AUTHOR AUTHOR'S ORGANIZ ATION 11/21/2024 [facility] DATE CREATED AUTHOR AUTHOR'S ORGANIZ ATION 11/23/2024 [facility] DATE CREATED AUTHOR AUTHOR'S ORGANIZ ATION 11/30/2024 [facility] DATE CREATED AUTHOR AUTHOR'S ORGANIZ ATION 01/19/2025 [facility] EPIC Patient Care team informatio n (unrecognized section and content) [employer] Relationship Specialty Start Date End Date Anthony Roman MD [address] [place] [phone] PCP - General Family Medicine 10/02/22 [employer] Relationship Specialty Start Date End Date Anthony Roman MD PCP - General Family Medicine 10/02/22 Automatic Oven Operator Relationship Specialty Start Date End Date Anthony Roman MD [address] [place] [id number] PCP - General Family Medicine 10/02/22 Automatic Oven Operator Relationship Specialty Start Date End Date Anthony Roman MD [address] [place] [phone] PCP - General Family Medicine 10/02/22 Automatic Oven Operator Relationship Specialty Start Date End Date Anthony Roman MD [address] [place] [phone] PCP - General Family Medicine 10/02/22 Automatic Oven Operator Relationship Specialty Start Date End Date Anthony Roman MD [address] [place] [phone] PCP - General Family Medicine 10/02/22 Automatic Oven Operator Relationship Specialty Start Date End Date Anthony Roman MD [address] [facility] [place] [phone] PCP - General Family Medicine 10/02/22 Automatic Oven Operator Relationship Specialty Start Date End Date Anthony Roman MD [address] [facility] [place] [address] PCP - General Family Medicine 10/02/22 Automatic Oven Operator Relationship Specialty Start Date End Date Anthony Roman MD [address] [facility] [place] [address] PCP - General Family Medicine 10/02/22 Automatic Oven Operator Relationship Specialty Start Date End Date Anthony Roman MD [address] [facility] [place] [address] PCP - General Family Medicine 10/02/22 Automatic Oven Operator Relationship Specialty Start Date End Date Anthony Roman MD [address] [facility] [place] [address] PCP - General Family Medicine 10/02/22 FOR RECORDS PERTAINING TO PATIENTS WHO ARE [...] BE BASED ON THE PRIMARY CLINICAL RECORDS. [facility]. provides no warranty or guarantee of the accuracy or completeness of information in this document.
[2025-01-28 14:12] LABS: Strep Gp B NAA+Rflx Negative (Negative)
== END 2025-01-25 20:16 | disposition home or self-care (01) ==
LOC: LAB 20:15
PROVIDERS: Visit Provider Physician Assistant
DX: Z34.93 Encounter for supervision of normal pregnancy, unspecified, third trimester (principal); Z3A.35 35 weeks gestation of pregnancy
CPT/HCPCS: 36415

== ENCOUNTER 2025-02-11 18:27 | Observation (INO) | payer BC, SELFPAY ==
--- OUTSIDE RECORDS SUMMARY | 2025-02-01 11:10 | XMS_ITS | Encounter Summary ---
Author Organization [facility] Address [address] [place] [address] Care Team Providers Care Spirits Model Name Role Phone Dixie Berkowitz MD Primary Care Provider Reason for Visit * Reason Comments Routine Visit Encounter Details Date Type Department Care Team (Late st Contact Info) Description 02/01/2025 11:10 AM EDT Routine [facility] [address] [place] [address] Denise Sultana, HUE [address] [place] [address] 36 weeks gestation of ([facility]); Third trimester ([facility]) Social History Tobacco Use Types Packs/Day [...] Sign Reading Time Taken Comments Blood Pressure 128/82 02/01/2025 10:59 AM EDT Pulse - - Temperature - - Respiratory Rate - - Oxygen Saturation - - Inhaled Oxygen Concentration - - Weight 74.8 kg (164 lb 12.8 oz) 025 10:59 AM EDT Height - - Body Mass Index 30.14 09/05/2022 12:00 PM EDT documented in this encounter Progress Notes * Denise Sultana NP - 02/01/2025 11:10 AM EDT Reason for Appointment: Patient ID: Radha Hart is a 29 y.o. female who presents for Routine Visit Patient presents today for Return OB appointment. MEDICATIONS Current Outpatient Medications Medication Instructions MV-Min-Fe Fum-FA-DHA ( 1 PO) Take by mouth. ALLERGIES Allergies Allergen Reactions Codeine Hallucinations PROBLEMS Active Ambulatory Problems Diagnosis Date Noted H/O: 12/07/2024 30 weeks gestation of ([facility]) 12/20/2024 Third trimester ([facility]) 01/25/2025 Resolved Ambulatory Problems Diagnosis Date [...] nursing note reviewed. Exam conducted with a manager investment present. Vitals: Estimated body mass index is 30.14 kg/m?? as calculated from the following: Height as of 09/05/22: 5' 2 . Weight as of this encounter: 164 lb 12.8 oz. BP: 128/82 No LMP recorded. Patient is . ASSESSMENT & PLAN ICD-10-CM 1. 36 weeks gestation of ([facility]) Z3A.36 POCT urinalysis dipstick manually resulted 2. Third trimester ([facility]) Z34.93 Return OB: Patient presents today for a routine obstetrics appointment. Patient is currently 36w6d . Patient states she is doing well [...] by Denise Sultana NP on behalf of: Denise Sultana NP documented in this encounter Plan of Treatment Upcoming Encounters Date Type Department Care Team (Late st Contact Info) Description 02/23/2025 1:50 PM EDT Office Visit [facility] [address] [place] [phone] Bree Lezama PA [address] [place], [place] [phone] documented as of this encounter Procedures Procedure Name Priority Date/Time Associated Diagnosis Comments POCT URINALYSIS DIPSTICK Routine 02/01/2025 11:07 AM EDT 36 weeks gestation of ([facility]) documented in this encounter Results * POCT urinalysis dipstick manually resulted (02/01/2025 11:07 AM EDT) Color, UA Yellow Clarity, UA Clear Glucose, UA Negative Negative - 2000(110) ++++ mg/dL Bilirubin, UA Negative Negative - 4(70) +++ mg/dL Ketones, UA Negative Negative - 160(16) ++++ mg/dL Spec Grav, UA 1.010 1 - 1.03 Blood, UA Negative Negative - 50 Xavier/mcL pH, UA 6.5 5 - 9 Protein, UA Negative Negative - 2000(20) ++++ mg/dL Urobilinogen, UA 2.0 0.2 - 12 mg/dL Leukocytes, UA Negative Negative - 500+++ Astrid/mcL Nitrite, UA Negative Negative - Positive Urine 02/01/2025 11:0 7 AM EDT Denise Sultana NP POINT OF CARE TEST ENTER/EDIT ORDERABLES Final Result documented in this encounter Visit Diagnoses Diagnosis 36 weeks gestation of ([facility]) Third trimester ([facility]) state, incidental documented in this encounter Care Teams Spirits Model Relationship Specialty Start Date End Date Dixie Berkowitz MD [address] [place] [phone] PCP - General Family Medicine 10/02/22 documented as of this encounter
--- OUTSIDE RECORDS SUMMARY | 2025-02-09 13:50 | XMS_ITS | Encounter Summary ---
Author Organization [facility] Address [address] [place] [address] Care Team Providers Care Kitchen Designer Name Role Phone Dixie Berkowitz MD Primary Care Provider [phone] Reason for Visit * Reason Comments Routine Visit Encounter Details Date Type Department Care Team (Late st Contact Info) Description 02/09/2025 1:50 PM EDT Routine [facility] [address] [place] [address] Denise Sultana, HUE [address] [place] [address] 38 weeks gestation of ([facility]); Third trimester ([facility]); H/O: Social History Tobacco Use Types [...] Sign Reading Time Taken Comments Blood Pressure 128/70 02/09/2025 1:48 PM EDT Pulse - - Temperature - - Respiratory Rate - - Oxygen Saturation - - Inhaled Oxygen Concentration - - Weight 76.6 kg (168 lb 12.8 oz) 02/09/2025 1:48 PM EDT Height - - Body Mass Index 30.87 09/05/2022 12:00 PM EDT documented in this encounter Progress Notes * Elvie Cordova LPN - 02/09/2025 1:50 PM EDT Reason for Appointment: Patient ID: Radha Hart is a 29 y.o. female who presents for Routine Visit Patient presents today for Return OB appointment. MEDICATIONS Current Outpatient Medications Medication Instructions MV-Min-Fe Fum-FA-DHA ( 1 PO) Take by mouth. ALLERGIES Allergies Allergen Reactions Codeine Hallucinations PROBLEMS Active Ambulatory Problems Diagnosis Date Noted H/O: 12/07/2024 30 weeks gestation of ([facility]) 12/20/2024 Third trimester ([facility]) 01/25/2025 Resolved Ambulatory Problems Diagnosis Date [...] nursing note reviewed. Exam conducted with a medical review coordinator present. Vitals: Estimated body mass index is 30.87 kg/m?? as calculated from the following: Height as of 09/05/23: 5' 2 . Weight as of this encounter: 168 lb 12.8 oz. BP: 128/70 No LMP recorded. Patient is . ASSESSMENT & PLAN ICD-10-CM 1. 38 weeks gestation of ([facility]) Z3A.38 POCT urinalysis dipstick manually resulted 2. Third trimester ([facility]) Z34.93 POCT urinalysis dipstick manually resulted 3. H/O: Z98.891 Patient presents today for a routine obstetrics appointment. Patient is currently 38w0d . Patient states she is doing well but has complaints of being tired due to current . Patient has verbalizes frequent movement. labor precautions was discussed/given and patient was instructed to perform kick counts three times a day. Patient is scheduled to undergo a repeat section on 02/16/[address] Alanis. Surgical consents were signed, partners instructions were given, mmc was reviewed, and patient is to proceed to [facility] on her scheduled day. Orders Placed This Encounter Procedures POCT urinalysis dipstick manually resulted Follow Up: Patient is to return in 1 week for routine OB appointment. Documented by Elvie Cordova LPN on behalf of: Denise Sultana NP * Denise Sultana NP - 02/09/2025 1:50 PM EDT Reason for Appointment: Patient ID: Radha Hart is a 29 y.o. female who presents for Routine Visit Patient presents today for Return OB appointment. MEDICATIONS Current Outpatient Medications Medication Instructions MV-Min-Fe Fum-FA-DHA ( 1 PO) Take by mouth. ALLERGIES Allergies Allergen Reactions Codeine Hallucinations PROBLEMS Active Ambulatory Problems Diagnosis Date Noted H/O: 12/07/2024 30 weeks gestation of ([facility]) 12/20/2024 Third trimester ([facility]) 01/25/2025 Resolved Ambulatory Problems Diagnosis Date Noted No Resolved Ambulatory Problems Past Medical History: Diagnosis Date Asthma (HCC) Benign parotid tumor Facial paresis Facial weakness Fracture, humerus Pharyngitis Sialocele Syncope Tonsillitis HISTORY PAST MEDICAL HISTORY SOCIAL HISTORY Past Medical History: Diagnosis Date Asthma ([facility]) Benign parotid tumor Facial paresis Facial weakness [...] nursing note reviewed. Exam conducted with a medical review coordinator present. Vitals: Estimated body mass index is 30.87 kg/m?? as calculated from the following: Height as of 09/05/22: 5' 2 . Weight as of this encounter: 168 lb 12.8 oz. BP: 128/70 No LMP recorded. Patient is . ASSESSMENT & PLAN ICD-10-CM 1. 38 weeks gestation of ([facility]) Z3A.38 POCT urinalysis dipstick manually resulted 2. Third trimester ([facility]) Z34.93 POCT urinalysis dipstick manually resulted 3. H/O: Z98.891 Return OB: Patient presents today for a routine obstetrics appointment. Patient is currently 38w0d . Patient states she is doing well but has complaints of being tired due to current . Patient has verbalizes frequent movement. labor precautions was discussed/given and patient was instructed to perform kick counts three times a day. Orders Placed This Encounter Procedures POCT urinalysis dipstick manually resulted Follow Up: Patient is scheduled for and consents were signed today. Documented by Denise Sultana NP on behalf of: Dneise Sultana NP documented in this encounter Plan of Treatment Upcoming Encounters Date Type Department Care Team (Late st Contact Info) Description 02/23/2025 1:50 PM EDT Office Visit [facility] [address] [place] [phone] Bree Lezama PA [address] [place] [address] documented as of this encounter Procedures Procedure Name Priority Date/Time Associated Diagnosis Comments POCT URINALYSIS DIPSTICK Routine 02/09/2025 1:53 PM EDT 38 weeks gestation of ([facility]) Third trimester ([facility]) documented in this encounter Results * POCT urinalysis dipstick manually resulted (02/09/2025 1:53 PM EDT) Color, UA Yellow Clarity, UA Clear Glucose, UA Negative Negative - 1999(110) ++++ mg/dL Bilirubin, UA Negative Negative - 4(70) +++ mg/dL Ketones, UA Negative Negative - 160(16) ++++ mg/dL Spec Grav, UA 1.010 1 - 1.03 Blood, UA Negative Negative - 50 Xavier/mcL pH, UA 6.0 5 - 9 Protein, UA Negative Negative - 1999(20) ++++ mg/dL Urobilinogen, UA 1.0 0.2 - 12 mg/dL Leukocytes, UA Negative Negative - 500+++ Astrid/mcL Nitrite, UA Negative Negative - Positive Urine 02/09/2025 1:53 PM EDT Denise Sultana NP POINT OF CARE TEST ENTER/EDIT ORDERABLES Final Result documented in this encounter Visit Diagnoses Diagnosis 38 weeks gestation of ([facility]) Third trimester ([facility]) state, incidental H/O: Other postprocedural status documented in this encounter Care Teams Kitchen Designer Relationship Specialty Start Date End Date Dixie Berkowitz MD [address] [place] [phone] PCP - General Family Medicine 10/02/22 documented as of this encounter
--- OUTSIDE RECORDS SUMMARY | 2025-02-11 18:31 | XMS_ITS | Encounter Summary ---
Author Organization [facility] Address [address] [facility] [place] [address] Care Team Providers Care Civil Draftsman Name Role Phone Dixie Berkowitz MD Primary Care Provider [phone] Encounter Details Date Type Department Care Team (Late Contact Info) Description 11/16/2023 Orders Only [facility] [address] [place] [address] [place] [address] Elvie Cordova LPN [address] [place] [place] [address] Social History Tobacco Use Types Packs/Day Years [...] 1:50 PM EDT Office Visit [facility] [address] [place] [address] Bree Lezama PA [address] [place] [phone] documented as of this encounter Procedures Procedure [...] filedocumented in this encounter Care Teams Civil Draftsman Relationship Specialty Start Date End Date Dixie Berkowitz MD [address] [place] [phone] PCP - General Family Medicine 10/02/22 documented as of this encounter
--- OUTSIDE RECORDS SUMMARY | 2025-02-11 18:31 | XMS_ITS | Encounter Summary ---
Author Organization [facility] Address [address] [facility] [place] [address] Care Team Providers Care Supervisor Electrolytic Tinning Name Role Phone Dixie Berkowitz MD Primary Care Provider [phone] Encounter Details Date Type Department Care Team (Late Contact Info) Description 11/18/2024 Abstract [facility] [address] [place] [address] Claudio Alanis DO [address] [place], [place] [address] Social History Tobacco Use Types Packs/Day Years [...] 02/23/2025 1:50 PM EDT Office Visit [facility] [address] [place] [address] [place] [address] Bree Lezama PA [address] [place], [place] [address] documented as of this encounter Visit Diagnoses Not on filedocumented in this encounter Care Teams Supervisor Electrolytic Tinning Relationship Specialty Start Date End Date Dixie Berkowitz MD [address] [place] [phone] PCP - General Family Medicine 10/02/22 documented as of this encounter
--- OUTSIDE RECORDS SUMMARY | 2025-02-11 18:31 | XMS_ITS | Encounter Summary ---
Author Organization [facility] Address [address] [place] [address] Care Team Providers Care Mica Plate Layer Name Role Phone Dixie Berkowitz MD Primary Care Provider [phone] Encounter Details Date Type Department Care Team (Late Contact Info) Description 06/27/2024 Abstract [facility] [address] [place] [address] Claudio Alanis DO [address] [place], [place] [address] Social History Tobacco Use Types Packs/Day Years [...] Department Care Team (Late Contact Info) Description 02/23/2025 1:50 PM EDT Office Visit [facility] [address] [place] [address] Bree Lezama PA [address] [place], [facility] documented as of this encounter Visit Diagnoses Not on filedocumented in this encounter Care Teams Mica Plate Layer Relationship Specialty Start Date End Date Dixie Berkowitz MD [address] [place] [phone] PCP - General Family Medicine 10/02/22 documented as of this encounter
--- OUTSIDE RECORDS SUMMARY | 2025-02-11 18:31 | XMS_ITS | Encounter Summary ---
Author Organization [facility] Address [address] [facility] [place] [address] Care Team Providers Care Head Automatic Sawyer Name Role Phone Dixie Berkowitz MD Primary Care Provider [phone] Encounter Details Date Type Department Care Team (Late Contact Info) Description 06/29/2024 Abstract [facility] [address] [place] [address] Claudio Alanis DO [address] [place], [place] [address] Social History Tobacco Use Types Packs/Day Years [...] Description 02/23/2025 1:50 PM EDT Office Visit [facility] [address] [place] [address] Bree Lezama PA [address] [place], [facility] documented as of this encounter Visit Diagnoses Not on filedocumented in this encounter Care Teams Head Automatic Sawyer Relationship Specialty Start Date End Date Dixie Berkowitz MD [address] [place] [phone] PCP - General Family Medicine 10/02/22 documented as of this encounter
--- OUTSIDE RECORDS SUMMARY | 2025-02-11 18:31 | XMS_ITS | CCD ---
Author Organization [facility] CliniSyar Care Team Providers Care Claim Technician Name Role Phone Eleni Dc Unavailable ANNABELLE [...] Attending Unavailable ANTHONY ROMAN Primary Care Physician [phone] ANNABELLE, Claudio R Admitting Unavailable ANNABELLE, Claudio R Attending Unavailable Gm HENDERSON Attending Unavailable ANNABELLE, Claudio R Attending Unavailable ANNABELLE, Claudio R Admitting Unavailable ANNABELLE, Claudio R Admitting Unavailable ANNABELLE, Claudio R Attending Unavailable Anthony Roman MD Primary Care Provider ANNABELLE, Claudio R Admitting Unavailable ANNABELLE, Claudio R Attending Unavailable Anthony Roman MD Primary Care Provider Anthony Roman MD Primary Care Provider [phone] Anthony Roman MD Primary Care Provider ANNABELLE, Claudio R Attending Unavailable ANNABELLE, Claudio [...] BREE Attending Unavailable ANNABELLE, CLAUDIO Attending Unavailable LISE, BREE Attending Unavailable INEZ SULTANA Attending Unavailable Allergies Allergy Classification Reported Allergen(s) Allergy Type Date of Onset Reaction(s) Facility (20 sources) Codeine; Translations: [codeine] Drug Allergy 3 Hallucinations [facility] Repository (6 sources) Unable to obtain; Translations: [Unable to obtain] Propensity to adverse reactions (disorder) [facility] Medications Current Medications Medication Drug [...] of ] 12-07-2024 Episodic Residual codes; unclassified (19 sources) Gestation period, 30 weeks; Translations: [30 [...] [35 weeks gestation of ] 01-25-2025 Episodic Residual codes; unclassified (2 sources) Gestation period, 36 weeks; Translations: [36 weeks gestation of ] 02-01-2025 Episodic Residual codes; unclassified (2 sources) Gestation period, 38 weeks; Translations: [38 weeks gestation of ] 02-09-2025 Episodic Syncope (1 source) Syncope and collapse; [...] Range Facility Urinalysis macro (dipstick) panel (U)on 02-09-2025 Bilirubin, UA Negative Negative - 4(70) +++ mg/dL [facility] Blood, UA Negative Negative - 50 Xavier/mcL [facility] Clarity, UA Clear [facility] re Color, UA Yellow [facility] Glucose, UA Negative Negative - 2000(110) ++++ mg/dL [facility] Interpretation and review of laboratory results Normal [facility] Ketones, UA Negative Negative - 160(16) ++++ mg/dL [facility] Leukocytes, UA Negative Negative - 500+++ Astrid/mcL [facility] Nitrite, UA Negative Negative - Positive [facility] pH, UA 6 5 - 9 [facility] Protein, UA Negative Negative - 1999(20) ++++ mg/dL [facility] Spec Grav, UA 1.01 1 - 1.03 [facility] Urobilinogen, UA 1.0 0.2 - 12 mg/dL [facility] Urinalysis macro (dipstick) panel (U)on 02-01-2025 Bilirubin, UA Negative Negative - 4(70) +++ mg/dL [facility] Blood, UA Negative Negative - 50 Xavier/mcL [facility] Clarity, UA Clear [facility] re Color, UA Yellow [facility] e Glucose, UA Negative Negative - 1999(110) ++++ mg/dL [facility] Interpretation and review of laboratory results Normal [facility] Ketones, UA Negative Negative - 160(16) ++++ mg/dL [facility] Leukocytes, UA Negative Negative - 500+++ Astrid/mcL [facility] Nitrite, UA Negative Negative - Positive [facility] pH, UA 6.5 5 - 9 [facility] Protein, UA Negative Negative - 1999(20) ++++ mg/dL [facility] Spec Grav, UA 1.01 1 - 1.03 [facility] Urobilinogen, UA 2.0 0.2 - 12 mg/dL [facility] STREP GP B SAY+RFLXon 2024 STREP GP B SAY+RFLX Negative Negative [facility] Comment on above: Centers for Disease Control and Prevention (CDC) and [place] Congress of Obstetricians and Gynecologists (ACOG) guidelines for prevention of group B streptococcal (GBS) disease specify co-collection of a vaginal and rectal swab specimen to maximize sensitivity of GBS detection. Per the CDC and ACOG, swabbing both the lower vagina and rectum substantially increases the yield of detection compared with sampling the vagina alone. Penicillin G, ampicillin, or cefazolin are indicated for intrapartum prophylaxis of GBS colonization. Reflex susceptibility testing should be performed prior to use of clindamycin only on GBS isolates from penicillin- allergic women who are considered a high risk for anaphylaxis. Treatment with vancomycin without additional testing is warranted if resistance to clindamycin is noted. Performed at: [address] [id number] Developmental Mathematics Professor: Livan Wilkins PhD, Phone: [phone] [facility] Urinalysis macro (dipstick) panel (U)on 01-25-2025 Bilirubin, UA Negative Negative - 4(70) +++ mg/dL [facility] Blood, UA Negative Negative - 50 Xavier/mcL [facility] Clarity, UA Clear [facility] re Color, UA Yellow [facility] Glucose, UA Negative Negative - 1999(110) ++++ mg/dL [facility] Interpretation and review of laboratory results Normal [facility] Ketones, UA Negative Negative - 160(16) ++++ mg/dL [facility] Leukocytes, UA Negative Negative - 500+++ Astrid/mcL [facility] Nitrite, UA Negative Negative - Positive [facility] pH, UA 6 5 - 9 [facility] Protein, UA Negative Negative - 1999(20) ++++ mg/dL [facility] Spec Grav, UA 1.01 1 - 1.03 [facility] Urobilinogen, UA 0.2 0.2 - 12 mg/dL [facility] Urinalysis macro (dipstick) panel (U)on 01-18-2025 Bilirubin, UA Negative Negative - 4(70) +++ mg/dL [facility] Blood, UA Negative Negative - 50 Xavier/mcL [facility] Clarity, UA Clear [facility] re Color, UA Yellow [facility] Glucose, UA Negative Negative - 1999(110) ++++ mg/dL [facility] Interpretation and review of laboratory results Normal [facility] Ketones, UA Negative Negative - 160(16) ++++ mg/dL [facility] Leukocytes, UA Negative Negative - 500+++ Astrid/mcL [facility] Nitrite, UA Negative Negative - Positive [facility] pH, UA 6 5 - 9 [facility] Protein, UA Negative Negative - 1999(20) ++++ mg/dL [facility] Spec Grav, UA 1.015 1 - 1.03 [facility] Urobilinogen, UA 1.0 0.2 - 12 mg/dL [facility] US OB FOLLOW UP TRANSABDOMIN [...] UA Negative Negative - 4(70) +++ mg/dL [facility] Blood, UA Negative Negative - 50 Xavier/mcL [facility] Clarity, UA Clear [facility] re Color, UA Yellow [facility] Glucose, UA Negative Negative - 2000(110) ++++ mg/dL [facility] Interpretation and review of laboratory results Abnormal [facility] Ketones, UA Negative Negative - 160(16) ++++ mg/dL [facility] Leukocytes, UA Positive Negative - 500+++ Astrid/mcL [facility] Nitrite, UA Negative Negative - Positive [facility] pH, UA 6 5 - 9 [facility] Protein, UA Negative Negative - 1999(20) ++++ mg/dL [facility] Spec Grav, UA 1.02 1 - 1.03 [facility] care Urobilinogen, UA 1.0 0.2 - 12 mg/dL [facility] Urinalysis macro (dipstick) panel (U)on 12-20-2024 Bilirubin, UA Negative Negative - 4(70) +++ mg/dL [facility] Blood, UA Negative Negative - 50 Xavier/mcL [facility] Clarity, UA Clear [facility] re Color, UA Yellow [facility] Glucose, UA Negative Negative - 1999(110) ++++ mg/dL [facility] Interpretation and review of laboratory results Normal [facility] Ketones, UA Negative Negative - 160(16) ++++ mg/dL [facility] Leukocytes, UA Negative Negative - 500+++ Astrid/mcL [facility] Nitrite, UA Negative Negative - Positive [facility] pH, UA 6 5 - 9 [facility] Protein, UA Negative Negative - 1999(20) ++++ mg/dL [facility] Spec Grav, UA 1.01 1 - 1.03 [facility] Urobilinogen, UA 0.2 0.2 - 12 mg/dL [facility] Urinalysis macro (dipstick) panel (U)on 12-07-2024 Bilirubin, UA Negative Negative - 4(70) +++ mg/dL [facility] Blood, UA Negative Negative - 50 Xavier/mcL [facility] Clarity, UA Clear [facility] re Color, UA Yellow [facility] Glucose, UA Negative Negative - 1999(110) ++++ mg/dL [facility] Interpretation and review of laboratory results Normal [facility] Ketones, UA Negative Negative - 160(16) ++++ mg/dL [facility] Leukocytes, UA Negative Negative - 500+++ Astrid/mcL [facility] Nitrite, UA Negative Negative - Positive [facility] pH, UA 6 5 - 9 [facility] Protein, UA Negative Negative - 1999(20) ++++ mg/dL [facility] Spec Grav, UA 1.01 1 - 1.03 [facility] Urobilinogen, UA 1.0 0.2 - 12 mg/dL [facility] e Capillary Glucose POCon 11-02 Glucose [Mass/Vol] 92 mg/dL Normal 55-99 [facility] Comment on above: Performed By: #### 2 [id number] #### [facility] [address] [place] [address] Glu 1 Hron 11-22-2024 Glucose [Mass/Vol] 137 mg/dL Normal 55-180 [facility] Comment on above: Performed By: #### 2 [id number] #### [facility] [address] [place] [address] Glu 2 Hron 11-22-2024 Glucose [Mass/Vol] 114 mg/dL Normal 55-155 [facility] Comment on above: Performed By: #### 2 [id number] #### [facility] [address] [place] [address] Glu 3 Hron 11-22-2024 Glucose [Mass/Vol] 86 mg/dL Normal 55-140 [facility] Comment on above: Performed By: #### 2 [id number] #### [facility] [address] [place] [address] Glu Fastingon 11-22-2024 Glucose [Mass/Vol] 86 mg/dL Normal 55-99 [facility] Comment on above: Performed By: #### 2 [id number] #### [facility] [address] [place] [address] CBC w/Indiceson 11-18-2024 Erythrocyte distribution width (RBC) [Ratio] 13.3 % Normal 10.9-14.2 [facility] Comment on above: Performed By: #### 2 [id number] #### [facility] [address] [place] [address] Hematocrit (Bld) [Volume fraction] 36.2 % Normal 34.0-46.0 [facility] Comment on above: Performed By: #### 2 [id number] #### [facility] [address] [place] [address] Hemoglobin (Bld) [Mass/Vol] 12.1 g/dL Normal 12.0-16.0 [facility] Comment on above: Performed By: #### 2 [id number] #### [facility] [address] [place] [address] MCH (RBC) [Entitic mass] 28.8 pg Normal 27.0-34.0 [facility] Comment on above: Performed By: #### 2 [id number] #### [facility] [address] [place] [address] MCHC (RBC) [Mass/Vol] 33.4 g/dL Normal 31.4-36.0 [facility] Comment on above: Performed By: #### 2 [id number] #### [facility] [address] [place] [address] MCV (RBC) [Entitic vol] 86.2 fL Normal 80.0-100.0 [facility] Comment on above: Performed By: #### 2 [id number] #### [facility] [address] [place] [address] Platelet 162.0 E9/L Normal 150.0-500.0 [facility] Comment on above: Performed By: #### 2 [id number] #### [facility] [address] [place] [address] Platelet mean volume (Bld) [Entitic vol] 8.9 fL Normal 6.4-10.8 [facility] Comment on above: Performed By: #### 2 [id number] #### [facility] [address] [place] [address] RBC 4.2 E12/L Low 4.3-5.9 [facility] Comment on above: Performed By: #### 2 [id number] #### [facility] [address] [place] [address] RBC morphology finding Nom (Bld) NORMAL Invalid Interpretation Code [facility] Comment on above: Performed By: #### 2 [id number] #### [facility] [address] [place] [address] WBC 7.4 E9/L Normal 4.0-11.0 [facility] Comment on above: Performed By: #### 2 [id number] #### [facility] [address] [place] [address] Gest Scr Glu 1 Hron 11-19-19 25 Glucose [Mass/Vol] 141 mg/dL High 55-140 [facility] Comment on above: Performed By: #### 3 [id number] #### [facility] [address] [place] [address] Urinalysis macro (dipstick) panel (U)on 11-15-2024 Bilirubin, UA Negative Negative - 4(70) +++ mg/dL [facility] Blood, UA Negative Negative - 50 Xavier/mcL [facility] Clarity, UA Clear [facility] re Color, UA Yellow [facility] Glucose, UA Negative Negative - 2000(110) ++++ mg/dL [facility] Interpretation and review of laboratory results Normal [facility] Ketones, UA Positive Negative - 160(16) ++++ mg/dL [facility] Comment on above: trace Leukocytes, UA Negative Negative - 500+++ Astrid/mcL [facility] Nitrite, UA Negative Negative - Positive [facility] pH, UA 7 5 - 9 [facility] [employer] [facility] Protein, UA Trace Negative - 2000(20) ++++ mg/dL [facility] Spec Grav, UA 1.02 1 - 1.03 [facility] Urobilinogen, UA 1.0 0.2 - 12 mg/dL [facility] US OB 14+ WEEKS ANATOMY [...] II, MD, PHD at 19-Oct-2024 08:00:12 AM [facility] Normal Not Available Comment on above: Order Comment: US OB ANATOMY SINGLE W US OB CERVICAL LENGTH Estimated Date of Delivery: 02/23/25 Gestational Age as of 09/20/2024: 17w5d Urinalysis macro (dipstick) panel (U)on 10-18-2024 Bilirubin, UA Negative Negative - 4(70) +++ mg/dL [facility] Blood, UA Negative Negative - 50 Xavier/mcL [facility] Clarity, UA Clear [facility] re Color, UA Yellow [facility] Glucose, UA Negative Negative - 2000(110) ++++ mg/dL [facility] Interpretation and review of laboratory results Normal [facility] Ketones, UA Negative Negative - 160(16) ++++ mg/dL [facility] Leukocytes, UA Negative Negative - 500+++ Astrid/mcL [facility] Nitrite, UA Negative Negative - Positive [facility] pH, UA 7 5 - 9 [facility] e Protein, UA Negative Negative - 1999(20) ++++ mg/dL [facility] Spec Grav, UA 1.015 1 - 1.03 [facility] Urobilinogen, UA 0.2 0.2 - 12 mg/dL [facility] RECURRENT VAGINITIS (HTRX)on 09-21-2024 ATOPOBIUM VAGINAE 0 [facility] ATOPOBIUM VAGINAE Not detected [facility] BVAB 2,3 (BACTERIAL VAGINOSIS ASSOCIATED BACTERIA 2, 3); MOBILUNCUS SPP 22.305 Abnormal [facility] BVAB 2,3 (BACTERIAL VAGINOSIS ASSOCIATED BACTERIA 2, 3); MOBILUNCUS SPP Detected Abnormal [facility] KADE ALBICANS, PARAPSILOSIS, TROPICALIS 0 [facility] KADE ALBICANS, PARAPSILOSIS, TROPICALIS Not detected [facility] KADE GLABRATA 0 [facility]thcare KADE GLABRATA Not detected [facility] KADE KRUSEI 0 [facility] hcare KADE KRUSEI Not detected [facility] ltare CHLAMYDIA TRACHOMATIS 0 [facility] CHLAMYDIA TRACHOMATIS Not detected [facility] GARDNERELLA VAGINALIS 20.313 Abnormal [facility] GARDNERELLA VAGINALIS Detected Abnormal [facility] Interpretation and review of laboratory results Abnormal [facility] MEGASPHAERA (TYPES 1, 2) 0 [facility] MEGASPHAERA (TYPES 1, 2) Not detected [facility] MYCOPLASMA GENITALIUM 0 [facility] MYCOPLASMA GENITALIUM Not detected [facility] NEISSERIA GONORRHOEAE 0 [facility] NEISSERIA GONORRHOEAE Not detected [facility] TET B, TET M 23.986 Abnormal [facility] are TET B, TET M Detected Abnormal [facility] are TRICHOMONAS VAGINALIS 0 [facility] TRICHOMONAS VAGINALIS Not detected N [facility] Urinalysis macro (dipstick) panel (U)on 09-20-2024 Bilirubin, UA Negative Negative - 4(70) +++ mg/dL [facility] Blood, UA Negative Negative - 50 Xavier/mcL [facility] Clarity, UA Clear [facility] re Color, UA Yellow [facility] e Glucose, UA Negative Negative - 1999(110) ++++ mg/dL [facility] Interpretation and review of laboratory results Normal [facility] Ketones, UA Negative Negative - 160(16) ++++ mg/dL [facility] Leukocytes, UA Negative Negative - 500+++ Astrid/mcL [facility] Nitrite, UA Negative Negative - Positive [facility] pH, UA 7 5 - 9 [facility] e Protein, UA Negative Negative - 1999(20) ++++ mg/dL [facility] Spec Grav, UA 1.015 1 - 1.03 [facility] Urobilinogen, UA 0.2 0.2 - 12 mg/dL [facility] Healthcare [facility] Urinalysis macro (dipstick) panel (U)on 08-17-2024 Bilirubin, UA Negative Negative - 4(70) +++ mg/dL [facility] Blood, UA Negative Negative - 50 Xavier/mcL [facility] Clarity, UA Clear [facility] re Color, UA Yellow [facility] Glucose, UA Negative Negative - 1999(110) ++++ mg/dL [facility] Interpretation and review of laboratory results Normal [facility] Ketones, UA Negative Negative - 160(16) ++++ mg/dL [facility] Leukocytes, UA Negative Negative - 500+++ Astrid/mcL [facility] Nitrite, UA Negative Negative - Positive [facility] pH, UA 6 5 - 9 [facility] e Protein, UA Negative Negative - 1999(20) ++++ mg/dL [facility] Spec Grav, UA 1.015 1 - 1.03 [facility] care Urobilinogen, UA 0.2 0.2 - 12 mg/dL [facility] .Interpretation:on HCV Ab IA Ql Comment Invalid Interpretation Code [facility] Comment on above: Result Comment: Not infected with HCV unless early or acute infection is suspected (which may be delayed in an immunocompromised individual), or other evidence exists to indicate HCV infection. Performed at: [facility] [id number] PhD Franky Licona Performed By: #### 2 [id number] #### [facility] [address] [place] [address] HCV Antibody RFX to Quant PC [place]oy 03-29-2025 HCV Ab IA Ql Non-Reactive Invalid Interpretation Code Non Reactive [facility] Comment on above: Result Comment: Perf ormed at: [address] [id number] PhD Franky Licona Performed By: #### 2 [id number] #### [facility] [address] [place] [address] HIV Screen 4th Generation wR fxon 07-30-2024 HIV 1+2 Ab+HIV1 p24 Ag IA Ql Non-Reactive Invalid Interpretation Code Non Reactive [facility] Comment on above: Result Comment: HIV- 1/HIV-2 antibodies and HIV-1 p24 antigen were NOT detected. There is no laboratory evidence of HIV infection. HIV Negative Performed at: [address] [id number] PhD Franky Licona Performed By: #### 9 [id number] #### [facility] [address] [place] [address] Hep Bs Agon 07-30-2024 HBV surface Ag IA Ql Negative Invalid Interpretation Code Negative [facility] Comment on above: Result Comment: Perf ormed at: [address] [id number] PhD Franky Licona Performed By: #### 2 [id number] #### [facility] [address] [place] [address] RPR with Conf Rfxon 07-31-19 25 Reagin Ab RPR Ql (S) Non-Reactive Invalid Interpretation Code Non Reactive [facility] Comment on above: Result Comment: Perf ormed at: [address] [id number] PhD Franky Licona Performed By: #### 1 [id number] #### [facility] [address] [place] [address] Rubella IgGon 07-30-2024 Rubella virus IgG Qn (S) 3.34 [IU]/mL Invalid Interpretation Code Immune >0.99 [facility] Comment on above: Result Comment: Non- immune <0.90 Equivocal 0.90 - 0.99 Immune >0.99 Performed at: [facility] [id number] PhD Franky Licona Performed By: #### 1 [id number] #### [facility] [address] [place] [address] ABO/Rhon 07-29-2024 ABO/Rh Positive Invalid Interpretation Code [facility] Comment on above: Performed By: #### 2 [id number] #### [facility] [address] [place] [address] ABSCon 07-29-2024 ABSC Gel Interp Negative Normal [facility] Comment on above: Performed By: #### 1 [id number] #### [facility] [address] [place] [address] BLOOD BANKOrdered By: Kaylie Hopkins on 07-29-2024 ABO/Rh Interp Positive Invalid Interpretation Code [facility] BB Subsection ABSC Gel Interp Negative (07/29/24 12:36 PM) Normal [facility] BB Subsection CBC w/ Auto Diffon 5 Basophils/100 WBC (Bld) 0.2 % Normal 0.0-2.0 [facility] Comment on above: Performed By: #### 2 [id number] #### [facility] [address] [place] [address] Basophils/Leukocytes Auto (Bld) [Pure # fraction] 0.0 E9/L Normal 0.0-0.2 [facility] Comment on above: Performed By: #### 2 [id number] #### [facility] [address] [place] [address] Eosinophils (Bld) [#/Vol] 0.2 E9/L Normal 0.0-0.5 [facility] Comment on above: Performed By: #### 2 [id number] #### [facility] [address] [place] [address] Eosinophils/100 WBC (Bld) 2.1 % Normal 0.0-8.0 [facility] Comment on above: Performed By: #### 2 [id number] #### [facility] [address] [place] [address] Erythrocyte distribution width (RBC) [Ratio] 12.4 % Normal 10.9-14.2 [facility] Comment on above: Performed By: #### 2 [id number] #### [facility] [address] [place] [address] Hematocrit (Bld) [Volume fraction] 38.5 % Normal 34.0-46.0 [facility] Comment on above: Performed By: #### 2 [id number] #### [facility] [address] [place] [address] Hemoglobin (Bld) [Mass/Vol] 13.5 g/dL Normal 12.0-16.0 [facility] Comment on above: Performed By: #### 2 [id number] #### [facility] [address] [place] [address] Lymphocytes (Bld) [#/Vol] 1.8 E9/L Normal 1.0-4.0 [facility] Comment on above: Performed By: #### 2 [id number] #### [facility] [address] [place] [address] Lymphocytes/100 WBC (Bld) 21.6 % Normal 14.0-50.0 [facility] Comment on above: Performed By: #### 2 [id number] #### [facility] [address] [place] [address] MCH (RBC) [Entitic mass] 29.7 pg Normal 27.0-34.0 [facility] Comment on above: Performed By: #### 2 [id number] #### [facility] [address] [place] [address] MCHC (RBC) [Mass/Vol] 35.1 g/dL Normal 31.4-36.0 [facility] Comment on above: Performed By: #### 2 [id number] #### [facility] [address] [place] [address] MCV (RBC) [Entitic vol] 84.5 fL Normal 80.0-100.0 [facility] Comment on above: Performed By: #### 2 [id number] #### [facility] [address] [place] [address] Monocytes (Bld) [#/Vol] 0.4 E9/L Normal 0.2-1.0 [facility] Comment on above: Performed By: #### 2 [id number] #### [facility] [address] [place] [address] Neutrophils (Bld) [#/Vol] 5.8 E9/L Normal 2.0-7.5 [facility] Comment on above: Performed By: #### 2 786463 #### [facility] [address] [place] [address] Neutrophils/100 WBC (Bld) 71.2 % Normal 36.0-75.0 [facility] Comment on above: Performed By: #### 2 462786 #### [facility] [address] [place] [address] Platelet mean volume (Bld) [Entitic vol] 8.8 fL Normal 6.4-10.8 [facility] Comment on above: Performed By: #### 2 151096 #### [facility] [address] [place] [address] 99[address] Platelets (Bld) [#/Vol] 227.0 E9/L Normal 150.0-500.0 [facility] Comment on above: Performed By: #### 2 965689 #### [facility] [address] [place] [address] RBC (Bld) [#/Vol] 4.6 E12/L Normal 4.3-5.9 [facility] Comment on above: Performed By: #### 2 193241 #### [facility] [address] [place] [address] WBC corrected for nucl RBC Auto (Bld) [#/Vol] 8.2 E9/L Normal 4.0-11.0 [facility] Comment on above: Performed By: #### 2 511787 #### [facility] [address] [place] [address] CHEMISTRYOrdered By: liveBooks SYSTEM on 07-29-2024 Amphetamines Screen method >1000 [...] (Bld) [Mass fraction] 4.9 % Normal <=5.9% [facility] ChemAutoSS HEMATOLOGYOrdered By: SYSTEM SYSTEM on 07-29-2024 [...] Normal 4.0 - 11.0 E9/L Remisol Heme [id number] 07-29-2024 HbA1c (Bld) [Mass fraction] 4.9 % Normal <=5.9 [facility] Comment on above: Performed By: #### 7 [id number] #### [facility] [address] [place] [address] Reference Laboratory Testing Ordered By: Ageto ServiceUser on 07-29-2024 HBV surface Ag IA Ql Negative Invalid Interpretation Code Negative [facility] SendOutsSS Comment on above: Result Comment: Perf ormed at: [address] [id number] PhD Franky Licona HCV Ab IA Ql Non-Reactive Invalid Interpretation Code Non Reactive [facility] [employer]Out[employer] Comment on above: Result Comment: Perf ormed at: [address] [id number] PhD Franky Licona HCV Ab IA Ql Comment Invalid Interpretation Code [facility] [employer]Outs[employer] Comment on above: Result Comment: Not infected with HCV unless early or acute infection is suspected (which may be delayed in an immunocompromised individual), or other evidence exists to indicate HCV infection. Performed at: [address] [id number] PhD Franky Licona HIV 1+2 Ab+HIV1 p24 Ag IA Ql Non-Reactive Invalid Interpretation Code Non Reactive [facility] [employer]Out[employer] Comment on above: Result Comment: HIV- 1/HIV-2 antibodies and HIV-1 p24 antigen were NOT detected. There is no laboratory evidence of HIV infection. HIV Negative Performed at: [address] [id number] PhD Franky Licona Reagin Ab RPR Ql (S) Non-Reactive Invalid Interpretation Code Non Reactive [facility] [employer]Out[employer] Comment on above: Result Comment: Perf ormed at: [address] [id number] PhD Franky Licona Rubella virus IgG Qn (S) 3.34 [IU]/mL Invalid Interpretation Code Immune >0.99 [facility] [employer]OutsSS Comment on above: Result Comment: Non- immune <0.90 Equivocal 0.90 - 0.99 Immune >0.99 Performed at: [address] [id number] PhD Franky Licona U Drug Screenon 07-29-2024 Amphetamines Screen method >1000 ng/mL Ql (U) Negative Normal NEGATIVE [facility] Comment on above: Result Comment: Nega tive Cutoff: <1000 ng/mL Performed By: #### 2 054136 #### [facility] [address] [place] [address] Barbiturates Screen Ql (U) Negative Normal NEGATIVE [facility] Comment on above: Result Comment: Nega tive Cutoff: <200 ng/mL Performed By: #### 2 787154 #### [facility] [address] [place] [address] Benzodiazepines Ql (U) Negative Normal NEGATIVE [facility] Comment on above: Result Comment: Nega tive Cutoff: <200 ng/mL Performed By: #### 2 [id number] #### [facility] [address] [place] [address] Cannabinoids Screen Ql (U) Negative Normal NEGATIVE [facility] Comment on above: Result Comment: Nega tive Cutoff: <50 ng/mL Performed By: #### 2 642875 #### [facility] [address] [place] [address] Cocaine Ql (U) Negative Normal NEGATIVE [facility] Comment on above: Result Comment: Nega tive Cutoff: <300 ng/mL Performed By: #### 2 733843 #### [facility] [address] [place] [address] Opiates Screen Ql (U) Negative Normal NEGATIVE [facility] Comment on above: Result Comment: Nega tive Cutoff: <300 ng/mL Performed By: #### 2 813379 #### [facility] [address] [place] [address] Phencyclidine Screen method >25 ng/mL Ql (U) Negative Normal NEGATIVE [facility] Comment on above: Result Comment: Nega tive Cutoff: <25 ng/mL These drug screen results are to be used for medical (i.e., treatment) purposes only. Unconfirmed drug screening results must not be used for non-medical purposes (e.g., employment testing, legal testing). Performed By: #### 2 634957 #### [facility] [address] [place] [address] U Fentanyl Negative Normal NEGATIVE [facility] Comment on above: Result Comment: Nega tive Cutoff: <5 ng/mL These drug screen results are to be used for medical (i.e., treatment) purposes only. Unconfirmed drug screening results must not be used for non-medical purposes (e.g., employment testing, legal testing). Performed By: #### 2 [id number] #### [facility] [address] [place] [address] UA with Cult Rflxon 07-30-19 25 Bilirubin Ql (U) Negative Normal Negative [facility] Comment on above: Performed By: #### 4 [id number] #### [facility] [address] [place] [address] Clarity (U) Clear Normal Clear [facility] Comment on above: Performed By: #### 4 [id number] #### [facility] [address] [place] [address] Color (U) Colorless Abnormal Yellow [facility] Comment on above: Result Comment: Micr oscopic readings are only performed on those samples that meet specific criteria set forth by [facility]. Performed By: #### 4 [id number] #### [facility] [address] [place] [address] Glucose Ql (U) Negative Normal Negative [facility] Comment on above: Performed By: #### 4 [id number] #### [facility] [address] [place] [address] Hemoglobin Auto test strip (U) [Mass/Vol] Negative Normal Negative [facility] Comment on above: Performed By: #### 4 [id number] #### [facility] [address] [place] [address] Ketones Auto test strip Ql (U) Negative Normal Negative [facility] Comment on above: Performed By: #### 4 [id number] #### [facility] [address] [place] [address] Leukocyte esterase Auto test strip Ql (U) Negative Normal Negative [facility] Comment on above: Performed By: #### 4 [id number] #### [facility] [address] [place] [address] Nitrite Auto test strip Ql (U) Negative Normal Negative [facility] Comment on above: Performed By: #### 4 [id number] #### [facility] [address] [place] [address] pH (U) 6.0 [pH] Invalid Interpretation Code 5.0-9.0 [facility] Comment on above: Performed By: #### 4 [id number] #### [facility] [address] [place] [address] Protein Ql (U) Negative Normal Negative [facility] Comment on above: Performed By: #### 4 [id number] #### [facility] [address] [place] [address] Specific gravity (U) [Rel density] 1.006 Invalid Interpretation Code 1.005-1.030 [facility] Comment on above: Performed By: #### 4 [id number] #### [facility] [address] [place] [address] Urobilinogen (U) [Mass/Vol] Negative Normal Negative [facility] Comment on above: Performed By: #### 4 [id number] #### [facility] [address] [place] [address] Type of Urine collection method Clean Catch Normal [facility] Comment on above: Performed By: #### 4 [id number] #### [facility] [address] [place] [address] URINALYSISOrdered By: SYSTEM SYSTEM on 07-29-2024 Bilirubin Ql (U) Negative Normal Negativemg/ d L [facility] UA Auto SS Clarity (U) Clear (07/29/24 12:36 PM) Normal Clear [facility] UA Auto SS Color (U) Colorless 5 *ABN* (07/29/24 12:36 PM) Invalid Interpretation Code Yellow [facility] UA Auto SS Comment on above: Interpretive Data: M icroscopic readings are only performed on those samples that meet specific criteria set forth by [facility]. Glucose Ql (U) Negative Normal Negativemg/d L [facility] UA Auto SS Hemoglobin Auto test strip (U) [Mass/Vol] Negative Normal Negativemg/d L [facility] UA Auto SS Ketones Auto test strip Ql (U) Negative Normal Negativemg/d L [facility] UA Auto SS Leukocyte esterase Auto test strip Ql (U) Negative Normal NegativeLeu/ uL [facility] UA Auto SS Nitrite Auto test strip Ql (U) Negative Normal Negativemg/d L [facility] UA Auto SS pH (U) 6.0 *NA* (07/29/24 12:36 PM) Invalid Interpretation Code 5.0 - 9.0 [facility] UA Auto SS Protein Ql (U) Negative Normal Negativemg/d L [facility] UA Auto SS Specific gravity (U) [Rel density] 1.006 *NA* (07/29/24 12:36 PM) Invalid Interpretation Code 1.005 - 1.030 [facility] UA Auto SS Urobilinogen (U) [Mass/Vol] Negative Normal Negativemg/d L [facility] UA Auto SS URINALYSISOrdered By: Meli Mendez on 07-29-2024 UA Spec Desc Clean Catch (07/29/24 12:36 PM) Normal [facility] UA Auto SS HCG ( test) Ql (U)o n 07-28-2024 Interpretation and review of laboratory results Abnormal [facility] Preg Test, Ur Positive Negative [facility] Health [facility] US OB TRANSVAGINALon 025 US [...] II, MD, PHD at 28-Jul-2024 11:17:18 PM [facility] Normal Not Available Comment on above: Order Comment: US OB TRANSVAGINAL No LMP recorded. Urinalysis macro (dipstick) panel (U)on 07-28-2024 Bilirubin, UA Negative Negative - 4(70) +++ mg/dL [facility] Blood, UA Negative Negative - 50 Xavier/mcL [facility] Healthcare Clarity, UA Clear [facility] Color, UA Yellow [facility] Glucose, UA Negative Negative - 2000(110) ++++ mg/dL [facility] Interpretation and review of laboratory results Normal [facility] Ketones, UA Negative Negative - 160(16) ++++ mg/dL [facility] Leukocytes, UA Negative Negative - 500+++ Astrid/mcL [facility] Healthcare Nitrite, UA Negative Negative - Positive [facility] pH, UA 5.5 5 - 9 [facility] Protein, UA Negative Negative - 1999(20) ++++ mg/dL [facility] Spec Grav, UA 1.02 1 - 1.03 [facility] Urobilinogen, UA 1.0 0.2 - 12 mg/dL [facility] e BhCG Quanton 06-29-2024 [place] [address] m[IU]/mL High 1-3 F [facility] Comment on above: Result Comment: 'F N ON < 1 - 3' ' 0.2 - 1 WEEK = 5 TO 50' ' 1 - 2 WEEKS = 50 - 500' ' 2 - 3 WEEKS = 100 - 5000' ' 3 - 4 WEEKS = 500 - 45337' ' 4 - 5 WEEKS = 1000 - 97707' ' 5 - 6 WEEKS = 18767 - 141284' ' 6 - 8 WEEKS = 61958 - 291900' ' 8 - 12 WEEKS = 90374 - 241752' Performed By: #### 2 [id number] #### [facility] [address] [place] [address] CHEMISTRYOrdered By: SYSTEM SYSTEM on 06-29-2024 [place] [address] m[IU]/mL High 1 - 3 mIU/mL [facility] Comment on above: Result Comment: 'F N ON < 1 - 3' ' 0.2 - 1 WEEK = 5 TO 50' ' 1 - 2 WEEKS = 50 - 500' ' 2 - 3 WEEKS = 100 - 5000' ' 3 - 4 WEEKS = 500 - 75556' ' 4 - 5 WEEKS = 1000 - 73530' ' 5 - 6 WEEKS = 10055 - 561994' ' 6 - 8 WEEKS = 24772 - 550444' ' 8 - 12 WEEKS = 76275 - 847237' BhCG Quanton 06-27-2024 HCG.beta subunit Qn 8149 m[IU]/mL High 1-3 [facility] Comment on above: Result Comment: 'F N ON < 1 - 3' ' 0.2 - 1 WEEK = 5 TO 50' ' 1 - 2 WEEKS = 50 - 500' ' 2 - 3 WEEKS = 100 - 5000' ' 3 - 4 WEEKS = 500 - 03911' ' 4 - 5 WEEKS = 1000 - 04724' ' 5 - 6 WEEKS = 30245 - 564109' ' 6 - 8 WEEKS = 46820 - 643804' ' 8 - 12 WEEKS = 21032 - 237528' Performed By: #### 2 [id number] #### [facility] [address] [place] [address] CHEMISTRYOrdered By: SYSTEM SYSTEM on 06-27-2024 HCG.beta [...] 3 - 4 WEEKS = 500 - 71183' ' 4 - 5 WEEKS = 1000 - 93035' ' 5 - 6 WEEKS = 40945 - 012417' ' 6 - 8 WEEKS = 58026 - 749054' ' 8 - 12 WEEKS = 82570 - 643674' BhCG QuantOrdered By: SYSTEM SYSTEM on 06-25-2024 [...] 3 - 4 WEEKS = 500 - 53194' ' 4 - 5 WEEKS = 1000 - 33849' ' 5 - 6 WEEKS = 90595 - 684407' ' 6 - 8 WEEKS = 81939 - 779412' ' 8 - 12 WEEKS = 31793 - 614664' Performed By: #### 2 [id number] #### [facility] [address] [place] [address] Result Comment: 'F N ON < 1 - 3' ' 0.2 - 1 WEEK = 5 TO 50' ' 1 - 2 WEEKS = 50 - 500' ' 2 - 3 WEEKS = 100 - 5000' ' 3 - 4 WEEKS = 500 - 28018' ' 4 - 5 WEEKS = 1000 - 20039' ' 5 - 6 WEEKS = 64291 - 409068' ' 6 - 8 WEEKS = 37141 - 588971' ' 8 - 12 WEEKS = 59115 - 681430' BhCG Quanton 06-23-2024 HCG.beta subunit Qn 1954 m[IU]/mL High 1-3 [facility] Comment on above: Result Comment: 'F N ON < 1 - 3' ' 0.2 - 1 WEEK = 5 TO 50' ' 1 - 2 WEEKS = 50 - 500' ' 2 - 3 WEEKS = 100 - 5000' ' 3 - 4 WEEKS = 500 - 61976' ' 4 - 5 WEEKS = 1000 - 30751' ' 5 - 6 WEEKS = 67963 - 020911' ' 6 - 8 WEEKS = 60732 - 758083' ' 8 - 12 WEEKS = 68756 - 899052' Performed By: #### 2 475296 #### [facility] [address] [place] [address] CHEMISTRYOrdered By: SYSTEM SYSTEM on 06-23-2024 HCG.beta [...] 3 - 4 WEEKS = 500 - 10489' ' 4 - 5 WEEKS = 1000 - 47037' ' 5 - 6 WEEKS = 19663 - 477702' ' 6 - 8 WEEKS = 55244 - 228586' ' 8 - 12 WEEKS = 40943 - 924189' Auto Diffon 11-05-2022 Basophils/100 WBC (Bld) 0.1 % Normal 0.0-2.0 [facility] Comment on above: Order Comment: Order Added by Discern Expert. Performed By: #### 1 [id number], 3825329, 7773809, 8678497 #### [facility] [address] [place] [address] Basophils/Leukocytes Auto (Bld) [Pure # fraction] 0.0 E9/L Normal 0.0-0.2 [facility] Comment on above: Order Comment: Order Added by Discern Expert. Performed By: #### 1 [id number], 4406339, 9786347, 3809760 #### [facility] [address] [place] [address] Eosinophils/100 WBC (Bld) 2.6 % Normal 0.0-8.0 [facility] Comment on above: Order Comment: Order Added by Discern Expert. Performed By: #### 1 2510533, 1931319, 5685467, 6901884 #### [facility] [address] [place] [address] Eosinophils/Leukocyte s Auto (Bld) [Pure # fraction] 0.2 E9/L Normal 0.0-0.5 [facility] Comment on above: Order Comment: Order Added by Savi Expert. Performed By: #### 1 [id number], 1805707, 8752863, 9138604 #### [facility] [address] [place] [address] 20058 Lymphocytes/100 WBC (Bld) 25.8 % Normal 14.0-50.0 [facility] Comment on above: Order Comment: Order Added by Savi Expert. Performed By: #### 1 8797685, 0741148, 4721204, 1660879 #### [facility] [address] [place] [address]683 Lymphocytes/Leukocyte s Auto (Bld) [Pure # fraction] 1.9 E9/L Normal 1.0-4.0 [facility] Comment on above: Order Comment: Order Added by Discern Expert. Performed By: #### 1 [id number], 8416870, 3189830, 4973341 #### [facility] [address] [place] [address] Monocytes/100 WBC (Bld) 4.8 % Normal 4.0-14.0 [facility] Comment on above: Order Comment: Order Added by Savi Expert. Performed By: #### 1 3667326, 8715761, 5038372, 7705813 #### [facility] [address] [place] [address] Monocytes/Leukocytes Auto (Bld) [Pure # fraction] 0.3 E9/L Normal 0.2-1.0 [facility] Comment on above: Order Comment: Order Added by Discern Expert. Performed By: #### 1 1137349, 6825369, 6359579, 9232135 #### [facility] [address] [place] [address] Neutrophils/100 WBC (Bld) 66.7 % Normal 36.0-75.0 [facility] Comment on above: Order Comment: Order Added by Discern Expert. Performed By: #### 1 [id number], 7773985, 8181450, 1057503 #### [facility] [address] [place] [address] Neutrophils/Leukocyte s Auto (Bld) [Pure # fraction] 4.8 E9/L Normal 2.0-7.5 [facility] Comment on above: Order Comment: Order Added by Discern Expert. Performed By: #### 1 4969457, 9979747, 6546384, 8888928 #### [facility] [address] [place] [address] BMPon 11-05-2022 Creatinine [Mass/Vol] 0.6 mg/dL Normal 0.5-1.3 [facility] Comment on above: Performed By: #### 1 0724297, 9519164, 6797683, 0396415 #### [facility] [address] [place] [address] Urea nitrogen [Mass/Vol] 13 mg/dL Normal 5-21 [facility] Comment on above: Performed By: #### 1 0090683, 9621929, 7067210, 8467597 #### [facility] [address] [place] [address] Urea nitrogen/Creatinine [Mass ratio] 22 No Units High 10-20 [facility] Comment on above: Performed By: #### 1 3751307, 9183260, 5121627, 1006926 #### [facility] [address] [place] [address] Anion gap [Moles/Vol] 10 mmol/L Normal 6-16 [facility] Comment on above: Performed By: #### 1 3647337, 9461203, 0902038, 7631154 #### [facility] [address] [place] [address] Calcium [Mass/Vol] 8.8 mg/dL Low 8.9-11.1 [facility] Comment on above: Performed By: #### 1 4129302, 5074474, 5609408, 1381449 #### [facility] [address] [place] [address] Chloride [Moles/Vol] 102 mmol/L Normal 101-111 [place] Comment on above: Performed By: #### 1 0814070, 3486065, 8454427, 6734596 #### [facility] [address] [place] [address] CO2 [Moles/Vol] 23 mmol/L Normal 21-31 [facility] Comment on above: Performed By: #### 1 8536421, 1239223, 5645885, 4131274 #### [facility] [address] [place] [address] Glucose [Mass/Vol] 119 mg/dL Normal 55-199 [facility] Comment on above: Result Comment: If t his glucose result represents a fasting glucose, interpretation should refer to the following reference range: 55-99 mg/dL Performed By: #### 1 4315006, 7937385, 5469864, 4386989 #### [facility] [address] [place] [address] Potassium [Moles/Vol] 3.4 mmol/L Low 3.5-5.3 [facility] Comment on above: Performed By: #### 1 0996970, 4585916, 5539550, 2124771 #### [facility] [address] [place] [address] Sodium [Moles/Vol] 132 mmol/L Low 135-145 [facility] Comment on above: Performed By: #### 1 2640167, 8180253, 4108808, 9583432 #### [facility] [address] [place] [address] CBC w/ Auto Diffon 3 Erythrocyte distribution width (RBC) [Ratio] 13.0 % Normal 10.9-14.2 [facility] Comment on above: Performed By: #### 1 3248524, 4960184, 7739054, 1003540 #### [facility] [address] [place] [address] Hematocrit (Bld) [Volume fraction] 35.0 % Normal 34.0-46.0 [facility] Comment on above: Performed By: #### 1 6989273, 4766268, 6565488, 8264272 #### [facility] [address] [place] [address] Hemoglobin (Bld) [Mass/Vol] 12.0 g/dL Normal 12.0-16.0 [facility] Comment on above: Performed By: #### 1 4588457, 7636993, 8078690, 1150219 #### [facility] [address] [place] [address] MCH (RBC) [Entitic mass] 29.4 pg Normal 27.0-34.0 [facility] Comment on above: Performed By: #### 1 1332923, 8359844, 9269960, 0549784 #### [facility] [address] [place] [address] MCHC (RBC) [Mass/Vol] 34.4 g/dL Normal 31.4-36.0 [facility] Comment on above: Performed By: #### 1 7068454, 3416504, 8062334, 6863291 #### [facility] [address] [place] [address] MCV (RBC) [Entitic vol] 85.5 fL Normal 80.0-100.0 [facility] Comment on above: Performed By: #### 1 5733699, 9204788, 8140397, 4527089 #### [facility] [address] [place] [address] Platelet mean volume (Bld) [Entitic vol] 8.5 fL Normal 6.4-10.8 [facility] Comment on above: Performed By: #### 1 4100654, 7167329, 4252566, 7320438 #### [facility] [address] [place] [address] Platelets (Bld) [#/Vol] 188.0 E9/L Normal 150.0-500.0 [facility] Comment on above: Performed By: #### 1 7567160, 1941411, 6877688, 9571296 #### [facility] [address] [place] [address] RBC (Bld) [#/Vol] 4.1 E12/L Low 4.3-5.9 [facility] Comment on above: Performed By: #### 1 3140376, 0646658, 9014373, 0776375 #### [facility] [address] [place] [address] WBC corrected for nucl RBC Auto (Bld) [#/Vol] 7.2 E9/L Normal 4.0-11.0 [facility] Comment on above: Performed By: #### 1 8235617, 1192496, 0381478, 9971010 #### [facility] [address] [place] [address] CHEMISTRYOrdered By: SYSTEM SYSTEM on 11-05-2022 Anion gap [Moles/Vol] 10 mmol/L Normal 6 - 16 mEq/L F C Remisol Calcium [Mass/Vol] 8.8 mg/dL Low 8.9 - 11. 1 mg/dL [facility] Remisol Chloride [Moles/Vol] 102 mmol/L Normal 101 - 1 11 mmol/L [facility] Remisol CO2 [Moles/Vol] 23 mmol/L Normal 21 - 31 mmol/L [facility] Remisol Creatinine [Mass/Vol] 0.6 mg/dL Normal 0.5 - 1.3 mg/dL [facility] Remisol GFR/1.73 sq M.predicted among non-blacks MDRD (S/P/Bld) [Vol rate/Area] 128 mL/min/1.73 m2 Normal >=59mL/min/1 .73 m2 [facility] Chem S Glucose [Mass/Vol] 119 mg/dL Normal 55 - 199 mg/dL [facility] Remisol Potassium [Moles/Vol] 3.4 mmol/L Low 3.5 - 5.3 mmol/L [facility] Remisol Sodium [Moles/Vol] 132 mmol/L Low 135 - 145 mmol/L [facility] Remisol Urea nitrogen [Mass/Vol] 13 mg/dL Normal 5 - 21 mg/dL [facility] Remisol Urea nitrogen/Creatinine [Mass ratio] 22 mg/mg High 10 - 20 [facility] Remisol Consent for Treatmenton Consent for Treatment [id number] #[id number]:127 Normal [facility] Discharge Instructionson Discharge Instructions [id number]#1.00CD:127 Normal [facility] ED Clinical Summaryon 2022 ED Clinical Summary [place] [id number] ED Clinical Summary Person Information Name: RADHA DINH [facility] Age: 26 Years : 1995 Sex: Female Language: Iraqi PCP: ANTHONY ROMAN MD Marital Status: Single [...] 11/05/2022 11:36:08 11/05/2022 11:36:08 11/05/2022 11:36:08 ADDRESS: [address] [place] [id number] PHYS DOC NOTES: MEDICAL INFORMATION: Prescriptions Given: Medications to Continue with No Changes Other Medications ethinyl estradiol-norethindr one (Chanell 24 Fe oral tablet) PATIENT EDUCATION INFORMATION: Instructions: Near-Syncope Follow up: With: Address: When: Claudio ALANIS [facility], [address] [place] [address] Dr. [place] [phone] Business (1) In 3 days 11/08/2022 With: Address: When: ANTHONY ROMAN [address] [place] [id number] [employer] (1) In 3 days 11/08/2022 Comments: Call [...] or worsening symptoms. DIAGNOSIS: Near syncope Normal [facility] ED Note-Physicianon 11-06-19 23 ED Note-Physician Basic Information Time Seen: Kashif Nguyen PA-C 11/05/2022 08:03 History of Present Illness 26-year-old [...] and Complexity of Problems Differential Diagnosis: [] [facility] Data External documents reviewed: [] My [...] and follow-up with PCP as well as PRIVATE INQUIRY AGENT. Return precaution discussed. Patient questions answered. Patient [...] Patient seen and evaluated by the physician oral surgery assistant. Attending physician was present in the emergency department and supervised care. This visit was performed by both the physician and an APC. I performed all aspects of the MDM as documented. This report was transcribed using voice recognition software. Every effort was made to ensure accuracy, however, inadvertently computerized housing relocation mistakes may be present. Appropriate healthcare PPE was used in evaluating this patient. The patient was placed in a mask. The healthcare provider was wearing mask, gloves, and utilizing proper hand hygiene. All equipment was properly c (more content not included)... Normal [facility] Comment on above: Result Comment: Elec [...] these instructions at home: Medicines ? Take avln-tlh-dhkqioa and prescription medicines only as told by [...] Reviewed: 08/29/2021 Elsevier Patient Education ? 2022 [employer] Normal [facility] ED Patient Summaryon 023 ED Patient Summary [address] [address] Patient Discharge Instructions Person Information Name: RADHA DINH Age: 26 Years Arrival Date: 11/05/2022 07:55:48 Discharge Diagnosis: Near syncope Primary Care Physician: ANTHONY ROMAN MD Provider Information Primary Provider: Nick Velasquez DO Advanced Supervisor Maintenance:Kashif Nguyen PA-C The exam and treatment you received in the Emergency Department were for an urgent problem and are not intended as complete care. It is important that you follow up with a doctor, nurse practitioner, or physician?s oral surgery assistant for ongoing care. If your symptoms become worse or you do not improve as expected and you are unable to reach your usual health care provider, you should return to the Emergency Department. We are available 24 hours a day. RADHA DINH has been given the following list of patient education materials, prescriptions and follow-up instructions: Follow-up Instructions: With: Address: When: Claudio ALANIS [address] Victoriano Roldan [place] [phone] Business (1) In 3 days 11/08/2022 With: Address: When: ANTHONY ROMAN [address] [place], [place] [phone] [facility] () In 3 days 11/08/2022 Comments: Call [...] opioids can be used to help relieve sonvtybk-uc-zhrokj pain and are often prescribed following a [...] prescription opio (more content not included)... Normal [facility] HEMATOLOGYOrdered By: [employer] SYSTEM on 11-05-2022 Basophils/100 WBC (Bld) 0.1 [...] LM Ql (Urine sed) TRACE Normal Trace [facility] Comment on above: Performed By: #### 1 [id number] #### [facility] [address] [place] [address] Bilirubin Ql (U) Negative Normal Negative [facility] Comment on above: Performed By: #### 1 [id number] #### [facility] [address] [place] [address] Clarity (U) SL CLOUDY Invalid Interpretation Code [facility] Comment on above: Performed By: #### 1 [id number] #### [facility] [address] [place] [address] Color (U) YELLOW Normal Yellow [facility] Comment on above: Performed By: #### 1 [id number] #### [facility] [address] [place] [address] Epithelial cells.squamous LM.HPF (Urine sed) [#/Area] 3-4 Normal 0-2 [facility] Comment on above: Performed By: #### 1 [id number] #### [facility] [address] [place] [address] Glucose Test strip (U) [Mass/Vol] Negative Normal Negative [facility] Comment on above: Performed By: #### 1 [id number] #### [facility] [address] [place] [address] Hemoglobin Ql (U) Negative Normal Negative [facility] Comment on above: Performed By: #### 1 [id number] #### [facility] [address] [place] [address] Ketones (U) [Mass/Vol] Negative Normal Negative [facility] Comment on above: Performed By: #### 1 [id number] #### [facility] [address] [place] [address] [place].plasma/Lithiu m.RBC (Bld) [Mass ratio] 0-3 Normal 0-3 [facility] Comment on above: Performed By: #### 1 [id number] #### [facility] [address] [place] [address] Mucus Ql (Urine sed) TRACE Normal [facility] Comment on above: Performed By: #### 1 [id number] #### [facility] [address] [place] [address] Nitrite Ql (U) Negative Normal Negative [facility] Comment on above: Performed By: #### 1 [id number] #### [facility] [address] [place] [address] pH (U) 6.5 [pH] Invalid Interpretation Code 5.0-9.0 [facility] Comment on above: Performed By: #### 1 [id number] #### [facility] [address] [place] [address] Protein (U) [Mass/Vol] Negative Normal Negative [facility] Comment on above: Performed By: #### 1 [id number] #### [facility] [address] [place] [address] Specific gravity (U) [Rel density] <=1.005 Invalid Interpretation Code 1.005-1.030 [facility] Comment on above: Performed By: #### 1 [id number] #### [facility] [address] [place] [address] Type of Urine collection method Clean Catch Normal [facility] Comment on above: Performed By: #### 1 [id number] #### [facility] [address] [place] [address] Urobilinogen Qn (U) 0.2 {Rogelio'U}/dL Normal 0.0-1.0 [facility] Comment on above: Performed By: #### 1 [id number] #### [facility] [address] [place] [address] WBC Auto Ql (U) TRACE Abnormal Negative [facility] Comment on above: Performed By: #### 1 [id number] #### [facility] [address] [place] [address] WBC LM.HPF (Urine sed) [#/Area] 0-5 Normal 0-5 [facility] Comment on above: Performed By: #### 1 [id number] #### [facility] [address] [place], [place] [id number] URINALYSISOrdered By: Marisol Hendrix on 11-05-2022 Bacteria LM Ql (Urine sed) Trace /HPF Normal Trace/HPF [facility] UA Auto SS Bilirubin Ql (U) Negative (11/05/22 10:36 AM) Normal Negative [facility] UA Auto SS Clarity (U) SL CLOUDY Invalid Interpretation Code [facility] UA Auto SS Color (U) Yellow (11/05/22 10:36 AM) Normal Yellow [facility] UA Auto SS Epithelial cells.squamous LM.HPF (Urine sed) [#/Area] 3-4 /HPF Normal 0-2/HPF [facility] Aut o SS Glucose Test strip (U) [Mass/Vol] Negative (11/05/22 10:36 AM) Normal Negative [facility] UA Auto SS Hemoglobin Ql (U) Negative (11/05/22 10:36 AM) Normal Negative [facility] UA Auto SS Ketones (U) [Mass/Vol] Negative (11/05/22 10:36 AM) Normal Negative [facility] UA Auto SS [place].plasma/Lithiu m.RBC (Bld) [Mass ratio] 0-3 /HPF Normal [...] [facility] UA Auto SS Urobilinogen Qn (U) 0.5376113 {Rogelio'U}/dL Normal 0.0 - 1.0 EU/dL [facility] UA Auto SS WBC Auto Ql (U) Trace *ABN* (11/05/22 10:36 AM) Invalid Interpretation Code Negative [facility] UA Auto SS WBC LM.HPF (Urine sed) [#/Area] 0-5 /HPF Normal 0-5/HPF [facility] UA Auto SS eGFRon 11-05-2022 GFR/1.73 sq M.predicted among non-blacks MDRD (S/P/Bld) [Vol rate/Area] 128 mL/min/1.73 m2 Normal >=59 [facility] Comment on above: Order Comment: Order added by Discern Expert. Result Comment: Title Coordinator roxane kidney disease could be indicated at eGFR's of less than 60 mL/min/1.73m2. Kidney failure is indicated at less than 15 mL/min/1.73m2. Performed By: #### 1 [id number], [id number] #### [facility] [address] [place] [address] HEP B SURFACE ANTIGEN SCREEN on 09-10-2022 HBsAg Screen Negative Normal Negative [facility] Comment on above: Performed By: #### H BSANS #### [facility] [address] [place] [address] Dr. Samira Griffiths HEPATITIS C VIRUS AB W/ REFL EX QUANTon 09-10-2022 HCV AB Non-Reactive Normal Non Reactive [facility] Comment on above: Performed By: #### H CVPCRR #### [facility] [address] [place] [address] Dr. Samira Griffiths Interpretation: Comment Normal [facility] Comment on above: Result Comment: Not infected with HCV unless early or acute infection is suspected (which may be delayed in an immunocompromised individual), or other evidence exists to indicate HCV infection. Performed By: #### H CVPCRR #### [facility] [address] [place] [address] Dr. Samira Griffiths HIV 1 AND 2 WITH REFLEXon HIV Screen 4th Generation wRfx Non-Reactive Normal Non Reactive [facility] Comment on above: Result Comment: HIV Negative HIV-1/HIV-2 antibodies and HIV-1 p24 antigen were NOT detected. There is no laboratory evidence of HIV infection. Performed By: #### H IV12 #### [facility] [address] [place] [address] Dr. Samira Griffiths RPR QUANTon 09-10-2022 Rapid Plasma Reagin, Quant Non-Reactive Normal NonRea<1:1 [facility] Comment on above: Result Comment: Plea se Note: This test does not meet current guidelines for screening and diagnosis of syphilis. This test is intended for following treatment response in patients being treated for syphilis infection. To screen for syphilis infection, a reflex cascade that includes both RPR and a treponema-specific assay should be utilized, such as Treponema pallidum (Syphilis) Screening [place] (432394) or Rapid Plasma Reagin (RPR) Test With Reflex to Quantitative RPR and Confirmatory Treponema pallidum Antibodies (211477). Performed By: #### R PRQ #### [facility] [address] [place] [address] Dr. Samira Griffiths RUBELLA AB IGGon 05-10-2023 Rubella Antibodies, IgG 3.13 index Normal Immune >0.99 [facility] Comment on above: Result Comment: Non- immune <0.90 Equivocal 0.90 - 0.99 Immune >0.99 Performed By: #### R UBIGG #### [facility] [address] [place] [address] Dr. Samira Griffiths BOX TEST SENT OUTon 09-10-19 23 SENT TO REF LAB 09/09/2022 Normal [facility] Comment on above: Performed By: #### T SH #### [facility] [address] [place] [address] Dr. Samira Griffiths CBC AUTO DIFFon 09-09-2022 BASO # 0.0 103/ul Normal 0.0-0.1 [facility] Comment on above: Performed By: #### C BC #### [facility] [address] [place] [address] Dr. Samira Griffiths Basophils/100 WBC (Bld) 0.2 % Normal 0.2-2.0 [facility] Comment on above: Performed By: #### C BC #### [facility] [address] [place] [address] Dr. Samira Griffiths EO # 0.2 103/ul Normal 0.0-0.7 [facility] Comment on above: Performed By: #### C BC #### [facility] [address] [place] [address] Dr. Samira Griffiths Eosinophils/100 WBC (Bld) 1.9 % Normal 0.9-7.0 [facility] Comment on above: Performed By: #### C BC #### [facility] [address] [place] [address] Dr. Samira Griffiths Erythrocyte distribution width (RBC) [Ratio] 11.9 % Normal 11.0-15.0 [facility] Comment on above: Performed By: #### C BC #### [facility] [address] [place] [address] Dr. Samira Griffiths Hematocrit (Bld) [Volume fraction] 36.6 % Normal 36.0-48.0 [facility] Comment on above: Performed By: #### C BC #### [facility] [address] [place] [address] Dr. Samira Griffiths Hemoglobin (Bld) [Mass/Vol] 12.4 g/dL Normal 12.0-16.0 [facility] Comment on above: Performed By: #### C BC #### [facility] [address] [place] [address] Dr. Samira Griffiths IG # 0.03 10e3/ul Normal 0.00-0.03 [facility] Comment on above: Performed By: #### C BC #### [facility] [address] [place] [address] Dr. Samira Griffiths IG % 0.3 % Normal 0.0-0.5 [facility] Comment on above: Performed By: #### C BC #### [facility] [address] [place] [address] Dr. Samira Griffiths LYMPH # 1.9 103/ul Normal 1.2-3.8 [facility] Comment on above: Performed By: #### C BC #### [facility] [address] [place] [address] Dr. Samira Griffiths Lymphocytes/100 WBC (Bld) 21.1 % Normal 20.5-60.0 [facility] Comment on above: Performed By: #### C BC #### [facility] [address] [place] [address] Dr. Samira Griffiths MANUAL DIFF REQ NO Normal [facility] Comment on above: Performed By: #### C BC #### [facility] [address] [place] [address] Dr. Samira Griffiths MCH (RBC) [Entitic mass] 29.0 pg Normal 26.7-34.0 [facility] Comment on above: Performed By: #### C BC #### [facility] [address] [place] [address] Dr. Samira Griffiths MCHC (RBC) [Mass/Vol] 33.9 g/dL Normal 29.9-35.2 [facility] Comment on above: Performed By: #### C BC #### [facility] [address] [place] [address] Dr. Samira Griffiths MCV (RBC) [Entitic vol] 85.7 fL Normal 81.0-99.0 [facility] Comment on above: Performed By: #### C BC #### [facility] [address] [place] [address] Dr. Samira Griffiths MONO # 0.6 103/ul Normal 0.3-0.8 [facility] Comment on above: Performed By: #### C BC #### [facility] [address] [place] [address] Dr. Samira Griffiths Monocytes/100 WBC (Bld) 6.4 % Normal 1.7-12.0 [facility] Comment on above: Performed By: #### C BC #### [facility] [address] [place] [address] Dr. Samira Griffiths NEUT # 6.3 103/ul Normal 1.4-6.5 [facility] Comment on above: Performed By: #### C BC #### [facility] [address] [place] [address] Dr. Samira Griffiths Neutrophils/100 WBC (Bld) 70.1 % Normal 43.0-75.0 [facility] Comment on above: Performed By: #### C BC #### [facility] [address] [place] [address] Dr. Samira Griffiths Platelet mean volume (Bld) [Entitic vol] 10.1 fL Normal 9.5-13.5 [facility] Comment on above: Performed By: #### C BC #### [facility] [address] [place] [address] Dr. Samira Griffiths PLT 228 103/ul Normal 150-450 [facility] Comment on above: Performed By: #### C BC #### [facility] [address] [place] [address] Dr. Samira Griffiths RBC 4.27 106/ul Normal 4.20-5.40 [facility] Comment on above: Performed By: #### C BC #### [facility] [address] [place] [address] Dr. Samira Griffiths WBC 9.1 103/ul Normal 4.0-11.0 [facility] Comment on above: Performed By: #### C BC #### [facility] [address] [place] [address] [address] Samira Griffiths CULTURE URINEon 09-09-2022 CULTURE URINE Culture Observations: LIGHT GROWTH OF MIXED GENITAL BEHZAD. NO POTENTIAL PATHOGENS SEEN. Normal [facility] Comment on above: Performed By: #### T SH #### [facility] [address] [place] [address] [address] Samira Griffiths GLYCOHEMOGLOBIN A1Con 2022 ADA RECOMMENDATION SEE BELOW Normal [facility] Comment on above: Result Comment: ADA RECOMMENDED LIMIT 4.0 - 6.0 ADA THERAPEUTIC TARGET < 7.0 ACTION SUGGESTED > 7.0 Performed By: #### A 1C #### [facility] [address] [place] [address] Dr. Samira Griffiths Glucose [Mass/Vol] 108 mg/dL Normal [facility] Comment on above: Performed By: #### A 1C #### [facility] [address] [place] [address] [address] Samira Griffiths HbA1c (Bld) [Mass fraction] 5.4 % Normal 4.5-6.2 [facility] Comment on above: Performed By: #### A 1C #### [facility] [address] [place] [address] Dr. Samira Griffiths TSHon 09-09-2022 TSH 0.224 uIU/mL Critically low 0.358-3.740 [facility] Comment on above: Performed By: #### T SH #### [facility] [address] [place] [address] Dr. Samira Griffiths TYPE AND SCREENon 09-09-2022 TYPE AND SCREEN Negative Normal [facility] Comment on above: Performed By: #### T NS #### [facility] [address] [place] [address] Dr. Samira Griffiths US PREG TVon 09-05-2022 [...] by: JANIE BABCOCK Date: 2022-09-05 15:44 Normal [facility] PAP ONLYon 03-20-2022 . . Normal [facility] Comment on above: Performed By: #### 4 [id number] #### [facility] [address] [place] [address] Dr. Samira Griffiths DIAGNOSIS: Comment [facility] Comment on above: Result Comment: NEGA TIVE FOR INTRAEPITHELIAL LESION OR MALIGNANCY. Performed By: #### 4 [id number] #### [facility] [address] [place] [address] Dr. Samira Griffiths Methodology: Comment [facility] Comment on above: Result Comment: This liquid based ThinPrep(R) pap test was screened with the use of an image guided system. Performed By: #### 4 [id number] #### [facility] [address] [place] [address] Dr. Samira Griffiths Note: Comment [facility] Comment on above: Result Comment: The Pap smear is a screening test designed to aid in the detection of premalignant and malignant conditions of the uterine cervix. It is not a diagnostic procedure and should not be used as the sole means of detecting cervical cancer. Both false-positive and false-negative reports do occur. . Performed By: #### 4 [id number] #### [facility] [address] [place] [address] Dr. Samira Griffiths Performed by: Comment Normal [facility] Comment on above: Result Comment: Francy Huitron, Bill Sorter Performed By: #### 4 [id number] #### [facility] [address] [place] [address] Dr. Samira Griffiths Specimen adequacy: Comment Normal [facility] Comment on above: Result Comment: Sati sfactory for evaluation. No endocervical component is identified. Performed By: #### 4 [id number] #### [facility] [address] [place] [address] Dr. Samira Griffiths Coding Summary.on 02-18-2022 Coding Summary. [id number] Gh0bWw+PGhlYWQ+PE1FV PQxQ48wuNItnF9UK8uTI E6UYJSZPPBTJU9XVN5an DY5QUcbP0MfotEx JsaopOMuDR44CCx7AZQ1 rPtoVZnioQ3svXPvN1n5 SgHcCH77tD71NExwIHGg KzQ0AdWsxruizXWo W7cgYpMxtXJlZft+PHRh YmxlIHdpZHRoPScxMDAl FqTsuJrfUY6oXz2pCUBz LWNvbGxhcHNlOiBj k2auHLOpPZtjNJ1eqNdx J0QcoML3RLVea7z3Do82 dHI+UWGhSWC3mRmdNCnk f262ShLtu5ziLSZ6 kRJbZOhiJTM2N06yy8K2 FIGsRIEpTED3oUR5dH9p zYgwzzteP4QsrXTcLeT7 IPO0aKCaoS3rkWde tgmwqG8nAar+P64LUI7W CAQMKF0KOnq6E0IcFqfg dHI+JK95LBSmCO71cQRp uEVmb1frrBe7LbMz NAKxOPV2uVbnKIdlm5Gw PTPzX42aiUBsq6P9VUFg gRrowUNfCpKmnTS5lU3n VDufarrtn8qlerem Rbsdz6rzkh16zB29O71y YZyuEVMvIOC0IMRsJJRd nClffl7wgN2zCz4+IDxj v1fsh0cvhGc3AiOy XULywwPsrIqjGQL9l0Mo Ew88N1ZvuXbgi7TgDqe9 uu64gVBaz0H3eWZ0FUbe DISuoJ3wJTtoGyP4 XEEhEbYqoW46nZQbSBhy Ef9obJienTsvHC3mCBCb fjhaUTTflQ5tSUOtbHAp iZhjAH6wMONraxqz r388LbCnOKG8JCYgxCPp C2HxjH1bLaYeIKSvQIWq Q6WobTXoSQmjR822XKcr ZsD4ILYkvtXtI8Df ADFaoMmrFjD2x7M1Ib2P t5ZxzjwoLDE8HXzeISNq SpZ8QiHyPvU9M5TpLeo3 VDRqwPioQJ2eL5Tj QCQkghjccaglfSI6FRVm XKWxkJ98rSNzRGckFk3n w1O7a477CMDfHTIwmR69 Iz3uxDcnRJDccHFJ iY7sqowez6lddlixPjZr VOQxXPx7BHd9SYUvlRny GkLbFPE3XdU7UTG0aYDn kN5wxQzbopmugI6s Oyc+Q53qhC7qDQO3OSO0 yeenKEDixjOjTI01SR49 Z2EbDwozfNNifKK+PGRp ruOasDqwUR7sFyUc g8avh2UnEUfaI1HtSDBh ZOavKsi4LVBcAUK5mPG5 mI5wRKOnQMlwx9U0zOH5 X7IpooGsli1ra3vn MAPdFFhcW80kfOSan2R8 OVMwsHO1PUKygVopRsAp mW40Zik+KQAcbKcol6Dv Nuooo2lze1sitTk9 IjMwJSIgdmFsaWduPSJ0 v6OtAt93T26jADjmBXEf IANrGZRzRVGgnSubto0c xL2iNs0+PGNvbCB3 nMX4kR8sSHBzBpE7COwb E674OhYgbVZaCkhde3jr w3kncVt1EvHnQAMngaVm iInzIAU0o7UpPv56 V74cSPsaBFUiEGHyVYUj ZSHuiJzvyw4tkK3qEf0+ BI9kc9shqe49kP50wLN+ YXAxCWT6cGssFFok WVVubE6yKMefEcM1PSHi GzKksU55bJDqXAilMp0j rGhjzChhFM5sLVPuqewu y427KdAru5ylWUFa pCPiGThgNXK9Q99ep8Y2 AGRdOZKbBEA3mPD3iM0r bGlnbjogbGVmdDsgdmVy dUfnRCjrFEzwO759 IHRvcDsnPlBhdGllbnQg HsKpGLo9V4WtJtq7YEAj cYjxJW2csUChTMhiDc7h fDjqoBlqMR1xMSUk rgxnb750RgIzw5lfKGEt aYFbIZjjPCU1X44mj6L6 LGUlNNRaOPG8eAM3aR2a bGlnbjogbGVmdDsg fqRgtYxuMNbrDBncS203 IHRvcDsnPkJpcnRoIERh nOP2DT41AN04xJHlo0W7 aSR8F2LkXILzqekz fyzbnXZ0CDNnUGLadB84 Zf1mfPwlCw0qDRHhWIV6 SCOicAOcH9ZvkA8cSnZn XEQuGDTbO9NosAKz OIpiF411DCgsEeK6HHCt dgOvY6CtVRKkqPyvUbH6 g0F0Ro6WF0U7GH64KV10 cWVcq7X7eAG6I3Xs GJCttzomsrovlIB5WBFt CCRtfG87Hp9gePlsRe3g LEGlYAS2UKRioGVuA1Gi lZ0sPvYhPHKuJBIi F9UsnLTrIQmwB358UOcp ZrH4QPZxspQoW6BhZJUz wOpmXsT3b2G2Wn8OJCt3 YX83RT60qJNuo7I7 nDM3N5OaFMJugkwsltjz uFE0DDBoLTSgdT74Sv2s dAsnTf6cYUBrNKM4HLWo qAIsR5BdaZ3dRmGy CNWdRGQaA7WbhGVcWGme X425NPnmGaE5QYJyauYn A4JnTQGjwNhqWzV9u4Q6 Iy5QBPNhXQ27AOG6 hTX4UY80RZ47E5BkCgle dGFibGU+PHRhYmxlIHdp ZHRoPScxMDAlJyBzdHls VL1qZq5dIUJxMKYx vUbxqKTrPpEtb3qgANEo JAgiGP6xsFhyO8KotJM3 HHJpi7g2Vg48F21zV6Mx dXA+TNQuhAK0zEK3 hF3bMvJeKyW1SYdpK833 HcXliARiAxhui2boo0ej cQh4IiT0ZXMkddOzcEhf PMS3m3VtSk99R23o IHdpZHRoPSIxNSUiIHZh dUlowc5xiV0tGa8+PGNv aKP2iYL9fP8tUjHvYaN8 YNowD699NjRvpZJr Nlnml3vla7sbpSs1BkBt HAYntoMouBenIRF4a0Be Bq50F0WjlIjym7QvRxo4 gq85fTAin8V0iMI8 S3FbSGUefwwheEXckIba JT9uGETrhizyLTWxrY7u TMLwH0z1GgKoSaI4KUyd A6UrkuB5YKSszPAj EDloBXG1J85su2Y9WARq NGBrVND3yWT2dH8aqCxc bjogbGVmdDsgdmVydGlj SIdqKSjhC923AGXd cGisNLJejB1bYTOheWAe qOprMW0jEDZplishDeyE JYuYCWcrG3cPF5ZSNvFP VW16QO49yMUap0E4 lOH9O0UvOQMupsazwxiu fJQ2FHFwKNWdmW56oWZb XUkdJv2mb3X2y439QHWg MZWwwS18Au7kpRpo ZNOjjZTQiT4nnubyk0np lmrfSoNeRSFqVOf5MJg3 HEKhmMeyPlHpLYP1VlZ8 PDN3aSDkhB4esQsu avpnzK0eIip+MDcvMTMv HMg5OvvmcTW+PHRkIHN0 eIozRPxjGJGjiO1tOGZu N6v9MoZhQzJ8KAhu E7YiDKYxrneiEb80sG4e HeEtQxM2JHaoT6KrkuJ5 PUXacMSbLXrnMPV5X64k [id number] tIC0qX8svKiayxtzhLRv dDsgdmVydGljYWwtYWxp R344GJOhfIeoYeU5MYrg KGSfON38JB96tHQv m3E7wAF6Y0IqUDIhbqtg honghWF2PCYnPZWvgB03 wCFdMXtgWg6nh2E9w202 BQRrPTOpvV49Yf5i vBvlZYRwdNXLgQ4hbekv a0ytvhcmJoLzIVKuBRg4 BQk3GBDawLguWuYcKTY5 PiJ9DXQ9jIPbmD9w rMwwpiyogF0bZyf+RmVt LQmrNI82UU62zQDcx4O6 wMS2P9SjAMSgbnlmeqox aNB4YVScSMZujE79 lZNlXCodEf7dr6R5w883 KCShVXOtqF87Sq6xwLgh ULDexAHQzV1otfydp0fi cjogIzAwMDAwMDt0 CVa8IGFkhUzmMxNjTFP2 VsN0ICU8dTSzjL4coNhi jvonmK1bPoo+TGFiIERy n4Ncp2GqNK96EB00 T3QtQqvdrXDabLB+PHRh YmxlIHdpZHRoPScxMDAl YfLcrOedBL4dUp1rYAUb LWNvbGxhcHNlOiBj w2ysOOLmSFxrOK2wdWsz N7XhtOK3TUMjj3b6Mt28 R90gN9WfkLK+PGNvbCB3 gFG3hD9oLtOhCcX7 XEhhX871ZwQgvFAuEleu k7cdn3jicLc6ZfXcPVJz xoOioAkvKHO9g7NrJv37 R89tHHlzKVRpNZAb RTOdMFEtoOcieu0iyY3p Ii8+JHVydNE2xWX1vD9d XwDgVzW0RIjkL253BkEy rIMyUhfqP28xQ9Wl dXA+YYVqRjt3HLUmkFum UO5vlICqYWplGz8pOCG1 WqBeUzQuQMxeY4QlPDPj hprrnnhnvLH4CCKb LUWghO65Kw4ngRgeCq2c HMLdGGJ2EJCkkGVuD6Ga hM5hRkUvVMFyRZQrG3Tv pYIsBSxvW677VMav AkK1YDRfiwVyI5ZyDWUw sYhoYkI3y8B2Cw8OsTtq hSHrDO0cLvRvDFn5K1Zd Sof8YLItzYmnPH7p hUEfATjyIe2mdVgrxOvt XR0uRCXlztgyq104CoCx l9nbVUPsmBCxLJduMYT0 B09bv8I7MAMkLJPl MBA5pIX7kG1mqNzvnhce bGVmdDsgdmVydGljYWwt OMuwG716XPChrTdyRwHR Avo8X5SaSmu7QLGh hCmnMD3peBSmWLggCf0v rZlfdUsiAH8hLPTyqxpf q965JhTjj9rkQIJgyWWv XMjiCFA7A37fq8B5 GTOuLJWvKHL4bIF5aV3m bGlnbjogbGVmdDsgdmVy mPitYUjdCGaiL170JCQv eMqfRo4UNlp8F4El Qto1BWEouIjlXN9diYPm JBhkGv6jpVydaPraRS1q DVWmspvxd202XsIrx2dz IDEwcHQgVGltZXM7 O58zb4C9HEXtKSIhWAN8 wVH7uQ0ilYqbnbzpnISq dDsgdmVydGljYWwtYWxp K903GKCfyZtkRaVr eWVyOjwvdGQ+CH97bj78 A3YvWjpuUwy3GXKfCFT9 dFQ7fP2iCOAtHJhdx1F5 eMC4E8WaqoDxow3a b2xs (more content not included)... 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 Rash (R21: Rash and other nonspecific skin eruption) Given history and exam, rash appears to be allergic in nature. Recommend antihistamine prn for this issue. F/u with PCP if symptoms persist or worsen. Follow-up With When Contact Information ABEL PEREZ, ANTHONY, [place] [address]- Additional Instructions: Patient Education Cough, Adult Pharyngitis [...] Given Postpone due to refusal SARS-CoV-2 mRNA (tozinameran 5y-11y) vac - Not Given Postpone due (more content not included)... Normal [facility] Comment on above: Result Comment: Elec [...] these instructions at home: Medicines ? Take vdkn-qey-ggnesrh and prescription medicines only as told by [...] a condition that needs treatment. ? Take drgr-riq-mddgyni and prescription medicines only as told by [...] 10/17/2011 Document Revised: 05/09/2019 Document Reviewed: 05/09/2019 [employer] Patient Education ? 2019 [place]. Infectious Disease Pharyngitis Pharyngitis is redness, pain, [...] have (more content not included)... Normal [facility] COVID Quick Testingon 2020 Result Negative [place] [employer] Other Quick Strepon 02-19-2021 S. pyogenes Org specific cx Ql (Throat) Negative [place] [employer] Other Quick Strep [facility] [employer] Other Vital Signs Date Time Vital Sign Value Performing Clinician Facility 02-09-2025 13:48-0400 Body mass index (BMI) [Ratio] 30.87 kg/m2 [address] COMMUNITY THEATER ACTOR Work Phone: [facility] 02-09-2025 13:48-0400 Body weight 76.[address] COMMUNITY THE[employer] ACTOR Work Phone: [facility] 02-09-2025 13:48-0400 Diastolic blood pressure 70 mm[Hg] [address] COMMUNITY THEATER ACTOR Work Phone: [facility] 02-09-2025 13:48-0400 Systolic blood pressure 128 mm[Hg] [address] COMMUNITY THEATER ACTOR Work Phone: [facility] 02-01-2025 10:59-0400 Body mass index (BMI) [Ratio] 30.14 kg/m2 [address] COMMUNITY THEATER ACTOR Work Phone: [facility] 02-01-2025 10:59-0400 Body weight 74.[address] COMMUNITY THEATER ACTOR Work Phone: [facility] 02-01-2025 10:59-0400 Diastolic blood pressure 82 mm[Hg] [address] COMMUNITY THEATER ACTOR Work Phone: [facility] 02-01-2025 10:59-0400 Systolic blood pressure 128 mm[Hg] [address] COMMUNITY THEATER ACTOR Work Phone: [facility] 01-25-2025 13:15-0400 Body mass index (BMI) [Ratio] 30.02 kg/m2 Bree FARAH Work Phone: [facility] 01-25-2025 13:15-0400 Body weight 74.44 kg Bree Hopland PA Work Phone: [facility] 01-25-2025 13:15-0400 Diastolic blood pressure 70 mm[Hg] Bree Lise PA Work Phone: [facility] 01-25-2025 13:15-0400 Systolic blood pressure 118 mm[Hg] Bree Lise PA Work Phone: [facility] 01-18-2025 10:43-0400 Body mass index (BMI) [Ratio] 29.23 kg/m2 Claudio Annabelle DO Work Phone: [facility] 01-18-2025 10:43-0400 Body weight 72.48 kg Claudio Annabelle DO Work Phone: [facility] 01-18-2025 10:43-0400 Diastolic blood pressure 70 mm[Hg] Claudio Annabelle DO Work Phone: [facility] 01-18-2025 10:43-0400 Systolic blood pressure 120 mm[Hg] Claudio Annabelle DO Work Phone: [facility] 01-03-2025 14:31-0400 Body mass index (BMI) [Ratio] 29.1 kg/m2 Bree Lise PA Work Phone: [facility] 01-03-2025 14:31-0400 Body weight 72.18 kg Bree Hopland PA Work Phone: [facility] 01-03-2025 14:31-0400 Diastolic blood pressure 80 mm[Hg] Bree Hopland PA Work Phone: [facility] 01-03-2025 14:31-0400 Systolic blood pressure 120 mm[Hg] Bree Lise PA Work Phone: [facility] 12-20-2024 10:02-0400 Body mass index (BMI) [Ratio] 28.61 kg/m2 Claudio Annabelle DO Work Phone: [facility] 12-20-2024 10:02-0400 Body weight 70.94 kg Claudio Annabelle DO Work Phone: [facility] 12-20-2024 10:02-0400 Diastolic blood pressure 80 mm[Hg] Claudio Annabelle DO Work Phone: [facility] 12-20-2024 10:02-0400 Systolic blood pressure 110 mm[Hg] Claudio Annabelle DO Work Phone: [facility] 12-07-2024 11:01-0400 Body mass index (BMI) [Ratio] 27.44 kg/m2 Claudio Annabelle DO Work Phone: [facility] 12-07-2024 11:01-0400 Body weight 68.04 kg Claudio Annabelle DO Work Phone: [facility] 12-07-2024 11:01-0400 Diastolic blood pressure 76 mm[Hg] Claudio Annabelle DO Work Phone: [facility] 12-07-2024 11:01-0400 Systolic blood pressure 124 mm[Hg] Claudio Annabelle DO Work Phone: [facility] 11-15-2024 08:44-0400 Body mass index (BMI) [Ratio] 26.89 kg/m2 Bree FARAH Work Phone: [facility] 11-15-2024 08:44-0400 Body weight 66.68 kg Bree Lise PA Work Phone: [facility] 11-15-2024 08:44-0400 Diastolic blood pressure 76 mm[Hg] Bree Lise PA Work Phone: [facility] 11-15-2024 08:44-0400 Systolic blood pressure 124 mm[Hg] Bree Hopland PA Work Phone: [facility] 10-18-2024 09:05-0400 Body mass index (BMI) [Ratio] 26.06 kg/m2 Claudio Annabelle DO Work Phone: [facility] 10-18-2024 09:05-0400 Body weight 64.64 kg Claudio Annabelle DO Work Phone: [facility] 10-18-2024 09:05-0400 Diastolic blood pressure 72 mm[Hg] Claudio Annabelle DO Work Phone: [facility] 10-18-2024 09:05-0400 Systolic blood pressure 120 mm[Hg] Claudio Annabelle DO Work Phone: [facility] 09-20-2024 13:49-0400 Body mass index (BMI) [Ratio] 24.87 kg/m2 Bree Lise PA Work Phone: [facility] 09-20-2024 13:49-0400 Body weight 61.69 kg Bree Lise PA Work Phone: [facility] 09-20-2024 13:49-0400 Diastolic blood pressure 72 mm[Hg] Bree Lise PA Work Phone: [facility] 09-20-2024 13:49-0400 Systolic blood pressure 116 mm[Hg] Bree Velez PA Work Phone: [facility] 08-17-2024 14:06-0400 Body mass index (BMI) [Ratio] 23.78 kg/m2 Claudio Annabelle DO Work Phone: [facility] 08-17-2024 14:06-0400 Body weight 58.97 kg Claudio Annabelle DO Work Phone: [facility] 08-17-2024 14:06-0400 Diastolic blood pressure 70 mm[Hg] Claudio Annabelle DO Work Phone: [facility] 08-17-2024 14:06-0400 Systolic blood pressure 116 mm[Hg] Claudio Annabelle DO Work Phone: [facility] 07-28-2024 13:31-0400 Body mass index (BMI) [Ratio] 23.67 kg/m2 [facility] Nurse [facility] 07-28-2024 13:31-0400 Body weight 58.7 kg [facility] Nurse [facility] 11-05-2022 11:00-0400 Diastolic blood pressure 74 mm[Hg] Nick Velasquez [facility] 11-05-2022 11:00-0400 Heart rate 74 /min Nick Ron [facility] 11-05-2022 11:00-0400 Mean blood pressure 88 mm[Hg] Nick Ron [facility] 11-05-2022 11:00-0400 Respiratory rate 16 /min Nick Ron [facility] 11-05-2022 11:00-0400 SaO2% (BldA) [Mass fraction] 100 % Nick Ron [facility] 11-05-2022 11:00-0400 Systolic blood pressure 116 mm[Hg] Nick Ron [facility] 11-05-2022 10:00-0400 Diastolic blood pressure 54 mm[Hg] Nick Ron [facility] 11-05-2022 10:00-0400 Heart rate 83 /min Nick Ron [facility] 11-05-2022 10:00-0400 Respiratory rate 18 /min Nick Ron [facility] 11-05-2022 10:00-0400 SaO2% (BldA) [Mass fraction] 99 % Nick Velasquez [facility] 11-05-2022 10:00-0400 Systolic blood pressure 90 mm[Hg] Nick Ron [facility] 11-05-2022 08:00-0400 Body temperature 98.24 [degF] Nick Ron [facility] 11-05-2022 08:00-0400 Diastolic blood pressure 63 mm[Hg] Nick Ron [facility] 11-05-2022 08:00-0400 Heart rate 86 /min Nick Velasquez [facility] 11-05-2022 08:00-0400 Systolic blood pressure 92 mm[Hg] Nick Velasquez [facility] 02-19-2021 11:00-0400 Body height 158.12 cm Eleni Dc Other [employer] Other 02-19-2021 11:00-0400 Body mass index (BMI) [Ratio] 22.68 kg/m2 Eleni Dc Other [employer] Other 02-19-2021 11:00-0400 Body temperature 98.6 [degF] Eleni Dc Other [employer] Other 02-19-2021 11:00-0400 Body weight 56.7 kg Eleni Dc Other [employer] Other 02-19-2021 11:00-0400 Respiratory rate 20 /min Eleni Dc Other [employer] Other 02-19-2021 11:00-0400 SaO2% (BldA) [Mass fraction] 98 % Eleni Dc Other [employer] Other Encounters Encounter Date Encounter Type Care Provider Facility Start: 02-09-2025 End: 02-09-2025 Bamboo flowsheet Inez Sultana NP Work Phone: [facility] Start: 02-09-2025 End: 02-09-2025 Bamboo flowsheet Inez Sultana NP Work Phone: [facility] Start: 02-09-2025 End: 02-09-2025 flow sheet Inez Sultana NP Work Phone: [facility] Comment on above: 38 weeks gestation o f ([facility]); Third trimester ([facility]); H/O: Start: 02-01-2025 End: 02-01-2025 Bamboo flowsheet Inez Sultana COMMUNITY THE[employer] ACTOR Work Phone: [facility] Start: 02-01-2025 End: 02-01-[address] COMMUNITY THEATER ACTOR Work Phone: [facility] Start: 02-01-2025 End: 02-01-[address] COMMUNITY THEATER ACTOR Work Phone: [facility] Comment on above: 36 weeks gestation o f ([facility]); Third trimester ([facility]) Start: 02-01-2025 End: 02-01-2025 ambulatory INEZ SULTANA Not Available Start: 01-25-2025 End: 01-25-2025 Bamboo flowsheet Bree FARAH Work Phone: [facility] Start: 01-25-2025 End: 01-30-2025 Bamboo flowsheet Bree FARAH Work Phone: [facility] Start: 01-25-2025 End: 01-30-2025 Clinisync Result Encounter Bree FARAH Work Phone: [facility] Unsolicited Start: 01-25-2025 End: 01-25-2025 Periodic preventive med est patient 18-39 yrs Bree FARAH Work Phone: [facility] Comment on above: 35 weeks gestation o f ([facility]); Third trimester ([facility]) Start: 01-25-2025 End: 01-25-2025 ambulatory BREE VELEZ Not Available Start: 01-18-2025 End: 01-18-2025 Bamboo flowsheet Claudio Annabelle DO Work Phone: [facility] Start: 01-18-2025 End: 01-18-2025 Bamboo flowsheet Claudio Annabelle DO Work Phone: [facility] Start: 01-18-2025 End: 01-18-2025 flow sheet Claudio Annabelle DO Work Phone: [facility] Comment on above: 34 weeks gestation o f ([facility]); Third trimester ([facility]); H/O: Start: 01-18-2025 End: 01-18-2025 ambulatory CLAUDIO ANNABELLE Not Available Start: 01-03-2025 End: 01-03-2025 flow sheet Bree Velez PA Work Phone: [facility] Comment on above: 32 weeks gestation o f ([facility]); Third trimester ([facility]); H/O: Start: 01-03-2025 End: 01-03-2025 ambulatory BREE VELEZ Not Available Start: 12-20-2024 End: 12-20-2024 Bamboo flowsheet Claudio Annabelle DO Work Phone: [facility] Start: 12-20-2024 End: 12-20-2024 Bamboo flowsheet Claudio Annabelle DO Work Phone: [facility] Start: 12-20-2024 End: 12-20-2024 flow sheet Claudio Annabelle DO Work Phone: [facility] Comment on above: 30 weeks gestation o f ([facility]); Third trimester ([facility]); size inconsistent with dates ([facility]) Start: 12-20-2024 End: 12-20-2024 ambulatory CLAUDIO ANNABELLE Not Available Start: 12-07-2024 End: 12-07-2024 Bamboo flowsheet Claudio Annabelle DO Work Phone: [facility] Start: 12-07-2024 End: 12-07-2024 Bamboo flowsheet Claudio Annabelle DO Work Phone: [facility] Start: 12-07-2024 End: 12-07-2024 flow sheet Claudio Annabelle DO Work Phone: [facility] Comment on above: Third trimester preg karoline ([facility]); 28 weeks gestation of ([facility]); H/O: Start: 12-07-2024 End: 12-07-2024 ambulatory CLAUDIO ANNABELLE Not Available Start: 11-22-2024 End: 11-22-2024 ambulatory Claudio R ANNABELLE Facility:[facility] Start: 11-18-2024 End: 11-18-2024 ambulatory BREE VELEZ Facility:[facility] Start: 11-15-2024 End: 11-15-2024 Bamboo flowsheet Bree FARAH Work Phone: [facility] Start: 11-15-2024 End: 11-15-2024 Bamboo flowsheet Bree FARAH Work Phone: [facility] Start: 11-15-2024 End: 11-15-2024 flow sheet Bree FARAH Work Phone: [facility] Comment on above: Second trimester pre gnancy ([facility]); 25 weeks gestation of ([facility]); Diabetes mellitus screening Start: 11-15-2024 End: 11-15-2024 ambulatory BREE VELEZ Not Available Start: 10-18-2024 End: 10-18-2024 flow sheet Claudio Annabelle DO Work Phone: [facility] Comment on above: Second trimester pre gnancy ([facility]); 21 weeks gestation of ([facility]) Start: 10-18-2024 End: 10-18-2024 ambulatory CLAUDIO ANNABELLE [...] 07-29-2024 End: 07-30-2024 ambulatory Claudio R ANNABELLE Facility:[facility] Start: 07-29-2024 End: 07-30-2024 Patient encounter procedure Claudio R ANNABELLE [facility] Start: 07-28-2024 End: 07-28-2024 Office outpatient visit 5 minutes [facility] Annabelle Nurse [facility] Comment on above: GA: 10w0d Start: 07-28-2024 End: 07-28-2024 ambulatory CLAUDIO ANNABELLE Not Available Start: 06-25-2024 End: 09-27-2024 ambulatory Claudio R ANNABELLE Facility:[facility] Start: 06-25-2024 End: 09-27-2024 Recurring Claudio R ANNABELLE [facility] Start: 06-23-2024 End: 06-23-2024 ambulatory Claudio ALANIS Facility:[facility] Start: 06-23-2024 End: 06-23-2024 Patient encounter procedure Claudio ALANIS [facility] Start: 01-14-2024 End: 04-13-2024 ambulatory Gmhans HENDERSON Facility:[facility] Start: 11-05-2022 End: 11-05-2022 Emergency department patient visit Nick Velasquez Facility:[facility] Start: 11-05-2022 End: 11-05-2022 Emergency department patient visit Nick Velasquez [facility] Start: 09-09-2022 End: 09-10-[address] CLAUDIO ALANIS . Facility: Start: 09-05-2022 End: 09-06-[address] CLAUDIO ALANIS . Facility: Start: 03-13-2022 End: 03-13-[address] CLAUDIO ALANIS . Facility: Start: 02-13-2022 End: 02-14-2022 ambulatory Bindu Martinez Facility:[facility] Start: 01-14-2022 End: 04-15-2022 ambulatory ANTHONY ROMAN Facility:[facility] Start: 02-19-2021 Office outpatient vi sit 15 minutes Eleni Dc [facility] [address] Procedures Date Procedure Procedure Detail Performing Clinician Start: 02-09-2025 Urnls dip stick/tabl et rgnt non-auto w/o micrscp Inez Sultana COMMUNITY THEATER ACTOR Work Phone: Start: 02-01-2025 Urnls dip stick/tabl et rgnt non-auto w/o micrscp Inez Sultana COMMUNITY THEATER ACTOR Work Phone: Start: 01-25-2025 Urnls dip stick/tabl et rgnt non-auto w/o micrscp Bree FARAH Work Phone: Start: 01-25-2025 STREP GP B SAY+RFLX Bree FARAH Work Phone: Start: 01-18-2025 Urnls dip stick/tabl et rgnt non-auto w/o micrscp Claudio Annabelle DO Work Phone: Start: 01-03-2025 Urnls dip [...] Bree FARAH Work Phone: H/O: section H/O: Lopez Alanis DO Work Phone: H/O: section H/O: Lawrence Sultana COMMUNITY THEATER ACTOR Work Phone: Plan of Treatment Date Care Activity Detail Author Start: 02-23-2025 End: 02-23-2025 Patient encounter procedure 02/23/2025 1:50 PM EDT Office Visit [facility]oe OBRYLEE [address] [place] [phone] Bree Velez PA [address] [place] [address] [facility] Start: 02-09-2025 End: 02-09-2025 Patient encounter procedure [facility] Comment on above: Arrived Start: 02-01-2025 End: 02-01-2025 Patient encounter procedure [facility] Comment on above: Arrived Start: 01-25-2025 End: 01-25-2026 CULTURE, GROUP B STREP WITH SUSCEPTIBLITY CULTURE, GROUP B STREP WITH SUSCEPTIBLITY Lab Routine 35 weeks gestation of ([facility]) Third trimester ([facility]) Expected: 01/25/2025, Expires: 01/25/2026 [facility] Work Phone: Comment on above: Expected: 01/25/2025 , Expires: 01/25/2026 Start: 01-25-2025 End: 01-25-2025 Patient encounter procedure [facility] Comment on above: Arrived Start: 01-18-2025 End: 01-18-2025 Patient encounter procedure [facility] Comment on above: Arrived Start: 01-02-2025 Influenza vaccination Influenza Vacc ine (#1) [facility] Start: 12-20-2024 End: 04-21-2025 US for US OB follow up transabdominal approach Imaging Routine size inconsistent with dates ([facility]) Expected: 12/20/2024, Expires: 04/21/2025 [facility] Work Phone: Comment on above: Expected: 12/20/2024 , Expires: 04/21/2025 Start: 12-20-2024 End: 12-20-2024 Patient encounter procedure [facility] Comment on above: Arrived Start: 12-07-2024 End: 12-07-2024 Patient encounter procedure [facility] Comment on above: Arrived Start: 11-15-2024 End: 11-15-2025 CBC panel - Blood by Automated count CBC Lab Routine Diabetes mellitus screening Expected: 11/15/2024 (Approximate), Expires: 11/15/2025 [facility] Work Phone: Comment on above: [...] EDT Office Visit [facility] [address] [place] [id number] Claudio Alanis, DO [address] [place] [address] [facility] Start: 10-18-2024 End: 10-18-2024 Patient encounter procedure 10/18/2024 9:10 AM EDT Routine [facility] [address] [place] [phone] Claudio Alanis, DO [address] [place] [address] [facility] Start: 10-18-2024 End: 10-18-2024 Professional / ancillary services management 10/18/2024 8:00 AM EDT Ancillary Procedure [facility] [address] [place] [phone] [facility] Start: 09-20-2024 End: 10-21-2024 Alpha fetoprotein, maternal Alpha fetoprotein, maternal Lab Routine Need for maternal serum alpha-protein (MSAFP) screening Expected: 09/20/2024 (Approximate), Expires: 10/21/2024 [facility] Comment on above: Expected: 09/20/2024 (Approximate), Expires: 10/21/2024 Start: 09-20-2024 End: 12-21-2024 US for US OB 14+ weeks anatomy scan Imaging Routine Screening, , for anatomic survey Expected: 09/20/2024, Expires: 12/21/2024 [facility] Comment on above: Expected: 09/20/2024 , Expires: 12/21/2024 Start: 09-20-2024 End: 09-20-2024 Patient encounter procedure [facility] Comment on above: Arrived Start: 08-17-2024 End: 08-17-2024 Patient encounter procedure [facility] Comment on above: Arrived Start: 07-28-2024 End: 07-28-2025 ABO/Rh ABO/Rh Lab Routine Missed menses , unspecified gestational age Expected: 07/28/2024 (Approximate), Expires: 07/28/2025 [facility] Comment on above: Expected: 07/28/2024 (Approximate), Expires: 07/28/2025 Start: 07-28-2024 End: 07-28-2025 Blood type and Indirect antibody screen panel - Blood Type and screen Lab Routine Missed menses , unspecified gestational age Expected: 07/28/2024 (Approximate), Expires: 07/28/2025 [facility] Comment on above: Expected: 07/28/2024 (Approximate), Expires: 07/28/2025 Start: 07-28-2024 End: 07-28-2025 Drugs of abuse panel - Urine by Screen method Rapid drug screen, urine Lab Routine , unspecified gestational age Encounter for supervision of normal first in first trimester Expected: 07/28/2024 (Approximate), Expires: 07/28/2025 [facility] Comment on above: Expected: 07/28/2024 (Approximate), Expires: 07/28/2025 Start: 07-20-2024 End: 07-20-2025 US Pelvis transvaginal US OB transvaginal Imaging Routine Missed menses Expected: 07/20/2024, Expires: 07/20/2025 [facility] Work Phone: Comment on above: Expected: 07/20/2024 , Expires: 07/20/2025 Bacteria identified in Urine by Culture Urine culture Microbiology Routine Missed menses Ordered: 07/28/2024 [facility] Comment on above: Ordered: 07/28/2024 CBC W Auto Different ial panel - Blood CBC and differential Lab Routine Missed menses , unspecified gestational age Ordered: 07/28/2024 [facility] Comment on above: Ordered: 07/28/2024 CHLAMYDIA TRACHOMATI S (GENITO/STI) CHLAMYDIA TRACHOMATIS (GENITO/STI) Lab Routine Exposure to STD Ordered: 09/20/2024 [facility] Comment on above: Ordered: 09/20/2024 Hemoglobin A1c/Hemoglobin.total in Blood Hemoglobin A1c Lab Routine Missed menses , unspecified gestational age Ordered: 07/28/2024 [facility] Comment on above: Ordered: 07/28/2024 Hepatitis B virus surface Ag [Presence] in Serum or Plasma by Immunoassay Hepatitis B surface antigen Lab Routine Missed menses , unspecified gestational age Ordered: 07/28/2024 [facility] Comment on above: Ordered: 07/28/2024 Hepatitis C virus Ab [Presence] in Serum or Plasma by Immunoassay Hepatitis C antibody Lab Routine Missed menses , unspecified gestational age Ordered: 07/28/2024 [facility] Comment on above: Ordered: 07/28/2024 HIV-1/HIV-2 antigen/antibody combination immunoassay HIV-1 and HIV-2 antibodies Lab Routine Missed menses , unspecified gestational age Ordered: 07/28/2024 [facility] [facility] Comment on above: Ordered: 07/28/2024 Neisseria gonorrhoea e DNA [Presence] in Unspecified specimen by SAY with probe detection Neisseria gonorrhea DNA probe, direct Lab Routine Exposure to STD Ordered: 09/20/2024 [facility] Comment on above: Ordered: 09/20/2024 Reagin Ab [Presence] in Serum by RPR RPR Lab Routine Missed menses , unspecified gestational age Ordered: 07/28/2024 [facility] Comment on above: Ordered: 07/28/2024 Rubella antibody, IgG Rubella an tibody, IgG Lab Routine Missed menses , unspecified gestational age Ordered: 07/28/2024 [facility] Comment on above: Ordered: 07/28/2024 SURESWAB(R) ADVANCED VAGINITIS PLUS, TMA SURESWAB(R) ADVANCED VAGINITIS PLUS, TMA Pathology and Cytology Routine Exposure to STD Ordered: 09/20/2024 [facility] Work Phone: Comment on above: Ordered: 09/20/2024 US Pelvis transvaginal US OB tra nsvaginal Imaging Routine Missed menses 07/28/2024 12:44 PM EDT [facility] Immunizations Immunization Date Immunization Notes Care Provider Fa jordan 02-16-2024 influenza virus vaccine, unspecified formulation; Translations: [Fluzone TIV PF ] Claudio ALANIS [facility] Comment on above: Reason for Medicatio n: Prophylaxis 02-17-2022 influenza virus vaccine, unspecified formulation Nick Velasquez [facility] Comment on above: Reason for Medicatio n: Prophylaxis 03-01-2021 influenza virus vaccine, unspecified formulation Nick Velasquez [facility] Comment on above: Reason for Medicatio n: Prophylaxis 02-14-2021 COVID-19, mRNA, LNP- S, PF, 30 mcg/0.3 mL dose Nick Velasquez [facility] 01-18-2021 COVID-19, mRNA, LNP- S, PF, 30 mcg/0.3 mL dose Nick Ron [facility] 05-23-2012 Toradol per 15 mg Eleni oquendo Other [facility] Other 04-20-2008 meningococcal ACWY vaccine, unspecified formulation Nick Ron [facility] 04-20-2008 tetanus toxoid, reduced diphtheria toxoid, and acellular pertussis vaccine, adsorbed Nick Ron [facility] 04-20-2008 varicella virus vaccine Nickanaly Velasquez [facility] 03-06-2007 influenza virus vaccine, unspecified formulation Nickanaly Velasquez [facility] 02-22-2005 influenza, whole Nick Ron [facility] 02-23-2004 influenza, whole Nick Velasquez [facility] 05-01-2003 influenza, whole Nick Ron [facility] 03-23-2003 influenza, whole Nick Velasquez [facility] 09-14-2001 DTaP, unspecified formulation Nick Velasquez [facility] 09-14-2001 measles, mumps and rubella virus vaccine Nick Ron [facility] 11-14-1998 DTaP, unspecified formulation Nick Velasquez [facility] 11-14-1998 hepatitis B vaccine, pediatric or pediatric/adolescent dosage Nick Velasquez [facility] 06-06-1998 Hib, unspecified formulation Nick Velasquez [facility] 06-06-1998 measles, mumps and rubella virus vaccine Nick Velasquez [facility] 11-22-1997 varicella virus vaccine Nick Ron [facility] 05-31-1997 DTaP, unspecified formulation Nick Ron [facility] 05-31-1997 hepatitis B vaccine, pediatric or pediatric/adolescent dosage Nick Ron [facility] 05-31-1997 Hib, unspecified formulation Nick Ron [facility] 04-12-1997 DTaP, unspecified formulation Nick Ron [facility] 04-12-1997 Hib, unspecified formulation Nick Ron [facility] 02-01-1997 DTaP, unspecified formulation Nick Ron [facility] 02-01-1997 hepatitis B vaccine, pediatric or pediatric/adolescent dosage Nick Velasquez [facility] 02-01-1997 Hib, unspecified formulation Nick Ron [facility] NEGATED: Highlighted row has not occurred!02-13-2022 influenza virus vaccine, unspecified formulation Nick Velasquez [facility] NEGATED: Highlighted row has not occurred!02-13-2022 SARS-CoV-2 mRNA (tozinameran 5y-11y) vaccine Nickanaly Velasquez [facility] Payers Date Payer Category Payer Private Health Insurance [id number] 2022 Unknown 2022 [facility] [id number] 2022 Unknown [id number] 1996 Unknown [id number] 2.16.840.1.218271.3.579.2. 593 1996 Unknown [id number] 2.16.840.1.678295.3.579.2. 593 1996 Unknown [id number] 2.16.840.1.884526.3.579.2. 593 1996 Unknown [id number] 2.16.840.1.014054.3.579.2. 72 1996 Unknown [id number] 2.16.840.1.213950.3.579.2. 727 1996 Unknown [id number] 2.16.840.1.932310.3.579.2. 727 1996 Unknown [id number] 2.16.840.1.831235.3.579.2. 727 1996 Unknown [id number] 2.16.840.1.527756.3.579.2. 72 1996 Unknown [id number] 2.16.840.1.103784.3.579.2. 727 1996 Unknown [id number] 2.16.840.1.667243.3.579.2. 1996 Unknown [id number] 2.16.840.1.279455.3.579.2. 727 1996 Unknown [id number] 2.16.840.1.374204.3.579.2. 1996 Unknown [id number] 2.16.840.1.165657.3.579.2. 1258 1996 Unknown [id number] 2.16.840.1.509008.3.579.2. 1258 1996 Unknown [id number] 2.16.840.1.440092.3.579.2. 1258 1996 Unknown [id number] 2.16.840.1.334689.3.579.2. 1258 1996 Unknown [id number] 2.16.840.1.813430.3.579.2. 1258 1996 Unknown [id number] 2.16.840.1.797446.3.579.2. 1258 1996 Unknown [id number] 2.16.840.1.316835.3.579.2. 1258 1996 Unknown [id number] 2.16.840.1.808408.3.579.2. 1258 1996 Unknown [id number] 2.16.840.1.896035.3.579.2. 1258 1996 Unknown [id number] 2.16.840.1.548943.3.579.2. 1258 1996 Unknown [id number] 2.16.840.1.866672.3.579.2. 1258 1996 Unknown [id number] 2.16.840.1.919415.3.579.2. 1258 1996 Unknown [id number] 2.16.840.1.642471.3.579.2. 1258 1996 Unknown [id number] 2.16.840.1.434195.3.579.2. 1258 1959 Unknown [id number] 2.16.840.1.081038.19 1959 Unknown [id number] Social History Date Type Detail Facility Unknown if ever smoked [employer] Other Start: 11-02-2023 End: 07-28-2024 Sex Assigned At [facility] Start: 02-13-2022 End: 12-01-2022 Tobacco smoking status Never smoked tobacco (finding) [facility] Tobacco smoking status Never [facility] Tobacco smoking status [facility] Start: 12-01-2022 Tobacco use and exposure Smokeless tobacco non-user [facility] Start: 07-28-2024 End: 02-09-2025 Alcoholic beverage intake Lifetime non-drinker (finding) [facility] Start: 11-02-2023 End: 07-28-2024 History of Social function [facility] Start: 10-31-2022 Alcohol Comment Caffeine intake: non e [facility] Start: 06-02-2024 [facility] Start: 1996 Sex assigned at Not on file [facility] Sex Female (finding) [facility] Functional Status Date Assessment Result Facility 11-05-2022 Functional Status N/A [facility] Clinical Notes 02-19-2021 to 02-09-2025 Elvie Cordova LPN - 02/09/2025 1:50 PM Garth Sultana NP - 02/09/2025 1:50 PM Garth Sultana NP - 02/01/2025 11:10 AM SOFI Beaver - 01/25/2025 1:20 PM EDT Note Date & Type Note Facility 02-09-2025 History of Presen t illness Narrative Reason for Appointment: Patient ID: Radha Hart is a 29 y.o. female who presents for Routine Visit Patient presents today for Return OB appointment. MEDICATIONS Current Outpatient Medications Medication Instructions MV-Min-Fe Fum-FA-DHA ( 1 PO) Take by mouth. ALLERGIES Allergies Allergen Reactions Codeine Hallucinations PROBLEMS Active Ambulatory Problems Diagnosis Date Noted H/O: 12/07/2024 30 weeks gestation of ([facility]) 12/20/2024 Third trimester ([facility]) 01/25/2025 Resolved Ambulatory Problems Diagnosis Date Noted No Resolved Ambulatory Problems Past Medical History: Diagnosis Date Asthma ([facility]) Benign parotid tumor Facial paresis Facial weakness Fracture, humerus Pharyngitis Sialocele Syncope Tonsillitis HISTORY PAST MEDICAL HISTORY SOCIAL HISTORY Past Medical History: Diagnosis Date Asthma ([facility]) Benign parotid tumor Facial paresis Facial weakness [...] nursing note reviewed. Exam conducted with a fund accountant present. Vitals: Estimated body mass index is 30.87 kg/m as calculated from the following: Height as of 09/05/22: 5' 2 . Weight as of this encounter: 168 lb 12.8 oz. BP: 128/70 No LMP recorded. Patient is . ASSESSMENT & PLAN ICD-10-CM 1. 38 weeks gestation of ([facility]) Z3A.38 POCT urinalysis dipstick manually resulted 2. Third trimester ([facility]) Z34.93 POCT urinalysis dipstick manually resulted 3. [...] reviewed, and patient is to proceed to [facility] OR on her scheduled day. Orders Placed This Encounter Procedures POCT urinalysis dipstick manually resulted Follow Up: Patient is to return in 1 week for routine OB appointment. Documented by Elvie Cordova LPN on behalf of: Inez Sultana NP Reason for Appointment: Patient ID: Radha Hart is a 29 y.o. female who presents for Routine Visit Patient presents today for Return OB appointment. MEDICATIONS Current Outpatient Medications Medication Instructions MV-Min-Fe Fum-FA-DHA ( 1 PO) Take by mouth. ALLERGIES Allergies Allergen Reactions Codeine Hallucinations PROBLEMS Active Ambulatory Problems Diagnosis Date Noted H/O: 12/07/2024 30 weeks gestation of ([facility]) 12/20/2024 Third trimester ([facility]) 01/25/2025 Resolved Ambulatory Problems Diagnosis Date Noted [...] nursing note reviewed. Exam conducted with a fund accountant present. Vitals: Estimated body mass index is 30.87 kg/m as calculated from the following: Height as of 09/05/23: 5' 2 . Weight as of this encounter: 168 lb 12.8 oz. BP: 128/70 No LMP recorded. Patient is . ASSESSMENT & PLAN ICD-10-CM 1. 38 weeks gestation of ([facility]) Z3A.38 POCT urinalysis dipstick manually resulted 2. Third trimester ([facility]) Z34.93 POCT urinalysis dipstick manually resulted 3. [...] and consents were signed today. Documented by Inez Sultana NP on behalf of: Inez Sultana NP documented in this encounter [facility] 02-01-2025 History of Presen t illness Narrative Reason for Appointment: Patient ID: Radha Hart is a 29 y.o. female who presents for Routine Visit Patient presents today for Return OB appointment. MEDICATIONS Current Outpatient Medications Medication Instructions MV-Min-Fe Fum-FA-DHA ( 1 PO) Take by mouth. ALLERGIES Allergies Allergen Reactions Codeine Hallucinations PROBLEMS Active Ambulatory Problems Diagnosis Date Noted H/O: 12/07/2024 30 weeks gestation of ([facility]) 12/20/2024 Third trimester ([facility]) 01/25/2025 Resolved Ambulatory Problems Diagnosis Date Noted [...] nursing note reviewed. Exam conducted with a fund accountant present. Vitals: Estimated body mass index is 30.14 kg/m as calculated from the following: Height as of 23: 5' 2 . Weight as of this encounter: 164 lb 12.8 oz. BP: 128/82 No LMP recorded. Patient is . ASSESSMENT & PLAN ICD-10-CM 1. 36 weeks gestation of ([facility]) Z3A.36 POCT urinalysis dipstick manually resulted 2. Third trimester ([facility]) Z34.93 Return OB: Patient presents today for [...] week for routine OB appointment. Documented by Inez Sultana NP on behalf of: Inez Sultana NP documented in this encounter [facility] 01-25-2025 History of Presen t illness Narrative [...] Noted H/O: 12/07/2024 30 weeks gestation of ([facility]) 12/20/2024 Third trimester ([facility]) 01/25/2025 Resolved Ambulatory Problems Diagnosis Date Noted No Resolved Ambulatory Problems Past Medical History: Diagnosis Date Asthma ([facility]) Benign parotid tumor Facial paresis Facial weakness Fracture, humerus Pharyngitis Sialocele Syncope Tonsillitis HISTORY PAST MEDICAL HISTORY SOCIAL HISTORY Past Medical History: Diagnosis Date Asthma ([facility]) Benign parotid tumor Facial paresis Facial weakness [...] nursing note reviewed. Exam conducted with a fund accountant present. Vitals: Estimated body mass index is 30.02 kg/m as calculated from the following: Height as of 09/05/22: 5' 2 . Weight as of this encounter: 164 lb 1.9 oz. BP: 118/70 No LMP recorded. Patient is . ASSESSMENT & PLAN ICD-10-CM 1. 35 weeks gestation of ([facility]) Z3A.35 POCT urinalysis dipstick manually resulted CULTURE, GROUP B STREP WITH SUSCEPTIBLITY CULTURE, GROUP B STREP WITH SUSCEPTIBLITY 2. Third trimester ([facility]) Z34.93 POCT urinalysis dipstick manually resulted CULTURE, [...] of: SOFI Rollins documented in this encounter [facility] 01-18-2025 History of Presen t illness Narrative [...] Noted H/O: 12/07/2024 30 weeks gestation of ([facility]) 12/20/2024 Resolved Ambulatory Problems Diagnosis Date Noted [...] nursing note reviewed. Exam conducted with a fund accountant present. Vitals: Estimated body mass index is 29.23 kg/m as calculated from the following: Height as of 09/05/22: 5' 2 . Weight as of this encounter: 159 lb 12.8 oz. BP: 120/70 No LMP recorded. Patient is . ASSESSMENT & PLAN ICD-10-CM 1. 34 weeks gestation of ([facility]) Z3A.34 POCT urinalysis dipstick manually resulted 2. Third trimester ([facility]) Z34.93 POCT urinalysis dipstick manually resulted 3. [...] Claudio Alanis DO documented in this encounter [facility] 01-03-2025 History of Presen t illness Narrative [...] Noted H/O: 12/07/2024 30 weeks gestation of ([facility]) 12/20/2024 Resolved Ambulatory Problems Diagnosis Date Noted No Resolved Ambulatory Problems Past Medical History: Diagnosis Date Asthma ([facility]) Benign parotid tumor Facial paresis Facial weakness [...] PLAN ICD-10-CM 1. 32 weeks gestation of ([facility]) Z3A.32 POCT urinalysis dipstick manually resulted 2. Third trimester ([facility]) Z34.93 POCT urinalysis dipstick manually resulted 3. [...] by SOFI Rollins on behalf of: SOFI Rollnis documented in this encounter [facility] 12-20-2024 History of Presen t illness Narrative Reason for Appointment: Patient ID: Radha Hart is a 29 y.o. female who presents for Routine Visit Patient presents today for Return OB appointment. MEDICATIONS Current Outpatient Medications Medication Instructions MV-Min-Fe Fum-FA-DHA ( 1 PO) Oral ALLERGIES Allergies Allergen Reactions Codeine Hallucinations PROBLEMS Active Ambulatory Problems Diagnosis Date Noted H/O: 12/07/2024 30 weeks gestation of ([facility]) 12/20/2024 Resolved Ambulatory Problems Diagnosis Date Noted [...] nursing note reviewed. Exam conducted with a fund accountant present. Vitals: Estimated body mass index is 28.61 kg/m as calculated from the following: Height as of 23: 5' 2 . Weight as of this encounter: 156 lb 6.4 oz. BP: 110/80 No LMP recorded. Patient is . ASSESSMENT & PLAN ICD-10-CM 1. 30 weeks gestation of ([facility]) Z3A.30 POCT urinalysis dipstick manually resulted 2. Third trimester ([facility]) Z34.93 POCT urinalysis dipstick manually resulted Return [...] Claudio Alanis DO documented in this encounter [facility] 12-07-2024 History of Presen t illness Narrative [...] nursing note reviewed. Exam conducted with a fund accountant present. Vitals: Estimated body mass index is 27.44 kg/m as calculated from the following: Height as of 23: 5' 2 . Weight as of this encounter: 150 lb. BP: 124/76 No LMP recorded. Patient is . ASSESSMENT & PLAN ICD-10-CM 1. Third trimester ([facility]) Z34.93 POCT urinalysis dipstick manually resulted 2. 28 weeks gestation of ([facility]) Z3A.28 3. H/O: Z98.891 Return OB: Patient [...] week for routine OB appointment. Documented by Inez Sultana NP on behalf of: Claudio Alanis DO documented in this encounter [facility] 11-15-2024 History of Presen t illness Narrative [...] ASSESSMENT & PLAN ICD-10-CM 1. Second trimester ([facility]) Z34.92 POCT urinalysis dipstick manually resulted 2. 25 weeks gestation of ([facility]) Z3A.25 3. Diabetes mellitus screening Z13.1 CBC [...] schedule. Pt will have orders done at [facility]. Pt was advised to have the lab department fax it back to our office. PVU Orders Placed This Encounter Procedures CBC Glucose tolerance, 1 hour POCT urinalysis dipstick manually resulted Follow Up: Patient is to return to office in 3 week for routine OB appointment. Documented by Melissa Muir MA on behalf of: SOFI Rollins documented in this encounter [facility] 10-18-2024 History of Presen t illness Narrative [...] nursing note reviewed. Exam conducted with a fund accountant present. Vitals: Estimated body mass index is 26.06 kg/m as calculated from the following: Height as of 09/05/22: 5' 2 . Weight as of this encounter: 142 lb 8 oz. BP: 120/72 No LMP recorded. Patient is . ASSESSMENT & PLAN ICD-10-CM 1. Second trimester ([facility]) Z34.92 POCT urinalysis dipstick manually resulted 2. 21 weeks gestation of ([facility]) Z3A.21 Patient presents today for a routine obstetrics appointment. Patient is currently 21w5d with a Estimated Date of Delivery: 02/23/25.Pt had anatomy scan prior to appt, will notify of results. Pt to return in 4 weeks for scheduled OB appt. Documented by Jany Reaves LPN on behalf of: Claudio Alanis DO documented in this encounter [facility] 09-20-2024 History of Presen t illness Narrative Reason for Appointment: Patient ID: Radha Hart is a 28 y.o. female who presents for Routine Visit Patient presents today for Return OB appointment. MEDICATIONS Current Outpatient Medications Medication Instructions SAMARA-Min-Fe Fum-FA-DHA ( 1 PO) Oral ALLERGIES Allergies [...] nursing note reviewed. Exam conducted with a fund accountant present. Vitals: Estimated body mass index is [...] of: SOFI Rollins documented in this encounter [facility] 08-17-2024 History of Presen t illness Narrative [...] nursing note reviewed. Exam conducted with a fund accountant present. Vitals: Estimated body mass index is [...] or undercooked meat, and stay away from [facility]. Patient has been consulted regarding any further do's and don'ts of . Patient voiced understanding and all questions and concerns were answered. Orders Placed This Encounter Procedures POCT urinalysis dipstick manually resulted Follow Up: Patient is to return in 4 weeks for routine OB appointment. 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 Patient has also been advised to [...] Ester Irwin LPN documented in this encounter [facility] 11-05-2022 Evaluation + Plan note Extrac mark from: Title:ED Note Author:Kashif Nguyen PA-C e:11/05/22 Near syncope (R55: Syncope a nd [...] Orthostatic Vitals Signs UA With Cult Reflex [facility]07-05-2023 Hospital Discharge instructions Patient Education 11/05/2022 [...] Follow these instructions at home: Medicines Take nqge-afm-zhpkefm and prescription medicines only as told by [...] provider. Document Revised: 08/29/2021 Document Reviewed: 08/29/2021 [employer] Patient Education 2022 Muzy. Follow Up Care 11/05/2022 07:56:32 With:Claudio ALANIS Address: [address] , [place] [address]- Business (1) When:11/08/2022 11:24:54 With:ANTHONY ROMAN Address: [address] [place] [id number] Business (1) When:11/08/2022 11:24:32 Comments:Call the office [...] you develop any new or worsening symptoms. [facility]10-16-2022 NoteMicrobiology PROCEDURE: Strep Screen Culture [R1] SOURCE: Throat BODY SITE: COLLECTED DATE/TIME: 02/13/2022 15:00 EDT RECEIVED DATE/TIME: 02/14/2022 12:00 EDT START DATE/TIME: 02/14/2022 12:00 EDT FREE TEXT SOURCE: KELSEY Martinez APRN, KELSEY Martinez APRN, [employer] FINAL REPORTS Final Report [] Verified Date/Time: 02/16/2022 11:56 EDT No Pathogenic Streptococcus Isolated Performing Locations R1: This test was performed at: [facility], [address] [place] [address], [id number]- , , [facility] on above:Performed By: #### [id number] #### [facility] [address] [place], [place] [phone] Evaluation note* Encounter Date Diagnosis Assessment Notes [...] Patient care instructions given in writting by [facility] Care At Home document. [employer] Other Evaluation note* Diagnosis Missed menses , [...] state, incidental [facility] Diagnosis 36 weeks gestation of ([facility]) Third trimester ([facility]) state, incidental [facility] Diagnosis 38 weeks gestation of ([facility]) Third trimester ([facility]) state, incidental H/O: Other postprocedural status [facility] N[facility] - Reported* Type Description Date Medical History ASTHMA (EXERCISE INDUCED) Surgical History LEFT HUMERUS FRACTURE 1998 Surgical History LEFT PAROTIDECTOMY 2015 [employer] Hospital course Narrative No data available for this section [facility] No data available for this section [facility] Progress note No data available for this section [facility] Summary Purpose Family History No Family [...] and content) DATE CREATED AUTHOR 10/10/2022 [facility] DATE CREATED AUTHOR AUTHOR'S ORGANIZ ATION 11/05/2022 [facility] DATE CREATED AUTHOR AUTHOR'S ORGANIZ ATION 06/25/2024 [facility] DATE CREATED AUTHOR AUTHOR'S ORGANIZ ATION 06/27/2024 [facility] DATE CREATED AUTHOR AUTHOR'S ORGANIZ ATION 06/28/2024 [facility] DATE CREATED AUTHOR AUTHOR'S ORGANIZ ATION 07/02/2024 [facility] DATE CREATED AUTHOR AUTHOR'S ORGANIZ ATION 07/30/2024 [facility] DATE CREATED AUTHOR AUTHOR'S ORGANIZ ATION 07/31/2024 [facility] DATE CREATED AUTHOR AUTHOR'S ORGANIZ ATION 09/30/2024 [facility] DATE CREATED AUTHOR AUTHOR'S ORGANIZ ATION 11/21/2024 [facility] DATE CREATED AUTHOR AUTHOR'S ORGANIZ ATION 11/23/2024 [facility] DATE CREATED AUTHOR AUTHOR'S ORGANIZ ATION 11/30/2024 [facility] DATE CREATED AUTHOR AUTHOR'S ORGANIZ ATION 02/06/2025 [facility] EPIC Patient Care team informatio n (unrecognized section and content) Claim Technician Relationship Specialty Start Date End Date Anthony Roman MD [address] [place] [facility] [place] [id number] PCP - General Family Medicine 10/02/22 Claim Technician Relationship Specialty Start Date End Date Anthony Roman MD PCP - General Family Medicine 10/02/22 Claim Technician Relationship Specialty Start Date End Date Anthony Roman MD [address] [place] [id number] PCP - General Family Medicine 10/02/22 Claim Technician Relationship Specialty Start Date End Date Anthony Roman MD [address] [place] [address] PCP - General Family Medicine 10/02/22 Claim Technician Relationship Specialty Start Date End Date Anthony Roman MD [address] [place] [address] PCP - General Family Medicine 10/02/22 Claim Technician Relationship Specialty Start Date End Date Anthony Roman MD [address] [place] [address] PCP - General Family Medicine 10/02/22 Claim Technician Relationship Specialty Start Date End Date Anthony Roman MD [address] [place] [facility] [address] PCP - General Family Medicine 10/02/22 Claim Technician Relationship Specialty Start Date End Date Anthony Roman MD [address] [place] [facility] [address] PCP - General Family Medicine 10/02/22 Claim Technician Relationship Specialty Start Date End Date Anthony Roman MD [address] [place] [facility] [address] PCP - General [facility] Medicine 10/02/22 Claim Technician Relationship Specialty Start Date End Date Anthony Roman MD [address] [place] [facility] [address] PCP - General [facility] Medicine 10/02/22 Claim Technician Relationship Specialty Start Date End Date Anthony Roman MD [address] [place] [facility] [address] PCP - General Family Medicine 10/02/22 Claim Technician Relationship Specialty Start Date End Date Anthony Roman MD [address] [place] [facility] [address] PCP - General Family Medicine 10/02/22 [...] BE BASED ON THE PRIMARY CLINICAL RECORDS. [facility] provides no warranty or guarantee of the accuracy or completeness of information in this document.
--- OUTSIDE RECORDS SUMMARY | 2025-02-11 18:31 | XMS_ITS | Encounter Summary ---
Author Organization [facility] Address [address] [place] [address] Care Team Providers Care Clothing Trades Workers Name Role Phone Dixie Berkowitz MD Primary Care Provider [phone] Encounter Details Date Type Department Care Team (Late st Contact Info) Description 01/25/2025 Clinisync Result Encounter NOMS External Department Unsolicited Bree Lezama PA [address] [facility] [address] [place], [place] [address] Social History Tobacco Use Types Packs/Day Years [...] EDT Office Visit [facility] [address] [facility] [place] [address] Bree Lezama PA [address] [place], [facility]11 documented as of this encounter Procedures Procedure Name Priority Date/Time Associated Diagnosis Comments STREP GP B SAY+RFLX Routine 01/25/2025 1 :12 PM EDT documented in this encounter Results * STREP GP B SAY+RFLX (01/25/2025 1:12 PM EDT) STREP GP B SAY+RFLX Negative Negative [facility] Comment: Centers for Disease Control and Prevention (CDC) and [place] [employer] of Obstetricians and Gynecologists (ACOG) guidelines [...] resistance to clindamycin is noted. Performed at: [facility] [id number] Reactor Kettle Operator: Livan Wilkins PhD, Phone: [phone] 01/25/2025 1:12 PM EDT 01/25/2025 8:22 PM EDT Narrative CASEY - 01/28/2025 2:12 PM EDT us Bree FARAH [facility] BLOOD ORDERABLES Final Resul t [facility] documented in this encounter Visit Diagnoses Not on filedocumented in this encounter Care Teams Clothing Trades Workers Relationship Specialty Start Date End Date Dixie Berkowitz MD [address] [place] [address] PCP - General Family Medicine 10/02/22 documented as of this encounter
--- OUTSIDE RECORDS SUMMARY | 2025-02-11 18:31 | XMS_ITS | Encounter Summary ---
Author Organization [facility] Address [address] [place] [place] [address] Care Team Providers Care Alarm Security Or Surveillance Monitor Name Role Phone Dixie Berkowitz MD Primary Care Provider [phone] Encounter Details Date Type Department Care Team (Late Contact Info) Description 04/07/2023 Clinisync Result Encounter NOMS External Department Unsolicited Daxa Eden, CNM [address] [place] [address] Social History Tobacco Use Types Packs/Day Years [...] PM EDT Office Visit [facility] [address] [facility] [place] [phone] Bree Lezama PA [address] [facility] [address] [place], [place] [phone] documented as of this encounter Procedures Procedure [...] PM EST Narrative 04/07/2023 10:00 [place] [address] Ultrasound Report Signed Patient: RADHA HART MR#: [id number] : 1995 Acct:[id number] Age/Sex: 27 / F ADM Date: Loc: [facility] [address]: Claudio Alanis D.O. Ordering Physician: DAXA EDEN APRN, CNM Date of Service: 04/07/23 Procedure(s): US OB limited Accession Number(s): [id number] cc: DAXA EDEN APRN, CNM; Physician,Non-Staff M.D. The [place] [id number] Patient Name: RADHA HART MRN: [id number] date: 1995 Sex: F Assigned Patient Location: [facility] Current Patient Location: [facility] Accession/Order Number: [id number] Exam Date: 04/07/2023 21:15 Report Date: 04/07/2023 [...] M.D. Signed By: 04/07/232199 DD/ 57 TD/TT: Examiner Of Currency: Procedure Note Radiology, Radiologist, MD - 04/07/2023 [place] [address] Ultrasound Report Signed Patient: RADHA HART GMR#: [id number] : 1995Acct:[id number] Age/Sex: 27 FADM Date: Loc: [facility] 252-[address]: Claudio Alanis D.O. Ordering Physician: DAXA EDEN APRN, CNM Date of Service: 04/07/23 Procedure(s): US OB limited Accession Number(s): [id number] cc: DAXA EDEN APRN, CNM; Physician,Non-Staff Katharine [facility] [place] [id number] Patient Name: RADHA HART MRN: [id number] date: 1995 Sex: F Assigned Patient Location: [facility] Current Patient Location: [facility] Accession/Order Number: [id number] Exam Date: 04/07/2023 21:15 Report Date: 04/07/2023 [...] Burrell M.D. Signed By:04/07/232199 DD/ 57 TD/TT: Examiner Of Currency: us Daxa Eden CNM IMG OB US [...] Narrative [facility] - 04/07/2023 10:32 PM EST Claudio Annabelle DO [facility] * [facility] DRUG SCREEN RAPID (URINE) (04/07/2023 [...] Narrative [facility] - 04/07/2023 10:47 PM EST [facility] Annabelle DO [facility] Final Result [facility] * (ABNORMAL) [facility] URINALYSIS, WITH MICROSCOPIC (04/07/2023 [...] Narrative [facility] - 04/07/2023 10:46 PM EST us Claudio Annabelle DO [facility] Final Result [facility] documented in this encounter Visit Diagnoses Not on filedocumented in this encounter Care Teams Alarm Security Or Surveillance Monitor Relationship Specialty Start Date End Date Dixie Berkowitz MD [address] [place] [address] PCP - General Family Medicine 10/02/22 documented as of this encounter
--- OUTSIDE RECORDS SUMMARY | 2025-02-11 18:31 | XMS_ITS | Encounter Summary ---
Author Organization [facility] Address [address] [facility] [place] [address] Care Team Providers Care Wiping Rag Washer Name Role Phone Dixie Berkowitz MD Primary Care Provider [phone] Encounter Details Date Type Department Care Team (Late Contact Info) Description 06/27/2024 Abstract [facility] [address] [facility] [place] [address] Claudio Alanis DO [address] [facility] [address] [place], [place] [address] Social History Tobacco Use Types Packs/Day Years [...] EDT Office Visit [facility] [address] [facility] [place] [address] Bree Lezama PA [address] [facility] [address] [place], [facility]11 documented as of this encounter Visit Diagnoses Not on filedocumented in this encounter Care Teams Wiping Rag Washer Relationship Specialty Start Date End Date Dixie Berkowitz MD [address] [place] [address] PCP - General Family Medicine 10/02/22 documented as of this encounter
--- OUTSIDE RECORDS SUMMARY | 2025-02-11 18:31 | XMS_ITS | Encounter Summary ---
Author Organization [facility] Address [address] [facility] [place] [address] Care Team Providers Care Retreader Name Role Phone Dixie Berkowitz MD Primary Care Provider [phone] Encounter Details Date Type Department Care Team (Late Contact Info) Description 02/13/2023 Clinisync Result Encounter NOMS External Department Unsolicited Nas Alanis DO [address] [facility] [address] [place], [facility]11 Social History Tobacco Use Types Packs/Day Years [...] 1:50 PM EDT Office Visit [facility] [address] [facility] [place] [address] Bree Lezama PA [address] [facility] [address] [place], [facility]11 documented as of this encounter Procedures Procedure Name Priority Date/Time Associated Diagnosis Comments US OB GROWTH 02/13/2023 3:07 PM EDT documented in this encounter Results * US OB GROWTH (02/13/2023 3:07 PM EDT) Anatomical Region Laterality Modality Other 02/13/2023 3:07 PM EDT Narrative 02/13/2023 3:07 [place] [address] Ultrasound Report Signed Patient: RADHA HART MR#: [id number] : 1995 Acct:[id number] Age/Sex: 27 / F ADM Date: 02/13/23 Loc: US Attending Dr: Nas Alanis D.O. Ordering Physician: Nas Alanis D.O. Date of Service: 02/13/23 Procedure(s): US OB growth Accession Number(s): [id number] cc: Nas Alanis D.O.; Physician,Non-Staff M.DGallo The [place] [address] Patient Name: RADHA HART MRN: [id number] date: 1995 Sex: F Assigned Patient Location: Current Patient Location: Accession/Order Number: [id number] Exam Date: 02/13/2023 08:02 Report Date: 02/13/2023 [...] Signed By: 02/13/23 1509 DD/ 1507 TD/TT: Coordinator Hotels: Procedure Note Radiology, Radiologist, MD - 02/13/2023 [place] [address] Ultrasound Report Signed Patient: RADHA HART GMR#: [id number] : 1995Acct:[id number] Age/Sex: 27 / FADM Date: 02/13/23 Loc: US Attending Dr: Nas Alanis D.O. Ordering Physician: Nas Alanis D.O. Date of Service: 02/13/23 Procedure(s): US OB growth Accession Number(s): [id number] cc: Nas Alanis D.O.; Physician,Non-Staff Katharine The [place] [address] Patient Name: RADHA HART MRN: [facility]:[id number] date: 1995 Sex: F Assigned Patient Location: Current Patient Location: [place] Accession/Order Number: [id number] Exam Date: 02/13/2023 08:02 Report Date: 02/13/2023 [...] M.D. Signed By:02/13/23 1509 DD/ 1507 TD/TT: Coordinator Hotels: us Nas Annabelle DO [facility] Final Result documented in this encounter Visit Diagnoses Not on filedocumented in this encounter Care Teams Retreader Relationship Specialty Start Date End Date Dixie Berkowitz MD [address] [place] [address] PCP - General Family Medicine 10/02/22 documented as of this encounter
--- OUTSIDE RECORDS SUMMARY | 2025-02-11 18:31 | XMS_ITS | Encounter Summary ---
Author Organization [facility] Address [address] [facility] [place] [address] Care Team Providers Care Business Center Manager Name Role Phone Dixie Berkowitz MD Primary Care Provider [phone] Encounter Details Date Type Department Care Team (Late Contact Info) Description 06/24/2024 Abstract [facility] [address] [facility] [place] [address] Claudio Alanis DO [address] [facility] [address] [place], [place] [address] Social History Tobacco Use Types Packs/Day Years [...] EDT Office Visit [facility] [address] [facility] [place] [address] Bree Lezama PA [address] [facility] [address] [place], [facility]11 documented as of this encounter Visit Diagnoses Not on filedocumented in this encounter Care Teams Business Center Manager Relationship Specialty Start Date End Date Dixie Berkowitz MD [address] [place] [address] PCP - General Family Medicine 10/02/22 documented as of this encounter
--- OUTSIDE RECORDS SUMMARY | 2025-02-11 18:31 | XMS_ITS | Encounter Summary ---
Author Organization [facility] Address [address] [place] [address] Care Team Providers Care Water Technician Name Role Phone Dixie Berkowitz MD Primary Care Provider [phone] Encounter Details Date Type Department Care Team (Late Contact Info) Description 02/01/2025 Bamboo flowsheet [facility] [address] [place] [address] [place] [address] Denise Sultana, DRAINAGE DESIGN COORDINATOR [address] [facility] [place] [address] Social History Tobacco Use Types Packs/Day Years [...] EDT Office Visit [facility] [address] [facility] [place] [address] Bree Lezama PA [address] [facility] [address] [place], [facility]11 documented as of this encounter Visit Diagnoses Not on filedocumented in this encounter Care Teams Water Technician Relationship Specialty Start Date End Date Dixie Berkowitz MD [address] [place] [address] PCP - General Family Medicine 10/02/22 documented as of this encounter
--- OUTSIDE RECORDS SUMMARY | 2025-02-11 18:31 | XMS_ITS | Encounter Summary ---
Author Organization [facility] Address [address] [place] [address] Care Team Providers Care Duct Layer Helper Name Role Phone Dixie Berkowitz MD Primary Care Provider [phone] Encounter Details Date Type Department Care Team (Late Contact Info) Description 02/02/2023 Abstract [facility] [address] [place] [address] Claudio Alanis DO [address] [facility] [address] [place], [place] [address] Social History Tobacco Use Types Packs/Day Years [...] PM EDT Office Visit [facility] [address] [place] [address] Bree Lezama PA [address] [facility] [address] [place], [facility]11 documented as of this encounter Visit Diagnoses Not on filedocumented in this encounter Care Teams Duct Layer Helper Relationship Specialty Start Date End Date Dixie Berkowitz MD [address] [place] [address] PCP - General Family Medicine 10/02/22 documented as of this encounter
--- OUTSIDE RECORDS SUMMARY | 2025-02-11 18:31 | XMS_ITS | Encounter Summary ---
Author Organization [facility] Address [address] [facility] [place] [address] Care Team Providers Care Brisket Puller Name Role Phone Dixie Berkowitz MD Primary Care Provider [phone] Encounter Details Date Type Department Care Team (Late Contact Info) Description 02/09/2025 Bamboo flowsheet [facility] [address] [place] [address] [place] [address] Denise Sultana, NETWORK OPERATIONS LEAD [address] [facility] [place] [address] Social History Tobacco Use Types Packs/Day [...] EDT Office Visit [facility] [address] [facility] [place] [address] Bree Lezama PA [address] [facility] [facility] [address] [place], [facility]11 documented as of this encounter Visit Diagnoses Not on filedocumented in this encounter Care Teams Brisket Puller Relationship Specialty Start Date End Date Dixie Berkowitz MD [address] [place] [address] PCP - General Family Medicine 10/02/22 documented as of this encounter
--- OUTSIDE RECORDS SUMMARY | 2025-02-11 18:31 | XMS_ITS | Encounter Summary ---
Author Organization [facility] Address [address] [facility] [place] [address] Care Team Providers Care Hospice Team Lead Name Role Phone Dixie Berkowitz MD Primary Care Provider [phone] Encounter Details Date Type Department Care Team (Late Contact Info) Description 12/27/2022 Abstract [facility] [address] [facility] [place] [address] Bree Lezama PA [address] [facility] [address] [place], [place] [address] Social History Tobacco Use Types Packs/Day Years [...] PM EDT Office Visit [facility] [address] [facility] [place] [address] Bree Lezama PA [address] [place] [address] [address] [place], [facility]24 documented as of this encounter Visit Diagnoses Not on filedocumented in this encounter Care Teams Hospice Team Lead Relationship Specialty Start Date End Date Dixie eBrkowitz MD [address] [place] [address] PCP - General Family Medicine 10/02/22 documented as of this encounter
--- OUTSIDE RECORDS SUMMARY | 2025-02-11 18:31 | XMS_ITS | Encounter Summary ---
Author Organization [facility] Address [address] [place] [address] Care Team Providers Care Orthodontic Technician Name Role Phone Dixie Berkowitz MD Primary Care Provider [phone] Encounter Details Date Type Department Care Team (Late Contact Info) Description 09/21/2024 Results Follow-Up [facility] O[facility]YBerhane [address] [facility] [facility] [place] [address] Ester Irwin LPN [address] [employer] [place] [phone] RECURRENT VAGINITIS (HTRX) Social History Tobacco Use [...] PM EDT Office Visit [facility] [address] [facility] [place] [address] Bree Lezama PA [address] [facility] [address] [place], [place] [address] documented as of this encounter Visit Diagnoses Not on filedocumented in this encounter Care Teams Orthodontic Technician Relationship Specialty Start Date End Date Dixie Berkowitz MD [address] [facility] [address] PCP - General Family Medicine 10/02/22 documented as of this encounter
--- OUTSIDE RECORDS SUMMARY | 2025-02-11 18:31 | XMS_ITS | Encounter Summary ---
Author Organization [facility] Address [address] [place] [address] Care Team Providers Care Composition Floor Layer Name Role Phone Dixie Berkowitz MD Primary Care Provider [phone] Encounter Details Date Type Department Care Team (Late Contact Info) Description 08/02/2024 Abstract [facility] [address] [facility] [place] [address] Claudio Alanis DO [address] [facility] [address] [place], [place] [address] Social History Tobacco Use Types Packs/Day Years [...] 1:50 PM EDT Office Visit [facility] [address] [place] [address] [place] [address] Bree Lezama PA [address] [facility] [address] [place], [place] [address] documented as of this encounter Visit Diagnoses Not on filedocumented in this encounter Care Teams Composition Floor Layer Relationship Specialty Start Date End Date Dixie Berkowitz MD [address] [place] [address] PCP - General Family Medicine 10/02/22 documented as of this encounter
--- OUTSIDE RECORDS SUMMARY | 2025-02-11 18:31 | XMS_ITS | Encounter Summary ---
Author Organization [facility] Address [address] [place] [address] Care Team Providers Care Tire Service Technician Name Role Phone Dixie Berkowitz MD Primary Care Provider [phone] Encounter Details Date Type Department Care Team (Latest Contact Info) Description 02/02/2025 Travel Social History Tobacco Use Types Packs/Day [...] Visit [facility] [address] [facility] [place] [address] Bree Lezama PA [address] [facility] [place] [address] documented as of this encounter Visit Diagnoses Not on filedocumented in this encounter Care Teams Tire Service Technician Relationship Specialty Start Date End Date Dixie Berkowitz MD [address] [place] [address] PCP - General Family Medicine 10/02/22 documented as of this encounter
[2025-02-11 18:44] VITALS: BP 146/75; PULSE 108; TEMP 36.6
[2025-02-11 18:54] LABS: Glucose Urine UA NEGATIVE (NEGATIVE)
[2025-02-11] MEDS: 0.9 % SODIUM CHLORIDE 1,000 ML 999 ML IV (21:23)
[2025-02-11] MEDS: ACETAMINOPHEN 500 MG TABLET 1000 MG PO (21:29)
== END 2025-02-11 23:10 | disposition home or self-care (01) ==
PROVIDERS: Admitting Provider Obstetrics & Gynecology; Visit Provider Obstetrics & Gynecology
DX: O26.893 Other specified pregnancy related conditions, third trimester (principal); R10.30 Lower abdominal pain, unspecified; Z3A.38 38 weeks gestation of pregnancy
CPT/HCPCS: 59025; 81003; G0378; G0379

== ENCOUNTER 2025-02-16 05:32 | Inpatient (IN) | payer BC, SELFPAY ==
[2025-02-16] VITALS (43 sets, daily range): BP systolic 66–116; BP diastolic 49–87; PULSE 70–99; TEMP 36.4–37; O2SAT 91–100
--- OUTSIDE RECORDS SUMMARY | 2025-02-16 05:37 | XMS_ITS | CCD ---
Author Organization [facility] Care Team Providers Care Wastewater Engineer Name Role Phone Eleni Dc Unavailable ANNABELLE [...] Unavailable Anthony Roman MD Primary Care Provider [phone] ANNABELLE, Claudio R Admitting Unavailable ANNABELLE, Claudio R Attending Unavailable Anthony Roman MD Primary Care Provider [phone] Anthony Roman MD Primary Care Provider Anthony Roman MD Primary Care Provider ANNABELLE, [...] CLAUDIO Attending Unavailable LISE, BREE Attending Unavailable RD, INEZ Attending Unavailable RD, INEZ Attending Unavailable Anthony Roman MD Primary Care Provider Allergies Allergy Classification Reported Allergen(s) Allergy Type Date of Onset Reaction(s) Facility (20 sources) Codeine; Translations: [codeine] Drug Allergy 3 Hallucinations [facility] Repository (6 sources) Unable to obtain; Translations: [Unable to obtain] Propensity to adverse reactions (disorder) [facility] Repository Medications Current Medications Medication Drug [...] of ] 12-07-2024 Episodic Residual codes; unclassified (20 sources) Gestation period, 30 weeks; Translations: [30 [...] Test Name Value Interpretation Reference Range Facility [facility] UA (CLEAN/CATCH) TAP DANCER/DARNELL RO IF IND.on 02-11-2025 BILIRUBIN URINE Negative NEGATIVE [facility] BLOOD URINE Negative NEGATIVE [facility] Clarity (U) CLEAR CLEAR [facility] Color (U) LT. YELLOW YELLOW [facility] GLUCOSE URINE UA Negative NEGATIVE mg/dL [facility] Interpretation and review of laboratory results Abnormal [facility] Ketones Ql (U) 15 mg/dL Abnormal NEGATIVE [facility] Leukocyte esterase Test strip Ql (U) Negative NEGATIVE [facility] NITRITE URINE Negative NEGATIVE [facility] Health care pH (U) 6.0 [pH] 5.0 - 9.0 [facility] PROTEIN URINE Negative NEG/TRACE mg/dL [facility] SPECIFIC GRAVITY URINE 1.015 1.005 - 1.025 [facility] URINE MICROSCOPIC INDICATED NO [facility] UROBILINOGEN URINE 0.2 EU/dL 0.2 - 1.0 EU/dL [facility] Urinalysis macro (dipstick) panel (U)on 02-09-2025 Bilirubin, UA Negative Negative - 4(70) +++ mg/dL [facility] Blood, UA Negative Negative - 50 Xavier/mcL [facility] Clarity, UA Clear [facility] Color, UA Yellow [facility] Glucose, UA Negative Negative - 1999(110) ++++ mg/dL [facility] Interpretation and review of laboratory results Normal [facility] Ketones, UA Negative Negative - 160(16) ++++ mg/dL [facility] Leukocytes, UA Negative Negative - 500+++ Astrid/mcL [facility] Nitrite, UA Negative Negative - Positive [facility] pH, UA 6 5 - 9 [facility] Protein, UA Negative Negative - 1999(20) ++++ mg/dL [facility] Spec Grav, UA 1.01 1 - 1.03 [facility] Urobilinogen, UA 1.0 0.2 - 12 mg/dL [facility] Urinalysis macro (dipstick) panel (U)on 02-01-2025 Bilirubin, UA Negative Negative - 4(70) +++ mg/dL [facility] Blood, UA Negative Negative - 50 Xavier/mcL [facility] Clarity, UA Clear [facility] Color, UA Yellow [facility] Glucose, UA Negative Negative - 1999(110) ++++ mg/dL [facility] Interpretation and review of laboratory results Normal [facility] Ketones, UA Negative Negative - 160(16) ++++ mg/dL [facility] Leukocytes, UA Negative Negative - 500+++ Astrid/mcL [facility] Nitrite, UA Negative Negative - Positive [facility] pH, UA 6.5 5 - 9 [facility] Protein, UA Negative Negative - 1999(20) ++++ mg/dL [facility] Spec Grav, UA 1.01 1 - 1.03 [facility] Urobilinogen, UA 2.0 0.2 - 12 mg/dL [facility] STREP GP B SAY+RFLXon 2024 STREP GP B SAY+RFLX Negative Negative [facility] Comment on above: Centers for Disease Control and Prevention (CDC) and [place] [employer] of Obstetricians and Gynecologists (ACOG) guidelines [...] resistance to clindamycin is noted. Performed at: [facility] [address] [id number] Carpenter Assistant: Livan Wilkins PhD, Phone: [phone] [facility] Urinalysis macro (dipstick) panel (U)on 01-25-2025 Bilirubin, UA Negative Negative - 4(70) +++ mg/dL [facility] Blood, UA Negative Negative - 50 Xavier/mcL [facility] Clarity, UA Clear [facility] Color, UA Yellow [facility] Glucose, UA Negative Negative - 1999(110) ++++ mg/dL [facility] Interpretation and review of laboratory results Normal [facility] Ketones, UA Negative Negative - 160(16) ++++ mg/dL [facility] Leukocytes, UA Negative Negative - 500+++ Astrid/mcL [facility] Nitrite, UA Negative Negative - Positive [facility] pH, UA 6 5 - 9 [facility] Protein, UA Negative Negative - 1999(20) ++++ mg/dL [facility] Spec Grav, UA 1.01 1 - 1.03 [facility] Urobilinogen, UA 0.2 0.2 - 12 mg/dL [facility] Urinalysis macro (dipstick) panel (U)on 01-18-2025 Bilirubin, UA Negative Negative - 4(70) +++ mg/dL [facility] Blood, UA Negative Negative - 50 Xavier/mcL [facility] Clarity, UA Clear [facility] Color, UA Yellow [facility] Glucose, UA Negative Negative - 1999(110) ++++ mg/dL [facility] Interpretation and review of laboratory results Normal [facility] Ketones, UA Negative Negative - 160(16) ++++ mg/dL [facility] Leukocytes, UA Negative Negative - 500+++ Astrid/mcL [facility] Nitrite, UA Negative Negative - Positive [facility] pH, UA 6 5 - 9 [facility] aXess americacar e Protein, UA Negative Negative - 1999(20) ++++ mg/dL [facility] Spec Grav, UA 1.015 1 - 1.03 [facility] Urobilinogen, UA 1.0 0.2 - 12 mg/dL [facility] US OB FOLLOW UP TRANSABDOMIN [...] UA Negative Negative - 4(70) +++ mg/dL [facility] Healthcare Blood, UA Negative Negative - 50 Xavier/mcL [facility] Healthcare Clarity, UA Clear [facility] Color, UA Yellow [facility] Glucose, UA Negative Negative - 1999(110) ++++ mg/dL [facility] Interpretation and review of laboratory results Abnormal [facility] Healthcare Ketones, UA Negative Negative - 160(16) ++++ mg/dL [facility] Healthcare Leukocytes, UA Positive Negative - 500+++ Astrid/mcL [facility] Healthcare Nitrite, UA Negative Negative - Positive [facility] Healthcare pH, UA 6 5 - 9 [facility] Protein, UA Negative Negative - 1999(20) ++++ mg/dL [facility] Healthcare Spec Grav, UA 1.02 1 - 1.03 [facility] care Urobilinogen, UA 1.0 0.2 - 12 mg/dL [facility] Urinalysis macro (dipstick) panel (U)on 12-20-2024 Bilirubin, UA Negative Negative - 4(70) +++ mg/dL [facility] Healthcare Blood, UA Negative Negative - 50 Xavier/mcL [facility] Healthcare Clarity, UA Clear [facility] Color, UA Yellow [facility] Glucose, UA Negative Negative - 1999(110) ++++ mg/dL [facility] Healthcare Interpretation and review of laboratory results Normal [facility] Healthcare Ketones, UA Negative Negative - 160(16) ++++ mg/dL [facility] Healthcare Leukocytes, UA Negative Negative - 500+++ Astrid/mcL [facility] Nitrite, UA Negative Negative - Positive [facility] pH, UA 6 5 - 9 [facility] Protein, UA Negative Negative - 1999(20) ++++ mg/dL [facility] Spec Grav, UA 1.01 1 - 1.03 [facility] Urobilinogen, UA 0.2 0.2 - 12 mg/dL [facility] Urinalysis macro (dipstick) panel (U)on 12-07-2024 Bilirubin, UA Negative Negative - 4(70) +++ mg/dL [facility] Blood, UA Negative Negative - 50 Xavier/mcL [facility] Clarity, UA Clear [facility] Color, UA Yellow [facility] Glucose, UA Negative Negative - 1999(110) ++++ mg/dL [facility] Interpretation and review of laboratory results Normal [facility] Ketones, UA Negative Negative - 160(16) ++++ mg/dL [facility] Leukocytes, UA Negative Negative - 500+++ Astrid/mcL [facility] Nitrite, UA Negative Negative - Positive [facility] pH, UA 6 5 - 9 [facility] Protein, UA Negative Negative - 1999(20) ++++ mg/dL [facility] Spec Grav, UA 1.01 1 - 1.03 [facility] Urobilinogen, UA 1.0 0.2 - 12 mg/dL [facility] Capillary Glucose POCon 11-02 Glucose [Mass/Vol] 92 mg/dL Normal 55-99 [facility] Comment on above: Performed By: #### 2 [id number] #### [facility] [address] [place] [address] Glu 1 Hron 11-22-2024 Glucose [Mass/Vol] 137 mg/dL Normal 55-180 [facility] Comment on above: Performed By: #### 2 [id number] #### [facility] [address] [place] [address] Glu 2 Hron 11-22-2024 Glucose [Mass/Vol] 114 mg/dL Normal 55-155 [facility] Comment on above: Performed By: #### 2 [id number] #### [facility] [address] [place] [address] Glu 3 Hron 11-22-2024 Glucose [Mass/Vol] 86 mg/dL Normal 55-140 [facility] Comment on above: Performed By: #### 2 [id number] #### [facility] [address] [place] [address] Glu Fastingon 11-22-2024 Glucose [Mass/Vol] 86 mg/dL Normal 55-99 [facility] Comment on above: Performed By: #### 2 [id number] #### [facility] [address] [place] [address] CBC w/Indiceson 11-18-2024 Erythrocyte distribution width (RBC) [Ratio] 13.3 % Normal 10.9-14.2 [facility] Comment on above: Performed By: #### 2 [id number] #### [facility] [address] [place] [address] Hematocrit (Bld) [Volume fraction] 36.2 % Normal 34.0-46.0 [facility] Comment on above: Performed By: #### 2 [id number] #### [facility] [address] [place] [address] Hemoglobin (Bld) [Mass/Vol] 12.1 g/dL Normal 12.0-16.0 [facility] Comment on above: Performed By: #### 2 [id number] #### [facility] [address] [place] [address] MCH (RBC) [Entitic mass] 28.8 pg Normal 27.0-34.0 [facility] Comment on above: Performed By: #### 2 [id number] #### [facility] [address] [place] [address] MCHC (RBC) [Mass/Vol] 33.4 g/dL Normal 31.4-36.0 [facility] Comment on above: Performed By: #### 2 [id number] #### [facility] [address] [place] [address] MCV (RBC) [Entitic vol] 86.2 fL Normal 80.0-100.0 [facility] Comment on above: Performed By: #### 2 [id number] #### [facility] [address] [place] [address] Platelet 162.0 E9/L Normal 150.0-500.0 [facility] Comment on above: Performed By: #### 2 [id number] #### [facility] [address] [place] [address] Platelet mean volume (Bld) [Entitic vol] 8.9 fL Normal 6.4-10.8 [facility] Comment on above: Performed By: #### 2 [id number] #### [facility] [address] [place] [address] RBC 4.2 E12/L Low 4.3-5.9 [facility] Comment on above: Performed By: #### 2 [id number] #### [facility] [address] [place] [address] RBC morphology finding Nom (Bld) NORMAL Invalid Interpretation Code [facility] Comment on above: Performed By: #### 2 [id number] #### [facility] [address] [place] [address] WBC 7.4 E9/L Normal 4.0-11.0 [facility] Comment on above: Performed By: #### 2 [id number] #### [facility] [address] [place] [id number] Gest Scr Glu 1 Hron 11-19-19 25 Glucose [Mass/Vol] 141 mg/dL High 55-140 [facility] Comment on above: Performed By: #### 3 [id number] #### [facility] [address] [id number] Urinalysis macro (dipstick) panel (U)on 11-15-2024 Bilirubin, UA Negative Negative - 4(70) +++ mg/dL [facility] Blood, UA Negative Negative - 50 Xavier/mcL [facility] Clarity, UA Clear [facility] Color, UA Yellow [facility] Glucose, UA Negative Negative - 2000(110) ++++ mg/dL [facility] Interpretation and review of laboratory results Normal [facility] Ketones, UA Positive Negative - 160(16) ++++ mg/dL [facility] Comment on above: trace Leukocytes, UA Negative Negative - 500+++ Astrid/mcL [facility] Nitrite, UA Negative Negative - Positive [facility] pH, UA 7 5 - 9 [facility] aXess americacar e Protein, UA Trace Negative - 2000(20) ++++ mg/dL [facility] Spec Grav, UA 1.02 1 - 1.03 [facility] Urobilinogen, UA 1.0 0.2 - 12 mg/dL [facility] US OB 14+ WEEKS [...] II, MD, PHD at 19-Oct-2024 08:00:12 AM [facility] Normal Not Available Comment on above: Order Comment: US OB ANATOMY SINGLE W US OB CERVICAL LENGTH Estimated Date of Delivery: 02/23/25 Gestational Age as of 09/20/2024: 17w5d Urinalysis macro (dipstick) panel (U)on 10-18-2024 Bilirubin, UA Negative Negative - 4(70) +++ mg/dL [facility] Blood, UA Negative Negative - 50 Xavier/mcL [facility] Clarity, UA Clear [facility] re Color, UA Yellow [facility] Glucose, UA Negative Negative - 1999(110) ++++ mg/dL [facility] Interpretation and review of laboratory results Normal [facility] Ketones, UA Negative Negative - 160(16) ++++ mg/dL [facility] Leukocytes, UA Negative Negative - 500+++ Astrid/mcL [facility] Nitrite, UA Negative Negative - Positive [facility] pH, UA 7 5 - 9 [facility] e Protein, UA Negative Negative - 1999(20) ++++ mg/dL [facility] Spec Grav, UA 1.015 1 - 1.03 [facility] Urobilinogen, UA 0.2 0.2 - 12 mg/dL [facility] RECURRENT VAGINITIS (HTRX)on 09-21-2024 [facility]UM [facility]AE 0 [facility] ATOPOBI[facility] VAGINAE Not detected [facility] BVAB 2,3 (BACTERIAL VAGINOSIS ASSOCIATED BACTERIA 2, 3); MOBILUNCUS SPP 22.305 Abnormal [facility] BVAB 2,3 (BACTERIAL VAGINOSIS ASSOCIATED BACTERIA 2, 3); MOBILUNCUS SPP Detected Abnormal [facility] KADE ALBICANS, PARAPSILOSIS, TROPICALIS 0 [facility] KADE ALBICANS, PARAPSILOSIS, TROPICALIS Not detected [facility] KADE GLABRATA 0 [facility] KADE GLABRATA Not detected [facility] KADE KRUSEI 0 [facility] KADE KRUSEI Not detected [facility] CHLAMYDIA TRACHOMATIS 0 [facility] CHLAMYDIA TRACHOMATIS Not detected N [facility] GARDNERELLA VAGINALIS 20.313 Abnormal [facility] GARDNERELLA VAGINALIS Detected Abnormal [facility] Healthcare Interpretation and review of laboratory results Abnormal [facility] MEGASPHAERA (TYPES 1, 2) 0 [facility] MEGASPHAERA (TYPES 1, 2) Not detected [facility] MYCOPLASMA GENITALIUM 0 [facility] MYCOPLASMA GENITALIUM Not detected [facility] NEISSERIA GONORRHOEAE 0 [facility] NEISSERIA GONORRHOEAE Not detected N [facility] TET B, TET M 23.986 Abnormal [facility] Healthc are TET B, TET M Detected Abnormal [facility] are TRICHOMONAS VAGINALIS 0 [facility] TRICHOMONAS VAGINALIS Not detected [facility] Urinalysis macro (dipstick) panel (U)on 09-20-2024 Bilirubin, UA Negative Negative - 4(70) +++ mg/dL [facility] Blood, UA Negative Negative - 50 Xavier/mcL [facility] Clarity, UA Clear [facility] re Color, UA Yellow [facility] Glucose, UA Negative Negative - 1999(110) ++++ mg/dL [facility] Interpretation and review of laboratory results Normal [facility] Ketones, UA Negative Negative - 160(16) ++++ mg/dL [facility] Leukocytes, UA Negative Negative - 500+++ Astrid/mcL [facility] Nitrite, UA Negative Negative - Positive [facility] pH, UA 7 5 - 9 [facility] Protein, UA Negative Negative - 1999(20) ++++ mg/dL [facility] Spec Grav, UA 1.015 1 - 1.03 [facility] Urobilinogen, UA 0.2 0.2 - 12 mg/dL [facility] Urinalysis macro (dipstick) panel (U)on 08-17-2024 Bilirubin, UA Negative Negative - 4(70) +++ mg/dL [facility] Blood, UA Negative Negative - 50 Xavier/mcL [facility] Clarity, UA Clear [facility] re Color, UA Yellow [facility] Glucose, UA Negative Negative - 1999(110) ++++ mg/dL [facility] Interpretation and review of laboratory results Normal [facility] Ketones, UA Negative Negative - 160(16) ++++ mg/dL [facility] Leukocytes, UA Negative Negative - 500+++ Astrid/mcL [facility] Nitrite, UA Negative Negative - Positive [facility] pH, UA 6 5 - 9 [facility] Protein, UA Negative Negative - 2000(20) ++++ mg/dL [facility] Spec Grav, UA 1.015 1 - 1.03 [facility] Urobilinogen, UA 0.2 0.2 - 12 mg/dL [facility] .Interpretation:on HCV Ab IA Ql Comment Invalid Interpretation Code [facility] Comment on above: Result Comment: Not infected with HCV unless early or acute infection is suspected (which may be delayed in an immunocompromised individual), or other evidence exists to indicate HCV infection. Performed at: [address] [id number] PhD Franky Licona Performed By: #### 2 [id number] #### [facility] [address] [place] [address] HCV Antibody RFX to Quant PC Eloy 07-30-2024 HCV Ab IA Ql Non-Reactive Invalid Interpretation Code Non Reactive [facility] Comment on above: Result Comment: Perf ormed at: [address] [id number] PhD Franky Licona Performed By: #### 2 [id number] #### [facility] [address] [place] [address] HIV Screen 4th Generation wR fxon 07-30-2024 HIV 1+2 Ab+HIV1 p24 Ag IA Ql Non-Reactive Invalid Interpretation Code Non Reactive [facility] Comment on above: Result Comment: HIV- 1/HIV-2 antibodies and HIV-1 p24 antigen were NOT detected. There is no laboratory evidence of HIV infection. HIV Negative [facility]formed [facility]: [facility] [id number] PhD Franky Licona Performed By: #### 9 [id number] #### [facility] [address] [place] [address] Hep Bs Agon 07-30-2024 HBV surface Ag IA Ql Negative Invalid Interpretation Code Negative [facility] Comment on above: Result Comment: Perf ormed at: [address] [id number] PhD Franky Licona Performed By: #### 2 [id number] #### [facility] [address] [place], [place] [id number] RPR with Conf Rfxon 07-31-19 25 Reagin Ab RPR Ql (S) Non-Reactive Invalid Interpretation Code Non Reactive [facility] Comment on above: Result Comment: Perf ormed at: [address] [id number] PhD Franky Licona Performed By: #### 1 [id number] #### [facility] [address] [place] [address] Rubella IgGon 07-30-2024 Rubella virus IgG Qn (S) 3.34 [IU]/mL Invalid Interpretation Code Immune >0.99 [facility] Comment on above: Result Comment: Non- immune <0.90 Equivocal 0.90 - 0.99 Immune >0.99 Performed at: [address] [id number] PhD Franky Licona Performed By: #### 1 [id number] #### [facility] [address] [place], [place] [id number] ABO/Rhon 07-29-2024 ABO/Rh Positive Invalid Interpretation Code [facility] Comment on above: Performed By: #### 2 [id number] #### [facility] [address] [place] [address] ABSCon 07-29-2024 ABSC Gel Interp Negative Normal [facility] Comment on above: Performed By: #### 1 [id number] #### [facility] [address] [place] [address] BLOOD BANKOrdered By: Kaylie Hopkins on 07-29-2024 ABO/Rh Interp Positive Invalid Interpretation Code FT BB Subsection ABSC Gel Interp Negative (07/29/24 12:36 PM) Normal [facility] BB Subsection CBC w/ Auto Diffon 03-28-202 5 Basophils/100 WBC (Bld) 0.2 % Normal 0.0-2.0 [facility] Comment on above: Performed By: #### 2 [id number] #### [facility] [address] [place] [address] Basophils/Leukocytes Auto (Bld) [Pure # fraction] 0.0 E9/L Normal 0.0-0.2 [facility] Comment on above: Performed By: #### 2 [id number] #### [facility] [address] [place] [address] Eosinophils (Bld) [#/Vol] 0.2 E9/L Normal 0.0-0.5 [facility] Comment on above: Performed By: #### 2 [id number] #### [facility] [address] [place] [address] Eosinophils/100 WBC (Bld) 2.1 % Normal 0.0-8.0 [facility] Comment on above: Performed By: #### 2 [id number] #### [facility] [address] [place] [address] Erythrocyte distribution width (RBC) [Ratio] 12.4 % Normal 10.9-14.2 [facility] Comment on above: Performed By: #### 2 [id number] #### [facility] [address] [place] [address] Hematocrit (Bld) [Volume fraction] 38.5 % Normal 34.0-46.0 [facility] Comment on above: Performed By: #### 2 [id number] #### [facility] [address] [place] [address] Hemoglobin (Bld) [Mass/Vol] 13.5 g/dL Normal 12.0-16.0 [facility] Comment on above: Performed By: #### 2 [id number] #### [facility] [address] [place] [address] Lymphocytes (Bld) [#/Vol] 1.8 E9/L Normal 1.0-4.0 [facility] Comment on above: Performed By: #### 2 [id number] #### [facility] [address] [place] [address] Lymphocytes/100 WBC (Bld) 21.6 % Normal 14.0-50.0 [facility] Comment on above: Performed By: #### 2 [id number] #### [facility] [address] [place] [address] MCH (RBC) [Entitic mass] 29.7 pg Normal 27.0-34.0 [facility] Comment on above: Performed By: #### 2 [id number] #### [facility] [address] [place] [address] MCHC (RBC) [Mass/Vol] 35.1 g/dL Normal 31.4-36.0 [facility] Comment on above: Performed By: #### 2 [id number] #### [facility] [address] [place] [address] MCV (RBC) [Entitic vol] 84.5 fL Normal 80.0-100.0 [facility] Comment on above: Performed By: #### 2 [id number] #### [facility] [address] [place] [address] Monocytes (Bld) [#/Vol] 0.4 E9/L Normal 0.2-1.0 [facility] Comment on above: Performed By: #### 2 585659 #### [facility] [address] [place] [address] Neutrophils (Bld) [#/Vol] 5.8 E9/L Normal 2.0-7.5 [facility] Comment on above: Performed By: #### 2 701862 #### [facility] [address] [place] [address] Neutrophils/100 WBC (Bld) 71.2 % Normal 36.0-75.0 [facility] Comment on above: Performed By: #### 2 [id number] #### [facility] [address] [place] [address] Platelet mean volume (Bld) [Entitic vol] 8.8 fL Normal 6.4-10.8 [facility] Comment on above: Performed By: #### 2 [id number] #### [facility] [address] [place] [address] Platelets (Bld) [#/Vol] 227.0 E9/L Normal 150.0-500.0 [facility] Comment on above: Performed By: #### 2 [id number] #### [facility] [address] [place] [address] RBC (Bld) [#/Vol] 4.6 E12/L Normal 4.3-5.9 [facility] Comment on above: Performed By: #### 2 [id number] #### [facility] [address] [place] [address] WBC corrected for nucl RBC Auto (Bld) [#/Vol] 8.2 E9/L Normal 4.0-11.0 [facility] Comment on above: Performed By: #### 2 [id number] #### [facility] [address] [place] [address] CHEMISTRYOrdered By: SYSTEM SYSTEM on 07-29-2024 Amphetamines [...] (Bld) [Mass fraction] 4.9 % Normal <=5.9% [facility] ChemAutoSS HEMATOLOGYOrdered By: SYSTEM SYSTEM on 07-29-2024 [...] Normal 4.0 - 11.0 E9/L Remisol Heme [id number] 07-29-2024 HbA1c (Bld) [Mass fraction] 4.9 % Normal <=5.9 [facility] Comment on above: Performed By: #### 7 [id number] #### [facility] [address] [place] [address] Reference Laboratory Testing Ordered By: Generated DomainUser on 07-29-2024 HBV surface Ag IA Ql Negative Invalid Interpretation Code Negative [facility] SendOutsSS Comment on above: Result Comment: Perf ormed at: [facility] [address] [id number] PhD Franky Licona HCV Ab IA Ql Non-Reactive Invalid Interpretation Code Non Reactive FT [employer]OutsSS Comment on above: Result Comment: Perf ormed at: [address] [id number] PhD Franky iLcona HCV Ab IA Ql Comment Invalid Interpretation Code [facility] [employer]OutsSS Comment on above: Result Comment: Not infected with HCV unless early or acute infection is suspected (which may be delayed in an immunocompromised individual), or other evidence exists to indicate HCV infection. Performed at: [address] [id number] PhD Franky Licona HIV 1+2 Ab+HIV1 p24 Ag IA Ql Non-Reactive Invalid Interpretation Code Non Reactive [facility] [employer]OutsSS Comment on above: Result Comment: HIV- 1/HIV-2 antibodies and HIV-1 p24 antigen were NOT detected. There is no laboratory evidence of HIV infection. HIV Negative Performed at: [address] [id number] PhD Franky Licona Reagin Ab RPR Ql (S) Non-Reactive Invalid Interpretation Code Non Reactive FT [employer] Comment on above: Result Comment: Perf ormed at: [address] [id number] PhD Franky Licona Rubella virus IgG Qn (S) 3.34 [IU]/mL Invalid Interpretation Code Immune >0.99 [facility] [employer]OutsSS Comment on above: Result Comment: Non- immune <0.90 Equivocal 0.90 - 0.99 Immune >0.99 Performed at: [address] [id number] PhD Franky Licona U Drug Screenon 07-29-2024 Amphetamines Screen method >1000 ng/mL Ql (U) Negative Normal NEGATIVE [facility] Comment on above: Result Comment: Nega tive Cutoff: <1000 ng/mL Performed By: #### 2 [id number] #### [facility] [address] [place] [address] Barbiturates Screen Ql (U) Negative Normal NEGATIVE [facility] Comment on above: Result Comment: Nega tive Cutoff: <200 ng/mL Performed By: #### 2 768305 #### [facility] [address] [place] [address] Benzodiazepines Ql (U) Negative Normal NEGATIVE [facility] Comment on above: Result Comment: Nega tive Cutoff: <200 ng/mL Performed By: #### 2 304234 #### [facility] [address] [place] [address] Cannabinoids Screen Ql (U) Negative Normal NEGATIVE [facility] Comment on above: Result Comment: Nega tive Cutoff: <50 ng/mL Performed By: #### 2 [id number] #### [facility] [address] [place] [address] Cocaine Ql (U) Negative Normal NEGATIVE [facility] Comment on above: Result Comment: Nega tive Cutoff: <300 ng/mL Performed By: #### 2 [id number] #### [facility] [address] [place] [address] Opiates Screen Ql (U) Negative Normal NEGATIVE [facility] Comment on above: Result Comment: Nega tive Cutoff: <300 ng/mL Performed By: #### 2 647235 #### [facility] [address] [place] [address] Phencyclidine Screen method >25 ng/mL Ql (U) Negative Normal NEGATIVE [facility] Comment on above: Result Comment: Nega tive Cutoff: <25 ng/mL These drug screen results are to be used for medical (i.e., treatment) purposes only. Unconfirmed drug screening results must not be used for non-medical purposes (e.g., employment testing, legal testing). Performed By: #### 2 [id number] #### [facility] [address] [place] [address] U Fentanyl Negative Normal NEGATIVE [facility] Comment on above: Result Comment: Nega tive Cutoff: <5 ng/mL These drug screen results are to be used for medical (i.e., treatment) purposes only. Unconfirmed drug screening results must not be used for non-medical purposes (e.g., employment testing, legal testing). Performed By: #### 2 [id number] #### [facility] [address] [place] [address] UA with Cult Rflxon 07-30-19 25 Bilirubin Ql (U) Negative Normal Negative [facility] Comment on above: Performed By: #### 4 [id number] #### [facility] [address] [place] [address] Clarity (U) Clear Normal Clear [facility] Comment on above: Performed By: #### 4 [id number] #### [facility] [address] [place] [address] Color (U) Colorless Abnormal Yellow [facility] Comment on above: Result Comment: Micr oscopic readings are only performed on those samples that meet specific criteria set forth by [facility]. Performed By: #### 4 [id number] #### [facility] [address] [place] [address] Glucose Ql (U) Negative Normal Negative [facility] Comment on above: Performed By: #### 4 [id number] #### [facility] [address] [place] [address] Hemoglobin Auto test strip (U) [Mass/Vol] Negative Normal Negative [facility] Comment on above: Performed By: #### 4 [id number] #### [facility] [address] [place] [address] Ketones Auto test strip Ql (U) Negative Normal Negative [facility] Comment on above: Performed By: #### 4 [id number] #### [facility] [address] [place] [address] Leukocyte esterase Auto test strip Ql (U) Negative Normal Negative [facility] Comment on above: Performed By: #### 4 [id number] #### [facility] [address] [place] [address] Nitrite Auto test strip Ql (U) Negative Normal Negative [facility] Comment on above: Performed By: #### 4 [id number] #### [facility] [address] [place] [address] pH (U) 6.0 [pH] Invalid Interpretation Code 5.0-9.0 [facility] Comment on above: Performed By: #### 4 [id number] #### [facility] [address] [place] [address] Protein Ql (U) Negative Normal Negative [facility] Comment on above: Performed By: #### 4 [id number] #### [facility] [address] [place] [address] Specific gravity (U) [Rel density] 1.006 Invalid Interpretation Code 1.005-1.030 [facility] Comment on above: Performed By: #### 4 [id number] #### [facility] [address] [place] [address] Urobilinogen (U) [Mass/Vol] Negative Normal Negative [facility] Comment on above: Performed By: #### 4 [id number] #### [facility] [address] [place] [address] Type of Urine collection method Clean Catch Normal [facility] Comment on above: Performed By: #### 4 [id number] #### [facility] [address] [place] [address] URINALYSISOrdered By: SYSTEM SYSTEM on 07-29-2024 Bilirubin Ql (U) Negative Normal Negativemg/ d L [facility] UA Auto SS Clarity (U) Clear (07/29/24 12:36 PM) Normal Clear [facility] UA Auto SS Color (U) Colorless 5 *ABN* (07/29/24 12:36 PM) Invalid Interpretation Code Yellow [facility] UA Auto SS Comment on above: Interpretive Data: M icroscopic readings are only performed on those samples that meet specific criteria set forth by [facility]. Glucose Ql (U) Negative Normal Negativemg/d L FT UA Auto SS Hemoglobin Auto test strip [...] L FT UA Auto SS URINALYSISOrdered By: Meil Mendez on 07-29-2024 UA Spec Desc Clean Catch (07/29/24 12:36 PM) Normal FT UA Auto SS HCG ( test) Ql (U)o n 07-28-2024 Interpretation and review of laboratory results Abnormal [facility] Healthcare Preg Test, Ur Positive Negative [facility] US OB TRANSVAGINALon 2 025 US OB TRANSVAGINAL EXAM: US OB [...] II, MD, PHD at 28-Jul-2024 11:17:18 PM [facility] Normal Not Available Comment on above: Order Comment: US OB TRANSVAGINAL No LMP recorded. Urinalysis macro (dipstick) panel (U)on 07-28-2024 Bilirubin, UA Negative Negative - 4(70) +++ mg/dL [facility] Blood, UA Negative Negative - 50 Xavier/mcL [facility] Clarity, UA Clear [facility] Color, UA Yellow [facility] Glucose, UA Negative Negative - 1999(110) ++++ mg/dL [facility] Interpretation and review of laboratory results Normal [facility] Ketones, UA Negative Negative - 160(16) ++++ mg/dL [facility] Leukocytes, UA Negative Negative - 500+++ Asrtid/mcL [facility] Nitrite, UA Negative Negative - Positive [facility] pH, UA 5.5 5 - 9 [facility] Protein, UA Negative Negative - 1999(20) ++++ mg/dL [facility] Spec Grav, UA 1.02 1 - 1.03 [facility] Urobilinogen, UA 1.0 0.2 - 12 mg/dL [facility] BhCG Quanton 06-29-2024 [place] [address] m[IU]/mL High 1-3 [facility] Comment on above: Result Comment: 'F N ON < 1 - 3' ' 0.2 - 1 WEEK = 5 TO 50' ' 1 - 2 WEEKS = 50 - 500' ' 2 - 3 WEEKS = 100 - 5000' ' 3 - 4 WEEKS = 500 - 15793' ' 4 - 5 WEEKS = 1000 - 34570' ' 5 - 6 WEEKS = 13365 - 397602' ' 6 - 8 WEEKS = 49970 - 255325' ' 8 - 12 WEEKS = 59371 - 627943' Performed By: #### 2 [id number] #### [facility] [address] [place] [address] CHEMISTRYOrdered By: SYSTEM SYSTEM on 06-29-2024 [place] [address] m[IU]/mL High 1 - 3 mIU/mL [facility] Comment on above: Result Comment: 'F N ON < 1 - 3' ' 0.2 - 1 WEEK = 5 TO 50' ' 1 - 2 WEEKS = 50 - 500' ' 2 - 3 WEEKS = 100 - 5000' ' 3 - 4 WEEKS = 500 - 74595' ' 4 - 5 WEEKS = 1000 - 54828' ' 5 - 6 WEEKS = 98196 - 081082' ' 6 - 8 WEEKS = 22647 - 092204' ' 8 - 12 WEEKS = 11991 - 104698' BhCG Quanton 06-27-2024 HCG.beta subunit Qn 8149 m[IU]/mL High 1-3 [facility] Comment on above: Result Comment: 'F N ON < 1 - 3' ' 0.2 - 1 WEEK = 5 TO 50' ' 1 - 2 WEEKS = 50 - 500' ' 2 - 3 WEEKS = 100 - 5000' ' 3 - 4 WEEKS = 500 - 62440' ' 4 - 5 WEEKS = 1000 - 10921' ' 5 - 6 WEEKS = 17872 - 806600' ' 6 - 8 WEEKS = 73869 - 034242' ' 8 - 12 WEEKS = 87856 - 519998' Performed By: #### 2 [id number] #### [facility] [address] [place] [address] CHEMISTRYOrdered By: SYSTEM SYSTEM on 06-27-2024 HCG.beta [...] 3 - 4 WEEKS = 500 - 80161' ' 4 - 5 WEEKS = 1000 - 73364' ' 5 - 6 WEEKS = 84059 - 036349' ' 6 - 8 WEEKS = 28567 - 926867' ' 8 - 12 WEEKS = 88437 - 985123' BhCG QuantOrdered By: SYSTEM SYSTEM on 06-25-2024 [...] 3 - 4 WEEKS = 500 - 61251' ' 4 - 5 WEEKS = 1000 - 94103' ' 5 - 6 WEEKS = 51986 - 738462' ' 6 - 8 WEEKS = 86974 - 836777' ' 8 - 12 WEEKS = 02410 - 316587' Performed By: #### 2 [id number] #### [facility] [address] [place] [address] Result Comment: 'F N ON < 1 - 3' ' 0.2 - 1 WEEK = 5 TO 50' ' 1 - 2 WEEKS = 50 - 500' ' 2 - 3 WEEKS = 100 - 5000' ' 3 - 4 WEEKS = 500 - 74366' ' 4 - 5 WEEKS = 1000 - 99144' ' 5 - 6 WEEKS = 88801 - 645008' ' 6 - 8 WEEKS = 43420 - 435822' ' 8 - 12 WEEKS = 76998 - 099326' [facility] Quanton 06-23-2024 HCG.beta subunit Qn 1954 m[IU]/mL High 1-3 [facility] Comment on above: Result Comment: 'F N ON < 1 - 3' ' 0.2 - 1 WEEK = 5 TO 50' ' 1 - 2 WEEKS = 50 - 500' ' 2 - 3 WEEKS = 100 - 5000' ' 3 - 4 WEEKS = 500 - 49157' ' 4 - 5 WEEKS = 1000 - 31117' ' 5 - 6 WEEKS = 62066 - 525181' ' 6 - 8 WEEKS = 78880 - 385821' ' 8 - 12 WEEKS = 54308 - 779623' Performed By: #### 2 [id number] #### [facility] [address] [place] [address] CHEMISTRYOrdered By: SYSTEM SYSTEM on 06-23-2024 HCG.beta [...] 3 - 4 WEEKS = 500 - 60703' ' 4 - 5 WEEKS = 1000 - 98956' ' 5 - 6 WEEKS = 97413 - 180955' ' 6 - 8 WEEKS = 89214 - 516717' ' 8 - 12 WEEKS = 97532 - 223923' Auto Diffon 11-05-2022 Basophils/100 WBC (Bld) 0.1 % Normal 0.0-2.0 [facility] Comment on above: Order Comment: Order Added by Discern Expert. Performed By: #### 1 [id number], 0497995, 5380320, 1771082 #### [facility] [address] [place] [address] Basophils/Leukocytes Auto (Bld) [Pure # fraction] 0.0 E9/L Normal 0.0-0.2 [facility] Comment on above: Order Comment: Order Added by Discern Expert. Performed By: #### 1 [id number], [id number], 0030791, 1509391 #### [facility] [address] [place] [address] Eosinophils/100 WBC (Bld) 2.6 % Normal 0.0-8.0 [facility] Comment on above: Order Comment: Order Added by Discern Expert. Performed By: #### 1 [id number], 6310722, 4191956, 0843727 #### [facility] [address] [place] [address] Eosinophils/Leukocyte s Auto (Bld) [Pure # fraction] 0.2 E9/L Normal 0.0-0.5 [facility] Comment on above: Order Comment: Order Added by Discern Expert. Performed By: #### 1 [id number], 7319922, 9373523, 2926830 #### [facility] [address] [place] [address] Lymphocytes/100 WBC (Bld) 25.8 % Normal 14.0-50.0 [facility] Comment on above: Order Comment: Order Added by Discern Expert. Performed By: #### 1 2803370, 3214522, 0679287, 0610162 #### [facility] [address] [place] [address] Lymphocytes/Leukocyte s Auto (Bld) [Pure # fraction] 1.9 E9/L Normal 1.0-4.0 [facility] Comment on above: Order Comment: Order Added by Discern Expert. Performed By: #### 1 [id number], 4463876, 4255421, 0123135 #### [facility] [address] [place] [address] Monocytes/100 WBC (Bld) 4.8 % Normal 4.0-14.0 [facility] Comment on above: Order Comment: Order Added by Savi Expert. Performed By: #### 1 4288581, 3997669, 9340106, 1960798 #### [facility] [address] [place] [address] Monocytes/Leukocytes Auto (Bld) [Pure # fraction] 0.3 E9/L Normal 0.2-1.0 [facility] Comment on above: Order Comment: Order Added by Savi Expert. Performed By: #### 1 [id number], 9758287, 2463139, 0623507 #### [facility] [address] [place] [address] Neutrophils/100 WBC (Bld) 66.7 % Normal 36.0-75.0 [facility] Comment on above: Order Comment: Order Added by Discern Expert. Performed By: #### 1 [id number], 2206667, 0699133, 3190965 #### [facility] [address] [place] [address] Neutrophils/Leukocyte s Auto (Bld) [Pure # fraction] 4.8 E9/L Normal 2.0-7.5 [facility] Comment on above: Order Comment: Order Added by Savi Expert. Performed By: #### 1 1380209, 7296056, 9757956, 4615113 #### [facility] [address] [place] [address] BMPon 07-05-2023 Creatinine [Mass/Vol] 0.6 mg/dL Normal 0.5-1.3 [facility] Comment on above: Performed By: #### 1 [id number], 1454549, 5256162, 5363956 #### [facility] [address] [place] [address] Urea nitrogen [Mass/Vol] 13 mg/dL Normal 5-21 [facility] Comment on above: Performed By: #### 1 9961044, 8499662, 7464915, 2981268 #### [facility] [address] [place] [address] Urea nitrogen/Creatinine [Mass ratio] 22 No Units High 10-20 [facility] Comment on above: Performed By: #### 1 [id number], 9508772, 1049581, 9851727 #### [facility] [address] [place] [address] Anion gap [Moles/Vol] 10 mmol/L Normal 6-16 [facility] Comment on above: Performed By: #### 1 3664551, 2496241, 7744885, 8991903 #### [facility] [address] [place] [address] Calcium [Mass/Vol] 8.8 mg/dL Low 8.9-11.1 [facility] Comment on above: Performed By: #### 1 7424519, 1072074, 4183572, 6969063 #### [facility] [address] [place] [address] Chloride [Moles/Vol] 102 mmol/L Normal 101-111 [facility] Comment on above: Performed By: #### 1 0183183, 9152413, 4379507, 7047464 #### [facility] [address] [place] [address] CO2 [Moles/Vol] 23 mmol/L Normal 21-31 [facility] Comment on above: Performed By: #### 1 0244181, 3159992, 1405192, 6796172 #### [facility] [address] [place] [address] Glucose [Mass/Vol] 119 mg/dL Normal 55-199 [facility] Comment on above: Result Comment: If t his glucose result represents a fasting glucose, interpretation should refer to the following reference range: 55-99 mg/dL Performed By: #### 1 [id number], 7562578, 7074834, 1760035 #### [facility] [address] [place] [address] Potassium [Moles/Vol] 3.4 mmol/L Low 3.5-5.3 [facility] Comment on above: Performed By: #### 1 7762182, 0551500, 9785911, 5528156 #### [facility] [address] [place] [address] Sodium [Moles/Vol] 132 mmol/L Low 135-145 [facility] Comment on above: Performed By: #### 1 6536350, 8151797, 9966715, 3219894 #### [facility] [address] [place] [address] CBC w/ Auto Diffon 3 Erythrocyte distribution width (RBC) [Ratio] 13.0 % Normal 10.9-14.2 [facility] Comment on above: Performed By: #### 1 2233072, 9677185, 9781266, 4749491 #### [facility] [address] [place] [address] Hematocrit (Bld) [Volume fraction] 35.0 % Normal 34.0-46.0 [facility] Comment on above: Performed By: #### 1 0556715, 2976071, 2264747, 9420503 #### [facility] [address] [place] [address] Hemoglobin (Bld) [Mass/Vol] 12.0 g/dL Normal 12.0-16.0 [facility] Comment on above: Performed By: #### 1 2114896, 4058190, 7810087, 7422333 #### [facility] [address] [place] [address] MCH (RBC) [Entitic mass] 29.4 pg Normal 27.0-34.0 [facility] Comment on above: Performed By: #### 1 7239839, 1498113, 8852647, 8682600 #### [facility] [address] [place] [address] MCHC (RBC) [Mass/Vol] 34.4 g/dL Normal 31.4-36.0 [facility] Comment on above: Performed By: #### 1 6586728, 0892522, 1781158, 6429188 #### [facility] [address] [place] [address] MCV (RBC) [Entitic vol] 85.5 fL Normal 80.0-100.0 [facility] Comment on above: Performed By: #### 1 4484638, 2501386, 6058761, 2545665 #### [facility] [address] [place] [address] Platelet mean volume (Bld) [Entitic vol] 8.5 fL Normal 6.4-10.8 [facility] Comment on above: Performed By: #### 1 [id number], 2964589, 2998820, 5900813 #### [facility] [address] [place] [address] Platelets (Bld) [#/Vol] 188.0 E9/L Normal 150.0-500.0 [facility] Comment on above: Performed By: #### 1 4367528, 2335913, 7207001, 0544888 #### [facility] [address] [place] [address] RBC (Bld) [#/Vol] 4.1 E12/L Low 4.3-5.9 [facility] Comment on above: Performed By: #### 1 1283872, 5011913, 5590862, 3474575 #### [facility] [address] [place] [address] WBC corrected for nucl RBC Auto (Bld) [#/Vol] 7.2 E9/L Normal 4.0-11.0 [facility] Comment on above: Performed By: #### 1 [id number], 7152448, 0893392, 0399570 #### [facility] [address] [place] [address] CHEMISTRYOrdered By: SYSTEM SYSTEM on 11-05-2022 Anion gap [Moles/Vol] 10 mmol/L Normal 6 - 16 mEq/L F [facility] Remisol Calcium [Mass/Vol] 8.8 mg/dL Low 8.9 - 11. 1 mg/dL FT Remisol Chloride [Moles/Vol] 102 mmol/L Normal 101 - 1 11 mmol/L FT Remisol CO2 [Moles/Vol] 23 mmol/L Normal 21 - 31 mmol/L FT Remisol Creatinine [Mass/Vol] 0.6 mg/dL Normal 0.5 - 1.3 mg/dL [facility] Remisol GFR/1.73 sq M.predicted among non-blacks MDRD (S/P/Bld) [Vol rate/Area] 128 mL/min/1.73 m2 Normal >=59mL/min/1 .73 m2 [facility] Chem S Glucose [Mass/Vol] 119 mg/dL Normal 55 - 199 mg/dL FT Remisol Potassium [Moles/Vol] 3.4 mmol/L Low 3.5 - 5.3 mmol/L [facility] Remisol Sodium [Moles/Vol] 132 mmol/L Low 135 - 145 mmol/L [facility] Remisol Urea nitrogen [Mass/Vol] 13 mg/dL Normal 5 - 21 mg/dL [facility] Remisol Urea nitrogen/Creatinine [Mass ratio] 22 mg/mg High 10 - 20 [facility] Remisol Consent for Treatmenton Consent for Treatment [id number] #1.00CD:127 Normal [facility] Discharge Instructionson Discharge Instructions [id number]#1.00CD:127 Normal [facility] ED Clinical Summaryon 2022 ED Clinical Summary [address] [address] ED Clinical Summary Person Information Name: RADHA DINH [place] Age: 26 Years : 1995 Sex: Female Language: German PCP: ANTHONY ROMAN MD Marital Status: Single [...] 11/05/2022 11:36:08 11/05/2022 11:36:08 11/05/2022 11:36:08 ADDRESS: [address] [id number] [facility] DOC NOTES: MEDICAL INFORMATION: Prescriptions Given: Medications to Continue with No Changes Other Medications ethinyl estradiol-norethindr one (Chanell 24 Fe oral tablet) PATIENT EDUCATION INFORMATION: Instructions: Near-Syncope Follow up: With: Address: When: [facility], [address] [place] [address] [place] [address] Business (1) In 3 days 11/08/2022 With: Address: When: ANTHONY ROMAN [address] [place] [address] Business (1) In 3 days 11/08/2022 Comments: [...] or worsening symptoms. 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 Return precaution discussed. Patient questions answered. Patient discharged home. Shared decision making: [] Code status: [] Assessment/Plan Near syncope (R55: Syncope and collapse) Orders: Sodium Chloride 0.9% intravenous solution, 1,000 mL, SoltessIV, IV, Once, Stop date 11/05/22 8:08:00 EDT, [...] Patient seen and evaluated by the physician medical lab assistant. Attending physician was present in the emergency department and supervised care. This visit was performed by both the physician and an APC. I performed all aspects of the MDM as documented. This report was transcribed using voice recognition software. Every effort was made to ensure accuracy, however, inadvertently computerized pick up worker mistakes may be present. Appropriate healthcare PPE was used in evaluating this patient. The patient was placed in a mask. The healthcare provider was wearing mask, gloves, and utilizing proper hand hygiene. All equipment was properly c (more content not included)... Normal [facility] Comment on above: Result Comment: Elec [...] these instructions at home: Medicines ? Take [id number]-biafzns and prescription medicines only as told by [...] provider. Document Revised: 08/29/2021 Document Reviewed: 08/29/2021 [employer] Patient Education ? 2022 [employer] Normal [facility] ED Patient Summaryon 023 ED Patient Summary [place] [id number] Patient Discharge Instructions Person Information Name: RADHA DINH Age: 26 Years Arrival Date: 11/05/2022 07:55:48 Discharge Diagnosis: Near syncope Primary Care Physician: ANTHONY ROMAN MD Provider Information Primary Provider: Nick Velasquez DO [employer] Installer:Kashif Nguyen PA-C The exam and treatment you received in the Emergency Department were for an urgent problem and are not intended as complete care. It is important that you follow up with a doctor, nurse practitioner, or physician?s medical lab assistant for ongoing care. If your symptoms become worse or you do not improve as expected and you are unable to reach your usual health care provider, you should return to the Emergency Department. We are available 24 hours a day. RADHA DINH has been given the following list of patient education materials, prescriptions and follow-up instructions: Follow-up Instructions: With: Address: When: [facility], [address] [facility] [address] [place] [phone] Business (1) In 3 days 11/08/2022 With: Address: When: ANTHONY ABEL [facility] [place] [phone] [facility] (1) In 3 days 11/08/2022 Comments: Call [...] opioids can be used to help relieve sslugwrm-ec-rsgjxh pain and are often prescribed following a [...] prescription opio (more content not included)... Normal [facility] HEMATOLOGYOrdered By: SYSTEM SYSTEM on 11-05-2022 [...] LM Ql (Urine sed) TRACE Normal Trace [facility] Comment on above: Performed By: #### 1 [id number] #### [facility] Laboratory [address] [place] [address] Bilirubin Ql (U) Negative Normal Negative [facility] Comment on above: Performed By: #### 1 [id number] #### [facility] [address] [place] [address] Clarity (U) SL CLOUDY Invalid Interpretation Code [facility] Comment on above: Performed By: #### 1 [id number] #### [facility] [address] [place] [address] Color (U) YELLOW Normal Yellow [facility] Comment on above: Performed By: #### 1 [id number] #### [facility] [address] [place] [address] Epithelial cells.squamous LM.HPF (Urine sed) [#/Area] 3-4 Normal 0-2 [facility] Comment on above: Performed By: #### 1 [id number] #### [facility] [address] [place] [address] Glucose Test strip (U) [Mass/Vol] Negative Normal Negative [facility] Comment on above: Performed By: #### 1 [id number] #### [facility] [address] [place] [address] Hemoglobin Ql (U) Negative Normal Negative [facility] Comment on above: Performed By: #### 1 [id number] #### [facility] [address] [place] [address] Ketones (U) [Mass/Vol] Negative Normal Negative [facility] Comment on above: Performed By: #### 1 [id number] #### [facility] [address] [place] [address] Salineno.plasma/Lithiu m.RBC (Bld) [Mass ratio] 0-3 Normal 0-3 [facility] Comment on above: Performed By: #### 1 [id number] #### [facility] [address] [place] [address] Mucus Ql (Urine sed) TRACE Normal [facility] Comment on above: Performed By: #### 1 [id number] #### [facility] [address] [place] [address] Nitrite Ql (U) Negative Normal Negative [facility] Comment on above: Performed By: #### 1 [id number] #### [facility] [address] [place] [address] pH (U) 6.5 [pH] Invalid Interpretation Code 5.0-9.0 [facility] Comment on above: Performed By: #### 1 [id number] #### [facility] [address] [place] [address] Protein (U) [Mass/Vol] Negative Normal Negative [facility] Comment on above: Performed By: #### 1 [id number] #### [facility] [address] [place] [address] Specific gravity (U) [Rel density] <=1.005 Invalid Interpretation Code 1.005-1.030 [facility] Comment on above: Performed By: #### 1 [id number] #### [facility] [address] [place] [address] Type of Urine collection method Clean Catch Normal [facility] Comment on above: Performed By: #### 1 [id number] #### [facility] [address] [place] [address] Urobilinogen Qn (U) 0.2 {Rogelio'U}/dL Normal 0.0-1.0 [facility] Comment on above: Performed By: #### 1 [id number] #### [facility] [address] [place] [address] WBC Auto Ql (U) TRACE Abnormal Negative [facility] Comment on above: Performed By: #### 1 [id number] #### [facility] [address] [place] [address] WBC LM.HPF (Urine sed) [#/Area] 0-5 Normal 0-5 [facility] Comment on above: Performed By: #### 1 [id number] #### [facility] [address] [place] [address] URINALYSISOrdered By: Marisol Hendrix on 11-05-2022 Bacteria [...] AM) Normal Negative [facility] UA Auto SS Salineno.plasma/Lithiu m.RBC (Bld) [Mass ratio] 0-3 /HPF Normal [...] [facility] UA Auto SS Urobilinogen Qn (U) 0.7589118 {Rogelio'U}/dL Normal 0.0 - 1.0 EU/dL [facility] UA Auto SS WBC Auto Ql (U) Trace *ABN* (11/05/22 10:36 AM) Invalid Interpretation Code Negative [facility] UA Auto SS WBC LM.HPF (Urine sed) [#/Area] 0-5 /HPF Normal 0-5/HPF [facility] UA Auto SS eGFRon 11-05-2022 GFR/1.73 sq M.predicted among non-blacks MDRD (S/P/Bld) [Vol rate/Area] 128 mL/min/1.73 m2 Normal >=59 [facility] Comment on above: Order Comment: Order added by Discern Expert. Result Comment: Advice Nurse roxane kidney disease could be indicated at eGFR's of less than 60 mL/min/1.73m2. Kidney failure is indicated at less than 15 mL/min/1.73m2. Performed By: #### 1 [id number] #### [facility] [address] [place] [address] HEP B SURFACE ANTIGEN SCREEN on 09-10-2022 HBsAg Screen Negative Normal Negative [facility] Comment on above: Performed By: #### H BSANS #### [facility] [address] [place] [address] [address] Samira Griffiths HEPATITIS C VIRUS AB W/ REFL EX QUANTon 09-10-2022 HCV AB Non-Reactive Normal Non Reactive [facility] Comment on above: Performed By: #### H CVPCRR #### [facility] [address] [place] [address] Dr. Samira Griffiths Interpretation: Comment Normal [facility] Comment on above: Result Comment: Not infected with HCV unless early or acute infection is suspected (which may be delayed in an immunocompromised individual), or other evidence exists to indicate HCV infection. Performed By: #### H CVPCRR #### [facility] [address] [place] [address] Dr. Samira Griffiths HIV 1 AND 2 WITH REFLEXon HIV Screen 4th Generation wRfx Non-Reactive Normal Non Reactive [facility] Comment on above: Result Comment: HIV Negative HIV-1/HIV-2 antibodies and HIV-1 p24 antigen were NOT detected. There is no laboratory evidence of HIV infection. Performed By: #### H IV12 #### [facility] [address] [place] [address] Dr. Samira Griffiths RPR QUANTon 09-10-2022 Rapid Plasma Reagin, Quant Non-Reactive Normal NonRea<1:1 [facility] Comment on above: Result [...] utilized, such as Treponema pallidum (Syphilis) Screening [place] (811111) or Rapid Plasma Reagin (RPR) Test With Reflex to Quantitative RPR and Confirmatory Treponema pallidum Antibodies (588632). Performed By: #### R PRQ #### [facility] [address] [place] [address] Dr. Samira Griffiths RUBELLA AB IGGon 09-10-2022 Rubella Antibodies, IgG 3.13 index Normal Immune >0.99 [facility] Comment on above: Result Comment: Non- immune <0.90 Equivocal 0.90 - 0.99 Immune >0.99 Performed By: #### R UBIGG #### [facility] [address] [place] [address] Dr. Samira Griffiths BOX TEST SENT OUTon 09-10-19 23 SENT TO REF LAB 09/09/2022 Normal [facility] Comment on above: Performed By: #### T SH #### [facility] [address] [place] [address] Dr. Samira Griffiths CBC AUTO DIFFon 09-09-2022 BASO # 0.0 103/ul Normal 0.0-0.1 [facility] Comment on above: Performed By: #### C BC #### [facility] [address] [place] [address] Dr. Samira Griffiths Basophils/100 WBC (Bld) 0.2 % Normal 0.2-2.0 [facility] Comment on above: Performed By: #### C BC #### [facility] [address] [place] [address] Dr. Samira Griffiths EO # 0.2 103/ul Normal 0.0-0.7 [facility] Comment on above: Performed By: #### C BC #### [facility] [address] [place] [address] Dr. Samira Griffiths Eosinophils/100 WBC (Bld) 1.9 % Normal 0.9-7.0 [facility] Comment on above: Performed By: #### C BC #### [facility] [address] [place] [address] Dr. Samira Griffiths Erythrocyte distribution width (RBC) [Ratio] 11.9 % Normal 11.0-15.0 [facility] Comment on above: Performed By: #### C BC #### [facility] [address] [place] [address] Dr. Samira Griffiths Hematocrit (Bld) [Volume fraction] 36.6 % Normal 36.0-48.0 [facility] Comment on above: Performed By: #### C BC #### [facility] [address] [place] [address] Dr. Samira Griffiths Hemoglobin (Bld) [Mass/Vol] 12.4 g/dL Normal 12.0-16.0 [facility] Comment on above: Performed By: #### C BC #### [facility] [address] [place] [address] Dr. Samira Griffiths IG # 0.03 10e3/ul Normal 0.00-0.03 [facility] Comment on above: Performed By: #### C BC #### [facility] [address] [place] [address] Dr. Samira Griffiths IG % 0.3 % Normal 0.0-0.5 [facility] Comment on above: Performed By: #### C BC #### [facility] [address] [place] [address] Dr. Samira Griffiths LYMPH # 1.9 103/ul Normal 1.2-3.8 [facility] Comment on above: Performed By: #### C BC #### [facility] [address] [place] [address] Dr. Samira Griffiths Lymphocytes/100 WBC (Bld) 21.1 % Normal 20.5-60.0 [facility] Comment on above: Performed By: #### C BC #### [facility] [address] [place] [address] Dr. Samira Griffiths MANUAL DIFF REQ NO Normal [facility] Comment on above: Performed By: #### C BC #### [facility] [address] [place] [address] Dr. Samira Griffiths MCH (RBC) [Entitic mass] 29.0 pg Normal 26.7-34.0 [facility] Comment on above: Performed By: #### C BC #### [facility] [address] [place] [address] Dr. Samira Griffiths MCHC (RBC) [Mass/Vol] 33.9 g/dL Normal 29.9-35.2 [facility] Comment on above: Performed By: #### C BC #### [facility] [address] [place] [address] Dr. Samira Griffiths MCV (RBC) [Entitic vol] 85.7 fL Normal 81.0-99.0 [facility] Comment on above: Performed By: #### C BC #### [facility] [address] [place] [address] Dr. Samira Griffiths MONO # 0.6 103/ul Normal 0.3-0.8 [facility] Comment on above: Performed By: #### C BC #### [facility] [address] [place] [address] Dr. Samira Griffiths Monocytes/100 WBC (Bld) 6.4 % Normal 1.7-12.0 [facility] Comment on above: Performed By: #### C BC #### [facility] [address] [place] [address] Dr. Samira Griffiths NEUT # 6.3 103/ul Normal 1.4-6.5 [facility] Comment on above: Performed By: #### C BC #### [facility] [address] [place] [address] Dr. Samira Griffiths Neutrophils/100 WBC (Bld) 70.1 % Normal 43.0-75.0 [facility] Comment on above: Performed By: #### C BC #### [facility] [address] [place] [address] Dr. Samira Griffiths Platelet mean volume (Bld) [Entitic vol] 10.1 fL Normal 9.5-13.5 [facility] Comment on above: Performed By: #### C BC #### [facility] [address] [place] [address] Dr. Samira Griffiths PLT 228 103/ul Normal 150-450 [facility] Comment on above: Performed By: #### C BC #### [facility] [address] [place] [address] Dr. Samira Griffiths RBC 4.27 106/ul Normal 4.20-5.40 [facility] Comment on above: Performed By: #### C BC #### [facility] [address] [place] [address] Dr. Samira Griffiths WBC 9.1 103/ul Normal 4.0-11.0 [facility] Comment on above: Performed By: #### C BC #### [facility] [address] [place] [address] Dr. Samira Griffiths CULTURE URINEon 09-09-2022 CULTURE URINE Culture Observations: LIGHT GROWTH OF MIXED GENITAL BEHZAD. NO POTENTIAL PATHOGENS SEEN. Normal [facility] Comment on above: Performed By: #### T SH #### [facility] [address] [place] [address] Dr. Samira Griffiths GLYCOHEMOGLOBIN A1Con 2022 ADA RECOMMENDATION SEE BELOW Normal [facility] Comment on above: Result Comment: ADA RECOMMENDED LIMIT 4.0 - 6.0 ADA THERAPEUTIC TARGET < 7.0 ACTION SUGGESTED > 7.0 Performed By: #### A 1C #### [facility] [address] [place] [address] Dr. Samira Griffiths Glucose [Mass/Vol] 108 mg/dL Normal [facility] Comment on above: Performed By: #### A 1C #### [facility] [address] [place] [address] Dr. Samira Griffiths HbA1c (Bld) [Mass fraction] 5.4 % Normal 4.5-6.2 [facility] Comment on above: Performed By: #### A 1C #### [facility] [address] [place] [address] [address] Samira Griffiths TSHon 09-09-2022 TSH 0.224 uIU/mL Critically low 0.358-3.740 [facility] Comment on above: Performed By: #### T SH #### [facility] [address] [place] [address] [address] Samira Griffiths TYPE AND SCREENon 09-09-2022 TYPE AND SCREEN Negative Normal [facility] Comment on above: Performed By: #### T NS #### [facility] [address] [place] [address] Dr. Samira Griffiths US PREG TVon 09-05-2022 [...] BABCOCK Date: 2022-09-05 15:44 Normal [facility] PAP ONLYon 03-20-2022 . . Normal [facility] Comment on above: Performed By: #### 4 [id number] #### [facility] [address] [place] [address] Dr. Samira Griffiths DIAGNOSIS: Comment Normal [facility] Comment on above: Result Comment: NEGA TIVE FOR INTRAEPITHELIAL LESION OR MALIGNANCY. Performed By: #### 4 [id number] #### [facility] [address] [place] [address] Dr. Samira Griffiths Methodology: Comment Normal [facility] Comment on above: Result Comment: This liquid based ThinPrep(R) pap test was screened with the use of an image guided system. Performed By: #### 4 [id number] #### [facility] [address] [place] [address] Dr. Samira Griffiths Note: Comment Normal [facility] Comment on above: Result Comment: The Pap smear is a screening test designed to aid in the detection of premalignant and malignant conditions of the uterine cervix. It is not a diagnostic procedure and should not be used as the sole means of detecting cervical cancer. Both false-positive and false-negative reports do occur. . Performed By: #### 4 [id number] #### [facility] [address] [place] [address] Dr. Samira Griffiths Performed by: Comment Normal [facility] Comment on above: Result Comment: Francy Huitron, Jewel Bearing Turner Performed By: #### 4 [id number] #### [facility] [address] [place] [address] Dr. Samira Griffiths Specimen adequacy: Comment Normal [facility] Comment on above: Result Comment: Sati sfactory for evaluation. No endocervical component is identified. Performed By: #### 4 [id number] #### [facility] [address] [place] [address] Dr. Samira Griffiths Coding Summary.on 02-18-2022 Coding Summary. CD:[id number] Gh0bWw+PGhlYWQ+PE1FV IFnZ66ebHMzdI5FN1zQP N3TSSZOKYSTMJ5IQM3ec EB7QSvnH4XwrpWv EtxedHNgIF21IFl1RBC7 oZwlZTavbI6zyMZdJ4i9 CmRdLU21iR75YHmpVEMq RoX2TgCkmggsjCYt B8mmHxYulNFaBnu+PHRh YmxlIHdpZHRoPScxMDAl IpFcpXkcRA1kOz0uIMBg LWNvbGxhcHNlOiBj n9lcLSNmURdmCM2jzBlb P7EdmEE7RBTls2y7Gn97 dHI+UXKxDTD4qImwPAyl o724MxRue4vkYTU1 cFYsEZqxITM6X12rm3Y5 KZYkQTHjMQJ3uYW3tR7k pQpgyjgqC3WahGKfKlY9 PMC3iRWnaX2ahVii hqekbD6cHvd+N53WNI7P OWZXME9ITnt4Y9SrNvpt dHI+VK83OZViYO33dRYe pXVyg9indYa4ZqQy VMClTDI8gQkxVUses0Zy SAWoA53ebGWbg8Y1PWHd aRnmrLVhVuXomAQ0sS3i NBibwelil1wjqwow Xiwtr8tahq08yB32O66b UXpbMOVgPLW1INNgSKPu kZnbid2tsA0oWk3+IDxj r2jyt9asyPt8BaYj GWHjjdKobPkcVGR1c3Rq Dv61C3EqjCwcy9DvQlo3 ui13xFYlc3E7kSH8ATgz FSTeoN4oVXujXhY4 IOKwTaJabE70cBAuWZbl Cd4vsGqygRhmEP3yNDRz wghjRALjjM7kMPRtbYCl xQjuSU4oHUCoojro c708KlTmUUX5NHVbbSQm G0ZfsI3xFmPqQBRkRXTp W6IuvFYzLVffP782INyx QjB0QZMzxiEsC7Nh XZDazXadKgZ0f7U0Db6D l3XmqmubOMM2LDbrHWKj PgZ6ZxIjXrN8P1RqFnm7 CARhiGrkGF3uL9Zx MFMqaderntmktXQ6YPLh FYVlvT53tQKdMHwlWg5w h1B6l923FUJjBPSgdB58 Pq9rkBsjJPMcxIBH qJ2sbebze9tdmvbsLvGp UUQhCRr8UWk9WUYhnAwo DwCtVTB5FpI1CBL8eMHu cB6teYwwpslkvN7t Oyc+R95hmC6jNIM5KCS0 lhrrVLFnukUzDP34MC52 F8McNuukvMJumJH+PGRp pmKfsIxqOC1lFkWf q6jts8ZzXUtdP8EsKUDb ETwsWon0PAIoQTT7oUF0 vN3aBDLmRBveg7F2oJK1 Q3RyulDsyn7ql4kb QGDbMOdjM27khZAzr2P2 MARkzXD7VVArzBprQwFn jV41Bmi+DCYreAxqx7Ft Rgock0rbk4nhkWv9 IjMwJSIgdmFsaWduPSJ0 n4QfRf39K84aHRmhNYCq HEJrNZJxMZUutCjfef5b lE9bRb7+PGNvbCB3 fEZ0fX2nYMNnGvW1JUvc X455AwNsnGNcTpive9mn g2zpdNo2QaIaTSGhlxUq wUjzEFZ2i7IgOw56 Q32eCWppFFGfQEWsZDVv EOTgpYjxyx1ayA9rOo0+ OH8gv9vlab54wX38vWL+ ZRSaDAT6iHijMFou WCGcjR0qLGxcEnF1NOWf RaFjrD99oPStLEsuUk8y zPgmvCfjYK0pMYEjfofd k189CqSmc1cnESKt sTOlTAemVYR9F55qm8U0 NZGbSTPxXQK1nEU8lF2c bGlnbjogbGVmdDsgdmVy hMygTDjjRWmnN651 IHRvcDsnPlBhdGllbnQg NqOyRAc4W1YoOwr6ADQe pNlbRT0qfDFxBSwtZi6t fCtsuBgxAU1mGZFa okuoq260WfRmv2mbUOCu fSOjWRxuMLB8R36nj6R1 VDRkQGItFRV6aXL5vA9k bGlnbjogbGVmdDsg cwNpzRgeOQbuCPoxR369 IHRvcDsnPkJpcnRoIERh yNE7PT91ZD14mXUya1Q0 sEU0F5LvGFDjwwqv hrdqpLS2EEOgTVYnuQ71 Np5xqWdsFd7zSFFbTTA4 PXJqbEVtB7KloB5uRdNm WQNgVRXpJ8KeyQEj OYzwJ396AQvhLuR3CQRc dmYiA8StPFVlwTtrRyU1 g0X8Tn4AF4R4IM15OW85 fGHee2X7kFK7P5Yr RVAoyvhefcypvWE8FDXb JQDecD74Kd0vkWlpJx2w TXQiYIE6CLQqoWHhT6Sg aB4rBhOkOHRfNVBh G2FsxPYeKAjyT385IZhi QjF2ISTqgsLlX7CvQBMg aXplApO4h4T4Xa8QLAw8 JV59RQ33mPDpk5Z1 tVX2Q0BzTQHelkdkpswa jNV0FQReGELqjB08Jk0r fUwkSj4yUREnLRG9HBRl dWOrN4AzbE3bGxBz SXBuPUUsY4ZssUKqNRkd X135QYgfFcZ3OUXzacRe U2HzHWLgmQsaFbI4b2X1 Ln7GKJKvHR99EYV8 bMV0VL92GG97Y0MoDpis dGFibGU+PHRhYmxlIHdp ZHRoPScxMDAlJyBzdHls JI2gBw9wETUuHTWl pChrqZPcMyJik3uxXQSp AOzlRU6ddCbaA7JaiXN7 OAOpe7z8Ol59A63yO4Mq dXA+ZNTvzOS1uOY7 mR7zTpExHeD1HHtwL276 CmWefOWqMmedi6baj8gw zUk2VeB0DXFupcOemHlt KFK3a7HqXh70B99a IHdpZHRoPSIxNSUiIHZh fEyagt6wqG4jJi9+PGNv aTP8lXT6vG3vQfXdUxU9 TDtkP814WsLfjOAf Xyrau3zso9cylYe3QmZp FJHsbjSlzTbrZGL6r0Nf Gw10O9BmeNzac1OdXef0 mp60jZZzg3M0iIZ0 L4PtHSPyahaesLQdqIhl OJ2pMKWowymhBVMauS6o XAPtL9x4WxDdMmZ1GTvi Q6TmvoM7PDYreUVx KOtgHSO9M54bk2Q5YJHg EPBxIUB9iPO6hY4jnWya bjogbGVmdDsgdmVydGlj SJerEQzzT866JCYk pEcrVDMhkX9eMOKibHPr ePfdRD7oBJEecjllBicP KSeWNRwaI4hTY8MWEqLR HO35BA91kRKxc9D5 xTN2W7LuKLVlcvjvkvva lRQ7WIWnGSPjxZ37aFSr POloIe1tc0U4w284OKKd DXVqwN12Cc3dxIhe JQEynBTHvW5nxmjng6gx vbpeBcGqSZJcOUb0CTz2 FHFyaYtoYeAkRAU1SaP0 OOQ8tKLquU8okPwh rifisV3qYqr+MDcvMTMv FBq3WtfjuEF+PHRkIHN0 eZobYIwyOBSzhA7oFKWq H3c4QdRjMhU9JOsf V5VdXFXziqjgVh57mV1m ShYhUfB6KAbyN0RnfoO8 DIFbhFHvWXwkPQB6D11f l2T4FKDbHNIyAOD5 gRC4tL3oqYvklexagYZl dDsgdmVydGljYWwtYWxp G345SODidRwnDhB1YIbc DWJhTK96SU70dHLs z0T5iOP5J1DcHCIgggsr njdatGD2WFWtCYIrjF33 zDWiRGvtUg2pa3E9v709 CTLnICFohJ67Oi0d dVjjVAYsnBVDuT7agvbx n4qwhfcnNzMpVPXnYHc7 RCd8BBWueWfkXrRcWXT1 NmS1SFA8hYWudR3p pHegxpuiiR6zZjo+RmVt FTnyDM85YM24aFAbo8F5 yKV0W5LzFAXpkfsbxwpo bQP3LUGkCVTswG20 yPYiQKeoUa4hw5S5n174 PTYuBBWfoL14Is5vxKif TRJqkAZSdH5hhqeyy9hf cjogIzAwMDAwMDt0 DTq3NEAznWnuHiLnLDJ0 PwM4UOR8sSRedQ3srShy vcjumT6tXix+TGFiIERy v1Vgn1IgKU78WY86 O8GpBayuiIMxnPF+PHRh YmxlIHdpZHRoPScxMDAl IqYtzAqhJZ4xZs3eKHTq LWNvbGxhcHNlOiBj y7wgSOSeJSmdMW4lzBvb O5HmrTB2BSCev7s2Pm61 F67bT7FdhUY+PGNvbCB3 tAZ4mP7lHaRpBcW5 CNbvZ341XaBztLKbMklt d0dwd8esjXy5YkMnUCFw paUpjJbjGCF3s2HmUr93 K17zZPufQQUrNVNf YOHqWTFoqDvcvi5nxI4q Ii8+XKWwjZV1cCM2vG2n KeDsZjB7VMpbZ051CnKl eKVeUkwjO36zP2Ac dXA+ZZEjMvz5HWBzmEmb YL3lwIBzPIexKh8jWRP1 SuTlBmOcLKanX7IkUEYr lgiwqyfecTC7KPUi CKRmbD93Dd3ekDtjWv5c IYTgCHM6TKEcbPByO5Vb jL5mGqDuDXKuYHMmP7Bm xHZnMPuxC246UEfk IdU9CAPefoEhJ1HaIMXq cRvlNvA7e0W0Ft5DuTcw lGNfVJ4iKtQjSJf2U6Rl Lqz8EYZhoYjjNR6r bMDkPQfyXs9xvOrdwBvh ER0mGBDcgzgto196HsLu l5xaKAHyjNMeNZkhGUS6 A66ff7Q5OUXwRXXx XGJ8rIJ8mC5yaSbapbej bGVmdDsgdmVydGljYWwt DXdxM880CPNlrHdsCiDC Tho3Y6PoMev3DTZg nJpzND0uaXHcONvjOz6e cJbtqAhbOH4iTIPzralh l983TcVkh6qaINDniEKi IXaeZAN2S07co0O1 FQWwCKKxBTT4eKH7wU9l bGlnbjogbGVmdDsgdmVy yOvyRFseNQmyP432WYOl eRlgXn1RSfm7A9Cf Rfm6TLUegTqzSQ1gvZIo CLexBx2swEffjLbzOG7u ESYqxfzaw706PrJzo2ni IDEwcHQgVGltZXM7 N86mm1W4EFGhTOCrUVO9 uQS5cS8teBljraskjEAh dDsgdmVydGljYWwtYWxp X143ETIuyTevTqVy eWVyOjwvdGQ+KV31ei14 P7AgGreaDcb5NCOtIBE7 cTV9cN2qWCYtAJgsr1A9 kKB8L8IqncKbnb0p b2xs (more content not included)... 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 Rash (R21: Rash and other nonspecific skin eruption) Given history and exam, rash appears to be allergic in nature. Recommend antihistamine prn for this issue. F/u with PCP if symptoms persist or worsen. Follow-up With When Contact Information ANTHONY ROMAN MD, [id number] [place] [address]- Additional Instructions: Patient Education Cough, Adult Pharyngitis [...] Postpone due (more content not included)... Normal [facility] Comment on above: Result Comment: Elec [...] these instructions at home: Medicines ? Take pase-ykd-nxahulp and prescription medicines only as told by [...] a condition that needs treatment. ? Take vmpi-ybj-zjtimfs and prescription medicines only as told by [...] 10/17/2011 Document Revised: 05/09/2019 Document Reviewed: 05/09/2019 [employer] Patient Education ? 2020 [employer] Infectious Disease Pharyngitis Pharyngitis is redness, [...] You have (more content not included)... Normal [facility] COVID Quick Testingon 2020 Result Negative [employer] Other Quick Strepon 02-19-2021 S. pyogenes Org specific cx Ql (Throat) Negative [employer] Other Quick Strep [employer] [facility] scroll kit Other Vital Signs Date Time Vital Sign Value Performing Clinician Facility 02-09-2025 13:48-0400 Body mass index (BMI) [Ratio] 30.87 kg/m2 Inez Sultana NP Work Phone: [facility] 02-09-2025 13:48-0400 Body weight 76.57 kg Inez Sultana NP Work Phone: [facility] 02-09-2025 13:48-0400 Diastolic blood pressure 70 mm[Hg] Inez Sultana NP Work Phone: [facility] 02-09-2025 13:48-0400 Systolic blood pressure 128 mm[Hg] Inez Sultana NP Work Phone: [facility] 02-01-2025 10:59-0400 Body mass index (BMI) [Ratio] 30.14 kg/m2 Inez Sultana [employer] Work Phone: [facility] 02-01-2025 10:59-0400 Body weight 74.75 kg Inez Sultana [employer] Work Phone: [facility] 02-01-2025 10:59-0400 Diastolic blood pressure 82 mm[Hg] Inez Hellerly [employer]ER Work Phone: [facility] 02-01-2025 10:59-0400 Systolic blood pressure 128 mm[Hg] Inez Hellerly [employer]ER Work Phone: [facility] 01-25-2025 13:15-0400 Body mass index (BMI) [Ratio] 30.02 kg/m2 Bree Velez PA Work Phone: [facility] 01-25-2025 13:15-0400 Body weight 74.44 kg Bree Millstone PA Work Phone: [facility] 01-25-2025 13:15-0400 Diastolic blood pressure 70 mm[Hg] Bree Millstone PA Work Phone: [facility] 01-25-2025 13:15-0400 Systolic blood pressure 118 mm[Hg] Bree Lise PA Work Phone: [facility] 01-18-2025 10:43-0400 Body mass index (BMI) [Ratio] 29.23 kg/m2 Claudio Annabelle DO Work Phone: [facility] 01-18-2025 10:43-0400 Body weight 72.48 kg Claudio Annabelle DO Work Phone: [facility] 01-18-2025 10:43-0400 Diastolic blood pressure 70 mm[Hg] Claudio Annabelle DO Work Phone: [facility] 01-18-2025 10:43-0400 Systolic blood pressure 120 mm[Hg] Claudio Annabelle DO Work Phone: [facility] 01-03-2025 14:31-0400 Body mass index (BMI) [Ratio] 29.1 kg/m2 Bree Velez PA Work Phone: [facility] 01-03-2025 14:31-0400 Body weight 72.18 kg Bree Velez PA Work Phone: [facility] 01-03-2025 14:31-0400 Diastolic blood pressure 80 mm[Hg] Bree Velez PA Work Phone: [facility] 01-03-2025 14:31-0400 Systolic blood pressure 120 mm[Hg] Bree Velez PA Work Phone: [facility] 12-20-2024 10:02-0400 Body mass index (BMI) [Ratio] 28.61 kg/m2 Claudio Annabelle DO Work Phone: [facility] 12-20-2024 10:02-0400 Body weight 70.94 kg Claudio Annabelle DO Work Phone: [facility] 12-20-2024 10:02-0400 Diastolic blood pressure 80 mm[Hg] Claudio Annabelle DO Work Phone: [facility] 12-20-2024 10:02-0400 Systolic blood pressure 110 mm[Hg] Claudio Annabelle DO Work Phone: [facility] 12-07-2024 11:01-0400 Body mass index (BMI) [Ratio] 27.44 kg/m2 Claudio Annabelle DO Work Phone: [facility] 12-07-2024 11:01-0400 Body weight 68.04 kg Claudio Annabelle DO Work Phone: [facility] 12-07-2024 11:01-0400 Diastolic blood pressure 76 mm[Hg] Claudio Annabelle DO Work Phone: [facility] 12-07-2024 11:01-0400 Systolic blood pressure 124 mm[Hg] Claudio Annabelle DO Work Phone: [facility] 11-15-2024 08:44-0400 Body mass index (BMI) [Ratio] 26.89 kg/m2 Bree Millstone PA Work Phone: [facility] 11-15-2024 08:44-0400 Body weight 66.68 kg Bree Lise PA Work Phone: [facility] 11-15-2024 08:44-0400 Diastolic blood pressure 76 mm[Hg] Bree Lise PA Work Phone: [facility] 11-15-2024 08:44-0400 Systolic blood pressure 124 mm[Hg] Bree Millstone PA Work Phone: [facility] 10-18-2024 09:05-0400 Body mass index (BMI) [Ratio] 26.06 kg/m2 Claudio Annabelle DO Work Phone: [facility] 10-18-2024 09:05-0400 Body weight 64.64 kg Claudio Annabelle DO Work Phone: [facility] 10-18-2024 09:05-0400 Diastolic blood pressure 72 mm[Hg] Claudio Annabelle DO Work Phone: [facility] 10-18-2024 09:05-0400 Systolic blood pressure 120 mm[Hg] Claudio Annabelle DO Work Phone: [facility] 09-20-2024 13:49-0400 Body mass index (BMI) [Ratio] 24.87 kg/m2 Bree Millstone PA Work Phone: [facility] 09-20-2024 13:49-0400 Body weight 61.69 kg Bree Millstone PA Work Phone: [facility] 09-20-2024 13:49-0400 Diastolic blood pressure 72 mm[Hg] Bree Lise PA Work Phone: [facility] 09-20-2024 13:49-0400 Systolic blood pressure 116 mm[Hg] Bree Millstone PA Work Phone: [facility] 08-17-2024 14:06-0400 Body mass index (BMI) [Ratio] 23.78 kg/m2 Claudio Annabelle DO Work Phone: [facility] 08-17-2024 14:06-0400 Body weight 58.97 kg Claudio Annabelle DO Work Phone: [facility] 08-17-2024 14:06-0400 Diastolic blood pressure 70 mm[Hg] Claudio Annabelle DO Work Phone: [facility] 08-17-2024 14:06-0400 Systolic blood pressure 116 mm[Hg] Claudio Annabelle DO Work Phone: [facility] 07-28-2024 13:31-0400 Body mass index (BMI) [Ratio] 23.67 kg/m2 [facility] Nurse [facility] 07-28-2024 13:31-0400 Body weight 58.7 kg [facility] Nurse [facility] 11-05-2022 11:00-0400 Diastolic blood pressure 74 mm[Hg] Nick Velasquez [facility] 11-05-2022 11:00-0400 Heart rate 74 /min Nick Velasquez [facility] 11-05-2022 11:00-0400 Mean blood pressure 88 mm[Hg] Nick Velasquez [facility] 11-05-2022 11:00-0400 Respiratory rate 16 /min Nick Velasquez [facility] 11-05-2022 11:00-0400 SaO2% (BldA) [Mass fraction] 100 % Nick Velasquez [facility] 11-05-2022 11:00-0400 Systolic blood pressure 116 mm[Hg] Nick Ron [facility] 11-05-2022 10:00-0400 Diastolic blood pressure 54 mm[Hg] Nick Ron [facility] 11-05-2022 10:00-0400 Heart rate 83 /min Nick Velasquez [facility] 11-05-2022 10:00-0400 Respiratory rate 18 /min Nick Velasquez [facility] 11-05-2022 10:00-0400 SaO2% (BldA) [Mass fraction] 99 % Nick Velasquez [facility] 11-05-2022 10:00-0400 Systolic blood pressure 90 mm[Hg] Nick Ron [facility] 11-05-2022 08:00-0400 Body temperature 98.24 [degF] Nick Velasquez [facility] 11-05-2022 08:00-0400 Diastolic blood pressure 63 mm[Hg] Nick Ron [facility] 11-05-2022 08:00-0400 Heart rate 86 /min Nick Ron [facility] 11-05-2022 08:00-0400 Systolic blood pressure 92 mm[Hg] Nick Velasquez [facility] 02-19-2021 11:00-0400 Body height 158.12 cm Eleni Dc Other [employer] Other 02-19-2021 11:00-0400 Body mass index (BMI) [Ratio] 22.68 kg/m2 Eleni Dc Other [employer] Other 02-19-2021 11:00-0400 Body temperature 98.6 [degF] Eleni Dc Other [employer] Other 02-19-2021 11:00-0400 Body weight 56.7 kg Eleni Dc Other [employer] Other 02-19-2021 11:00-0400 Respiratory rate 20 /min Eleni Dc Other [employer] Other 02-19-2021 11:00-0400 SaO2% (BldA) [Mass fraction] 98 % Eleni Dc Other [employer] Other Encounters Encounter Date Encounter Type Care Provider Facility Start: 02-11-2025 End: 02-11-2025 Clinisync Result Encounter Claudio Annabelle DO Work Phone: [facility] Unsolicited Start: 02-11-2025 End: 02-11-2025 Clinisync Result Encounter Claudio Annabelle DO Work Phone: [facility] Unsolicited Start: 02-09-2025 End: 02-09-2025 Bamboo flowsheet Inez Sultana [employer] Work Phone: [facility] Start: 02-09-2025 End: 02-09-2025 Bamboo flowsheet Inez Sultana [employer] Work Phone: [facility] Start: 02-09-2025 End: 02-09-2025 flow sheet Inez Sultana [employer] Work Phone: [facility] Comment on above: 38 weeks gestation o f ([facility]); Third trimester ([facility]); H/O: Start: 02-09-2025 End: 02-09-2025 ambulatory INEZ SULTANA Not Available Start: 02-01-2025 End: 02-01-2025 Bamboo flowsheet Inez Sultana [employer] Work Phone: [facility] Start: 02-01-2025 End: 02-01-2025 Bamboo flowsheet Inez Sultana [employer] Work Phone: [facility] Start: 02-01-2025 End: 02-01-2025 flow sheet Inez Sultana [employer] Work Phone: [facility] Comment on above: 36 weeks gestation o f ([facility]); Third trimester ([facility]) Start: 02-01-2025 End: 02-01-2025 ambulatory INEZ SULTANA Not Available Start: 01-25-2025 End: 01-25-2025 Bamboo flowsheet Bree FARAH Work Phone: [facility] Start: 01-25-2025 End: 01-30-2025 Bamboo flowsheet Bree FARAH Work Phone: [facility] Start: 01-25-2025 End: 01-30-2025 Clinisync Result Encounter Bree FARAH Work Phone: [facility] Unsolicited Start: 01-25-2025 End: 01-25-2025 Periodic preventive med est patient 18-39 yrs Bree FARAH Work Phone: [facility] Comment on above: 35 weeks gestation o f ([facility]); Third trimester ([facility]) Start: 01-25-2025 End: 01-25-2025 ambulatory BREE VELEZ Not Available Start: 01-18-2025 End: 01-18-2025 Bamboo flowsheet Claudio Annabelle DO Work Phone: [facility] Start: 01-18-2025 End: 01-18-2025 Bamboo flowsheet Claudio Annabelle DO Work Phone: [facility] Start: 01-18-2025 End: 01-18-2025 flow sheet Claudio Annabelle DO Work Phone: [facility] Comment on above: 34 weeks gestation o f ([facility]); Third trimester ([facility]); H/O: Start: 01-18-2025 End: 01-18-2025 ambulatory CLAUDIO ANNABELLE Not Available Start: 01-03-2025 End: 01-03-2025 flow sheet Bree Lise PA Work Phone: [facility] Comment on above: 32 weeks gestation o f ([facility]); Third trimester ([facility]); H/O: Start: 01-03-2025 End: 01-03-2025 ambulatory BREE VELEZ Not Available Start: 12-20-2024 End: 12-20-2024 Bamboo flowsheet Claudio Annabelle DO Work Phone: [facility] Start: 12-20-2024 End: 12-20-2024 Bamboo flowsheet Claudio Annabelle DO Work Phone: [facility] Start: 12-20-2024 End: 12-20-2024 flow sheet Claudio Annabelle DO Work Phone: [facility] Comment on above: 30 weeks gestation o f ([facility]); Third trimester ([facility]); size inconsistent with dates ([facility]) Start: 12-20-2024 End: 12-20-2024 ambulatory CLAUDIO ANNABELLE Not Available Start: 12-07-2024 End: 12-07-2024 Bamboo flowsheet Claudio Annabelle DO Work Phone: [facility] Start: 12-07-2024 End: 12-07-2024 Bamboo flowsheet Claudio Annabelle DO Work Phone: [facility] Start: 12-07-2024 End: 12-07-2024 flow sheet Claudio Annabelle DO Work Phone: [facility] Comment on above: Third trimester preg karoline ([facility]); 28 weeks gestation of ([facility]); H/O: Start: 12-07-2024 End: 12-07-2024 ambulatory CLAUDIO ANNABELLE Not Available Start: 11-22-2024 End: 11-22-2024 ambulatory Claudio R ANNABELLE Facility:[facility] Start: 11-18-2024 End: 11-18-2024 ambulatory BREE VELEZ Facility:[facility] Start: 11-15-2024 End: 11-15-2024 Bamboo flowsheet Bree FARAH Work Phone: [facility] Start: 11-15-2024 End: 11-15-2024 Bamboo flowsheet Bree FARAH Work Phone: [facility] Start: 11-15-2024 End: 11-15-2024 flow sheet Bree FARAH Work Phone: [facility] Comment on above: Second trimester pre gnancy ([facility]); 25 weeks gestation of ([facility]); Diabetes mellitus screening Start: 11-15-2024 End: 11-15-2024 ambulatory BREE VELEZ Not Available Start: 10-18-2024 End: 10-18-2024 flow sheet Claudio Annabelle DO Work Phone: [facility] Comment on above: Second trimester pre gnancy ([facility]); 21 weeks gestation of ([facility]) Start: 10-18-2024 End: 10-18-2024 ambulatory CLAUDIO ANNABELLE Not Available Start: 09-20-2024 End: 09-20-2024 Bamboo flowsheet Bree FARAH Work Phone: [facility] Start: 09-20-2024 End: 09-21-2024 Bamboo flowsheet Bree FARAH Work Phone: [facility] Start: 09-20-2024 End: 09-21-2024 External Result Encounter Bree FARAH Work Phone: [facility] External Department Unsolicited Start: 09-20-2024 End: 09-20-2024 flow sheet Bree FARAH Work Phone: [facility] Comment on above: Second trimester [...] 07-29-2024 End: 07-30-2024 ambulatory Claudio R ANNABELLE Facility:[facility] Start: 07-29-2024 End: 07-30-2024 Patient encounter procedure Claudio R ANNABELLE [facility] Start: 07-28-2024 End: 07-28-2024 Office outpatient visit 5 minutes [facility] Ann[facility]le Nurse [facility] Comment on above: GA: 10w0d Start: 07-28-2024 End: 07-28-2024 ambulatory CLAUDIO ANNABELLE Not Available Start: 06-25-2024 End: 09-27-2024 ambulatory Claudio R ANNABELLE Facility:[facility] Start: 06-25-2024 End: 09-27-2024 Recurring Claudio R ANNABELLE [facility] Start: 06-23-2024 End: 06-23-2024 ambulatory Claudio R ANNABELLE Facility:[facility] Start: 06-23-2024 End: 06-23-2024 Patient encounter procedure Claudio R ANNABELLE [facility] Start: 01-14-2024 End: 04-13-2024 ambulatory Gm HENDERSON Facility:[facility] Start: 11-05-2022 End: 11-05-2022 Emergency department patient visit Nick Velasquez Facility:[facility] Start: 11-05-2022 End: 11-05-2022 Emergency department patient visit Nick Velasquez [facility] Start: 09-09-2022 End: 09-10-[address] CLAUDIO ALANIS . Facility: Start: 09-05-2022 End: 09-06-[address] CLAUDIO ALANIS . Facility: Start: 03-13-2022 End: 03-13-[address] CLAUDIO ALANIS . Facility: Start: 02-13-2022 End: 02-14-2022 ambulatory Bindu Martinez Facility:[facility] Start: 01-14-2022 End: 04-15-2022 ambulatory ANTHONY ROMAN Facility:[facility] Start: 02-19-2021 Office outpatient vi sit 15 minutes Eleni Dc [facility] [address] Procedures Date Procedure Procedure Detail Performing Clinician Start: 02-11-2025 TBH UA (CLEAN/CATCH) TAP DANCER/MICRO IF IND. Claudio Mansfieldo DO Work Phone: Start: 02-09-2025 Urnls dip stick/tabl et rgnt non-auto w/o micrscp Inez Sultana [employer] Work Phone: Start: 02-01-2025 Urnls dip stick/tabl et rgnt non-auto w/o micrscp Inez Sultana [employer] Work Phone: Start: 01-25-2025 Urnls dip stick/tabl et rgnt non-auto w/o micrscp Bree FARAH Work Phone: Start: 01-25-2025 STREP GP B SAY+RFLX Bree FARAH Work Phone: Start: 01-18-2025 Urnls dip stick/tabl et rgnt non-auto w/o micrscp Claudio Mansfieldo DO Work Phone: Start: 01-03-2025 Urnls dip [...] H/O: Core y Annabelle DO Work Phone: H/O: section H/O: Lawrence Sultana NP Work Phone: Plan of Treatment Date Care Activity Detail Author Start: 02-23-2025 End: 02-23-2025 Patient encounter procedure 02/23/2025 1:50 PM EDT Office Visit LAMAR HALL [address] [place] [id number] Bree Velez PA [address] [place] [address] LAMAR Poe OBRYLEE Start: 02-09-2025 End: 02-09-2025 Patient encounter procedure LAMAR HALL Comment on above: Arrived Start: 02-01-2025 End: 02-01-2025 Patient encounter procedure LAMAR Poe OBRYLEE Comment on above: Arrived Start: 01-25-2025 End: 01-25-2026 CULTURE, GROUP B STREP WITH SUSCEPTIBLITY CULTURE, GROUP B STREP WITH SUSCEPTIBLITY Lab Routine 35 weeks gestation of ([facility]) Third trimester ([facility]) Expected: 01/25/2025, Expires: 01/25/2026 [facility] Work Phone: Comment on above: Expected: 01/25/2025 , Expires: 01/25/2026 Start: 01-25-2025 End: 01-25-2025 Patient encounter procedure LAMAR HALL Comment on above: Arrived Start: 01-18-2025 End: 01-18-2025 Patient encounter procedure LAMAR HALL Comment on above: Arrived Start: 01-02-2025 Influenza vaccination Influenza Vacc ine (#1) [facility] Start: 12-20-2024 End: 04-21-2025 US for US OB follow up transabdominal approach Imaging Routine size inconsistent with dates ([facility]) Expected: 12/20/2024, Expires: 04/21/2025 [facility] Work Phone: Comment on above: Expected: 12/20/2024 , Expires: 04/21/2025 Start: 12-20-2024 End: 12-20-2024 Patient encounter procedure LAMAR Poe OBRYLEE Comment on above: Arrived Start: 12-07-2024 End: 12-07-2024 Patient encounter procedure [facility] Comment on above: Arrived Start: 11-15-2024 End: 11-15-2025 CBC panel - Blood by Automated count CBC Lab Routine Diabetes mellitus screening Expected: 11/15/2024 (Approximate), Expires: 11/15/2025 [facility] Work Phone: Comment on above: [...] Visit [facility] [address] [place] [id number] Claudio Alanis, DO [address] [place] [address] [facility] Start: 10-18-2024 End: 10-18-2024 Patient encounter procedure 10/18/2024 9:10 AM EDT Routine [facility] [address] [place] [id number] Claudio Alanis, DO [address] [place] [address] [facility] Start: 10-18-2024 End: 10-18-2024 Professional / ancillary services management 10/18/2024 8:00 AM EDT Ancillary Procedure [facility] [address] [place] [id number] [facility] Start: 09-20-2024 End: 10-21-2024 Alpha fetoprotein, maternal Alpha fetoprotein, maternal Lab Routine Need for maternal serum alpha-protein (MSAFP) screening Expected: 09/20/2024 (Approximate), Expires: 10/21/2024 [facility] Comment on above: Expected: 09/20/2024 (Approximate), Expires: 10/21/2024 Start: 09-20-2024 End: 12-21-2024 US for US OB 14+ weeks anatomy scan Imaging Routine Screening, , for anatomic survey Expected: 09/20/2024, Expires: 12/21/2024 [facility] Comment on above: Expected: 09/20/2024 , Expires: 12/21/2024 Start: 09-20-2024 End: 09-20-2024 Patient encounter procedure [facility] Comment on above: Arrived Start: 08-17-2024 End: 08-17-2024 Patient encounter procedure [facility] Comment on above: Arrived Start: 07-28-2024 End: 07-28-2025 ABO/Rh ABO/Rh Lab Routine Missed menses , unspecified gestational age Expected: 07/28/2024 (Approximate), Expires: 07/28/2025 [facility] Comment on above: Expected: 07/28/2024 (Approximate), Expires: 07/28/2025 Start: 07-28-2024 End: 07-28-2025 Blood type and Indirect antibody screen panel - Blood Type and screen Lab Routine Missed menses , unspecified gestational age Expected: 07/28/2024 (Approximate), Expires: 07/28/2025 [facility] Comment on above: Expected: 07/28/2024 (Approximate), Expires: 07/28/2025 Start: 07-28-2024 End: 07-28-2025 Drugs of abuse panel - Urine by Screen method Rapid drug screen, urine Lab Routine , unspecified gestational age Encounter for supervision of normal first in first trimester Expected: 07/28/2024 (Approximate), Expires: 07/28/2025 [facility] Comment on above: Expected: 07/28/2024 (Approximate), Expires: 07/28/2025 Start: 07-20-2024 End: 07-20-2025 US Pelvis transvaginal US OB transvaginal Imaging Routine Missed menses Expected: 07/20/2024, Expires: 07/20/2025 [facility] Work Phone: Comment on above: Expected: 07/20/2024 , Expires: 07/20/2025 Bacteria identified in Urine by Culture Urine culture Microbiology Routine Missed menses Ordered: 07/28/2024 [facility] Comment on above: Ordered: 07/28/2024 CBC W Auto Different ial panel - Blood CBC and differential Lab Routine Missed menses , unspecified gestational age Ordered: 07/28/2024 [facility] Comment on above: Ordered: 07/28/2024 CHLAMYDIA TRACHOMATI S (GENITO/STI) CHLAMYDIA TRACHOMATIS (GENITO/STI) Lab Routine Exposure to STD Ordered: 09/20/2024 [facility] Comment on above: Ordered: 09/20/2024 Hemoglobin A1c/Hemoglobin.total in Blood Hemoglobin A1c Lab Routine Missed menses , unspecified gestational age Ordered: 07/28/2024 [facility] Comment on above: Ordered: 07/28/2024 Hepatitis B virus surface Ag [Presence] in Serum or Plasma by Immunoassay Hepatitis B surface antigen Lab Routine Missed menses , unspecified gestational age Ordered: 07/28/2024 [facility] Comment on above: Ordered: 07/28/2024 Hepatitis C virus Ab [Presence] in Serum or Plasma by Immunoassay Hepatitis C antibody Lab Routine Missed menses , unspecified gestational age Ordered: 07/28/2024 [facility] Comment on above: Ordered: 07/28/2024 HIV-1/HIV-2 antigen/antibody combination immunoassay HIV-1 and HIV-2 antibodies Lab Routine Missed menses , unspecified gestational age Ordered: 07/28/2024 [facility] Comment on above: Ordered: 07/28/2024 Neisseria gonorrhoea e DNA [Presence] in Unspecified specimen by SAY with probe detection Neisseria gonorrhea DNA probe, direct Lab Routine Exposure to STD Ordered: 09/20/2024 [facility] Comment on above: Ordered: 09/20/2024 Reagin Ab [Presence] in Serum by RPR RPR Lab Routine Missed menses , unspecified gestational age Ordered: 07/28/2024 [facility] Comment on above: Ordered: 07/28/2024 Rubella antibody, IgG Rubella an tibody, IgG Lab Routine Missed menses , unspecified gestational age Ordered: 07/28/2024 [facility] Comment on above: Ordered: 07/28/2024 SURESWAB(R) ADVANCED VAGINITIS PLUS, TMA SURESWAB(R) ADVANCED VAGINITIS PLUS, TMA Pathology and Cytology Routine Exposure to STD Ordered: 09/20/2024 [facility] Work Phone: Comment on above: Ordered: 09/20/2024 US Pelvis transvaginal US OB tra nsvaginal Imaging Routine Missed menses 07/28/2024 12:44 PM EDT [facility] Immunizations Immunization Date Immunization Notes Care Provider Fa jordan 02-16-2024 influenza virus vaccine, unspecified formulation; Translations: [Fluzone TIV PF ] Claudio ALANIS [facility] Comment on above: Reason for Medicatio n: Prophylaxis 02-17-2022 influenza virus vaccine, unspecified formulation Nick Velasquez [facility] Comment on above: Reason for Medicatio n: Prophylaxis 03-01-2021 influenza virus vaccine, unspecified formulation Nick Velasquez [facility] Comment on above: Reason for Medicatio n: Prophylaxis 02-14-2021 COVID-19, mRNA, LNP- S, PF, 30 mcg/0.3 mL dose Nick Velasquez [facility] 01-18-2021 COVID-19, mRNA, LNP- S, PF, 30 mcg/0.3 mL dose Nick Velasquez [facility] 05-23-2012 Toradol per 15 mg Calley Thad oquendo Other [employer] Other 04-20-2008 meningococcal ACWY vaccine, unspecified formulation Nick Velasquez [facility] 04-20-2008 tetanus toxoid, reduced diphtheria toxoid, and acellular pertussis vaccine, adsorbed Nick Ron [facility] 04-20-2008 varicella virus vaccine Nick Ron [facility] 03-06-2007 influenza virus vaccine, unspecified formulation Nick Ron [facility] 02-22-2005 influenza, whole Nick Ron [facility] 02-23-2004 influenza, whole Nick Ron [facility] 05-01-2003 influenza, whole Nick Ron [facility] 03-23-2003 influenza, whole Nick Ron [facility] 09-14-2001 DTaP, unspecified formulation Nick Ron [facility] 09-14-2001 measles, mumps and rubella virus vaccine Nick Ron [facility] 11-14-1998 DTaP, unspecified formulation Nick Ron [facility] 11-14-1998 hepatitis B vaccine, pediatric or pediatric/adolescent dosage Nick Ron [facility] 06-06-1998 Hib, unspecified formulation Nick Ron [facility] 06-06-1998 measles, mumps and rubella virus vaccine Nick Ron [facility] 11-22-1997 varicella virus vaccine Nick Ron [facility] 05-31-1997 DTaP, unspecified formulation Nick Ron [facility] 05-31-1997 hepatitis B vaccine, pediatric or pediatric/adolescent dosage Nick Velasquez [facility] 05-31-1997 Hib, unspecified formulation Nick Velasquez [facility] 04-12-1997 DTaP, unspecified formulation Nick Velasquez [facility] 04-12-1997 Hib, unspecified formulation Nick Velasquez [facility] 02-01-1997 DTaP, unspecified formulation Nick Velasquez [facility] 02-01-1997 hepatitis B vaccine, pediatric or pediatric/adolescent dosage Nick Velasquez [facility] 02-01-1997 Hib, unspecified formulation Nick Velasquez [facility] NEGATED: Highlighted row has not occurred!02-13-2022 influenza virus vaccine, unspecified formulation Nick Velasquez [facility] NEGATED: Highlighted row has not occurred!02-13-2022 SARS-CoV-2 mRNA (tozinameran 5y-11y) vaccine Nick Velasquez [facility] Payers Date Payer Category Payer Private Health Insurance [id number] 2022 Unknown 2022 [facility] er [id number] 2022 Unknown [id number] 1996 Unknown [id number] 2.16.840.1.720355.3.579.2. 593 1996 Unknown [id number] 2.16.840.1.964986.3.579.2. 593 1996 Unknown [id number] 2.16.840.1.594291.3.579.2. 593 1996 Unknown [id number] 2.16.840.1.967865.3.579.2. 727 1996 Unknown [id number] 2.16.840.1.839310.3.579.2. 72 1996 Unknown [id number] 2.16.840.1.402346.3.579.2. 727 1996 Unknown [id number] 2.16.840.1.734895.3.579.2. 727 1996 Unknown [id number] 2.16.840.1.920695.3.579.2. 727 1996 Unknown [id number] 2.16.840.1.589512.3.579.2. 727 1996 Unknown [id number] 2.16.840.1.594495.3.579.2. 727 1996 Unknown [id number] 2.16.840.1.254526.3.579.2. 72 1996 Unknown [id number] 2.16.840.1.688103.3.579.2. 727 1996 Unknown [id number] 2.16.840.1.258890.3.579.2. 1259 1996 Unknown [id number] 2.16.840.1.328815.3.579.2. 1258 1996 Unknown [id number] 2.16.840.1.466651.3.579.2. 1258 1996 Unknown [id number] 2.16.840.1.659955.3.579.2. 1258 1996 Unknown [id number] 2.16.840.1.017949.3.579.2. 1258 1996 Unknown [id number] 2.16.840.1.813880.3.579.2. 1258 1996 Unknown [id number] 2.16.840.1.196542.3.579.2. 1258 1996 Unknown [id number] 2.16.840.1.730291.3.579.2. 1258 1996 Unknown [id number] 2.16.840.1.818842.3.579.2. 1258 1996 Unknown [id number] 2.16.840.1.348957.3.579.2. 1258 1996 Unknown [id number] 2.16.840.1.658771.3.579.2. 1258 1996 Unknown [id number] 2.16.840.1.264215.3.579.2. 1258 1996 Unknown [id number] 2.16.840.1.222006.3.579.2. 1258 1996 Unknown [id number] 2.16.840.1.632218.3.579.2. 1258 1996 Unknown [id number] 2.16.840.1.313655.3.579.2. 1258 1959 Unknown [id number] 2.16.840.1.414870.19 1959 Unknown [id number] Social History Date Type Detail Facility Unknown if ever smoked [employer] Other Start: 11-02-2023 End: 07-28-2024 Sex Assigned At [facility] Start: 02-13-2022 End: 12-01-2022 Tobacco smoking status Never smoked tobacco (finding) [facility] Start: 07-16-2022 Tobacco smoking status Never [facility] Tobacco smoking status [facility] Start: 12-01-2022 Tobacco use and exposure Smokeless tobacco non-user [facility] Start: 07-28-2024 End: 02-09-2025 Alcoholic beverage intake Lifetime non-drinker (finding) [facility] Start: 11-02-2023 End: 07-28-2024 History of Social function [facility] Start: 10-31-2022 Alcohol Comment Caffeine intake: non e [facility] Start: 06-02-2024 [facility] Start: 1996 Sex assigned at Not on file [facility] Sex Female (finding) [facility] Functional Status Date Assessment Result Facility 11-05-2022 Functional Status N/A [facility] Clinical Notes 02-19-2021 to 02-09-2025 Elvie Cordova [...] Noted H/O: 12/07/2024 30 weeks gestation of ([facility]) 12/20/2024 Third trimester ([facility]) 01/25/2025 Resolved Ambulatory Problems Diagnosis [...] nursing note reviewed. Exam conducted with a analytics associate present. Vitals: Estimated body mass index is 30.87 kg/m as calculated from the following: Height as of 09/05/23: 5' 2 . Weight as of this encounter: 168 lb 12.8 oz. BP: 128/70 No LMP recorded. Patient is . ASSESSMENT & PLAN ICD-10-CM 1. 38 weeks gestation of ([facility]) Z3A.38 POCT urinalysis dipstick manually resulted 2. Third trimester ([facility]) Z34.93 POCT urinalysis dipstick manually resulted [...] reviewed, and patient is to proceed to [facility] OR on her scheduled day. Orders [...] Noted H/O: 12/07/2024 30 weeks gestation of ([facility]) 12/20/2024 Third trimester ([facility]) 01/25/2025 Resolved Ambulatory Problems Diagnosis [...] nursing note reviewed. Exam conducted with a analytics associate present. Vitals: Estimated body mass index is 30.87 kg/m as calculated from the following: Height as of 23: 5' 2 . Weight as of this encounter: 168 lb 12.8 oz. BP: 128/70 No LMP recorded. Patient is . ASSESSMENT & PLAN ICD-10-CM 1. 38 weeks gestation of ([facility]) Z3A.38 POCT urinalysis dipstick manually resulted 2. Third trimester ([facility]) Z34.93 POCT urinalysis dipstick manually resulted [...] Inez Sultana NP documented in this encounter [facility] 02-01-2025 History of Presen t illness Narrative [...] Noted H/O: 12/07/2024 30 weeks gestation of ([facility]) 12/20/2024 Third trimester ([facility]) 01/25/2025 Resolved Ambulatory Problems Diagnosis [...] nursing note reviewed. Exam conducted with a analytics associate present. Vitals: Estimated body mass index is 30.14 kg/m as calculated from the following: Height as of 23: 5' 2 . Weight as of this encounter: 164 lb 12.8 oz. BP: 128/82 No LMP recorded. Patient is . ASSESSMENT & PLAN ICD-10-CM 1. 36 weeks gestation of ([facility]) Z3A.36 POCT urinalysis dipstick manually resulted 2. Third trimester ([facility]) Z34.93 Return OB: Patient presents today for [...] Inez Sultana NP documented in this encounter [facility] 01-25-2025 History of Presen t illness Narrative [...] Noted H/O: 12/07/2024 30 weeks gestation of ([facility]) 12/20/2024 Third trimester ([facility]) 01/25/2025 Resolved Ambulatory Problems Diagnosis Date Noted No Resolved Ambulatory Problems Past Medical History: Diagnosis Date Asthma ([facility]) Benign parotid tumor Facial paresis Facial weakness Fracture, humerus Pharyngitis Sialocele Syncope Tonsillitis HISTORY PAST MEDICAL HISTORY SOCIAL HISTORY Past Medical History: Diagnosis Date Asthma ([facility]) Benign parotid tumor Facial paresis Facial weakness [...] nursing note reviewed. Exam conducted with a analytics associate present. Vitals: Estimated body mass index is 30.02 kg/m as calculated from the following: Height as of 09/05/22: 5' 2 . Weight as of this encounter: 164 lb 1.9 oz. BP: 118/70 No LMP recorded. Patient is . ASSESSMENT & PLAN ICD-10-CM 1. 35 weeks gestation of ([facility]) Z3A.35 POCT urinalysis dipstick manually resulted CULTURE, GROUP B STREP WITH SUSCEPTIBLITY CULTURE, GROUP B STREP WITH SUSCEPTIBLITY 2. Third trimester ([facility]) Z34.93 POCT urinalysis dipstick manually resulted [...] of: SOFI Rollins documented in this encounter [facility] 01-18-2025 History of Presen t illness Narrative [...] Noted H/O: 12/07/2024 30 weeks gestation of ([facility]) 12/20/2024 Resolved Ambulatory Problems Diagnosis Date Noted [...] nursing note reviewed. Exam conducted with a analytics associate present. Vitals: Estimated body mass index is 29.23 kg/m as calculated from the following: Height as of 09/05/22: 5' 2 . Weight as of this encounter: 159 lb 12.8 oz. BP: 120/70 No LMP recorded. Patient is . ASSESSMENT & PLAN ICD-10-CM 1. 34 weeks gestation of ([facility]) Z3A.34 POCT urinalysis dipstick manually resulted 2. Third trimester ([facility]) Z34.93 POCT urinalysis dipstick manually resulted [...] Claudio Alanis DO documented in this encounter [facility] 01-03-2025 History of Presen t illness Narrative [...] Noted H/O: 12/07/2024 30 weeks gestation of ([facility]) 12/20/2024 Resolved Ambulatory Problems Diagnosis Date Noted No Resolved Ambulatory Problems Past Medical History: Diagnosis Date Asthma ([facility]) Benign parotid tumor Facial paresis Facial weakness [...] PLAN ICD-10-CM 1. 32 weeks gestation of ([facility]) Z3A.32 POCT urinalysis dipstick manually resulted 2. Third trimester ([facility]) Z34.93 POCT urinalysis dipstick manually resulted [...] of: SOFI Rollins documented in this encounter [facility] 12-20-2024 History of Presen t illness Narrative Reason for Appointment: Patient ID: Radha Hart is a 29 y.o. female who presents for Routine Visit Patient presents today for Return OB appointment. MEDICATIONS Current Outpatient Medications Medication Instructions MV-Min-Fe Fum-FA-DHA ( 1 PO) Oral ALLERGIES Allergies Allergen Reactions Codeine Hallucinations PROBLEMS Active Ambulatory Problems Diagnosis Date Noted H/O: 12/07/2024 30 weeks gestation of ([facility]) 12/20/2024 Resolved Ambulatory Problems Diagnosis Date Noted [...] nursing note reviewed. Exam conducted with a analytics associate present. Vitals: Estimated body mass index is 28.61 kg/m as calculated from the following: Height as of 09/05/23: 5' 2 . Weight as of this encounter: 156 lb 6.4 oz. BP: 110/80 No LMP recorded. Patient is . ASSESSMENT & PLAN ICD-10-CM 1. 30 weeks gestation of ([facility]) Z3A.30 POCT urinalysis dipstick manually resulted 2. Third trimester ([facility]) Z34.93 POCT urinalysis dipstick manually resulted Return [...] Claudio Alanis DO documented in this encounter [facility] 12-07-2024 History of Presen t illness Narrative [...] nursing note reviewed. Exam conducted with a analytics associate present. Vitals: Estimated body mass index is 27.44 kg/m as calculated from the following: Height as of 09/05/23: 5' 2 . Weight as of this encounter: 150 lb. BP: 124/76 No LMP recorded. Patient is . ASSESSMENT & PLAN ICD-10-CM 1. Third trimester ([facility]) Z34.93 POCT urinalysis dipstick manually resulted 2. 28 weeks gestation of ([facility]) Z3A.28 3. H/O: Z98.891 Return OB: [...] Claudio Alanis DO documented in this encounter [facility] 11-15-2024 History of Presen t illness Narrative [...] ASSESSMENT & PLAN ICD-10-CM 1. Second trimester ([facility]) Z34.92 POCT urinalysis dipstick manually resulted 2. 25 weeks gestation of ([facility]) Z3A.25 3. Diabetes mellitus screening Z13.1 CBC [...] schedule. Pt will have orders done at [facility]. Pt was advised to have the lab department fax it back to our office. PVU Orders Placed This Encounter Procedures CBC Glucose tolerance, 1 hour POCT urinalysis dipstick manually resulted Follow Up: Patient is to return to office in 3 week for routine OB appointment. Documented by Melissa Muir MA on behalf of: SOFI Rollins documented in this encounter [facility] 10-18-2024 History of Presen t illness Narrative [...] nursing note reviewed. Exam conducted with a analytics associate present. Vitals: Estimated body mass index is 26.06 kg/m as calculated from the following: Height as of 09/05/22: 5' 2 . Weight as of this encounter: 142 lb 8 oz. BP: 120/72 No LMP recorded. Patient is . ASSESSMENT & PLAN ICD-10-CM 1. Second trimester ([facility]) Z34.92 POCT urinalysis dipstick manually resulted 2. 21 weeks gestation of ([facility]) Z3A.21 Patient presents today for a routine obstetrics appointment. Patient is currently 21w5d with a Estimated Date of Delivery: 02/23/25.Pt had anatomy scan prior to appt, will notify of results. Pt to return in 4 weeks for scheduled OB appt. Documented by Jany Reaves LPN on behalf of: Claudio Alanis DO documented in this encounter [facility] 09-20-2024 History of Presen t illness Narrative [...] nursing note reviewed. Exam conducted with a analytics associate present. Vitals: Estimated body mass index is [...] of: SOFI Rollins documented in this encounter [facility] 08-17-2024 History of Presen t illness Narrative [...] nursing note reviewed. Exam conducted with a analytics associate present. Vitals: Estimated body mass index is [...] or undercooked meat, and stay away from [facility]. Patient has been consulted regarding any further do's and don'ts of . Patient voiced understanding and all questions and concerns were answered. Orders Placed This Encounter Procedures POCT urinalysis dipstick manually resulted Follow Up: Patient is to return in 4 weeks for routine OB appointment. Documented by Jany Reaves LPN on behalf of: Claudio Alanis DO documented in this encounter [facility] 07-28-2024 History of Presen t illness Narrative [...] calculated from the following: Height as of 5/5/23: 5' 2 . Weight as of this [...] or undercooked meat, and stay away from [facility]. Patient has also been advised to not [...] Ester Irwin LPN documented in this encounter [facility] 11-05-2022 Evaluation + Plan note Extrac mark [...] Orthostatic Vitals Signs UA With Cult Reflex [facility] Hospital Discharge instructions Patient Education 11/05/2022 [...] Follow these instructions at home: Medicines Take szas-xan-ltpazqn and prescription medicines only as told by [...] provider. Document Revised: 08/29/2021 Document Reviewed: 08/29/2021 [employer] Patient Education 2022 [employer]. Follow Up Care 11/05/2022 07:56:32 With:Claudio ALANIS Address: [address] , [place] [address]- Business (1) When:11/08/2022 11:24:54 With:ANTHONY ROMAN Address: [address] [place] [id number] Business (1) When:11/08/2022 11:24:32 Comments:Call the office [...] you develop any new or worsening symptoms. [facility] NoteMicrobiology PROCEDURE: Strep Screen Culture [R1] SOURCE: Throat BODY SITE: COLLECTED DATE/TIME: 02/13/2022 15:00 EDT RECEIVED DATE/TIME: 02/14/2022 12:00 EDT START DATE/TIME: 02/14/2022 12:00 EDT FREE TEXT SOURCE: RYAN Martinez APRN-C, RYAN Martinez APRN-Lakshmi, Bindu X Bindu X FINAL REPORTS Final Report [] Verified Date/Time: 02/16/2022 11:56 EDT No Pathogenic Streptococcus Isolated Performing Locations R1: This test was performed at: [facility], [address] [place] [address], [id number]- , , [facility]:Performed By: #### [id number] #### [facility] [address] [place] [address] [id number] Evaluation note* Encounter Date Diagnosis Assessment Notes [...] Patient care instructions given in writting by [facility] Care At Home document. [employer] Other Evaluation note* Diagnosis Missed menses , [...] FRACTURE 1998 Surgical History LEFT PAROTIDECTOMY 2015 [employer] Other Hospital course Narrative No data available for this section [facility] No data available for this section [facility] Progress note No data available for this section [facility] Summary Purpose Family History No Family [...] and content) DATE CREATED AUTHOR 10/10/2022 [facility] DATE CREATED AUTHOR AUTHOR'S ORGANIZ ATION 11/05/2022 [facility] DATE CREATED AUTHOR AUTHOR'S ORGANIZ ATION 06/25/2024 [facility] DATE CREATED AUTHOR AUTHOR'S ORGANIZ ATION 06/27/2024 [facility] DATE CREATED AUTHOR AUTHOR'S ORGANIZ ATION 06/28/2024 [facility] DATE CREATED AUTHOR AUTHOR'S ORGANIZ ATION 07/02/2024 [facility] DATE CREATED AUTHOR AUTHOR'S ORGANIZ ATION 07/30/2024 [facility] DATE CREATED AUTHOR AUTHOR'S ORGANIZ ATION 07/31/2024 [facility] DATE CREATED AUTHOR AUTHOR'S ORGANIZ ATION 09/30/2024 [facility] DATE CREATED AUTHOR AUTHOR'S ORGANIZ ATION 11/21/2024 [facility] DATE CREATED AUTHOR AUTHOR'S ORGANIZ ATION 11/23/2024 [facility] DATE CREATED AUTHOR AUTHOR'S ORGANIZ ATION 11/30/2024 [facility] DATE CREATED AUTHOR AUTHOR'S ORGANIZ ATION 02/11/2025 [facility] dical Specialists EPIC Patient Care team informatio n (unrecognized section and content) 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 Start Date End Date Anthony Roman MD [address] [place] [facility] [address] PCP - General Family Medicine 10/02/22 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 Start Date End Date Anthony Roman MD PCP - General Family Medicine 10/02/22 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 Start Date End Date Anthony Roman MD [address] [place] [facility] [id number] PCP - General Family Medicine 10/02/22 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 Start Date End Date Anthony Roman MD [address] [place] [facility] [phone] PCP - General Family Medicine 10/02/22 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 Start Date End Date Anthony Roman MD [address] [place] [facility] [id number] PCP - General Family Medicine 10/02/22 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 Start Date End Date Anthony Roman MD [address] [place] [facility] [id number] PCP - General Family Medicine 10/02/22 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 Start Date End Date Anthony Roman MD [address] [place] [facility] [phone] PCP - General Family Medicine 10/02/22 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 Start Date End Date Anthony Roman MD [address] [place] [facility] [phone] PCP - General Family Medicine 10/02/22 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 Start Date End Date Anthony Roman MD [address] [facility] [place] [address] PCP - General Family Medicine 10/02/22 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 Start Date End Date Anthony Roman MD [address] [place] [facility] [address] PCP - [facility] Medicine 10/02/22 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 Start Date End Date Anthony Roman MD [address] [place] [facility] [address] PCP - General Family Medicine 10/02/22 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 Start Date End Date Anthony Roman MD [address] [place] [facility] [address] PCP - General Family [...] BE BASED ON THE PRIMARY CLINICAL RECORDS. [employer] [facility]. provides no warranty or guarantee of the accuracy or completeness of information in this document.
[2025-02-16] MEDS: 0.9 % SODIUM CHLORIDE 1,000 ML 1000 ML IV ×2 (06:15→07:09)
[2025-02-16 06:28] LABS: Hematocrit 35.6 % (36.0-48.0); Hemoglobin 11.8 g/dL (12.0-16.0); Immature Granulocytes Abs Auto 0.07 10^3/uL (0.00-0.03); Immature Granulocytes Pct Auto 0.9 % (0.0-0.5); Lymphocytes Absolute Auto 1.7 10^3/uL (1.2-3.8); Mean Corpuscular HGB Conc 33.1 g/dL (29.9-35.2); Mean Corpuscular Hemoglobin 28.2 pg (26.7-34.0); Mean Corpuscular Volume 85.0 fL (81.0-99.0); Platelet Count 159 10^3/uL (150-450); Red Blood Count 4.19 10^6/uL (4.20-5.40); White Blood Count 7.8 10^3/uL (4.0-11.0)
[2025-02-16 06:29] LABS: Glucose Urine UA NEGATIVE (NEGATIVE)
[2025-02-16 06:35] LABS: Cast Seen? NONE SEEN #/LPF (NONE SEEN); Crystals Seen? None Seen #/HPF (None Seen); Urine Culture Indicated NO
[2025-02-16 06:39] LABS: Cannabinoid Screen Urine NEGATIVE (NEGATIVE); Methamphetamines Screen Urine NEGATIVE (NEGATIVE); Tricyclic Antidepressant Urine NEGATIVE (NEGATIVE)
[2025-02-16] MEDS: CITRIC ACID/SODIUM CITRATE 30 ML SOLUTION ORACIT SHOHL'S SOLN PO (07:05)
[2025-02-16] MEDS: METOCLOPRAMIDE HCL 10 MG/2 ML VIAL IVP (07:05)
[2025-02-16] MEDS: FAMOTIDINE/PF 20 MG/2 ML VIAL IV (07:05)
[2025-02-16] MEDS: CEFAZOLIN SODIUM/DEXTROSE,ISO 2 GM/50 ML PIGGYBACK IV ×2 (07:30→13:24)
--- NOTE | 2025-02-16 08:32 | PM.ONB ---
Brief Operative Note Date of procedure: 02/16/25 Pre-op diagnosis general: iup at 39wks, previous c/s Post-op diagnosis: same as pre-op Procedure: NAME OF PROCEDURE: [ section ] PROCEDURE: Patient was taken back to the Operating Room where she was given a spinal anesthesia with Duramorph without difficulty. She was prepped and draped in the normal sterile fashion. A Pfannenstiel skin incision was then made 2 cm above the symphysis pubis and carried down to underlying rectus fascia using a Bovie. The fascia was incised in the midline and extended laterally using Kincaid scissors. Two Artie clamps were placed on the superior aspect of the fascia and dissected off the underlying rectus muscles. The same was performed on the inferior aspect as well. The muscles were then in the midline. Peritoneum was identified and entered bluntly. The peritoneum was then extended superiorly and inferiorly with good visualization of the bladder. The bladder blade was inserted. A low transverse incision was made on the patient's uterus and extended laterally digitally. The was then delivered atraumatically after the bladder blade was removed in the cephalic position. The cord was clamped and cut. Cord blood was obtained. The was handed off to awaiting team. The patient's placenta was spontaneously delivered. The uterus was then exteriorized. The uterus was cleared of all clots and debris. The bladder blade was reinserted. The patient's uterine incision was closed using #0 Vicryl in a running lock fashion. Excellent hemostasis was assured. The uterus was then returned to the patient's abdomen. The patient's abdomen was copiously irrigated using warm saline. Peritoneal gutters were cleared of all clots and debris. Again excellent hemostasis was assured. The patient's peritoneum was closed using 3-0 Vicryl in a running fashion. The patient's fascia was closed using #0 Vicryl in a running fashion. The patient's skin was closed using 4-0 Vicryl subcuticularly. The patient tolerated the procedure well. Sponge, lap, and needle counts were correct x2. The patient was taken to the Recovery Room in stable condition. Anesthesia: spinal Surgeon: Claudio Alanis Para Professional: Nicole Smart Estimated blood loss (mL): 575 Pathology: none sent Condition: stable Disposition: floor Urinary Catheter Management Urinary Catheter Management Urethral: Cath placed during this visit: no
--- NOTE | 2025-02-16 08:33 | PM.OBPRCCS ---
Procedure Pre-op/Post-op diagnoses: Pre-Op/Post-Op Diagnoses Operation Date: 02/16/25 07:30 <No data on this case meets the specified criteria> Procedure: Procedures Operation Date: 02/16/25 07:30 Actual Procedure Side Surgeon p Repeat Not Applicable Claudio Alanis DO Supervisor Beater Room: Nicole Smart Estimated blood loss (mL): 575 Disposition: floor Anesthesia type: Spinal
[2025-02-16] MEDS: KETOROLAC TROMETHAMINE 30 MG/ML VIAL IVP ×2 (14:55→21:09)
[2025-02-16] MEDS: ENOXAPARIN SODIUM 40 MG/0.4 ML SYRINGE SUBQ (21:09)
[2025-02-17] VITALS (8 sets, daily range): BP systolic 98–129; BP diastolic 49–75; PULSE 84–92; TEMP 36.8–37.1; O2SAT 97
[2025-02-17 06:57] LABS: Hematocrit 30.8 % (36.0-48.0); Hemoglobin 9.9 g/dL (12.0-16.0); Immature Granulocytes Abs Auto 0.04 10^3/uL (0.00-0.03); Immature Granulocytes Pct Auto 0.5 % (0.0-0.5); Lymphocytes Absolute Auto 1.1 10^3/uL (1.2-3.8); Mean Corpuscular HGB Conc 32.1 g/dL (29.9-35.2); Mean Corpuscular Hemoglobin 28.5 pg (26.7-34.0); Mean Corpuscular Volume 88.8 fL (81.0-99.0); Platelet Count 140 10^3/uL (150-450); Red Blood Count 3.47 10^6/uL (4.20-5.40); White Blood Count 8.6 10^3/uL (4.0-11.0)
[2025-02-17] MEDS: KETOROLAC TROMETHAMINE 30 MG/ML VIAL IVP ×2 (08:09→14:13)
[2025-02-17] MEDS: DOCUSATE SODIUM 100 MG CAPSULE PO ×2 (08:10→20:13)
--- NOTE | 2025-02-17 10:12 | P.OBPN_ITS ---
OB - PN: Subj Subjective Patient comments: no complaints and pain well controlled [place] status: doing well Exam Constitutional Vital Signs, click to edit/add: Last Vital Signs Temp 98.3 F 02/17/25 08:10 Pulse 92 H 02/17/25 05:30 Resp 14 02/17/25 08:10 BP 121/67 02/17/25 08:13 Pulse Ox 96 02/16/25 14:00 O2 Del Method Room Air 02/17/25 08:10 Documenting provider has reviewed patient's vital signs: yes Common normals: no apparent distress Respiratory Common normals: normal respiratory effort and clear to auscultation bilaterally Cardio Common normals: regular rate and regular rhythm GI Common normals: Normal to inspection, nondistended, normoactive bowel sounds present Extremity Common normals: no clubbing, cyanosis or edema and no calf tenderness Results Labs Labs: Short CBC 02/17/25 Range/Units 06:43 WBC 8.6 (4.0-11.0) 10^3/uL Hgb 9.9 L (12.0-16.0) g/dL Hct 30.8 L (36.0-48.0) % Plt Count 140 L (150-450) 10^3/uL Urinary Catheter Management Urinary Catheter Management Urethral: Cath placed during this visit: yes, but has since been removed by the samantha se Insertion date: 02/16/25 Insertion time: 07:50 Removal date: 02/16/25 Removal time: 21:15 OB - PN: A/P Plan - day: 1 Plan: routine postop care Time Spent with Patient Time: Total time spent is greater than 50% in coordination of care (as documented) at patient's floor/unit and/or counseling patient: Total time spent with greater than 50% in coordination of care (as documented) at patient's floor/unit and/or counseling patient: less than 15 minutes
[2025-02-17] MEDS: IBUPROFEN 400 MG TABLET 800 MG PO (20:12)
[2025-02-17] MEDS: ENOXAPARIN SODIUM 40 MG/0.4 ML SYRINGE SUBQ (20:13)
[2025-02-18 00:38] VITALS: TEMP 36.8
[2025-02-18] MEDS: IBUPROFEN 400 MG TABLET 800 MG PO ×2 (04:12→11:53)
[2025-02-18 08:53] VITALS: BP 121/74; PULSE 89; TEMP 36.7
--- NOTE | 2025-02-18 08:54 | PM.OBPN ---
OB - PN: Subj Subjective Patient comments: no complaints and pain well controlled [place] status: doing well Exam Constitutional Vital Signs, click to edit/add: Last Vital Signs Temp 98.1 F 02/18/25 08:53 Pulse 89 02/18/25 08:53 Resp 16 02/18/25 08:53 BP 121/74 02/18/25 08:53 Pulse Ox 97 02/17/25 16:04 O2 Del Method Room Air 02/18/25 00:38 Documenting provider has reviewed patient's vital signs: yes Common normals: no apparent distress Respiratory Common normals: normal respiratory effort and clear to auscultation bilaterally Cardio Common normals: regular rate and regular rhythm GI Common normals: Normal to inspection, nondistended, normoactive bowel sounds present Extremity Common normals: no clubbing, cyanosis or edema and no calf tenderness Urinary Catheter Management Urinary Catheter Management Urethral: Cath placed during this visit: yes, but has since been removed by the nurse Insertion date: 02/16/25 Insertion time: 07:50 Removal date: 02/16/25 Removal time: 21:15 OB - PN: A/P Plan - day: 2 Plan: routine postop care, discharge home and other (fu 1wk) Time Spent with Patient Time: Total time spent is greater than 50% in coordination of care (as documented) at patient's floor/unit and/or counseling patient: Total time spent with greater than 50% in coordination of care (as documented) at patient's floor/unit and/or counseling patient: less than 15 minutes
[2025-02-18] MEDS: DOCUSATE SODIUM 100 MG CAPSULE PO (10:33)
== END 2025-02-18 12:50 | disposition home or self-care (01) | DRG 788 ==
PROVIDERS: Admitting Provider Obstetrics & Gynecology; PCP Family Medicine; Visit Provider Obstetrics & Gynecology
PROC: 10D00Z1 Extraction of Products of Conception, Low, Open Approach (ICD-10-PCS; CPT 59514; principal; 2025-02-16 07:30)
DX: O34.211 Maternal care for low transverse scar from previous cesarean delivery (principal); Z3A.39 39 weeks gestation of pregnancy; Z37.0 Single live birth
CPT/HCPCS: 36415; 80307; 81001; 85025; 86850; 86900; 86901; 94667; 94668; J0690; J1650; J1885; J2274; J2371; J2405; J2590; J2765; J3490

== ENCOUNTER 2025-02-20 08:07 | Outpatient (OUT) | payer BC, SELFPAY ==
--- OUTSIDE RECORDS SUMMARY | 2025-02-20 08:31 | XMS_ITS | CCD ---
Author Organization [facility] Care Team Providers Care Manager Quantitative Name Role Phone Eleni Dc Unavailable ANNABELLE [...] ANNABELLE ., DR LOVELL Admitting Unavailable Orzech, Bidnu X Attending Unavailable Orzech, Bindu X Admitting Unavailable Nick Velasquez Attending Unavailable Orzech, Bindu X Attending Unavailable ANTHONY ROMAN Attending Unavailable ANTHONY ROMAN Primary Care Physician [phone] ANNABELLE, Claudio R Admitting Unavailable ANNABELLE, Claudio R Attending Unavailable Gm HENDERSON Attending Unavailable ANNABELLE, Claudio R Attending Unavailable ANNABELLE, Claudio R Admitting Unavailable ANNABELLE, Claudio R Admitting Unavailable ANNABELLE, Claudio R Attending Unavailable Anthony Roman MD Primary Care Provider ANNABELLE, Claudio R Admitting Unavailable ANNABELLE, Claudio R Attending Unavailable Anthony Roman MD Primary Care Provider Anthony Roman MD Primary Care Provider Anthony [...] Codeine; Translations: [codeine] Drug Allergy 3 Hallucinations [facility] Repository (6 sources) Unable to obtain; Translations: [Unable to obtain] Propensity to adverse reactions (disorder) [facility] Repository Medications Current Medications Medication Drug [...] Interpretation Reference Range Facility [facility] UA (CLEAN/CATCH) AERODYNAMIC CONSULTANT/DARNELL RO IF IND.on 02-11-2025 BILIRUBIN URINE Negative NEGATIVE [facility] BLOOD URINE Negative NEGATIVE [facility] Clarity (U) CLEAR CLEAR [facility] Color (U) LT. YELLOW YELLOW [facility] Healthcar e GLUCOSE URINE UA Negative NEGATIVE mg/dL [facility] Interpretation and review of laboratory results Abnormal [facility] Ketones Ql (U) 15 mg/dL Abnormal NEGATIVE [facility]alt [facility] Leukocyte esterase Test strip Ql (U) Negative NEGATIVE [facility] NITRITE URINE Negative NEGATIVE [facility] Health care pH (U) 6.0 [pH] 5.0 - 9.0 [facility] Health[facility] e PROTEIN URINE Negative NEG/TRACE mg/dL [facility] SPECIFIC GRAVITY URINE 1.015 1.005 - 1.025 [facility] URINE MICROSCOPIC INDICATED NO [facility] UROBILINOGEN URINE 0.2 EU/dL 0.2 - 1.0 EU/dL [facility] e Urinalysis macro (dipstick) panel (U)on 02-09-2025 Bilirubin, UA Negative Negative - 4(70) +++ mg/dL [facility] Blood, UA Negative Negative - 50 Xavier/mcL [facility] Clarity, UA Clear [facility] Healthca re Color, UA Yellow [facility] Health[facility] e Glucose, UA Negative Negative - 1999(110) ++++ mg/dL [facility] Interpretation and review of laboratory results Normal [facility] Ketones, UA Negative Negative - 160(16) ++++ mg/dL [facility] Leukocytes, UA Negative Negative - 500+++ Astrid/mcL [facility] Nitrite, UA Negative Negative - Positive [facility] pH, UA 6 5 - 9 [facility] Healthcar e Protein, UA Negative Negative - 1999(20) ++++ mg/dL [facility] Spec Grav, UA 1.01 1 - 1.03 [facility] Urobilinogen, UA 1.0 0.2 - 12 mg/dL [facility] Urinalysis macro (dipstick) panel (U)on 02-01-2025 Bilirubin, UA Negative Negative - 4(70) +++ mg/dL [facility] Blood, UA Negative Negative - 50 Xavier/mcL [facility] Clarity, UA Clear [facility] Color, UA Yellow [facility] Glucose, UA Negative Negative - 1999(110) ++++ mg/dL [facility] Interpretation and review of laboratory results Normal [facility] Ketones, UA Negative Negative - 160(16) ++++ mg/dL [facility] Leukocytes, UA Negative Negative - 500+++ Astrid/mcL [facility] Nitrite, UA Negative Negative - Positive [facility] pH, UA 6.5 5 - 9 [facility] Healthcar e Protein, UA Negative Negative - 1999(20) ++++ mg/dL [facility] Spec Grav, UA 1.01 1 - 1.03 [facility] Urobilinogen, UA 2.0 0.2 - 12 mg/dL [facility] STREP GP B SAY+RFLXon 2024 STREP GP B SAY+RFLX Negative Negative [facility] Comment on above: Centers for Disease Control and Prevention (CDC) and [place] [employer]nec[employer] (ACOG) guidelines [...] resistance to clindamycin is noted. Performed at: [facility] [id number] Entry Level Chemist: Livan Wilkins PhD, Phone: [phone] [facility] Health[facility] e Urinalysis macro (dipstick) panel (U)on 01-25-2025 Bilirubin, UA Negative Negative - 4(70) +++ mg/dL [facility] Blood, UA Negative Negative - 50 Xavier/mcL [facility] Clarity, UA Clear [facility] Healthwi re Color, UA Yellow [facility] Glucose, UA Negative Negative - 1999(110) ++++ mg/dL [facility] Interpretation and review of laboratory results Normal [facility] Ketones, UA Negative Negative - 160(16) ++++ mg/dL [facility] Leukocytes, UA Negative Negative - 500+++ Astrid/mcL [facility] Nitrite, UA Negative Negative - Positive [facility] pH, UA 6 5 - 9 [facility] Health[facility] e Protein, UA Negative Negative - 1999(20) ++++ mg/dL [facility] Spec Grav, UA 1.01 1 - 1.03 [facility] Urobilinogen, UA 0.2 0.2 - 12 mg/dL [facility] Urinalysis macro (dipstick) panel (U)on 01-18-2025 Bilirubin, UA Negative Negative - 4(70) +++ mg/dL [facility] Blood, UA Negative Negative - 50 Xavier/mcL [facility] Clarity, UA Clear [facility] Health[facility] re Color, UA Yellow [facility] Health[facility] e Glucose, UA Negative Negative - 1999(110) ++++ mg/dL [facility] Interpretation and review of laboratory results Normal [facility] Ketones, UA Negative Negative - 160(16) ++++ mg/dL [facility] Leukocytes, UA Negative Negative - 500+++ Astrid/mcL [facility] Nitrite, UA Negative Negative - Positive [facility] pH, UA 6 5 - 9 [facility] [employer] Protein, UA Negative Negative - 1999(20) ++++ mg/dL [facility] Spec Grav, UA 1.015 1 - 1.03 [facility] Urobilinogen, UA 1.0 0.2 - 12 mg/dL [facility] US OB FOLLOW UP [...] UA Negative Negative - 4(70) +++ mg/dL [facility] Healthcare Blood, UA Negative Negative - 50 Xavier/mcL [facility] Clarity, UA Clear [facility] Color, UA Yellow [facility] Glucose, UA Negative Negative - 1999(110) ++++ mg/dL [facility] Interpretation and review of laboratory results Abnormal [facility] Healthcare Ketones, UA Negative Negative - 160(16) ++++ mg/dL [facility] Healthcare Leukocytes, UA Positive Negative - 500+++ Astrid/mcL [facility] Healthcare Nitrite, UA Negative Negative - Positive [facility] Healthcare pH, UA 6 5 - 9 [facility] Protein, UA Negative Negative - 1999(20) ++++ mg/dL [facility] Healthcare Spec Grav, UA 1.02 1 - 1.03 [facility] care Urobilinogen, UA 1.0 0.2 - 12 mg/dL [facility] Urinalysis macro (dipstick) panel (U)on 12-20-2024 Bilirubin, UA Negative Negative - 4(70) +++ mg/dL [facility] Healthcare Blood, UA Negative Negative - 50 Xavier/mcL [facility] Healthcare Clarity, UA Clear [facility] Color, UA Yellow [facility] Glucose, UA Negative Negative - 1999(110) ++++ mg/dL [facility] Healthcare Interpretation and review of laboratory results Normal [facility] Healthcare Ketones, UA Negative Negative - 160(16) ++++ mg/dL [facility] Healthcare Leukocytes, UA Negative Negative - 500+++ Astrid/mcL [facility] Nitrite, UA Negative Negative - Positive [facility] pH, UA 6 5 - 9 [facility] Protein, UA Negative Negative - 1999(20) ++++ mg/dL [facility] Spec Grav, UA 1.01 1 - 1.03 [facility] Urobilinogen, UA 0.2 0.2 - 12 mg/dL [facility] Urinalysis macro (dipstick) panel (U)on 12-07-2024 Bilirubin, UA Negative Negative - 4(70) +++ mg/dL [facility] Blood, UA Negative Negative - 50 Xavier/mcL [facility] Clarity, UA Clear [facility] Color, UA Yellow [facility] Healthcar e Glucose, UA Negative Negative - 1999(110) ++++ mg/dL [facility] Interpretation and review of laboratory results Normal [facility] Ketones, UA Negative Negative - 160(16) ++++ mg/dL [facility] Leukocytes, UA Negative Negative - 500+++ Astrid/mcL [facility] Nitrite, UA Negative Negative - Positive [facility] pH, UA 6 5 - 9 [facility] Healthcar e Protein, UA Negative Negative - 1999(20) ++++ mg/dL [facility] Spec Grav, UA 1.01 1 - 1.03 [facility] Urobilinogen, UA 1.0 0.2 - 12 mg/dL [facility] Capillary Glucose POCon 11-02 Glucose [Mass/Vol] 92 mg/dL Normal 55-99 [facility] Comment on above: Performed By: #### 2 [id number] #### [facility] [address] [place] [address] Glu 1 Hron 11-22-2024 Glucose [Mass/Vol] 137 mg/dL Normal 55-180 [facility] Comment on above: Performed By: #### 2 [id number] #### [facility] [address] [place] [address] Glu 2 Hron 11-22-2024 Glucose [Mass/Vol] 114 mg/dL Normal 55-155 [facility] Comment on above: Performed By: #### 2 [id number] #### [facility] [address] [place] [address] Glu 3 Hron 11-22-2024 Glucose [Mass/Vol] 86 mg/dL Normal 55-140 [facility] Comment on above: Performed By: #### 2 [id number] #### [facility] [address] [place] [address] Glu Fastingon 11-22-2024 Glucose [Mass/Vol] 86 mg/dL Normal 55-99 [facility] Comment on above: Performed By: #### 2 [id number] #### [facility] [address] [place] [address] CBC w/Indiceson 11-18-2024 Erythrocyte distribution width (RBC) [Ratio] 13.3 % Normal 10.9-14.2 [facility] Comment on above: Performed By: #### 2 [id number] #### [facility] [address] [place] [address] Hematocrit (Bld) [Volume fraction] 36.2 % Normal 34.0-46.0 [facility] Comment on above: Performed By: #### 2 [id number] #### [facility] [address] [place] [address] Hemoglobin (Bld) [Mass/Vol] 12.1 g/dL Normal 12.0-16.0 [facility] Comment on above: Performed By: #### 2 [id number] #### [facility] [address] [place] [address] MCH (RBC) [Entitic mass] 28.8 pg Normal 27.0-34.0 [facility] Comment on above: Performed By: #### 2 [id number] #### [facility] [address] [place] [address] MCHC (RBC) [Mass/Vol] 33.4 g/dL Normal 31.4-36.0 [facility] Comment on above: Performed By: #### 2 [id number] #### [facility] [address] [place] [address] MCV (RBC) [Entitic vol] 86.2 fL Normal 80.0-100.0 [facility] Comment on above: Performed By: #### 2 [id number] #### [facility] [address] [place] [address] Platelet 162.0 E9/L Normal 150.0-500.0 [facility] Comment on above: Performed By: #### 2 [id number] #### [facility] [address] [place] [address] Platelet mean volume (Bld) [Entitic vol] 8.9 fL Normal 6.4-10.8 [facility] Comment on above: Performed By: #### 2 [id number] #### [facility] [address] [place] [address] RBC 4.2 E12/L Low 4.3-5.9 [facility] Comment on above: Performed By: #### 2 [id number] #### [facility] [address] [place] [address] RBC morphology finding Nom (Bld) NORMAL Invalid Interpretation Code [facility] Comment on above: Performed By: #### 2 [id number] #### [facility] [address] [place] [address] WBC 7.4 E9/L Normal 4.0-11.0 [facility] Comment on above: Performed By: #### 2 [id number] #### [facility] [address] [place] [id number] Gest Scr Glu 1 Hron 11-19-19 25 Glucose [Mass/Vol] 141 mg/dL High 55-140 [facility] Comment on above: Performed By: #### 3 [id number] #### [facility] [address] [place] [id number] Urinalysis macro (dipstick) panel (U)on 11-15-2024 Bilirubin, UA Negative Negative - 4(70) +++ mg/dL [facility] Blood, UA Negative Negative - 50 Xavier/mcL [facility] Clarity, UA Clear [facility] Healthca re Color, UA Yellow [facility] Healthcar e Glucose, UA Negative Negative - 2000(110) ++++ mg/dL [facility] Interpretation and review of laboratory results Normal [facility] Ketones, UA Positive Negative - 160(16) ++++ mg/dL [facility] Comment on above: trace Leukocytes, UA Negative Negative - 500+++ Astrid/mcL [facility] Nitrite, UA Negative Negative - Positive [facility] pH, UA 7 5 - 9 [facility] [employer] Protein, UA Trace Negative - 2000(20) ++++ mg/dL [facility] Spec Grav, UA 1.02 1 - 1.03 [facility] Urobilinogen, UA 1.0 0.2 - 12 mg/dL [facility] Health[facility] e US OB 14+ WEEKS ANATOMY [...] II, MD, PHD at 19-Oct-2024 08:00:12 AM [facility] Normal Not Available Comment on above: Order Comment: US OB ANATOMY SINGLE W US OB CERVICAL LENGTH Estimated Date of Delivery: 02/23/25 Gestational Age as of 09/20/2024: 17w5d Urinalysis macro (dipstick) panel (U)on 10-18-2024 Bilirubin, UA Negative Negative - 4(70) +++ mg/dL [facility] Blood, UA Negative Negative - 50 Xavier/mcL [facility] Clarity, UA Clear [facility] re Color, UA Yellow [facility] Healthcar e Glucose, UA Negative Negative - 1999(110) ++++ mg/dL [facility] Interpretation and review of laboratory results Normal [facility] Ketones, UA Negative Negative - 160(16) ++++ mg/dL [facility] Leukocytes, UA Negative Negative - 500+++ Astrid/mcL [facility] Nitrite, UA Negative Negative - Positive [facility] pH, UA 7 5 - 9 [facility] e Protein, UA Negative Negative - 1999(20) ++++ mg/dL [facility] Spec Grav, UA 1.015 1 - 1.03 [facility] Urobilinogen, UA 0.2 0.2 - 12 mg/dL [facility] RECURRENT VAGINITIS (HTRX)on 09-21-2024 [facility]AE 0 [facility] ATOP[facility]BI[facility] VAGINAE Not detected [facility] BVAB 2,3 (BACTERIAL VAGINOSIS ASSOCIATED BACTERIA 2, 3); MOBILUNCUS SPP 22.305 Abnormal [facility] BVAB 2,3 (BACTERIAL VAGINOSIS ASSOCIATED BACTERIA 2, 3); MOBILUNCUS SPP Detected Abnormal [facility] KADE ALBICANS, PARAPSILOSIS, TROPICALIS 0 [facility] KADE ALBICANS, PARAPSILOSIS, TROPICALIS Not detected [facility] KADE GLABRATA 0 [facility] KADE GLABRATA Not detected [facility] KADE KRUSEI 0 [facility] Healt hcare KADE KRUSEI Not detected [facility] CHLAMYDIA TRACHOMATIS 0 [facility] CHLAMYDIA TRACHOMATIS Not detected N [facility] GARDNERELLA VAGINALIS 20.313 Abnormal [facility] GARDNERELLA VAGINALIS Detected Abnormal [facility] Healthcare Interpretation and review of laboratory results Abnormal [facility] MEGASPHAERA (TYPES 1, 2) 0 [facility] MEGASPHAERA (TYPES 1, 2) Not detected [facility] MYCOPLASMA GENITALIUM 0 [facility] MYCOPLASMA GENITALIUM Not detected N [facility] NEISSERIA GONORRHOEAE 0 [facility] NEISSERIA GONORRHOEAE Not detected N [facility] TET B, TET M 23.986 Abnormal [facility] Healthc are TET B, TET M Detected Abnormal [facility] are TRICHOMONAS VAGINALIS 0 [facility] TRICHOMONAS VAGINALIS Not detected [facility] Urinalysis macro (dipstick) panel (U)on 09-20-2024 Bilirubin, UA Negative Negative - 4(70) +++ mg/dL [facility] Blood, UA Negative Negative - 50 Xavier/mcL [facility] Clarity, UA Clear [facility] Healthca re Color, UA Yellow [facility] Healthcar e Glucose, UA Negative Negative - 1999(110) ++++ mg/dL [facility] Interpretation and review of laboratory results Normal [facility] Ketones, UA Negative Negative - 160(16) ++++ mg/dL [facility] Leukocytes, UA Negative Negative - 500+++ Astrid/mcL [facility] Nitrite, UA Negative Negative - Positive [facility] pH, UA 7 5 - 9 [facility] Healthcar e Protein, UA Negative Negative - 1999(20) ++++ mg/dL [facility] Spec Grav, UA 1.015 1 - 1.03 [facility] Urobilinogen, UA 0.2 0.2 - 12 mg/dL [facility] Urinalysis macro (dipstick) panel (U)on 08-17-2024 Bilirubin, UA Negative Negative - 4(70) +++ mg/dL [facility] Blood, UA Negative Negative - 50 Xavier/mcL [facility] Clarity, UA Clear [facility] Healthca re Color, UA Yellow [facility] Healthcar e Glucose, UA Negative Negative - 1999(110) ++++ mg/dL [facility] Interpretation and review of laboratory results Normal [facility] Ketones, UA Negative Negative - 160(16) ++++ mg/dL [facility] Leukocytes, UA Negative Negative - 500+++ Astrid/mcL [facility] Nitrite, UA Negative Negative - Positive [facility] pH, UA 6 5 - 9 [facility] Healthcar e Protein, UA Negative Negative - 2000(20) ++++ mg/dL [facility] Spec Grav, UA 1.015 1 - 1.03 [facility] Urobilinogen, UA 0.2 0.2 - 12 mg/dL [facility] .Interpretation:on HCV Ab IA Ql Comment Invalid Interpretation Code [facility] Comment on above: Result Comment: Not infected with HCV unless early or acute infection is suspected (which may be delayed in an immunocompromised individual), or other evidence exists to indicate HCV infection. Performed at: [address] [id number] PhD Franky Licona Performed By: #### 2 [id number] #### [facility] [address] [place] [address] HCV Antibody RFX to Quant PC Eloy 07-30-2024 HCV Ab IA Ql Non-Reactive Invalid Interpretation Code Non Reactive [facility] Comment on above: Result Comment: Perf ormed at: [address] [id number] PhD Franky Licona Performed By: #### 2 [id number] #### [facility] [address] [place] [address] HIV Screen 4th Generation wR fxon 07-30-2024 HIV 1+2 Ab+HIV1 p24 Ag IA Ql Non-Reactive Invalid Interpretation Code Non Reactive [facility] Comment on above: Result Comment: HIV- 1/HIV-2 antibodies and HIV-1 p24 antigen were NOT detected. There is no laboratory evidence of HIV infection. HIV Negative [facility] [id number] PhD Franky Licona Performed By: #### 9 [id number] #### [facility] [address] [place] [address] Hep Bs Agon 07-30-2024 HBV surface Ag IA Ql Negative Invalid Interpretation Code Negative [facility] Comment on above: Result Comment: Perf ormed at: [address] [id number] PhD Franky Licona Performed By: #### 2 [id number] #### [facility] [address] [place], [place] [id number] RPR with Conf Rfxon 07-31-19 25 Reagin Ab RPR Ql (S) Non-Reactive Invalid Interpretation Code Non Reactive [facility] Comment on above: Result Comment: Perf ormed at: [address] [id number] PhD Franky Licona Performed By: #### 1 [id number] #### [facility] [address] [place] [address] Rubella IgGon 07-30-2024 Rubella virus IgG Qn (S) 3.34 [IU]/mL Invalid Interpretation Code Immune >0.99 [facility] Comment on above: Result Comment: Non- immune <0.90 Equivocal 0.90 - 0.99 Immune >0.99 Performed at: [address] [id number] PhD Franky Licona Performed By: #### 1 [id number] #### [facility] [address] [place], [place] [id number] ABO/Rhon 07-29-2024 ABO/Rh Positive Invalid Interpretation Code [facility] Comment on above: Performed By: #### 2 [id number] #### [facility] [address] [place] [address] ABSCon 07-29-2024 ABSC Gel Interp Negative Normal [facility] Comment on above: Performed By: #### 1 [id number] #### [facility] [address] [place] [address] BLOOD BANKOrdered By: Kaylie Hopkins on 07-29-2024 ABO/Rh Interp Positive Invalid Interpretation Code FT BB Subsection ABSC Gel Interp Negative (07/29/24 12:36 PM) Normal [facility] BB Subsection CBC w/ Auto Diffon 03-28-202 5 Basophils/100 WBC (Bld) 0.2 % Normal 0.0-2.0 [facility] Comment on above: Performed By: #### 2 [id number] #### [facility] [address] [place] [address] Basophils/Leukocytes Auto (Bld) [Pure # fraction] 0.0 E9/L Normal 0.0-0.2 [facility] Comment on above: Performed By: #### 2 [id number] #### [facility] [address] [place] [address] Eosinophils (Bld) [#/Vol] 0.2 E9/L Normal 0.0-0.5 [facility] Comment on above: Performed By: #### 2 [id number] #### [facility] [address] [place] [address] Eosinophils/100 WBC (Bld) 2.1 % Normal 0.0-8.0 [facility] Comment on above: Performed By: #### 2 [id number] #### [facility] [address] [place] [address] Erythrocyte distribution width (RBC) [Ratio] 12.4 % Normal 10.9-14.2 [facility] Comment on above: Performed By: #### 2 [id number] #### [facility] [address] [place] [address] Hematocrit (Bld) [Volume fraction] 38.5 % Normal 34.0-46.0 [facility] Comment on above: Performed By: #### 2 [id number] #### [facility] [address] [place] [address] Hemoglobin (Bld) [Mass/Vol] 13.5 g/dL Normal 12.0-16.0 [facility] Comment on above: Performed By: #### 2 [id number] #### [facility] [address] [place] [address] Lymphocytes (Bld) [#/Vol] 1.8 E9/L Normal 1.0-4.0 [facility] Comment on above: Performed By: #### 2 [id number] #### [facility] [address] [place] [address] Lymphocytes/100 WBC (Bld) 21.6 % Normal 14.0-50.0 [facility] Comment on above: Performed By: #### 2 [id number] #### [facility] [address] [place] [address] MCH (RBC) [Entitic mass] 29.7 pg Normal 27.0-34.0 [facility] Comment on above: Performed By: #### 2 [id number] #### [facility] [address] [place] [address] MCHC (RBC) [Mass/Vol] 35.1 g/dL Normal 31.4-36.0 [facility] Comment on above: Performed By: #### 2 745556 #### [facility] [address] [place] [address] MCV (RBC) [Entitic vol] 84.5 fL Normal 80.0-100.0 [facility] Comment on above: Performed By: #### 2 707676 #### [facility] [address] [place] [address] Monocytes (Bld) [#/Vol] 0.4 E9/L Normal 0.2-1.0 [facility] Comment on above: Performed By: #### 2 [id number] #### [facility] [address] [place] [address] Neutrophils (Bld) [#/Vol] 5.8 E9/L Normal 2.0-7.5 [facility] Comment on above: Performed By: #### 2 709083 #### [facility] [address] [place] [address] Neutrophils/100 WBC (Bld) 71.2 % Normal 36.0-75.0 [facility] Comment on above: Performed By: #### 2 647872 #### [facility] [address] [place] [address] Platelet mean volume (Bld) [Entitic vol] 8.8 fL Normal 6.4-10.8 [facility] Comment on above: Performed By: #### 2 [id number] #### [facility] [address] [place] [address] Platelets (Bld) [#/Vol] 227.0 E9/L Normal 150.0-500.0 [facility] Comment on above: Performed By: #### 2 155527 #### [facility] [address] [place] [address] RBC (Bld) [#/Vol] 4.6 E12/L Normal 4.3-5.9 [facility] Comment on above: Performed By: #### 2 039616 #### [facility] [address] [place] [address] WBC corrected for nucl RBC Auto (Bld) [#/Vol] 8.2 E9/L Normal 4.0-11.0 [facility] Comment on above: Performed By: #### 2 191914 #### [facility] [address] [place] [address] CHEMISTRYOrdered By: SYSTEM SYSTEM on 07-29-2024 Amphetamines [...] (Bld) [Mass fraction] 4.9 % Normal <=5.9% [facility] ChemAutoSS HEMATOLOGYOrdered By: SYSTEM SYSTEM on 07-29-2024 [...] Normal 4.0 - 11.0 E9/L Remisol Heme [id number] 07-29-2024 HbA1c (Bld) [Mass fraction] 4.9 % Normal <=5.9 [facility] Comment on above: Performed By: #### 7 [id number] #### [facility] [address] [place] [address] Reference Laboratory Testing Ordered By: Generated DomainUser on 07-29-2024 HBV surface Ag IA Ql Negative Invalid Interpretation Code Negative [facility] SendOutsSS Comment on above: Result Comment: Perf ormed at: [facility] [address] [id number] PhD Franky Licona HCV Ab IA Ql Non-Reactive Invalid Interpretation Code Non Reactive FT [employer]Out[facility] Comment on above: Result Comment: Perf ormed at: [address] [id number] [id number] PhD Franky Licona HCV Ab IA Ql Comment Invalid Interpretation Code [facility] SendOutsSS Comment on above: Result Comment: Not infected with HCV unless early or acute infection is suspected (which may be delayed in an immunocompromised individual), or other evidence exists to indicate HCV infection. Performed at: [address] [id number] PhD Franky Licona HIV 1+2 Ab+HIV1 p24 Ag IA Ql Non-Reactive Invalid Interpretation Code Non Reactive [facility] SendOutsSS Comment on above: Result Comment: HIV- 1/HIV-2 antibodies and HIV-1 p24 antigen were NOT detected. There is no laboratory evidence of HIV infection. HIV Negative Performed at: [address] [id number] PhD Franky Licona Reagin Ab RPR Ql (S) Non-Reactive Invalid Interpretation Code Non Reactive FT [facility] Comment on above: Result Comment: Perf ormed at: [address] [id number] PhD Franky iLcona Rubella virus IgG Qn (S) 3.34 [IU]/mL Invalid Interpretation Code Immune >0.99 [facility] SendOutsSS Comment on above: Result Comment: Non- immune <0.90 Equivocal 0.90 - 0.99 Immune >0.99 Performed at: [address] [id number] PhD Franky Licona U Drug Screenon 07-29-2024 Amphetamines Screen method >1000 ng/mL Ql (U) Negative Normal NEGATIVE [facility] Comment on above: Result Comment: Nega tive Cutoff: <1000 ng/mL Performed By: #### 2 [id number] #### [facility] [address] [place] [address] Barbiturates Screen Ql (U) Negative Normal NEGATIVE [facility] Comment on above: Result Comment: Nega tive Cutoff: <200 ng/mL Performed By: #### 2 077689 #### [facility] [address] [place] [address] Benzodiazepines Ql (U) Negative Normal NEGATIVE [facility] Comment on above: Result Comment: Nega tive Cutoff: <200 ng/mL Performed By: #### 2 114736 #### [facility] [address] [place] [address] Cannabinoids Screen Ql (U) Negative Normal NEGATIVE [facility] Comment on above: Result Comment: Nega tive Cutoff: <50 ng/mL Performed By: #### 2 [id number] #### [facility] [address] [place] [address] Cocaine Ql (U) Negative Normal NEGATIVE [facility] Comment on above: Result Comment: Nega tive Cutoff: <300 ng/mL Performed By: #### 2 [id number] #### [facility] [address] [place] [address] Opiates Screen Ql (U) Negative Normal NEGATIVE [facility] Comment on above: Result Comment: Nega tive Cutoff: <300 ng/mL Performed By: #### 2 636177 #### [facility] [address] [place] [address] Phencyclidine Screen method >25 ng/mL Ql (U) Negative Normal NEGATIVE [facility] Comment on above: Result Comment: Nega tive Cutoff: <25 ng/mL These drug screen results are to be used for medical (i.e., treatment) purposes only. Unconfirmed drug screening results must not be used for non-medical purposes (e.g., employment testing, legal testing). Performed By: #### 2 718652 #### [facility] [address] [place] [address] U Fentanyl Negative Normal NEGATIVE [facility] Comment on above: Result Comment: Nega tive Cutoff: <5 ng/mL These drug screen results are to be used for medical (i.e., treatment) purposes only. Unconfirmed drug screening results must not be used for non-medical purposes (e.g., employment testing, legal testing). Performed By: #### 2 [id number] #### [facility] [address] [place] [address] UA with Cult Rflxon 07-30-19 25 Bilirubin Ql (U) Negative Normal Negative [facility] Comment on above: Performed By: #### 4 [id number] #### [facility] [address] [place] [address] Clarity (U) Clear Normal Clear [facility] Comment on above: Performed By: #### 4 [id number] #### [facility] [address] [place] [address] Color (U) Colorless Abnormal Yellow [facility] Comment on above: Result Comment: Micr oscopic readings are only performed on those samples that meet specific criteria set forth by [facility]. Performed By: #### 4 [id number] #### [facility] [address] [place] [address] Glucose Ql (U) Negative Normal Negative [facility] Comment on above: Performed By: #### 4 [id number] #### [facility] [address] [place] [address] Hemoglobin Auto test strip (U) [Mass/Vol] Negative Normal Negative [facility] Comment on above: Performed By: #### 4 [id number] #### [facility] [address] [place] [address] Ketones Auto test strip Ql (U) Negative Normal Negative [facility] Comment on above: Performed By: #### 4 [id number] #### [facility] [address] [place] [address] Leukocyte esterase Auto test strip Ql (U) Negative Normal Negative [facility] Comment on above: Performed By: #### 4 [id number] #### [facility] [address] [place] [address] Nitrite Auto test strip Ql (U) Negative Normal Negative [facility] Comment on above: Performed By: #### 4 [id number] #### [facility] [address] [place] [address] pH (U) 6.0 [pH] Invalid Interpretation Code 5.0-9.0 [facility] Comment on above: Performed By: #### 4 [id number] #### [facility] [address] [place] [address] Protein Ql (U) Negative Normal Negative [facility] Comment on above: Performed By: #### 4 [id number] #### [facility] [address] [place] [address] Specific gravity (U) [Rel density] 1.006 Invalid Interpretation Code 1.005-1.030 [facility] Comment on above: Performed By: #### 4 [id number] #### [facility] [address] [place] [address] Urobilinogen (U) [Mass/Vol] Negative Normal Negative [facility] Comment on above: Performed By: #### 4 [id number] #### [facility] [address] [place] [address] Type of Urine collection method Clean Catch Normal [facility] Comment on above: Performed By: #### 4 [id number] #### [facility] [address] [place] [address] URINALYSISOrdered By: SYSTEM SYSTEM on 07-29-2024 Bilirubin Ql (U) Negative Normal Negativemg/ d L [facility] UA Auto SS Clarity (U) Clear (07/29/24 12:36 PM) Normal Clear [facility] UA Auto SS Color (U) Colorless 5 *ABN* (07/29/24 12:36 PM) Invalid Interpretation Code Yellow [facility] UA Auto SS Comment on above: Interpretive Data: M icroscopic readings are only performed on those samples that meet specific criteria set forth by [facility]. Glucose Ql (U) Negative Normal [...] Interpretation and review of laboratory results Abnormal [facility] Healthcare Preg Test, Ur Positive Negative [facility] care [facility] US OB TRANSVAGINALon 2 025 [...] II, MD, PHD at 28-Jul-2024 11:17:18 PM [facility] Normal Not Available Comment on above: Order Comment: US OB TRANSVAGINAL No LMP recorded. Urinalysis macro (dipstick) panel (U)on 07-28-2024 Bilirubin, UA Negative Negative - 4(70) +++ mg/dL [facility] Blood, UA Negative Negative - 50 Xavier/mcL [facility] Clarity, UA Clear [facility] Color, UA Yellow [facility] Glucose, UA Negative Negative - 1999(110) ++++ mg/dL [facility] Interpretation and review of laboratory results Normal [facility] Ketones, UA Negative Negative - 160(16) ++++ mg/dL [facility] Leukocytes, UA Negative Negative - 500+++ Astrid/mcL [facility] Nitrite, UA Negative Negative - Positive [facility] pH, UA 5.5 5 - 9 [facility] Healthcar e Protein, UA Negative Negative - 1999(20) ++++ mg/dL [facility] Spec Grav, UA 1.02 1 - 1.03 [facility] Urobilinogen, UA 1.0 0.2 - 12 mg/dL [facility] BhCG Quanton 06-29-2024 [place] [address] m[IU]/mL High 1-3 F [facility] Comment on above: Result Comment: 'F N ON < 1 - 3' ' 0.2 - 1 WEEK = 5 TO 50' ' 1 - 2 WEEKS = 50 - 500' ' 2 - 3 WEEKS = 100 - 5000' ' 3 - 4 WEEKS = 500 - 17518' ' 4 - 5 WEEKS = 1000 - 81078' ' 5 - 6 WEEKS = 23133 - 604502' ' 6 - 8 WEEKS = 93950 - 194625' ' 8 - 12 WEEKS = 40490 - 242384' Performed By: #### 2 [id number] #### [facility] [address] [place] [address] CHEMISTRYOrdered By: SYSTEM SYSTEM on 06-29-2024 [place] [address] m[IU]/mL High 1 - 3 mIU/mL [facility] Comment on above: Result Comment: 'F N ON < 1 - 3' ' 0.2 - 1 WEEK = 5 TO 50' ' 1 - 2 WEEKS = 50 - 500' ' 2 - 3 WEEKS = 100 - 5000' ' 3 - 4 WEEKS = 500 - 81109' ' 4 - 5 WEEKS = 1000 - 98421' ' 5 - 6 WEEKS = 36942 - 100065' ' 6 - 8 WEEKS = 65478 - 904626' ' 8 - 12 WEEKS = 78850 - 903477' BhCG Quanton 06-27-2024 HCG.beta subunit Qn 8149 m[IU]/mL High 1-3 [facility] Comment on above: Result Comment: 'F N ON < 1 - 3' ' 0.2 - 1 WEEK = 5 TO 50' ' 1 - 2 WEEKS = 50 - 500' ' 2 - 3 WEEKS = 100 - 5000' ' 3 - 4 WEEKS = 500 - 92059' ' 4 - 5 WEEKS = 1000 - 50681' ' 5 - 6 WEEKS = 32055 - 518540' ' 6 - 8 WEEKS = 46741 - 050853' ' 8 - 12 WEEKS = 88286 - 957665' Performed By: #### 2 [id number] #### [facility] [address] [place] [address] CHEMISTRYOrdered By: SYSTEM SYSTEM on 06-27-2024 HCG.beta [...] 3 - 4 WEEKS = 500 - 30423' ' 4 - 5 WEEKS = 1000 - 76929' ' 5 - 6 WEEKS = 03595 - 695618' ' 6 - 8 WEEKS = 26444 - 920512' ' 8 - 12 WEEKS = 00919 - 236110' BhCG QuantOrdered By: SYSTEM SYSTEM on 06-25-2024 [...] 3 - 4 WEEKS = 500 - 88740' ' 4 - 5 WEEKS = 1000 - 54457' ' 5 - 6 WEEKS = 21806 - 904495' ' 6 - 8 WEEKS = 93171 - 223679' ' 8 - 12 WEEKS = 29075 - 435760' Performed By: #### 2 [id number] #### [facility] [address] [place] [address] Result Comment: 'F N ON < 1 - 3' ' 0.2 - 1 WEEK = 5 TO 50' ' 1 - 2 WEEKS = 50 - 500' ' 2 - 3 WEEKS = 100 - 5000' ' 3 - 4 WEEKS = 500 - 20354' ' 4 - 5 WEEKS = 1000 - 91715' ' 5 - 6 WEEKS = 46795 - 079746' ' 6 - 8 WEEKS = 42550 - 084535' ' 8 - 12 WEEKS = 71453 - 131516' [facility] Quanton 06-23-2024 HCG.beta subunit Qn 1954 m[IU]/mL High 1-3 [facility] Comment on above: Result Comment: 'F N ON < 1 - 3' ' 0.2 - 1 WEEK = 5 TO 50' ' 1 - 2 WEEKS = 50 - 500' ' 2 - 3 WEEKS = 100 - 5000' ' 3 - 4 WEEKS = 500 - 95392' ' 4 - 5 WEEKS = 1000 - 29782' ' 5 - 6 WEEKS = 14788 - 693889' ' 6 - 8 WEEKS = 68003 - 988586' ' 8 - 12 WEEKS = 07445 - 088406' Performed By: #### 2 [id number] #### [facility] [address] [place] [address] CHEMISTRYOrdered By: SYSTEM SYSTEM on 06-23-2024 HCG.beta [...] 3 - 4 WEEKS = 500 - 71355' ' 4 - 5 WEEKS = 1000 - 27816' ' 5 - 6 WEEKS = 44854 - 437003' ' 6 - 8 WEEKS = 44292 - 409433' ' 8 - 12 WEEKS = 41609 - 601693' Auto Diffon 11-05-2022 Basophils/100 WBC (Bld) 0.1 % Normal 0.0-2.0 [facility] Comment on above: Order Comment: Order Added by Discern Expert. Performed By: #### 1 [id number], [id number], 2839390, 4783839 #### [facility] [address] [place] [address] Basophils/Leukocytes Auto (Bld) [Pure # fraction] 0.0 E9/L Normal 0.0-0.2 [facility] Comment on above: Order Comment: Order Added by Discern Expert. Performed By: #### 1 [id number], 0982207, 3467497, 3409770 #### [facility] [address] [place] [address] Eosinophils/100 WBC (Bld) 2.6 % Normal 0.0-8.0 [facility] Comment on above: Order Comment: Order Added by Discern Expert. Performed By: #### 1 8185818, 4548398, 4229473, 1643980 #### [facility] [address] [place] [address] Eosinophils/Leukocyte s Auto (Bld) [Pure # fraction] 0.2 E9/L Normal 0.0-0.5 [facility] Comment on above: Order Comment: Order Added by Discern Expert. Performed By: #### 1 4409954, 3275612, 6814779, 4767570 #### [facility] [address] [place] [address] Lymphocytes/100 WBC (Bld) 25.8 % Normal 14.0-50.0 [facility] Comment on above: Order Comment: Order Added by Discern Expert. Performed By: #### 1 3483587, 5329283, 3300233, 5173586 #### [facility] [address] [place] [address] Lymphocytes/Leukocyte s Auto (Bld) [Pure # fraction] 1.9 E9/L Normal 1.0-4.0 [facility] Comment on above: Order Comment: Order Added by Discern Expert. Performed By: #### 1 9548356, 7229904, 9991216, 8062860 #### [facility] [address] [place] [address] Monocytes/100 WBC (Bld) 4.8 % Normal 4.0-14.0 [facility] Comment on above: Order Comment: Order Added by Savi Expert. Performed By: #### 1 9581202, 9433282, 7972322, 9541306 #### [facility] [address] [place] [address] Monocytes/Leukocytes Auto (Bld) [Pure # fraction] 0.3 E9/L Normal 0.2-1.0 [facility] Comment on above: Order Comment: Order Added by Savi Expert. Performed By: #### 1 1696424, 9438127, 7756610, 3179950 #### [facility] [address] [place] [address] Neutrophils/100 WBC (Bld) 66.7 % Normal 36.0-75.0 [facility] Comment on above: Order Comment: Order Added by Discern Expert. Performed By: #### 1 6091016, 8657407, 0342634, 5417494 #### [facility] [address] [place] [address] Neutrophils/Leukocyte s Auto (Bld) [Pure # fraction] 4.8 E9/L Normal 2.0-7.5 [facility] Comment on above: Order Comment: Order Added by Savi Expert. Performed By: #### 1 [id number], 4861850, 4701577, 2204347 #### [facility] [address] [place] [address] BMPon 07-05-2023 Creatinine [Mass/Vol] 0.6 mg/dL Normal 0.5-1.3 [facility] Comment on above: Performed By: #### 1 [id number], 0359564, 4400543, 8268935 #### [facility] [address] [place] [address] Urea nitrogen [Mass/Vol] 13 mg/dL Normal 5-21 [facility] Comment on above: Performed By: #### 1 0682552, 1340659, 8958492, 4750692 #### [facility] [address] [place] [address] Urea nitrogen/Creatinine [Mass ratio] 22 No Units High 10-20 [facility] Comment on above: Performed By: #### 1 6304756, 7162608, 2461260, 1480991 #### [facility] [address] [place] [address] Anion gap [Moles/Vol] 10 mmol/L Normal 6-16 [facility] Comment on above: Performed By: #### 1 3978224, 5439347, 8985688, 0215518 #### [facility] [address] [place] [address] Calcium [Mass/Vol] 8.8 mg/dL Low 8.9-11.1 [facility] Comment on above: Performed By: #### 1 1308802, 7026508, 9482906, 7557949 #### [facility] [address] [place] [address] Chloride [Moles/Vol] 102 mmol/L Normal 101-111 [facility] Comment on above: Performed By: #### 1 8884116, 7456375, 0454472, 0741079 #### [facility] [address] [place] [address] CO2 [Moles/Vol] 23 mmol/L Normal 21-31 [facility] Comment on above: Performed By: #### 1 1708200, 3790691, 6640854, 8485507 #### [facility] [address] [place] [address] Glucose [Mass/Vol] 119 mg/dL Normal 55-199 [facility] Comment on above: Result Comment: If t his glucose result represents a fasting glucose, interpretation should refer to the following reference range: 55-99 mg/dL Performed By: #### 1 0792607, 4068233, 1638625, 4291594 #### [facility] [address] [place] [address] Potassium [Moles/Vol] 3.4 mmol/L Low 3.5-5.3 [facility] Comment on above: Performed By: #### 1 4248260, 1302884, 6522076, 1359115 #### [facility] [address] [place] [address] Sodium [Moles/Vol] 132 mmol/L Low 135-145 [facility] Comment on above: Performed By: #### 1 7038294, 1952676, 8344549, 9690434 #### [facility] [address] [place] [address] CBC w/ Auto Diffon 3 Erythrocyte distribution width (RBC) [Ratio] 13.0 % Normal 10.9-14.2 [facility] Comment on above: Performed By: #### 1 6599776, 3790158, 5933614, 6928969 #### [facility] [address] [place] [address] Hematocrit (Bld) [Volume fraction] 35.0 % Normal 34.0-46.0 [facility] Comment on above: Performed By: #### 1 9233189, 0935128, 8244776, 1483215 #### [facility] [address] [place] [address] Hemoglobin (Bld) [Mass/Vol] 12.0 g/dL Normal 12.0-16.0 [facility] Comment on above: Performed By: #### 1 5054599, 8639925, 8517784, 6532347 #### [facility] [address] [place] [address] MCH (RBC) [Entitic mass] 29.4 pg Normal 27.0-34.0 [facility] Comment on above: Performed By: #### 1 9025202, 0189465, 9682536, 6652002 #### [facility] [address] [place] [address] MCHC (RBC) [Mass/Vol] 34.4 g/dL Normal 31.4-36.0 [facility] Comment on above: Performed By: #### 1 8388058, 1004239, 3824465, 6902151 #### [facility] [address] [place] [address] MCV (RBC) [Entitic vol] 85.5 fL Normal 80.0-100.0 [facility] Comment on above: Performed By: #### 1 7349798, 6180293, 0443895, 6540891 #### [facility] [address] [place] [address] Platelet mean volume (Bld) [Entitic vol] 8.5 fL Normal 6.4-10.8 [facility] Comment on above: Performed By: #### 1 4186107, 8479612, 1433982, 0348786 #### [facility] [address] [place] [address] Platelets (Bld) [#/Vol] 188.0 E9/L Normal 150.0-500.0 [facility] Comment on above: Performed By: #### 1 8856491, 9448556, 8392503, 4913525 #### [facility] [address] [place] [address] RBC (Bld) [#/Vol] 4.1 E12/L Low 4.3-5.9 [facility] Comment on above: Performed By: #### 1 6399768, 5355926, 6765349, 6019763 #### [facility] [address] [place] [address] WBC corrected for nucl RBC Auto (Bld) [#/Vol] 7.2 E9/L Normal 4.0-11.0 [facility] Comment on above: Performed By: #### 1 3745340, 5872159, 1137430, 3453437 #### [facility] [address] [place] [address] CHEMISTRYOrdered By: SYSTEM SYSTEM on 11-05-2022 Anion gap [Moles/Vol] 10 mmol/L Normal 6 - 16 mEq/L [facility] Remisol Calcium [Mass/Vol] 8.8 mg/dL Low 8.9 - 11. 1 mg/dL [facility] Chloride [Moles/Vol] 102 mmol/L Normal 101 - 1 11 mmol/L [facility] CO2 [Moles/Vol] 23 mmol/L Normal 21 - 31 mmol/L FT [facility] Creatinine [Mass/Vol] 0.6 mg/dL Normal 0.5 - 1.3 mg/dL [facility] Remisol GFR/1.73 sq M.predicted among non-blacks MDRD (S/P/Bld) [Vol rate/Area] 128 mL/min/1.73 m2 Normal >=59mL/min/[address] [facility] Chem S Glucose [Mass/Vol] 119 mg/dL Normal 55 - 199 mg/dL [facility] Potassium [Moles/Vol] 3.4 mmol/L Low 3.5 - 5.3 mmol/L [facility] Remisol Sodium [Moles/Vol] 132 mmol/L Low 135 - 145 mmol/L [facility] Remisol Urea nitrogen [Mass/Vol] 13 mg/dL Normal 5 - 21 mg/dL [facility] Remisol Urea nitrogen/Creatinine [Mass ratio] 22 mg/mg High 10 - 20 [facility] Remisol Consent for Treatmenton Consent for Treatment [id number] 30 [id number] #1.00CD:[id number] Normal [facility] Discharge Instructionson Discharge Instructions [id number]:127 Normal [facility] ED Clinical Summaryon 2022 ED Clinical Summary [address] [address] ED Clinical Summary Person Information Name: RADHA DINH [place] Age: 26 Years : 1995 Sex: Female Language: Nepali PCP: ANTHONY ROMAN MD Marital Status: Single [...] 11:36:08 11/05/2022 11:36:08 11/05/2022 11:36:08 ADDRESS: [address] [id number] [facility] DOC NOTES: MEDICAL INFORMATION: Prescriptions Given: Medications to Continue with No Changes Other Medications ethinyl estradiol-norethindr one (Chanell 24 Fe oral tablet) PATIENT EDUCATION INFORMATION: Instructions: Near-Syncope Follow up: With: Address: When: Claudio ANNABELLE [facility], [address] [place] [address] Victoriano [place] [address] Business (1) In 3 days 11/08/2022 With: Address: When: ANTHONY ROMAN [address] [facility] [facility] [place] [address] Business (1) In 3 days 11/08/2022 Comments: [...] or worsening symptoms. DIAGNOSIS: Near syncope Normal [facility] ED Note-Physicianon 11-06-19 ED Note-Physician Basic [...] Complexity of Problems Differential Diagnosis: [] [facility] Data External documents reviewed: [] My [...] and follow-up with PCP as well as SIGNAL ENGINEER. Return precaution discussed. Patient questions answered. Patient [...] Patient seen and evaluated by the physician radiology physician assistant. Attending physician was present in the emergency department and supervised care. This visit was performed by both the physician and an APC. I performed all aspects of the MDM as documented. This report was transcribed using voice recognition software. Every effort was made to ensure accuracy, however, inadvertently computerized convention manager mistakes may be present. Appropriate healthcare PPE was used in evaluating this patient. The patient was placed in a mask. The healthcare provider was wearing mask, gloves, and utilizing proper hand hygiene. All equipment was properly c (more content not included)... Normal [facility] Comment on above: Result Comment: Elec [...] these instructions at home: Medicines ? Take gfpv-wtr-wownkjo and prescription medicines only as told by [...] provider. Document Revised: 08/29/2021 Document Reviewed: 08/29/2021 [employer] Patient Education ? 2022 [employer] Normal [facility] ED Patient Summaryon 023 ED Patient Summary [place] [id number] Patient Discharge Instructions Person Information Name: RADHA DINH Age: 26 Years Arrival Date: 11/05/2022 07:55:48 Discharge Diagnosis: Near syncope Primary Care Physician: ANTHONY ROMAN MD Provider Information Primary Provider: Nick Velasquez DO [employer] Biologist:Kashif Nguyen PA-C The exam and treatment you received in the Emergency Department were for an urgent problem and are not intended as complete care. It is important that you follow up with a doctor, nurse practitioner, or physician?s radiology physician assistant for ongoing care. If your [...] Follow-up Instructions: With: Address: When: Claudio ANNABELLE [facility], [address] [facility] Victoriano Roldan [place] [id number] Business (1) In 3 days 11/08/2022 With: Address: When: ANTHONY ABEL [facility] [place] [phone] [facility] (1) In 3 days 11/08/2022 Comments: Call [...] opioids can be used to help relieve muniotoz-so-lintfr pain and are often prescribed following a [...] prescription opio (more content not included)... Normal [facility] HEMATOLOGYOrdered By: SYSTEM SYSTEM on 11-05-2022 [...] LM Ql (Urine sed) TRACE Normal Trace [facility] Comment on above: Performed By: #### 1 [id number] #### [facility] [address] [place] [address] Bilirubin Ql (U) Negative Normal Negative [facility] Comment on above: Performed By: #### 1 [id number] #### [facility] [address] [place] [address] Clarity (U) SL CLOUDY Invalid Interpretation Code [facility] Comment on above: Performed By: #### 1 [id number] #### [facility] [address] [place] [address] Color (U) YELLOW Normal Yellow [facility] Comment on above: Performed By: #### 1 [id number] #### [facility] [address] [place] [address] Epithelial cells.squamous LM.HPF (Urine sed) [#/Area] 3-4 Normal 0-2 [facility] Comment on above: Performed By: #### 1 [id number] #### [facility] [address] [place] [address] Glucose Test strip (U) [Mass/Vol] Negative Normal Negative [facility] Comment on above: Performed By: #### 1 [id number] #### [facility] [address] [place] [address] Hemoglobin Ql (U) Negative Normal Negative [facility] Comment on above: Performed By: #### 1 [id number] #### [facility] [address] [place] [address] Ketones (U) [Mass/Vol] Negative Normal Negative [facility] Comment on above: Performed By: #### 1 [id number] #### [facility] [address] [place] [address] Pueblito.plasma/Lithiu m.RBC (Bld) [Mass ratio] 0-3 Normal 0-3 [facility] Comment on above: Performed By: #### 1 [id number] #### [facility] [address] [place] [address] Mucus Ql (Urine sed) TRACE Normal [facility] Comment on above: Performed By: #### 1 [id number] #### [facility] [address] [place] [address] Nitrite Ql (U) Negative Normal Negative [facility] Comment on above: Performed By: #### 1 [id number] #### [facility] [address] [place] [address] pH (U) 6.5 [pH] Invalid Interpretation Code 5.0-9.0 [facility] Comment on above: Performed By: #### 1 [id number] #### [facility] [address] [place] [address] Protein (U) [Mass/Vol] Negative Normal Negative [facility] Comment on above: Performed By: #### 1 [id number] #### [facility] [address] [place] [address] Specific gravity (U) [Rel density] <=1.005 Invalid Interpretation Code 1.005-1.030 [facility] Comment on above: Performed By: #### 1 [id number] #### [facility] [address] [place] [address] Type of Urine collection method Clean Catch Normal [facility] Comment on above: Performed By: #### 1 [id number] #### [facility] [address] [place] [address] Urobilinogen Qn (U) 0.2 {Rogelio'U}/dL Normal 0.0-1.0 [facility] Comment on above: Performed By: #### 1 [id number] #### [facility] [address] [place] [address] WBC Auto Ql (U) TRACE Abnormal Negative [facility] Comment on above: Performed By: #### 1 [id number] #### [facility] [address] [place] [address] WBC LM.HPF (Urine sed) [#/Area] 0-5 Normal 0-5 [facility] Comment on above: Performed By: #### 1 [id number] #### [facility] [address] [place] [address] URINALYSISOrdered By: Marisol Hendrix on 11-05-2022 Bacteria [...] AM) Normal Negative [facility] UA Auto SS Pueblito.plasma/Lithiu m.RBC (Bld) [Mass ratio] 0-3 /HPF Normal [...] [facility] UA Auto SS Urobilinogen Qn (U) 0.9393751 {Rogelio'U}/dL Normal 0.0 - 1.0 EU/dL [facility] UA Auto SS WBC Auto Ql (U) Trace *ABN* (11/05/22 10:36 AM) Invalid Interpretation Code Negative [facility] UA Auto SS WBC LM.HPF (Urine sed) [#/Area] 0-5 /HPF Normal 0-5/HPF [facility] UA Auto SS eGFRon 11-05-2022 GFR/1.73 sq M.predicted among non-blacks MDRD (S/P/Bld) [Vol rate/Area] 128 mL/min/1.73 m2 Normal >=59 [facility] Comment on above: Order Comment: Order added by Discern Expert. Result Comment: Photographic Machine Operator roxane kidney disease could be indicated at eGFR's of less than 60 mL/min/1.73m2. Kidney failure is indicated at less than 15 mL/min/1.73m2. Performed By: #### 1 [id number], [id number], [id number] #### [facility] [address] [place] [address] HEP B SURFACE ANTIGEN SCREEN on 09-10-2022 HBsAg Screen Negative Normal Negative [facility] Comment on above: Performed By: #### H BSANS #### [facility] [address] [place] [address] [address] Samira Griffiths HEPATITIS C VIRUS AB W/ REFL EX QUANTon 09-10-2022 HCV AB Non-Reactive Normal Non Reactive [facility] Comment on above: Performed By: #### H CVPCRR #### [facility] [address] [place] [address] Dr. Samira Griffiths Interpretation: Comment Normal [facility] Comment on above: Result Comment: Not infected with HCV unless early or acute infection is suspected (which may be delayed in an immunocompromised individual), or other evidence exists to indicate HCV infection. Performed By: #### H CVPCRR #### [facility] [address] [place] [address] Dr. Samira Griffiths HIV 1 AND 2 WITH REFLEXon HIV Screen 4th Generation wRfx Non-Reactive Normal Non Reactive [facility] Comment on above: Result Comment: HIV Negative HIV-1/HIV-2 antibodies and HIV-1 p24 antigen were NOT detected. There is no laboratory evidence of HIV infection. Performed By: #### H IV12 #### [facility] [address] [place] [address] Dr. Samira Griffiths RPR QUANTon 09-10-2022 Rapid Plasma Reagin, Quant Non-Reactive Normal NonRea<1:1 [facility] Comment on above: Result Comment: Plea se Note: This test does not meet current guidelines for screening and diagnosis of syphilis. This test is intended for following treatment response in patients being treated for syphilis infection. To screen for syphilis infection, a reflex cascade that includes both RPR and a treponema-specific assay should be utilized, such as Treponema pallidum (Syphilis) Screening Millis (748113) or Rapid Plasma Reagin (RPR) Test With Reflex to Quantitative RPR and Confirmatory Treponema pallidum Antibodies (295786). Performed By: #### R PRQ #### [facility] [address] [place] [address] Dr. Samira Griffiths RUBELLA AB IGGon 09-10-2022 Rubella Antibodies, IgG 3.13 index Normal Immune >0.99 [facility] Comment on above: Result Comment: Non- immune <0.90 Equivocal 0.90 - 0.99 Immune >0.99 Performed By: #### R UBIGG #### [facility] [address] [place] [address] Dr. Samira Griffiths BOX TEST SENT OUTon 09-10-19 23 SENT TO REF LAB 09/09/2022 Normal [facility] Comment on above: Performed By: #### T SH #### [facility] [address] [place] [address] Dr. Samira Griffiths CBC AUTO DIFFon 09-09-2022 BASO # 0.0 103/ul Normal 0.0-0.1 [facility] Comment on above: Performed By: #### C BC #### [facility] [address] [place] [address] Dr. Samira Griffiths Basophils/100 WBC (Bld) 0.2 % Normal 0.2-2.0 [facility] Comment on above: Performed By: #### C BC #### [facility] [address] [place] [address] Dr. Samira Griffiths EO # 0.2 103/ul Normal 0.0-0.7 [facility] Comment on above: Performed By: #### C BC #### [facility] [address] [place] [address] Dr. Samira Griffiths Eosinophils/100 WBC (Bld) 1.9 % Normal 0.9-7.0 [facility] Comment on above: Performed By: #### C BC #### [facility] [address] [place] [address] Dr. Samira Griffiths Erythrocyte distribution width (RBC) [Ratio] 11.9 % Normal 11.0-15.0 [facility] Comment on above: Performed By: #### C BC #### [facility] [address] [place] [address] Dr. Samira Griffiths Hematocrit (Bld) [Volume fraction] 36.6 % Normal 36.0-48.0 [facility] Comment on above: Performed By: #### C BC #### [facility] [address] [place] [address] Dr. Samira Griffiths Hemoglobin (Bld) [Mass/Vol] 12.4 g/dL Normal 12.0-16.0 [facility] Comment on above: Performed By: #### C BC #### [facility] [address] [place] [address] Dr. Samira Griffiths IG # 0.03 10e3/ul Normal 0.00-0.03 [facility] Comment on above: Performed By: #### C BC #### [facility] [address] [place] [address] Dr. Samira Griffiths IG % 0.3 % Normal 0.0-0.5 [facility] Comment on above: Performed By: #### C BC #### [facility] [address] [place] [address] Dr. Samira Griffiths LYMPH # 1.9 103/ul Normal 1.2-3.8 [facility] Comment on above: Performed By: #### C BC #### [facility] [address] [place] [address] Dr. Samira Griffiths Lymphocytes/100 WBC (Bld) 21.1 % Normal 20.5-60.0 [facility] Comment on above: Performed By: #### C BC #### [facility] [address] [place] [address] Dr. Samira Griffiths MANUAL DIFF REQ NO Normal [facility] Comment on above: Performed By: #### C BC #### [facility] [address] [place] [address] Dr. Samira Griffiths MCH (RBC) [Entitic mass] 29.0 pg Normal 26.7-34.0 [facility] Comment on above: Performed By: #### C BC #### [facility] [address] [place] [address] Dr. Samira Griffiths MCHC (RBC) [Mass/Vol] 33.9 g/dL Normal 29.9-35.2 [facility] Comment on above: Performed By: #### C BC #### [facility] [address] [place] [address] Dr. Samira Griffiths MCV (RBC) [Entitic vol] 85.7 fL Normal 81.0-99.0 [facility] Comment on above: Performed By: #### C BC #### [facility] [address] [place] [address] Dr. Samira Griffiths MONO # 0.6 103/ul Normal 0.3-0.8 [facility] Comment on above: Performed By: #### C BC #### [facility] [address] [place] [address] Dr. Samira Griffiths Monocytes/100 WBC (Bld) 6.4 % Normal 1.7-12.0 [facility] Comment on above: Performed By: #### C BC #### [facility] [address] [place] [address] Dr. Samira Griffiths NEUT # 6.3 103/ul Normal 1.4-6.5 [facility] Comment on above: Performed By: #### C BC #### [facility] [address] [place] [address] Dr. Samira Griffiths Neutrophils/100 WBC (Bld) 70.1 % Normal 43.0-75.0 [facility] Comment on above: Performed By: #### C BC #### [facility] [address] [place] [address] Dr. Samira Griffiths Platelet mean volume (Bld) [Entitic vol] 10.1 fL Normal 9.5-13.5 [facility] Comment on above: Performed By: #### C BC #### [facility] [address] [place] [address] Dr. Samira Griffiths PLT 228 103/ul Normal 150-450 [facility] Comment on above: Performed By: #### C BC #### [facility] [address] [place] [address] Dr. Samira Griffiths RBC 4.27 106/ul Normal 4.20-5.40 [facility] Comment on above: Performed By: #### C BC #### [facility] [address] [place] [address] Dr. Samira Griffiths WBC 9.1 103/ul Normal 4.0-11.0 [facility] Comment on above: Performed By: #### C BC #### [facility] [address] [place] [address] Dr. Samira Griffiths CULTURE URINEon 09-09-2022 CULTURE URINE Culture Observations: LIGHT GROWTH OF MIXED GENITAL BEHZAD. NO POTENTIAL PATHOGENS SEEN. Normal [facility] Comment on above: Performed By: #### T SH #### [facility] [address] [place] [address] Dr. Samira Griffiths GLYCOHEMOGLOBIN A1Con 2022 ADA RECOMMENDATION SEE BELOW Normal [facility] Comment on above: Result Comment: ADA RECOMMENDED LIMIT 4.0 - 6.0 ADA THERAPEUTIC TARGET < 7.0 ACTION SUGGESTED > 7.0 Performed By: #### A 1C #### [facility] [address] [place] [address] Dr. Samira Griffiths Glucose [Mass/Vol] 108 mg/dL Normal [facility] Comment on above: Performed By: #### A 1C #### [facility] [address] [place] [address] Dr. Samira Griffiths HbA1c (Bld) [Mass fraction] 5.4 % Normal 4.5-6.2 [facility] Comment on above: Performed By: #### A 1C #### [facility] [address] [place] [address] [address] Samira Griffiths TSHon 09-09-2022 TSH 0.224 uIU/mL Critically low 0.358-3.740 [facility] Comment on above: Performed By: #### T SH #### [facility] [address] [place] [address] [address] Samira Griffiths TYPE AND SCREENon 09-09-2022 TYPE AND SCREEN Negative Normal [facility] Comment on above: Performed By: #### T NS #### [facility] [address] [place] [address] Dr. Samira Griffiths US PREG TVon 09-05-2022 [...] by: JANIE BABCOCK Date: 2022-09-05 15:44 Normal [facility] PAP ONLYon 03-20-2022 . . Normal [facility] Comment on above: Performed By: #### 4 [id number] #### [facility] [address] [place] [address] Dr. Samira Griffiths DIAGNOSIS: Comment Normal [facility] Comment on above: Result Comment: NEGA TIVE FOR INTRAEPITHELIAL LESION OR MALIGNANCY. Performed By: #### 4 [id number] #### [facility] [address] [place] [address] Dr. Samira Griffiths Methodology: Comment Normal [facility] Comment on above: Result Comment: This liquid based ThinPrep(R) pap test was screened with the use of an image guided system. Performed By: #### 4 [id number] #### [facility] [address] [place] [address] Dr. Samira Griffiths Note: Comment Normal [facility] Comment on above: Result Comment: The Pap smear is a screening test designed to aid in the detection of premalignant and malignant conditions of the uterine cervix. It is not a diagnostic procedure and should not be used as the sole means of detecting cervical cancer. Both false-positive and false-negative reports do occur. . Performed By: #### 4 [id number] #### [facility] [address] [place] [address] Dr. Samira Griffiths Performed by: Comment Normal [facility] Comment on above: Result Comment: Francy Huitron, Clinical Nursing Instructor Performed By: #### 4 [id number] #### [facility] [address] [place] [address] Dr. Samira Griffiths Specimen adequacy: Comment Normal [facility] Comment on above: Result Comment: Sati sfactory for evaluation. No endocervical component is identified. Performed By: #### 4 [id number] #### [facility] [address] [place] [address] Dr. Samira Griffiths Coding Summary.on 02-18-2022 Coding Summary. CD:[id number] Gh0bWw+PGhlYWQ+PE1FV IRlA71oaWEpvH1WO4fVM W7SSXZKCXUVIJ8RVK0wy FQ0DCvtJ8LhhgKc HxvkyCRmDW99PBe7NFP0 cOgcOLonpZ7uuQDgN3d7 TcGeZF00gQ64FAkpGPNo OyE7ZzPialkyeJXb I3awLhZgmXHfZxz+PHRh YmxlIHdpZHRoPScxMDAl ZiSfrWpfNX3rWp9hZPKf LWNvbGxhcHNlOiBj s5niQCGxPHvsAV3ayZar O1WwxKE4OWLsn3e2Xj30 dHI+AFAfKHM7mXgtKFrp n549PwYkt4viHBW0 vXVvRKghDCR7J04rf5G1 MBPaHNYqKGY6jYN2kM3e aIkywhucE0EivBDyMdQ5 YGU8vFXzdG0taMbk dkpxeQ1sRmx+J92PKD9Q TQIETZ0WGai8H0MhKcec dHI+VV41HEBvCD24bZMm kEAzc1qguJb3OzTi OBLfQMS8kHgeNMaga6Sk KMXiU05wpUQnq7Y8EPGo qEtlkMDmCmCgtNR2bO9s QRovhwrht5xwzfyv Azocb8brlu63kA52C73b WMvkZQQkVWU6XTFfEADo vEmptt4yzK1zBc1+IDxj y9svl8tgvOx5DkPc XKCetgSkdFfzNPR9i0Hp Dr64S1EctBkfd3EyFwe8 rm25yKUqm0L2dFA3HTxy YCMdgV0xWWvyRbR8 GRDxGoUjyL14fSIxIQlf Ab6wpLjjgWroJO7wPRMy cbksBUHffS5uVWVioHZg qNacQA8eBOLaasul b997QqJuVAR1PPIetNKq X5DedB4vRkEwMTFlWPSs O2WpjHOkOUzcX193VYkw GqV3FHNrcsJgO8Og BWVjuPcuVaU6g6O9Cd8M j9LwjocuRNE9PQlmKSSf QaF2LaUzGyQ5M7RnAnh4 AQPniRuaFE2eC9Fs JLEafcvfxooscKS2TQKd LWIilI46tUYhILnyYf4e w3Y9j827ZIWsFSFynX83 Cq1nlZbuAOZqoRQI xI9ltnxam8ipwsfhThOn BBScLGi7MDe0OEPxpWmh AqDvOPE5ZmK8BNQ6rHGd hP6baMdetebpoD4h Oyc+B73yxB7vWIR7JHN5 fqmjJBEzrnPmXA28JW08 J0OmFozjiZUquLW+PGRp oqBpiNskUC0sMzGl o7vtf2WoOLubX6SbAHJs BCwyMcj4YKVhQMO8iPK9 rY2sDEObDSlga3G9jAU5 Y4BvnoGesy6vs7tl KHOsZMkoX22frTGzz1G9 DBCmiLY5EHDqoUoaYhEy tV91Wbi+AZMtiQbps5Wc Sejis0wbh5egwAk9 IjMwJSIgdmFsaWduPSJ0 x5AsNy50L26wPYvfKTGf BKWtVBTgPHXkcAbhxk0s wC5aFa7+PGNvbCB3 tPY3cR5fUCCcErW7PTcq F910VmYhfUBqJkucy0fz v8iyxVh9QhThIWAnhrDw sMybCBK9e3GaVn03 H74jVMfzSXTpYACyGMWu MDLokAyrdi0udF2cNa1+ WG9hp1uzoi17iK53xZS+ XHIzIGH8dGndPCaf BEFysD8jTUajJiK2ZXNo MsYliI24sDHpCWxaZf4a sPezcNbqBP2sIYZrldwz m675SaIkk1ldMUBk bSLqXKiwIDX2T95pk9R7 BAHgQHMzYLL3oAJ1jU2l bGlnbjogbGVmdDsgdmVy oPfpDAhfHPggP212 IHRvcDsnPlBhdGllbnQg EvThDOx2J3RpNer4ZNUo cEmzYK0nrEFoIUksCe4o uQzmqTwhMB8nYKDk dpsgo114JsZvz4ciRNRs gNHmSPcgVMY2O20nz8T4 KKSaTAVbVFT2bSX1uX9e bGlnbjogbGVmdDsg nmCtrYoiUMstUBsuZ631 IHRvcDsnPkJpcnRoIERh tVK0ZW59ZD19uHSmq6R3 hQS0J1VwAXFnejov mykgjTI5JVEaGQZdlA63 Ba1fyTtdZn8ySJKtNTZ7 DRRvbECyO7KoeA8pAaUa RURkCXTmM2WwpTRu YOryT928KRifFqI0OWAj xwGbC1TbNUGiyZazEoJ9 u4W2Qm9HE6A3WD17VW28 jFSfr7P4gLO7O5Ih PBDhqcslzaojhAO1GVLu CPFsdW96Au3ngGbgGj5h JKQpPRZ0AMOetQOyL2Zn pX4yThWdESGdIXAx M8MijLHrGZffV198EGfv FjC2VBKptnDfA0RuCWZz xOdtWqZ1r1Q8Bq5KAWz1 MJ02VS10fVGws1J4 xXF1Q1RcTOSgmkdgjkzx uPJ0KHVmQMEwyJ88Rs5a yQffUt3oJPBkNES4MWBz rSExB3LycZ5pHdUk BHHcWSVqO0NsbVXqUGry A096TXvuAkX7CHGwirFz M2FwYKQobZfrOlQ2o3R8 Yh5NLSPmNG17ODL5 zOC7EU73WJ82M7WpHthm dGFibGU+PHRhYmxlIHdp ZHRoPScxMDAlJyBzdHls SX0yMh1wMYIlCIUp kHhrtUVxUbLcx7wjZXAv XCnfKI4ioJakL8ZkyMN1 DBTci0x5Wi28N92vZ2Pw dXA+CQRpkJI0cTW6 uA0zPiYtWeX0MHsvO135 YmXlqPVwPxrvf5fzx4rz tAk6RaJ5NTEevaJtaOjh MPC0n4RgGh31K89l IHdpZHRoPSIxNSUiIHZh lWhmts3szO7tKl9+PGNv vQK2bAJ9zP2dZcFxHpL6 YJdkZ285IeFbfLFm Gxeob9efe1vxkDc0FyMz TWCmvvIpfGwiTEJ3h0Gj No33M6AqdDbxp9JjNxm2 jj87nAEak9W1eML5 O2BkDHFvcrdyqSFsnWau QQ1fKCDdwdahKHCbuX5h LSBtH1s7QvPyJkF4BNln Y6AcgdB2EBZlmFDb AUuyZYQ3B29ga9Y0GDCi HHEuTRF6uEX8uT2giCqp bjogbGVmdDsgdmVydGlj LRjgORycN125NXBx lBskQQCvrZ7aWUXfkRDt uTsnHW6lJVMjgdjcXqjN CAgXIZqrP6hWJ9RJDwZN HX99FV35xJLfz8B1 sMA6Y6FzHIZrrpomnosc vCK3PIHjJVTmxS78gKDn ANffXh3ua7Z5s153THHh SSEszQ86Xf5juOix TWLbzHOSyX1uccgpk7gs vegsDnTzHDOtQVp6RWn4 WWAweNljBuGkJSB8ZbX8 ZIR3qAVsoR0hjCly ylmhaC3xDaw+MDcvMTMv JZk9VveftXJ+PHRkIHN0 rWwpFLdrYCWvlK9gMNYm P4q0McJfErF6WQmk X3CfEQJytxshSn25tK5m DjFcJjY7UHouW7CougT8 UUFtcOPmOSktPTJ3Q46c l1R4TDHuBOPmNZR2 cJG1hL2tcSjxlfihcBWe dDsgdmVydGljYWwtYWxp A394TDNuvGdoNxZ4BWuf FOHhJO20KS81dXMq m0U2tMW5H0WuIJMkybqx krzvnIM9CWPsVIAykG78 zBGlAVehVv1lr1R3w240 DSPeLFVuzI82Jk4m aGspVQMvfRCAlZ6uzwyc n0twnwqlTpEzSYXfKTf1 CIn5FEOwhIxjRbDnUPC7 SuG4CTQ1iYBpmW3v uQaoycvpmH4kNeq+RmVt ASvdLF79MT72dVHty6C5 gIC7A9TsAICgpjyzecbw vNZ4LRWiGFKsuY27 iAHzIRvgNv2sv1B5l094 PWUbIMFkgZ58Hy6nyFrt MBVgcATRqE9njhsod9sv cjogIzAwMDAwMDt0 OSv8VEUvsEtsYrEcMUQ9 RrG0WZV0iFJvuQ8uwOzj sxegkZ4jBta+TGFiIERy r4Lpq1MhNR00KO27 F8NjCznhgTLhfZW+PHRh YmxlIHdpZHRoPScxMDAl TbVxjMvfMS6jYm9aXXXf LWNvbGxhcHNlOiBj o7drQIZbSHtrUS0adHgj J1FwxKW4MPClv4q7Cx27 W40lK8JdkMX+PGNvbCB3 rBP6lY7xHqZtCnO8 SFlxA970TwDgbKJcAhkm n1bqe1euhIf2IgFjDYMd emUptZnvMVN5c1FcQp88 S77tTVunSPFfJVJj JFNvFVHexKuryk9pqC1k Ii8+YADajQK4eRQ3wW7r RyTgKdR8VHsvV069KeTe gWXoLlrhR08aH5Fu dXA+XERvRdk5ORCwzAfs BK3wiOOeCFqkAh4iSQW5 YaRzUrXvXOhkF5FaYCSn eskxetyltPR4ZBXp FPKodQ12Iy6aoVwdRf1f FZCuSYW4KZKusVGrH5Lw qY5nLcJkWQDqBIEnD4Yc bRNrBEzuO540LVml VlZ6YVIunzBjK1RoOYZb sItkHkS4b8A9Sp5WwTvc qUPkRS9cBcClYUv6F0Qg Oeq7QOVmiEeiMW6x eJKhRTepTr1muNbxkXzj ZD3bQXNgrlljs784EiGb p3coPFXcfWNaQVrhZIV2 J41lm5X5OBMiIEBb TPI3aGB8lR5lpYktpwmp bGVmdDsgdmVydGljYWwt WFekL392NCTplCymMvVT Sxx0Z3OtOdg5IPSr xKgwQP2phUBtDYppCq6b cUtmnRmvXE6aOOAkfnwf w866VuWym5qlCYDnrDOw LYdmQTX0K03do8B1 VRTwANFzXWR9iUY5rL9b bGlnbjogbGVmdDsgdmVy sOdeGEyxPPtlB572OEGk cDtgWf0GOis5X3Cf Xyj2IJRdaNynIJ7alCHx BGfmSr7roWblmEuwSY6n TLNkyqhil306YyGye8lh IDEwcHQgVGltZXM7 O90ya4U9KTEiINXfAYV5 rHV5kG9ebIqojgtvaECq dDsgdmVydGljYWwtYWxp Z591FNAcfKcaSlCb eWVyOjwvdGQ+BI17zk70 K6FoTyurEdk1ZVFnPHM4 vKA5iH0jJVVfMFcpp6E5 bNT8T0DyeeEmwx8r b2xs (more content not included)... Normal [facility] Family Medicine Office/Clini c Noteon 02-13-2022 Family Medicine Office/Clinic Note Chief Complaint [facility] rash, cough, sore throat, HPI Staff Pt [...] day(s), # 6 tab(s), Refills(s) 0, Pharmacy: [facility]/pharmacy #[id number], 158, cm, 02/13/22 14:30:00 [...] A Strep by PCR Rapid Strep POC 64421 3. Rash (R21: Rash and other nonspecific skin eruption) Given history and exam, rash appears to be allergic in nature. Recommend antihistamine prn for this issue. F/u with PCP if symptoms persist or worsen. Follow-up With When Contact Information ANTHONY ROMAN MD, [id number] [place] [address]- Additional Instructions: Patient Education Cough, Adult Pharyngitis [...] Postpone due (more content not included)... Normal [facility] Comment on above: Result Comment: Elec [...] these instructions at home: Medicines ? Take zyas-ymb-zwqgnhf and prescription medicines only as told by [...] a condition that needs treatment. ? Take qwit-fhx-wkynqpw and prescription medicines only as told by [...] 10/17/2011 Document Revised: 05/09/2019 Document Reviewed: 05/09/2019 [employer] Patient Education ? 2020 [employer] Infectious Disease Pharyngitis Pharyngitis is redness, [...] You have (more content not included)... Normal [facility] COVID Quick Testingon 2020 Result Negative [employer] Other Quick Strepon 02-19-2021 S. pyogenes Org specific cx Ql (Throat) Negative [employer] Other Quick Strep Wolf [employer] [facility] [employer] Other Vital Signs Date Time Vital Sign Value Performing Clinician Facility 02-09-2025 13:48-0400 Body mass index (BMI) [Ratio] 30.87 kg/m2 Inez Sultana NP Work Phone: [facility] 02-09-2025 13:48-0400 Body weight 76.57 kg Inez Sultana NP Work Phone: [facility] 02-09-2025 13:48-0400 Diastolic blood pressure 70 mm[Hg] Inez Sultana NP Work Phone: [facility] 02-09-2025 13:48-0400 Systolic blood pressure 128 mm[Hg] Inez Sultana NP Work Phone: [facility] 02-01-2025 10:59-0400 Body mass index (BMI) [Ratio] 30.14 kg/m2 Inez Sultana [facility] Work Phone: [facility] 02-01-2025 10:59-0400 Body weight 74.75 kg Inez Sultana [facility] Work Phone: [facility] 02-01-2025 10:59-0400 Diastolic blood pressure 82 mm[Hg] Inez Hellerly [facility] Work Phone: [facility] 02-01-2025 10:59-0400 Systolic blood pressure 128 mm[Hg] Inez Hellerly [facility] Work Phone: [facility] 01-25-2025 13:15-0400 Body mass index (BMI) [Ratio] 30.02 kg/m2 Bree Velez PA Work Phone: [facility] 01-25-2025 13:15-0400 Body weight 74.44 kg Bree [place] PA Work Phone: [facility] 01-25-2025 13:15-0400 Diastolic blood pressure 70 mm[Hg] Bree [place] PA Work Phone: [facility] 01-25-2025 13:15-0400 Systolic blood pressure 118 mm[Hg] Bree Lise PA Work Phone: [facility] 01-18-2025 10:43-0400 Body mass index (BMI) [Ratio] 29.23 kg/m2 Claudio Annabelle DO Work Phone: [facility] 01-18-2025 10:43-0400 Body weight 72.48 kg Claudio Annabelle DO Work Phone: [facility] 01-18-2025 10:43-0400 Diastolic blood pressure 70 mm[Hg] Claudio Annabelle DO Work Phone: [facility] 01-18-2025 10:43-0400 Systolic blood pressure 120 mm[Hg] Claudio Annabelle DO Work Phone: [facility] 01-03-2025 14:31-0400 Body mass index (BMI) [Ratio] 29.1 kg/m2 Bree Velez PA Work Phone: [facility] 01-03-2025 14:31-0400 Body weight 72.18 kg Bree Velez PA Work Phone: [facility] 01-03-2025 14:31-0400 Diastolic blood pressure 80 mm[Hg] Bree Velez PA Work Phone: [facility] 01-03-2025 14:31-0400 Systolic blood pressure 120 mm[Hg] Bree Velez PA Work Phone: [facility] 12-20-2024 10:02-0400 Body mass index (BMI) [Ratio] 28.61 kg/m2 Claudio Annabelle DO Work Phone: [facility] 12-20-2024 10:02-0400 Body weight 70.94 kg Claudio Annabelle DO Work Phone: [facility] 12-20-2024 10:02-0400 Diastolic blood pressure 80 mm[Hg] Claudio Annabelle DO Work Phone: [facility] 12-20-2024 10:02-0400 Systolic blood pressure 110 mm[Hg] Claudio Annabelle DO Work Phone: [facility] 12-07-2024 11:01-0400 Body mass index (BMI) [Ratio] 27.44 kg/m2 Claudio Annabelle DO Work Phone: [facility] 12-07-2024 11:01-0400 Body weight 68.04 kg Claudio Annabelle DO Work Phone: [facility] 12-07-2024 11:01-0400 Diastolic blood pressure 76 mm[Hg] Claudio Annabelle DO Work Phone: [facility] 12-07-2024 11:01-0400 Systolic blood pressure 124 mm[Hg] Claudio Annabelle DO Work Phone: [facility] 11-15-2024 08:44-0400 Body mass index (BMI) [Ratio] 26.89 kg/m2 Bree [place] PA Work Phone: [facility] 11-15-2024 08:44-0400 Body weight 66.68 kg Bree Lise PA Work Phone: [facility] 11-15-2024 08:44-0400 Diastolic blood pressure 76 mm[Hg] Bree Lise PA Work Phone: [facility] 11-15-2024 08:44-0400 Systolic blood pressure 124 mm[Hg] Bree [place] PA Work Phone: [facility] 10-18-2024 09:05-0400 Body mass index (BMI) [Ratio] 26.06 kg/m2 Claudio Annabelle DO Work Phone: [facility] 10-18-2024 09:05-0400 Body weight 64.64 kg Claudio Annabelle DO Work Phone: [facility] 10-18-2024 09:05-0400 Diastolic blood pressure 72 mm[Hg] Claudio Annabelle DO Work Phone: [facility] 10-18-2024 09:05-0400 Systolic blood pressure 120 mm[Hg] Claudio Annabelle DO Work Phone: [facility] 09-20-2024 13:49-0400 Body mass index (BMI) [Ratio] 24.87 kg/m2 Bree [place] PA Work Phone: [facility] 09-20-2024 13:49-0400 Body weight 61.69 kg Bree [place] PA Work Phone: [facility] 09-20-2024 13:49-0400 Diastolic blood pressure 72 mm[Hg] Bree Lise PA Work Phone: [facility] 09-20-2024 13:49-0400 Systolic blood pressure 116 mm[Hg] Bree [place] PA Work Phone: [facility] 08-17-2024 14:06-0400 Body mass index (BMI) [Ratio] 23.78 kg/m2 Claudio Annabelle DO Work Phone: [facility] 08-17-2024 14:06-0400 Body weight 58.97 kg Claudio Annabelle DO Work Phone: [facility] 08-17-2024 14:06-0400 Diastolic blood pressure 70 mm[Hg] Claudio Annabelle DO Work Phone: [facility] 08-17-2024 14:06-0400 Systolic blood pressure 116 mm[Hg] Claudio Annabelle DO Work Phone: [facility] 07-28-2024 13:31-0400 Body mass index (BMI) [Ratio] 23.67 kg/m2 [facility] Nurse [facility] 07-28-2024 13:31-0400 Body weight 58.7 kg [facility] Nurse [facility] 11-05-2022 11:00-0400 Diastolic blood pressure 74 mm[Hg] Nick Velasquez [facility] 11-05-2022 11:00-0400 Heart rate 74 /min Nick Velasquez [facility] 11-05-2022 11:00-0400 Mean blood pressure 88 mm[Hg] Nick Velasquez [facility] 11-05-2022 11:00-0400 Respiratory rate 16 /min Nick Velasquez [facility] 11-05-2022 11:00-0400 SaO2% (BldA) [Mass fraction] 100 % Nick Velasquez [facility] 11-05-2022 11:00-0400 Systolic blood pressure 116 mm[Hg] Nick Ron [facility] 11-05-2022 10:00-0400 Diastolic blood pressure 54 mm[Hg] Nick Ron [facility] 11-05-2022 10:00-0400 Heart rate 83 /min Nick Velasquez [facility] 11-05-2022 10:00-0400 Respiratory rate 18 /min Nick Velasquez [facility] 11-05-2022 10:00-0400 SaO2% (BldA) [Mass fraction] 99 % Nick Velasquez [facility] 11-05-2022 10:00-0400 Systolic blood pressure 90 mm[Hg] Nick Ron [facility] 11-05-2022 08:00-0400 Body temperature 98.24 [degF] Nick Velasquez [facility] 11-05-2022 08:00-0400 Diastolic blood pressure 63 mm[Hg] Nick Ron [facility] 11-05-2022 08:00-0400 Heart rate 86 /min Nick Ron [facility] 11-05-2022 08:00-0400 Systolic blood pressure 92 mm[Hg] Nick Velasquez [facility] 02-19-2021 11:00-0400 Body height 158.12 cm Eleni Dc Other [employer] Other 02-19-2021 11:00-0400 Body mass index (BMI) [Ratio] 22.68 kg/m2 Eleni Dc Other [employer] Other 02-19-2021 11:00-0400 Body temperature 98.6 [degF] Eleni Dc Other [facility] Other 02-19-2021 11:00-0400 Body weight 56.7 kg Eleni Dc Other [employer] Other 02-19-2021 11:00-0400 Respiratory rate 20 /min Eleni Dc Other [employer] Other 02-19-2021 11:00-0400 SaO2% (BldA) [Mass fraction] 98 % Eleni Dc Other [employer] Other Encounters Encounter Date Encounter Type Care Provider Facility Start: 02-11-2025 End: 02-11-2025 [facility]inis[facility] Result Encounter Claudio Annabelle DO Work Phone: [facility] Unsolicited Start: 02-11-2025 End: 02-11-2025 [facility]inis[facility] Result Encounter Claudio Annabelle DO Work Phone: [facility] Unsolicited Start: 02-09-2025 End: 02-09-2025 Bamboo flowsheet Inez Sultana [facility] Work Phone: [facility] Start: 02-09-2025 End: 02-09-2025 Bamboo flowsheet Inez Sultana [facility] Work Phone: [facility] Start: 02-09-2025 End: 02-09-2025 flow sheet Inez Sultana [facility] Work Phone: [facility] Comment on above: 38 weeks gestation o f ([facility]); Third trimester ([facility]); H/O: Start: 02-09-2025 End: 02-09-2025 ambulatory INEZ SULTANA Not Available Start: 02-01-2025 End: 02-01-2025 Bamboo flowsheet Inez Sultana [facility] Work Phone: [facility] Start: 02-01-2025 End: 02-01-2025 Bamboo flowsheet Inez Sultana [facility] Work Phone: [facility] Start: 02-01-2025 End: 02-01-2025 flow sheet Inez Sultana [facility] Work Phone: [facility] Comment on above: 36 weeks gestation o f ([facility]); Third trimester ([facility]) Start: 02-01-2025 End: 02-01-2025 ambulatory INEZ [...] on above: 35 weeks gestation o f ([facility]); Third trimester ([facility]) Start: 01-25-2025 End: 01-25-2025 ambulatory BREE VELEZ Not Available Start: 01-18-2025 End: 01-18-2025 Bamboo flowsheet Claudio Annabelle DO Work Phone: [facility] Start: 01-18-2025 End: 01-18-2025 Bamboo flowsheet Claudio Annabelle DO Work Phone: [facility] Start: 01-18-2025 End: 01-18-2025 flow sheet Claudio Annabelle DO Work Phone: [facility] Comment on above: 34 weeks gestation o f ([facility]); Third trimester ([facility]); H/O: Start: 01-18-2025 End: 01-18-2025 ambulatory CLAUDIO ANNABELLE Not Available Start: 01-03-2025 End: 01-03-2025 flow sheet Bree Lise PA Work Phone: [facility] Comment on above: 32 weeks gestation o f ([facility]); Third trimester ([facility]); H/O: Start: 01-03-2025 End: 01-03-2025 ambulatory BREE VELEZ Not Available Start: 12-20-2024 End: 12-20-2024 Bamboo flowsheet Claudio Annabelle DO Work Phone: [facility] Start: 12-20-2024 End: 12-20-2024 Bamboo flowsheet Claudio Annabelle DO Work Phone: [facility] Start: 12-20-2024 End: 12-20-2024 flow sheet Claudio Annabelle DO Work Phone: [facility] Comment on above: 30 weeks gestation o f ([facility]); Third trimester ([facility]); size inconsistent with dates ([facility]) Start: 12-20-2024 End: 12-20-2024 ambulatory CLAUDIO ANNABELLE Not Available Start: 12-07-2024 End: 12-07-2024 Bamboo flowsheet Claudio Annabelle DO Work Phone: [facility] Start: 12-07-2024 End: 12-07-2024 Bamboo flowsheet Claudio Annabelle DO Work Phone: [facility] Start: 12-07-2024 End: 12-07-2024 flow sheet Claudio Annabelle DO Work Phone: [facility] Comment on above: Third trimester preg karoline ([facility]); 28 weeks gestation of ([facility]); H/O: Start: 12-07-2024 End: 12-07-2024 ambulatory CLAUDIO ANNABELLE Not Available Start: 11-22-2024 End: 11-22-2024 ambulatory Claudio R ANNABELLE Facility:[facility] Start: 11-18-2024 End: 11-18-2024 ambulatory BREE VELEZ Facility:[facility] Start: 11-15-2024 End: 11-15-2024 Bamboo flowsheet Bree FARAH Work Phone: [facility] Start: 11-15-2024 End: 11-15-2024 Bamboo flowsheet Bree FARAH Work Phone: [facility] Start: 11-15-2024 End: 11-15-2024 flow sheet Bree FARAH Work Phone: [facility] Comment on above: Second trimester pre gnancy ([facility]); 25 weeks gestation of ([facility]); Diabetes mellitus screening Start: 11-15-2024 End: 11-15-2024 ambulatory BREE VELEZ Not Available Start: 10-18-2024 End: 10-18-2024 flow sheet Claudio Annabelle DO Work Phone: [facility] Comment on above: Second trimester pre gnancy ([facility]); 21 weeks gestation of ([facility]) Start: 10-18-2024 End: 10-18-2024 ambulatory CLAUDIO ANNABELLE Not Available Start: 09-20-2024 End: 09-20-2024 Bamboo flowsheet Bree FARAH Work Phone: [facility] Start: 09-20-2024 End: 09-21-2024 Bamboo flowsheet Bree FARAH Work Phone: [facility] Start: 09-20-2024 End: 09-21-2024 External Result Encounter Bree FARAH Work Phone: [facility] External Department Unsolicited Start: 09-20-2024 End: 09-20-2024 flow sheet Bree FARAH Work Phone: [facility] Comment on above: Second trimester [...] 07-29-2024 End: 07-30-2024 ambulatory Claudio R ANNABELLE Facility:[facility] Start: 07-29-2024 End: 07-30-2024 Patient encounter procedure Claudio R ANNABELLE [facility] Start: 07-28-2024 End: 07-28-2024 Office outpatient visit 5 minutes [facility] Annabelle Nurse [facility] Comment on above: GA: 10w0d Start: 07-28-2024 End: 07-28-2024 ambulatory CLAUDIO ANNABELLE Not Available Start: 06-25-2024 End: 09-27-2024 ambulatory Claudio R ANNABELLE Facility:[facility] Start: 06-25-2024 End: 09-27-2024 Recurring Claudio R ANNABELLE [facility] Start: 06-23-2024 End: 06-23-2024 ambulatory Claudio R ANNABELLE Facility:[facility] Start: 06-23-2024 End: 06-23-2024 Patient encounter procedure Claudio R ANNABELLE [facility] Start: 01-14-2024 End: 04-13-2024 ambulatory Gm HENDERSON Facility:[facility] Start: 11-05-2022 End: 11-05-2022 Emergency department patient visit Nick Velasquez Facility:[facility] Start: 11-05-2022 End: 11-05-2022 Emergency department patient visit Nick Velasquez [facility] Start: 09-09-2022 End: 09-10-[address] CLAUDIO ALANIS . Facility: Start: 09-05-2022 End: 09-06-[address] CLAUDIO ALANIS . Facility: Start: 03-13-2022 End: 03-13-[address] CLAUDIO ALANIS . Facility: Start: 02-13-2022 End: 02-14-2022 ambulatory Bindu Martinez Facility:[facility] Start: 01-14-2022 End: 04-15-2022 ambulatory ANTHONY ROMAN Facility:[facility] Start: 02-19-2021 Office outpatient vi sit 15 minutes Eleni Dc [facility] [address] Procedures Date Procedure Procedure Detail Performing Clinician Start: 02-11-2025 TBH UA (CLEAN/CATCH) AERODYNAMIC CONSULTANT/MICRO IF IND. Claudio Mansfieldo DO Work Phone: Start: 02-09-2025 Urnls dip stick/tabl et rgnt non-auto w/o micrscp Inez Sultana [facility] Work Phone: Start: 02-01-2025 Urnls dip stick/tabl et rgnt non-auto w/o micrscp Inez Sultana [facility] Work Phone: Start: 01-25-2025 Urnls dip stick/tabl [...] [facility] [place] [id number] Bree Velez PA [address] [place] [address] LAMAR Poe OBRYLEE Start: 02-09-2025 End: 02-09-2025 Patient encounter procedure LAMAR HALL Comment on above: Arrived Start: 02-01-2025 End: 02-01-2025 Patient encounter procedure LAMAR Poe OBRYLEE Comment on above: Arrived Start: 01-25-2025 End: 01-25-2026 CULTURE, GROUP B STREP WITH SUSCEPTIBLITY CULTURE, GROUP B STREP WITH SUSCEPTIBLITY Lab Routine 35 weeks gestation of ([facility]) Third trimester ([facility]) Expected: 01/25/2025, Expires: 01/25/2026 [facility] Work Phone: Comment on above: Expected: 01/25/2025 , Expires: 01/25/2026 Start: 01-25-2025 End: 01-25-2025 Patient encounter procedure LAMAR HALL Comment on above: Arrived Start: 01-18-2025 End: 01-18-2025 Patient encounter procedure LAMAR HALL Comment on above: Arrived Start: 01-02-2025 Influenza vaccination Influenza Vacc ine (#1) [facility] Start: 12-20-2024 End: 04-21-2025 US for US OB follow up transabdominal approach Imaging Routine size inconsistent with dates ([facility]) Expected: 12/20/2024, Expires: 04/21/2025 [facility] Work Phone: Comment on above: Expected: 12/20/2024 [...] Visit [facility] [address] [place] [id number] Claudio Alanis, DO [address] [place] [address] [facility] Start: 10-18-2024 End: 10-18-2024 Patient encounter procedure 10/18/2024 9:10 AM EDT Routine [facility] [address] [place] [id number] Claudio Alanis, DO [address] [place] [address] [facility] Start: 10-18-2024 End: 10-18-2024 Professional / ancillary services management 10/18/2024 8:00 AM EDT Ancillary Procedure [facility] [address] [place] [id number] [facility] Start: 09-20-2024 End: 10-21-2024 Alpha fetoprotein, maternal Alpha fetoprotein, maternal Lab Routine Need for maternal serum alpha-protein (MSAFP) screening Expected: 09/20/2024 (Approximate), Expires: 10/21/2024 [facility] Comment on above: Expected: 09/20/2024 (Approximate), Expires: 10/21/2024 Start: 09-20-2024 End: 12-21-2024 US for US OB 14+ weeks anatomy scan Imaging Routine Screening, , for anatomic survey Expected: 09/20/2024, Expires: 12/21/2024 [facility] Comment on above: Expected: 09/20/2024 , Expires: 12/21/2024 Start: 09-20-2024 End: 09-20-2024 Patient encounter procedure [facility] Comment on above: Arrived Start: 08-17-2024 End: 08-17-2024 Patient encounter procedure [facility] Comment on above: Arrived Start: 07-28-2024 End: 07-28-2025 ABO/Rh ABO/Rh Lab Routine Missed menses , unspecified gestational age Expected: 07/28/2024 (Approximate), Expires: 07/28/2025 [facility] Comment on above: Expected: 07/28/2024 (Approximate), Expires: 07/28/2025 Start: 07-28-2024 End: 07-28-2025 Blood type and Indirect antibody screen panel - Blood Type and screen Lab Routine Missed menses , unspecified gestational age Expected: 07/28/2024 (Approximate), Expires: 07/28/2025 [facility] Comment on above: Expected: 07/28/2024 (Approximate), Expires: 07/28/2025 Start: 07-28-2024 End: 07-28-2025 Drugs of abuse panel - Urine by Screen method Rapid drug screen, urine Lab Routine , unspecified gestational age Encounter for supervision of normal first in first trimester Expected: 07/28/2024 (Approximate), Expires: 07/28/2025 [facility] Comment on above: Expected: 07/28/2024 (Approximate), Expires: 07/28/2025 Start: 07-20-2024 End: 07-20-2025 US Pelvis transvaginal US OB transvaginal Imaging Routine Missed menses Expected: 07/20/2024, Expires: 07/20/2025 [facility] Work Phone: Comment on above: Expected: 07/20/2024 , Expires: 07/20/2025 Bacteria identified in Urine by Culture Urine culture Microbiology Routine Missed menses Ordered: 07/28/2024 [facility] Comment on above: Ordered: 07/28/2024 CBC W Auto Different ial panel - Blood CBC and differential Lab Routine Missed menses , unspecified gestational age Ordered: 07/28/2024 [facility] Comment on above: Ordered: 07/28/2024 CHLAMYDIA TRACHOMATI S (GENITO/STI) CHLAMYDIA TRACHOMATIS (GENITO/STI) Lab Routine Exposure to STD Ordered: 09/20/2024 [facility] Comment on above: Ordered: 09/20/2024 Hemoglobin A1c/Hemoglobin.total in Blood Hemoglobin A1c Lab Routine Missed menses , unspecified gestational age Ordered: 07/28/2024 [facility] Comment on above: Ordered: 07/28/2024 Hepatitis B virus surface Ag [Presence] in Serum or Plasma by Immunoassay Hepatitis B surface antigen Lab Routine Missed menses , unspecified gestational age Ordered: 07/28/2024 [facility] Comment on above: Ordered: 07/28/2024 Hepatitis C virus Ab [Presence] in Serum or Plasma by Immunoassay Hepatitis C antibody Lab Routine Missed menses , unspecified gestational age Ordered: 07/28/2024 [facility] Comment on above: Ordered: 07/28/2024 HIV-1/HIV-2 antigen/antibody combination immunoassay HIV-1 and HIV-2 antibodies Lab Routine Missed menses , unspecified gestational age Ordered: 07/28/2024 [facility] Comment on above: Ordered: 07/28/2024 Neisseria gonorrhoea e DNA [Presence] in Unspecified specimen by SAY with probe detection Neisseria gonorrhea DNA probe, direct Lab Routine Exposure to STD Ordered: 09/20/2024 [facility] Comment on above: Ordered: 09/20/2024 Reagin Ab [Presence] in Serum by RPR RPR Lab Routine Missed menses , unspecified gestational age Ordered: 07/28/2024 [facility] Comment on above: Ordered: 07/28/2024 Rubella antibody, IgG Rubella an tibody, IgG Lab Routine Missed menses , unspecified gestational age Ordered: 07/28/2024 [facility] Comment on above: Ordered: 07/28/2024 SURESWAB(R) ADVANCED VAGINITIS PLUS, TMA SURESWAB(R) ADVANCED VAGINITIS PLUS, TMA Pathology and Cytology Routine Exposure to STD Ordered: 09/20/2024 [facility] Healthcare Work Phone: Comment on above: Ordered: 09/20/2024 US Pelvis transvaginal US OB tra nsvaginal Imaging Routine Missed menses 07/28/2024 12:44 PM EDT [facility] Immunizations Immunization Date Immunization Notes Care Provider Fa jordan 02-16-2024 influenza virus vaccine, unspecified formulation; Translations: [Fluzone TIV PF ] Claudio ALANIS [facility] Comment on above: Reason for Medicatio n: Prophylaxis 02-17-2022 influenza virus vaccine, unspecified formulation Nick Velasquez [facility] Comment on above: Reason for Medicatio n: Prophylaxis 03-01-2021 influenza virus vaccine, unspecified formulation Nick Velasquez [facility] Comment on above: Reason for Medicatio n: Prophylaxis 02-14-2021 COVID-19, mRNA, LNP- S, PF, 30 mcg/0.3 mL dose Nick Velasquez [facility] 01-18-2021 COVID-19, mRNA, LNP- S, PF, 30 mcg/0.3 mL dose Nick Velasquez [facility] 05-23-2012 Toradol per 15 mg Calley Thad oquendo Other [facility] Other 04-20-2008 meningococcal ACWY vaccine, unspecified formulation Nick Velasquez [facility] 04-20-2008 tetanus toxoid, reduced diphtheria toxoid, and acellular pertussis vaccine, adsorbed Nick Ron [facility] 04-20-2008 varicella virus vaccine Nick Ron [facility] 03-06-2007 influenza virus vaccine, unspecified formulation Nick Ron [facility] 02-22-2005 influenza, whole Nick Ron [facility] 02-23-2004 influenza, whole Nick Ron [facility] 05-01-2003 influenza, whole Nick Ron [facility] 03-23-2003 influenza, whole Nick Ron [facility] 09-14-2001 DTaP, unspecified formulation Nick Ron [facility] 09-14-2001 measles, mumps and rubella virus vaccine Nick Ron [facility] 11-14-1998 DTaP, unspecified formulation Nick Ron [facility] 11-14-1998 hepatitis B vaccine, pediatric or pediatric/adolescent dosage Nick Ron [facility] 06-06-1998 Hib, unspecified formulation Nick Ron [facility] 06-06-1998 measles, mumps and rubella virus vaccine Nick Ron [facility] 11-22-1997 varicella virus vaccine Nick Ron [facility] 05-31-1997 DTaP, unspecified formulation Nick Ron [facility] 05-31-1997 hepatitis B vaccine, pediatric or pediatric/adolescent dosage Nick Velasquez [facility] 05-31-1997 Hib, unspecified formulation Nick Velasquez [facility] 04-12-1997 DTaP, unspecified formulation Nick Velasquez [facility] 04-12-1997 Hib, unspecified formulation Nick Velasquez [facility] 02-01-1997 DTaP, unspecified formulation Nick Velasquez [facility] 02-01-1997 hepatitis B vaccine, pediatric or pediatric/adolescent dosage Nick Velasquez [facility] 02-01-1997 Hib, unspecified formulation Nick Velasquez [facility] NEGATED: Highlighted row has not occurred!02-13-2022 influenza virus vaccine, unspecified formulation Nick Velasquez [facility] NEGATED: Highlighted row has not occurred!02-13-2022 SARS-CoV-2 mRNA (tozinameran 5y-11y) vaccine Nick Velasquez [facility] Payers Date Payer Category Payer Private Health Insurance [id number] 2022 Unknown 2022 [facility] er [id number]. [id number] 2022 Unknown [id number] 1996 Unknown [id number] 2.16.840.1.735492.3.579.2. 593 1996 Unknown [id number] 2.16.840.1.665020.3.579.2. 593 1996 Unknown [id number] 2.16.840.1.179067.3.579.2. 593 1996 Unknown [id number] 2.16.840.1.759397.3.579.2. 727 1996 Unknown [id number] 2.16.840.1.360106.3.579.2. 72 1996 Unknown [id number] 2.16.840.1.278405.3.579.2. 727 1996 Unknown [id number] 2.16.840.1.008028.3.579.2. 727 1996 Unknown [id number] 2.16.840.1.342254.3.579.2. 727 1996 Unknown [id number] 2.16.840.1.764171.3.579.2. 727 1996 Unknown [id number] 2.16.840.1.161881.3.579.2. 727 1996 Unknown [id number] 2.16.840.1.204786.3.579.2. 72 1996 Unknown [id number] 2.16.840.1.129877.3.579.2. 727 1996 Unknown [id number] 2.16.840.1.598900.3.579.2. 1259 1996 Unknown [id number] 2.16.840.1.923554.3.579.2. 1258 1996 Unknown [id number] 2.16.840.1.773949.3.579.2. 1258 1996 Unknown [id number] 2.16.840.1.305771.3.579.2. 1258 1996 Unknown [id number] 2.16.840.1.056466.3.579.2. 1258 1996 Unknown [id number] 2.16.840.1.980434.3.579.2. 1258 1996 Unknown [id number] 2.16.840.1.891819.3.579.2. 1258 1996 Unknown [id number] 2.16.840.1.196429.3.579.2. 1258 1996 Unknown [id number] 2.16.840.1.376438.3.579.2. 1258 1996 Unknown [id number] 2.16.840.1.781237.3.579.2. 1258 1996 Unknown [id number] 2.16.840.1.433459.3.579.2. 1258 1996 Unknown [id number] 2.16.840.1.663288.3.579.2. 1258 1996 Unknown [id number] 2.16.840.1.786145.3.579.2. 1258 1996 Unknown [id number] 2.16.840.1.566733.3.579.2. 1258 1996 Unknown [id number] 2.16.840.1.876746.3.579.2. 1258 1959 Unknown [id number] 2.16.840.1.166723.19 1959 Unknown [id number] Social History Date Type Detail Facility Unknown if ever smoked [facility] Other Start: 11-02-2023 End: 07-28-2024 Sex Assigned At [facility] Start: 02-13-2022 End: 12-01-2022 Tobacco smoking status Never smoked tobacco (finding) [facility] Start: 07-16-2022 Tobacco smoking status Never [facility] Tobacco smoking status [facility] Start: 12-01-2022 Tobacco use and exposure Smokeless tobacco non-user [facility] Start: 07-28-2024 End: 02-09-2025 Alcoholic beverage intake Lifetime non-drinker (finding) [facility] Start: 11-02-2023 End: 07-28-2024 History of Social function [facility] Start: 10-31-2022 Alcohol Comment Caffeine intake: non e [facility] Start: 06-02-2024 [facility] Start: 1996 Sex assigned at Not on file [facility] Sex Female (finding) [facility] Functional Status Date Assessment Result Facility 11-05-2022 Functional Status N/A [facility] Clinical Notes 02-19-2021 to 02-09-2025 Elvie Cordova [...] Noted H/O: 12/07/2024 30 weeks gestation of ([facility]) 12/20/2024 Third trimester ([facility]) 01/25/2025 Resolved Ambulatory Problems Diagnosis Date [...] nursing note reviewed. Exam conducted with a field agent present. Vitals: Estimated body mass index is 30.87 kg/m as calculated from the following: Height as of 09/05/23: 5' 2 . Weight as of this encounter: 168 lb 12.8 oz. BP: 128/70 No LMP recorded. Patient is . ASSESSMENT & PLAN ICD-10-CM 1. 38 weeks gestation of ([facility]) Z3A.38 POCT urinalysis dipstick manually resulted 2. Third trimester ([facility]) Z34.93 POCT urinalysis dipstick manually [...] reviewed, and patient is to proceed to [facility] OR on her scheduled day. Orders [...] Noted H/O: 12/07/2024 30 weeks gestation of ([facility]) 12/20/2024 Third trimester ([facility]) 01/25/2025 Resolved Ambulatory Problems Diagnosis Date [...] nursing note reviewed. Exam conducted with a field agent present. Vitals: Estimated body mass index is 30.87 kg/m as calculated from the following: Height as of 23: 5' 2 . Weight as of this encounter: 168 lb 12.8 oz. BP: 128/70 No LMP recorded. Patient is . ASSESSMENT & PLAN ICD-10-CM 1. 38 weeks gestation of ([facility]) Z3A.38 POCT urinalysis dipstick manually resulted 2. Third trimester ([facility]) Z34.93 POCT urinalysis dipstick manually [...] Inez Sultana NP documented in this encounter [facility] 02-01-2025 History of Presen t illness Narrative [...] Noted H/O: 12/07/2024 30 weeks gestation of ([facility]) 12/20/2024 Third trimester ([facility]) 01/25/2025 Resolved Ambulatory Problems Diagnosis Date [...] nursing note reviewed. Exam conducted with a field agent present. Vitals: Estimated body mass index is 30.14 kg/m as calculated from the following: Height as of 23: 5' 2 . Weight as of this encounter: 164 lb 12.8 oz. BP: 128/82 No LMP recorded. Patient is . ASSESSMENT & PLAN ICD-10-CM 1. 36 weeks gestation of ([facility]) Z3A.36 POCT urinalysis dipstick manually resulted 2. Third trimester ([facility]) Z34.93 Return OB: Patient presents [...] Inez Sultana NP documented in this encounter [facility] 01-25-2025 History of Presen t illness Narrative [...] Noted H/O: 12/07/2024 30 weeks gestation of ([facility]) 12/20/2024 Third trimester ([facility]) 01/25/2025 Resolved Ambulatory Problems Diagnosis Date Noted No Resolved Ambulatory Problems Past Medical History: Diagnosis Date Asthma ([facility]) Benign parotid tumor Facial paresis Facial weakness Fracture, humerus Pharyngitis Sialocele Syncope Tonsillitis HISTORY PAST MEDICAL HISTORY SOCIAL HISTORY Past Medical History: Diagnosis Date Asthma ([facility]) Benign parotid tumor Facial paresis [...] nursing note reviewed. Exam conducted with a field agent present. Vitals: Estimated body mass index is 30.02 kg/m as calculated from the following: Height as of 09/05/22: 5' 2 . Weight as of this encounter: 164 lb 1.9 oz. BP: 118/70 No LMP recorded. Patient is . ASSESSMENT & PLAN ICD-10-CM 1. 35 weeks gestation of ([facility]) Z3A.35 POCT urinalysis dipstick manually resulted CULTURE, GROUP B STREP WITH SUSCEPTIBLITY CULTURE, GROUP B STREP WITH SUSCEPTIBLITY 2. Third trimester ([facility]) Z34.93 POCT urinalysis dipstick manually [...] of: SOFI Rollins documented in this encounter [facility] 01-18-2025 History of Presen t illness Narrative [...] Noted H/O: 12/07/2024 30 weeks gestation of ([facility]) 12/20/2024 Resolved Ambulatory Problems Diagnosis [...] nursing note reviewed. Exam conducted with a field agent present. Vitals: Estimated body mass index is 29.23 kg/m as calculated from the following: Height as of 09/05/22: 5' 2 . Weight as of this encounter: 159 lb 12.8 oz. BP: 120/70 No LMP recorded. Patient is . ASSESSMENT & PLAN ICD-10-CM 1. 34 weeks gestation of ([facility]) Z3A.34 POCT urinalysis dipstick manually resulted 2. Third trimester ([facility]) Z34.93 POCT urinalysis dipstick manually [...] Claudio Alanis DO documented in this encounter [facility] 01-03-2025 History of Presen t illness Narrative [...] Noted H/O: 12/07/2024 30 weeks gestation of ([facility]) 12/20/2024 Resolved Ambulatory Problems Diagnosis Date Noted No Resolved Ambulatory Problems Past Medical History: Diagnosis Date Asthma ([facility]) Benign parotid tumor Facial paresis [...] PLAN ICD-10-CM 1. 32 weeks gestation of ([facility]) Z3A.32 POCT urinalysis dipstick manually resulted 2. Third trimester ([facility]) Z34.93 POCT urinalysis dipstick manually [...] of: SOFI Rollins documented in this encounter [facility] 12-20-2024 History of Presen t illness Narrative Reason for Appointment: Patient ID: Radha Hart is a 29 y.o. female who presents for Routine Visit Patient presents today for Return OB appointment. MEDICATIONS Current Outpatient Medications Medication Instructions MV-Min-Fe Fum-FA-DHA ( 1 PO) Oral ALLERGIES Allergies Allergen Reactions Codeine Hallucinations PROBLEMS Active Ambulatory Problems Diagnosis Date Noted H/O: 12/07/2024 30 weeks gestation of ([facility]) 12/20/2024 Resolved Ambulatory Problems Diagnosis [...] nursing note reviewed. Exam conducted with a field agent present. Vitals: Estimated body mass index is 28.61 kg/m as calculated from the following: Height as of 09/05/23: 5' 2 . Weight as of this encounter: 156 lb 6.4 oz. BP: 110/80 No LMP recorded. Patient is . ASSESSMENT & PLAN ICD-10-CM 1. 30 weeks gestation of ([facility]) Z3A.30 POCT urinalysis dipstick manually resulted 2. Third trimester ([facility]) Z34.93 POCT urinalysis dipstick manually [...] Claudio Alanis DO documented in this encounter [facility] 12-07-2024 History of Presen t illness Narrative [...] nursing note reviewed. Exam conducted with a field agent present. Vitals: Estimated body mass index is 27.44 kg/m as calculated from the following: Height as of 09/05/23: 5' 2 . Weight as of this encounter: 150 lb. BP: 124/76 No LMP recorded. Patient is . ASSESSMENT & PLAN ICD-10-CM 1. Third trimester ([facility]) Z34.93 POCT urinalysis dipstick manually resulted 2. 28 weeks gestation of ([facility]) Z3A.28 3. H/O: Z98.891 Return OB: [...] Claudio Alanis DO documented in this encounter [facility] 11-15-2024 History of Presen t illness Narrative [...] ASSESSMENT & PLAN ICD-10-CM 1. Second trimester ([facility]) Z34.92 POCT urinalysis dipstick manually resulted 2. 25 weeks gestation of ([facility]) Z3A.25 3. Diabetes mellitus screening Z13.1 [...] schedule. Pt will have orders done at [facility]. Pt was advised to have the lab department fax it back to our office. PVU Orders Placed This Encounter Procedures CBC Glucose tolerance, 1 hour POCT urinalysis dipstick manually resulted Follow Up: Patient is to return to office in 3 week for routine OB appointment. Documented by Melissa Muir MA on behalf of: SOFI Rollins documented in this encounter [facility] 10-18-2024 History of Presen t illness Narrative [...] nursing note reviewed. Exam conducted with a field agent present. Vitals: Estimated body mass index is 26.06 kg/m as calculated from the following: Height as of 09/05/22: 5' 2 . Weight as of this encounter: 142 lb 8 oz. BP: 120/72 No LMP recorded. Patient is . ASSESSMENT & PLAN ICD-10-CM 1. Second trimester ([facility]) Z34.92 POCT urinalysis dipstick manually resulted 2. 21 weeks gestation of ([facility]) Z3A.21 Patient presents today for a routine obstetrics appointment. Patient is currently 21w5d with a Estimated Date of Delivery: 02/23/25.Pt had anatomy scan prior to appt, will notify of results. Pt to return in 4 weeks for scheduled OB appt. Documented by Jany Reaves LPN on behalf of: Claudio Alanis DO documented in this encounter [facility] 09-20-2024 History of Presen t illness Narrative [...] nursing note reviewed. Exam conducted with a field agent present. Vitals: Estimated body mass index is [...] of: SOFI Rollins documented in this encounter [facility] 08-17-2024 History of Presen t illness Narrative [...] nursing note reviewed. Exam conducted with a field agent present. Vitals: Estimated body mass index is [...] or undercooked meat, and stay away from [facility]. Patient has been consulted regarding any further do's and don'ts of . Patient voiced understanding and all questions and concerns were answered. Orders Placed This Encounter Procedures POCT urinalysis dipstick manually resulted Follow Up: Patient is to return in 4 weeks for routine OB appointment. Documented by Jany Reaves LPN on behalf of: Claudio Alanis DO documented in this encounter [facility] 07-28-2024 History of Presen t illness Narrative [...] or undercooked meat, and stay away from [facility]. Patient has also been advised to [...] Ester Irwin LPN documented in this encounter [facility] 11-05-2022 Evaluation + Plan note Extrac mark [...] Orthostatic Vitals Signs UA With Cult Reflex [facility]07-05-2023 Hospital Discharge instructions Patient Education 11/05/2022 [...] Follow these instructions at home: Medicines Take oyor-lrl-xnszquh and prescription medicines only as told by [...] provider. Document Revised: 08/29/2021 Document Reviewed: 08/29/2021 [employer] Patient Education 2022 [employer]. Follow Up Care 11/05/2022 07:56:32 With:Claudio ALANIS Address: [address] , [place] [address]- Business (1) When:11/08/2022 11:24:54 With:ANTHONY ROMAN Address: [address] [place] [id number] Business (1) When:11/08/2022 11:24:32 Comments:Call the office [...] you develop any new or worsening symptoms. [facility]10-16-2022 NoteMicrobiology PROCEDURE: Strep Screen Culture [R1] SOURCE: Throat BODY SITE: COLLECTED DATE/TIME: 02/13/2022 15:00 EDT RECEIVED DATE/TIME: 02/14/2022 12:00 EDT START DATE/TIME: 02/14/2022 12:00 EDT FREE TEXT SOURCE: RYAN Martinez APRN-C, RYAN Martinez APRN-Lakshmi, Bindu X Bindu X FINAL REPORTS Final Report [] Verified Date/Time: 02/16/2022 11:56 EDT No Pathogenic Streptococcus Isolated Performing Locations R1: This test was performed at: [facility], [address] [place] [address], [id number] , , [facility] Hospital[facility] on above:Performed By: #### [id number] #### [facility] [address] [place] [address] [phone] Evaluation note* Encounter Date Diagnosis Assessment Notes [...] Patient care instructions given in writting by [facility] At Home document. [employer] Other Evaluation note* Diagnosis Missed menses , [...] FRACTURE 1998 Surgical History LEFT PAROTIDECTOMY 2015 [facility] Other Hospital course Narrative No data available for this section [facility] No data available for this section [facility] Progress note No data available for this section [facility] Summary Purpose Family History No Family [...] CREATED AUTHOR AUTHOR'S ORGANIZ ATION 06/27/2024 [facility] DATE CREATED AUTHOR AUTHOR'S ORGANIZ ATION 06/28/2024 [facility] DATE CREATED AUTHOR AUTHOR'S ORGANIZ ATION 07/02/2024 [facility] DATE CREATED AUTHOR AUTHOR'S ORGANIZ ATION 07/30/2024 [facility] DATE CREATED AUTHOR AUTHOR'S ORGANIZ ATION 07/31/2024 [facility] DATE CREATED AUTHOR AUTHOR'S ORGANIZ ATION 09/30/2024 [facility] DATE CREATED AUTHOR AUTHOR'S ORGANIZ ATION 11/21/2024 [facility] DATE CREATED AUTHOR AUTHOR'S ORGANIZ ATION 11/23/2024 [facility] DATE CREATED AUTHOR AUTHOR'S ORGANIZ ATION 11/30/2024 [facility] DATE CREATED AUTHOR AUTHOR'S ORGANIZ ATION 02/11/2025 [facility] EPIC Patient Care team informatio n (unrecognized section and content) Manager Quantitative Relationship Specialty Start Date End Date Anthony Roman MD [address] [place] [facility] [place] [address] PCP - General Family Medicine 10/02/22 Manager Quantitative Relationship Specialty Start Date End Date Anthony Roman MD PCP - General Family Medicine 10/02/22 Manager Quantitative Relationship Specialty Start Date End Date Anthony Roman MD [address] [place] [facility] [place] [id number] PCP - General Family Medicine 10/02/22 Manager Quantitative Relationship Specialty Start Date End Date Anthony Roman MD [address] [place] [facility] [place] [id number] PCP - General Family Medicine 10/02/22 Manager Quantitative Relationship Specialty Start Date End Date Anthony Roman MD [address] [place] [facility] [place] [phone] PCP - General Family Medicine 10/02/22 Manager Quantitative Relationship Specialty Start Date End Date Anthony Roman MD [address] [place] [facility] [place] [phone] PCP - General Family Medicine 10/02/22 Manager Quantitative Relationship Specialty Start Date End Date Anthony Roman MD [address] [place] [facility] [place] [phone] PCP - General Family Medicine 10/02/22 Manager Quantitative Relationship Specialty Start Date End Date Anthony Roman MD [address] [place] [facility] [place] [phone] PCP - General Family Medicine 10/02/22 Manager Quantitative Relationship Specialty Start Date End Date Anthony Roman MD [address] [facility] [place] [address] PCP - General Family Medicine 10/02/22 Manager Quantitative Relationship Specialty Start Date End Date Anthony Roman MD [address] [place] [facility] [place] [address] PCP - [facility] Medicine 10/02/22 Manager Quantitative Relationship Specialty Start Date End Date Anthony Roman MD [address] [place] [facility] [place] [address] PCP - General Family Medicine 10/02/22 Manager Quantitative Relationship Specialty Start Date End Date Anthony Roman MD [address] [place] [facility] [place] [address] PCP - General Family Medicine [...] BE BASED ON THE PRIMARY CLINICAL RECORDS. [employer] [facility]. provides no warranty or guarantee of the accuracy or completeness of information in this document.
--- NOTE | 2025-02-20 10:26 | PC.NURSE ---
George Garcia and 4 day old son Amanda, along with 2 yo brother Bari arrive for follow up. Radha states feel so much better than 1st C/S States is using Motrin as needed for incisional pain. Milk in and nipple tenderness is improving. REports no concerns for self or infant. Baby nurses every 2 hours 1-2 sides , feeding approximately 20-25 minutes. Father reports wet/stool diaper with each feed and color is now is more yellow than green. VSS and assessment for Amanda is WNL. Baby calms self during assessment. weight is 10gms under weight today. No concerns noted. Radha with VSS and assessment WNL. Incision intact, no redness or drainage noted. Steri strips in place. Noted to have 2 small tape blisters on edge of left end of incision. These are smaller than 2-3 mm. No drainage from those as well. Radha rodriguez has full appetite and has had BM since delivery. Trace of edema in ankles only. Pulses are palpable bilaterally. No concerns noted for Radha. to breast and deep latch noted with good positioning and support. Father/ attentive and places rolled blanket under wrist for support. Father entertains 2yo as well. Baby feeds 1 breast and does not wake when offered second breast. Family home at this time. Aware to call for concerns and of [facility] group. States will try to attend in March.
[2025-02-20 10:27] VITALS: BP 117/77; PULSE 100; TEMP 36.8; O2SAT 96
== END 2025-02-20 10:31 | disposition home or self-care (01) ==
LOC: FBCO 08:09
PROVIDERS: PCP Family Medicine; Visit Provider Obstetrics & Gynecology
DX: Z39.1 Encounter for care and examination of lactating mother (principal)